=== PATIENT | male | born 1975 | race Caucasian/White ===

== ENCOUNTER 2016-11-25 09:16 | Inpatient (IN) | payer OTHER ==
[~2016-11-25] VITALS: Ht 185.4 cm; Wt 84.3 kg
[2016-11-25] VITALS (9 sets, daily range): BP systolic 96–143; BP diastolic 51–98; PULSE 52–88; RESP 2–24; TEMP 96.6–98; O2SAT 90–99
[~2016-11-25 09:16] MED LIST: FURO1TAB93 PO; LACT20SO4 PO; OXYC5 PO; PALI3 PO; PANT40IN3 PO; PROP1TAB66 PO; RIFA550 PO; SPIR50 PO; THIA100T PO
--- NOTE | 2016-11-25 09:39 | PD ---
HPI Chief Complaint: Respiratory Symptoms Time Seen by Provider: 09:25 Travel History International Travel<30 days: No Contact w/Intl Traveler<30days: No Traveled to known affect area: No History of Present Illness HPI 41yo M with PMH of cirrhosis, chronic alcohol abuse presents to the ED with c/o worsening sob for 2 weeks. Pt also with epigastric abdominal pain that radiates to left chest. Denies any fever, n/v, urinary complaints. Pt was admitted 08/03/16-09/06/16 for septic shock with right pleural effusion/ pneumonia. Pt has hospice follow up at home and was instructed by hospice nurse to come to the ED because of worsening sob. Pt states last alcohol drink was yesterday. PFSH Past Medical History Hx Anticoagulant Therapy: No Anxiety: Yes Cancer: No Cardiovascular Problems: Yes Chemotherapy: No Cirrhosis: Yes Cerebrovascular Accident: No Diabetes: No Diminished Hearing: No Endocrine: No Genitourinary: No Hepatitis: Yes (pt. denies) Hypertension: Yes Implanted Vascular Access Dvce: No Musculoskeletal: Yes (SCOLIOSIS, KNEE & SHOULDER INJURIES) Neurologic: Yes (SEIZURES ("ALL ALCOHOL RELATED" PER PT)) Reproductive: No Respiratory: No Seizures: Yes Menopausal: Yes Past Surgical History Hysterectomy: No Oral Surgery: Yes (jaw) Other Surgery: Yes ( LEFT KNEE & RIGHT SHOULDER) Social History Alcohol Use: Yes ( 6 mixed drinks daily ) Tobacco Use: No Substance Use: Yes (pot) Allergies-Medications (Allergen,Severity, Reaction): Coded Allergies: *MDRO Multi-Drug Resistant Organism (Verified Adverse Reaction, Unknown, ) MRSA PCR Screen (nares) POSITIVE - 08/03/16 Reported Meds & Prescriptions Reported Meds & Active Scripts Active Reported Thiamine (Thiamine HCl) 100 Mg Tab 100 Mg PO DAILY Ativan (Lorazepam) 1 Mg Tab 1 Mg PO BID Lorazepam 1 Mg Tab 1 Mg PO/SL Q3HR PRN Lorazepam 2 Mg Tab 2 Mg PO Q3HR PRN Lactulose Liq (Lactulose) 10 Gm/15 Ml Soln 45 Ml PO TID Ibuprofen 400 Mg Tab 400 Mg PO Q6H PRN Advil (Ibuprofen) 200 Mg Tab 200 Mg PO Q6H PRN Haloperidol 2 Mg Tab 2 Mg PO Q3HR PRN Haloperidol 1 Mg Tab 1 Mg PO/SL Q3HR PRN Lasix (Furosemide) 20 Mg Tab 10 Mg PO DAILY Lasix (Furosemide) 20 Mg Tab 20 Mg PO DAILY PRN Divalproex DR (Divalproex Sodium) 250 Mg Tabdr 250 Mg PO BID Dexamethasone 2 Mg Tab 2 Mg PO DAILY Celexa (Citalopram Hydrobromide) 40 Mg Tab 40 Mg PO DAILY Aldactone (Spironolactone) 25 Mg Tab 10 Mg PO/SL BID Propranolol (Propranolol HCl) 10 Mg Tab 5 Mg PO Q12HR Omeprazole 40 Mg Cap 40 Mg PO DAILY Morphine Liq (Morphine Sulfate) 20 Mg/Ml Liq 10 Mg PO/SL Q4H PRN Morphine Liq (Morphine Sulfate) 20 Mg/Ml Liq 5 Mg PO/SL Q4H PRN Review of Systems Except as stated in HPI: all other systems reviewed are Neg Physical Exam Narrative GENERAL: 41yo M in moderate distress. SKIN: Warm and dry. HEAD: Atraumatic. Normocephalic. EYES: Pupils equal and round. No scleral icterus. No injection or drainage. ENT: No nasal bleeding or discharge. Mucous membranes pink and moist. NECK: Trachea midline. No JVD. CARDIOVASCULAR: Regular rate and rhythm. No murmur appreciated. RESPIRATORY: Positive accessory muscle use. Decreased breath sounds on right. Tachypneic. Saturating at 94% on RA. GASTROINTESTINAL: Abdomen softly distended. +TTP epigastric region. No rebound tenderness or guarding. MUSCULOSKELETAL: No obvious deformities. No clubbing. No cyanosis. NEUROLOGICAL: Awake and alert. No obvious cranial nerve deficits. Motor grossly within normal limits. Normal speech. PSYCHIATRIC: Appropriate mood and affect; insight and judgment normal. Data Data Last Documented VS Vital Signs Date Time Temp Pulse Resp B/P Pulse Ox O2 Delivery O2 Flow Rate FiO2 11/25/16 11:03 92 Nasal Cannula 3.00 11/25/16 09:49 78 24 141/98 11/25/16 09:20 98.0 Orders Complete Blood Count With Diff (11/25/16 09:33) Comprehensive Metabolic Panel (11/25/16 09:33) Act Partial Throm Time (Ptt) (11/25/16 09:33) Prothrombin Time / Inr (Pt) (11/25/16 09:33) Magnesium (Mg) (11/25/16 09:33) Ckmb (Isoenzyme) Profile (11/25/16 09:33) Troponin I (11/25/16 09:33) Iv Access Insert/Monitor (11/25/16 09:33) Ecg Monitoring (11/25/16 09:33) Oximetry (11/25/16 09:33) Oxygen Administration (11/25/16 09:33) Chest, Single Ap (11/25/16 09:33) Sodium Chloride 0.9% Flush (Ns Flush) (11/25/16 09:45) Lactic Acid Sepsis Protocol (11/25/16 09:33) Ammonia (11/25/16 09:33) Lipase (11/25/16 09:33) Blood Culture (11/25/16 09:49) Aztreonam Inj (Azactam Inj) (11/25/16 09:49) Azithromycin Inj (Zithromax Inj) (11/25/16 09:49) Sodium Chlor 0.9% 1000 Ml Inj (Ns 1000 M (11/25/16 10:30) Sodium Chlor 0.9% 1000 Ml Inj (Ns 1000 M (11/25/16 10:30) Sodium Chlor 0.9% 1000 Ml Inj (Ns 1000 M (11/25/16 10:30) Arterial Blood Gas (Abg) (11/25/16 ) CKMB (11/25/16 09:57) CKMB% (11/25/16 09:57) Electrocardiogram (11/25/16 09:38) Admit Order (Ed Use Only) (11/25/16 11:13) Labs Laboratory Tests Test 11/25/16 11/25/16 09:57 10:51 White Blood Count 16.2 TH/MM3 Red Blood Count 5.28 MIL/MM3 Hemoglobin 17.0 GM/DL Hematocrit 49.1 % Mean Corpuscular Volume 93.0 FL Mean Corpuscular Hemoglobin 32.1 PG Mean Corpuscular Hemoglobin 34.6 % Concent Red Cell Distribution Width 15.1 % Platelet Count 124 TH/MM3 Mean Platelet Volume 8.6 FL Neutrophils (%) (Auto) 77.2 % Lymphocytes (%) (Auto) 11.5 % Monocytes (%) (Auto) 11.0 % Eosinophils (%) (Auto) 0.2 % Basophils (%) (Auto) 0.1 % Neutrophils # (Auto) 12.5 TH/MM3 Lymphocytes # (Auto) 1.9 TH/MM3 Monocytes # (Auto) 1.8 TH/MM3 Eosinophils # (Auto) 0.0 TH/MM3 Basophils # (Auto) 0.0 TH/MM3 CBC Comment DIFF FINAL Differential Comment Prothrombin Time 14.3 SEC Prothromb Time International 1.3 RATIO Ratio Activated Partial 27.7 SEC Thromboplast Time Sodium Level 139 MEQ/L Potassium Level 4.1 MEQ/L Chloride Level 102 MEQ/L Carbon Dioxide Level 29.8 MEQ/L Anion Gap 7 MEQ/L Blood Urea Nitrogen 20 MG/DL Creatinine 0.67 MG/DL Estimat Glomerular Filtration 131 ML/MIN Rate Random Glucose 148 MG/DL Lactic Acid Level 1.8 mmol/L Calcium Level 8.6 MG/DL Magnesium Level 2.4 MG/DL Total Bilirubin 1.4 MG/DL Aspartate Amino Transf 34 U/L (AST/SGOT) Alanine Aminotransferase 59 U/L (ALT/SGPT) Alkaline Phosphatase 109 U/L Ammonia 18 MCMOL/L Total Creatine Kinase 137 U/L Creatine Kinase MB 1.8 NG/ML Troponin I LESS THAN 0.02 NG/ML Total Protein 7.4 GM/DL Albumin 3.1 GM/DL Lipase 266 U/L Blood Gas Puncture Site RT RADIAL Blood Gas Patient Temperature 98.6 Blood Gas HCO3 27 mmol/L Blood Gas Base Excess 3.6 mmol/L Blood Gas Oxygen Saturation 90 % Arterial Blood pH 7.47 Arterial Blood Partial 38 mmHg Pressure CO2 Arterial Blood Partial 70 mmHG Pressure O2 Arterial Blood Oxygen Content 20.3 Vol % Arterial Blood 2.1 % Carboxyhemoglobin Arterial Blood Methemoglobin 1.9 % Blood Gas Hemoglobin 16.0 G/DL Oxygen Delivery Device NASAL CANNULA Blood Gas Liter Flow 3 L/M MDM Medical Decision Making Medical Screen Exam Complete: Yes Emergency Medical Condition: Yes Interpretation(s) EKG: NSR 81bpm. Normal axis. TWI III. Differential Diagnosis Pleural effusion vs. pneumonia vs. worsening sob secondary to abdominal distension Narrative Course 41yo M with cirrhosis and recent right pleural effusion here with sob. Labs reviewed, leukocytosis at 16.2. Lactic acid 1.8. BUN elevated at 20. Troponin negative. CXR showed complete consolidation of right hemithorax. CT chest ordered to further evaluate and showed very large right pleural effusion with complete collapse of right lung. Pt given NS IVF and azithromycin, aztreonam. Discussed with Dr. Severino and Dr. Gordon who will be admitting pt. Critical Care Narrative Aggregate critical care time was 45 minutes. Time to perform other separately billable procedures was not included in the critical care time. My time did not include minutes spent treating any other patients simultaneously or on activities that did not directly contribute to the patient's treatment. The services I provided to this patient were to treat and/or prevent clinically significant deterioration that could result in: cardiovascular collapse or . I provided critical care services requiring my management, as noted below: Chart data review, documentation time, medication orders and management, vital sign assessments/reviewing monitor data, ordering and reviewing lab tests, ordering and interpreting/reviewing x-rays and diagnostic studies, care of the patient and discussion of the patient with the admitting physicians. Diagnosis Primary Impression: Pleural effusion, right Admitting Information Admitting Physician Requests: Lala Adorno DO Nov 25, 2016 09:39
[2016-11-25] MEDS ORDERED: SODIUM CHLORIDE 0.9% FLUSH 5 ML FLUSH IVF PRN (09:45)
[2016-11-25] MEDS ORDERED: AZITHROMYCIN INJ 500 MG in SODIUM CHLOR 0.9% 250 ML INJ 250 ML IV STA (09:49)
[2016-11-25] MEDS ORDERED: AZTREONAM INJ 2,000 MG in SODIUM CHLORIDE 0.9% INJ 100 ML IV STA (09:49)
--- NOTE | 2016-11-25 10:03 | RADRPT ---
EXAM DATE/TIME: 11/25/2016 09:31 [facility] COMPARISON: CHEST SINGLE AP, September 01, 2016, 13:42. INDICATIONS : Short of breath. Pt. c/o heart palpitations. MEDICAL HISTORY : H/O Pleural Effusion.Hypertension, Hepatitis C, Cirrhosis, Seizures, Anx iety SURGICAL HISTORY : Total knee replacement, left Rotator cuff, right. Jaw surgery. ENCOUNTER: Initial ACUITY: 2 days PAIN SCORE: 0/10 LOCATION: Bilateral chest FINDINGS: AP upright portable view of the chest demonstrates complete opacification of the right hemithorax. Th e trachea remains midline. The left hemithorax is clear. The pulmonary vasculature appears normal in caliber. Osseous structures are unremarkable. CONCLUSION: Complete consolidation of the right hemithorax without evidence of midline shift. Mary Bradley MD on November 25, 2016 at 10:01 Board Certified Radiologist. This report was verified electronically.
[2016-11-25 10:12] LABS: AUTOMATED NEUTROPHIL # 12.5 TH/MM3 (1.8-7.7); BASOPHIL % 0.1 % (0.0-2.0); EOSINOPHIL % 0.2 % (0.0-4.0); HEMATOCRIT 49.1 % (39.0-51.0); HEMO FLAGS DIFF FINAL; LYMPH % 11.5 % (9.0-44.0); LYMPHOCYTE # 1.9 TH/MM3 (1.0-4.8); MEAN CORPUSCULAR HEMOGLOBIN 32.1 PG (27.0-34.0); MEAN CORPUSCULAR HGB CONC 34.6 % (32.0-36.0); NEUT % 77.2 % (16.0-70.0); PLATELET COUNT 124 TH/MM3 (150-450); RED BLOOD COUNT 5.28 MIL/MM3 (4.50-5.90); RED CELL DISTRIBUTION WIDTH 15.1 % (11.6-17.2); WHITE BLOOD COUNT 16.2 TH/MM3 (4.0-11.0)
[2016-11-25 10:21] LABS: APTT (PATIENT) 27.7 SEC (24.3-30.1); INTERNATIONAL NORMALIZED RATIO 1.3 RATIO; PROTHROMBIN TIME - PATIENT 14.3 SEC (9.8-11.6)
[2016-11-25 10:30] LABS: ALT (GPT) 59 U/L (12-78); ANION GAP 7 MEQ/L (5-15); AST (GOT) 34 U/L (15-37); BICARBONATE 29.8 MEQ/L (21.0-32.0); BLOOD UREA NITROGEN 20 MG/DL (7-18); CHLORIDE 102 MEQ/L (98-107); GLOMERULAR FILTRATION RATE 131 ML/MIN (>89); MAGNESIUM 2.4 MG/DL (1.5-2.5); POTASSIUM 4.1 MEQ/L (3.5-5.1); SODIUM (NA) 139 MEQ/L (136-145)
[2016-11-25] MEDS ORDERED: SODIUM CHLOR 0.9% 1000 ML INJ 1,000 ML IV ONE ×3 (10:30)
[2016-11-25 10:33] LABS: ALKALINE PHOSPHATASE 109 U/L (45-117); CREATINE KINASE 137 U/L (39-308); TOTAL BILIRUBIN ADULT 1.4 MG/DL (0.2-1.0)
[2016-11-25 10:46] LABS: CKMB 1.8 NG/ML (0.5-3.6)
[2016-11-25] MEDS ORDERED: OMEP40CA2 PO (10:55)
[2016-11-25] MEDS ORDERED: MORP20SO2 PO/SL (10:55)
[2016-11-25] MEDS ORDERED: PROP10TA6 PO (10:55)
[2016-11-25] MEDS ORDERED: SPIR25 PO/SL (10:56)
[2016-11-25 11:02] LABS: BLOOD GAS BASE EXCESS 3.6 mmol/L (-2-2); BLOOD GAS CARBOXYHEMOGLOBIN 2.1 % (0-4); BLOOD GAS HCO3 27 mmol/L (22-26); BLOOD GAS METHEMOGLOBIN 1.9 % (0-2); BLOOD GAS O2 HGB SATURATION 90 % (90-100); BLOOD GAS OXYGEN CONTENT 20.3 Vol % (12.0-20.0); BLOOD GAS PCO2 38 mmHg (38-42); BLOOD GAS PO2 70 mmHG (61-120); CRITICAL VALUE NO; OXYGEN DEVICE NASAL CANNULA; TEMP CORR TO 98.6
[2016-11-25 11:03] LABS: DRAW SITE RT RADIAL; LITER FLOW 3 L/M; NUMBER OF ARTERIAL PUNCTURES 1; STAT YES; ULNAR PULSE PRESENT
[2016-11-25] MEDS ORDERED: DEXA2TAB PO (11:03)
[2016-11-25] MEDS ORDERED: FURO1TAB62 PO (11:03)
[2016-11-25] MEDS ORDERED: HALO2TAB PO (11:03)
[2016-11-25] MEDS ORDERED: DIVA250T PO (11:03)
[2016-11-25] MEDS ORDERED: HALO1TAB PO/SL (11:03)
[2016-11-25] MEDS ORDERED: CELE40TA PO (11:03)
[2016-11-25] MEDS ORDERED: LACT10SO PO (11:11)
[2016-11-25] MEDS ORDERED: IBUP-988 PO (11:11)
[2016-11-25] MEDS ORDERED: IBUP400T20 PO (11:11)
[2016-11-25] MEDS ORDERED: LORA1TAB12 PO/SL (11:14)
[2016-11-25] MEDS ORDERED: LORA-474 PO (11:14)
[2016-11-25] MEDS ORDERED: LORA2TAB7 PO (11:14)
[2016-11-25] MEDS ORDERED: THIA100T PO (11:20)
[2016-11-25] MEDS ORDERED: PIPERACIL-TAZO 4.5 GM PREMIX 100 ML IV SCH (11:30)
[2016-11-25] MEDS ORDERED: RESP: ALBUTEROL 2.5 MG/IPRATROPIUM 0.5 MG NEB (PRN) INH (11:45)
[2016-11-25] MEDS ORDERED: MISCELLANEOUS NURSING INFORMATION XX SCH (11:45)
[2016-11-25] MEDS ORDERED: CHLORHEXIDINE GLUCONATE 2 % 1 PACK (2 CLOTHS) TOP PRN (11:45)
[2016-11-25] MEDS ORDERED: SODIUM CHLORIDE 0.9% FLUSH 5 ML FLUSH IV FLUSH PRN (11:45)
--- NOTE | 2016-11-25 12:01 | RADRPT ---
EXAM DATE/TIME: 11/25/2016 11:37 [facility] COMPARISON: CHEST SINGLE AP, November 25, 2016, 9:31. CT THORAX W/O CONTRAST, August 03, 2016, 22:28. INDICATIONS : Shortness of breath and chest pain. RADIATION DOSE: 6.29 CTDIvol (mGy) ; Combined studies - Thorax/Abdomen/Pelvis MEDICAL HISTORY : Hepatitis C. Hypertension. SURGICAL HISTORY : None. ENCOUNTER: Initial ACUITY: 1 day PAIN SCALE: 0/10 LOCATION: chest TECHNIQUE: Volumetric scanning of the chest was performed. Using automated exposure control and adjustment of t he mA and/or kV according to patient size, radiation dose was kept as low as reasonably achievable to obtain optimal diagnostic quality images. FINDINGS: LUNGS: There is a very large right-sided pleural effusion with complete collapse of the right lung. There is some mediastinal shift to the left. The left lung is clear and well aerated. No focal infiltrates ar e seen in the left lung. PLEURAE: Very large right pleural effusion. No left effusion. MEDIASTINUM: The heart and great vessels demonstrate no acute abnormality. There is no mediastinal or hilar lymph adenopathy. Mediastinal shift to the left. AXILLAE: Within normal limits. No lymphadenopathy. MUSCULOSKELETAL: Within normal limits for patient age. MISCELLANEOUS: The visualized upper abdominal organs demonstrate no acute abnormality. CONCLUSION: Very large right pleural effusion with complete collapse of the right lung. Sudhakar Zapata MD on November 25, 2016 at 11:56 Board Certified Radiologist. This report was verified electronically.
--- NOTE | 2016-11-25 12:02 | HHI.HP ---
[facility] Service Critical Care Medicine Primary Care Physician No Primary Care Physician Admission Diagnosis Sepsis Diagnosis: (1) Sepsis Diagnosis: Principal (2) Respiratory insufficiency Diagnosis: Principal (3) Pleural effusion, right Diagnosis: Principal (4) Collapse of right lung Diagnosis: Principal (5) Probable pneumonia Diagnosis: Principal (6) Seizure Diagnosis: Secondary (7) Liver failure Diagnosis: Secondary (8) Alcohol dependence Diagnosis: Secondary (9) Alcohol-induced cirrhosis Chief Complaint: Shortness of breath Sepsis Very large right pleural effusion Travel History International Travel<30 Days: No Contact w/Intl Traveler <30 Da: No Traveled to Known Affected Are: No Sepsis Criteria SIRS Criteria (2 or more): RR > 20 or PaCO2 < 32, WBC > 96603, < 4000 or > 10 % bands Sepsis Criteria (SIRS+source): Infect source susp/known Criteria Outcome: Meets sepsis criteria History of Present Illness Patient is a 41-year-old male with history alcohol-induced cirrhosis, alcohol dependence and continued use, history of alcohol withdrawal seizures who presented to the emergency department with increasing shortness of breath worsening over the last 2 weeks. Also complains of epigastric pain. He was recently admitted to the hospital from 08/03/16 - 09/06/16 for sepsis from pneumonia. Workup showed patient had a white count of 16,000 with 77% neutrophils. A chest x-ray showed large right effusion with complete opacification of right lung field. CT of the chest confirmed very large right effusion with mediastinal shift and complete right lung atelectasis. CT abdomen pelvis shows large amount of ascites and liver cirrhosis. Critical- care medicine was consulted for admission I evaluated the patient in the ED he is in moderate distress due to shortness of breath. He is lying on his right side. I explained him the plan is to place right sided pigtail chest tube as a pleural effusion is very large. He is agreeable to the procedure. I have also placed him on single dose of vancomycin and continuos Zosyn 4.5 g every 6 hours. Lasix will be held at this time, continue Aldactone. IV normal saline and IV albumin added. Was also noted the patient's last alcoholic drink was yesterday evening. Review of Systems ROS Limitations: Other (as per HPI) Eyes: DENIES: Photosensitivity Past Family Social History 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 - 08/03/16 Past Medical History Alcoholic cirrhosis Anxiety Recent admission for sepsis from pneumonia Alcohol dependence Past Surgical History Right shoulder and left knee surgery History of Jaw surgery Reported Medications Haloperidol 2 Mg Tab 2 Mg PO Q3HR PRN Haloperidol 1 Mg Tab 1 Mg PO/SL Q3HR PRN Lasix (Furosemide) 20 Mg Tab 10 Mg PO DAILY Lasix (Furosemide) 20 Mg Tab 20 Mg PO DAILY PRN Divalproex DR (Divalproex Sodium) 250 Mg Tabdr 250 Mg PO BID Dexamethasone 2 Mg Tab 2 Mg PO DAILY Celexa (Citalopram Hydrobromide) 40 Mg Tab 40 Mg PO DAILY Aldactone (Spironolactone) 25 Mg Tab 10 Mg PO/SL BID Propranolol (Propranolol HCl) 10 Mg Tab 5 Mg PO Q12HR Omeprazole 40 Mg Cap 40 Mg PO DAILY Morphine Liq (Morphine Sulfate) 20 Mg/Ml Liq 10 Mg PO/SL Q4H PRN Morphine Liq (Morphine Sulfate) 20 Mg/Ml Liq 5 Mg PO/SL Q4H PRN Active Ordered Medications Reviewed Family History Reviewed Social History Continues to drink alcohol about 6 drinks daily Smokes marijuana Physical Exam Vital Signs Vital Signs Date Time Temp Pulse Resp B/P Pulse Ox O2 Delivery O2 Flow Rate FiO2 11/25/16 11:03 92 Nasal Cannula 3.00 11/25/16 09:49 78 24 141/98 93 Nasal Cannula 2 11/25/16 09:47 95 Nasal Cannula 3 11/25/16 09:20 98.0 88 24 135/85 94 Room Air Physical Exam GENERAL: 41yo M in moderate distress, lying on his right side. Appears critically ill. SKIN: Warm and dry. HEAD: Atraumatic. Normocephalic. EYES: Pupils equal and round. No scleral icterus. ENT: No nasal bleeding or discharge. Mucous membranes pink and moist. NECK: Trachea midline. No JVD. CARDIOVASCULAR: Regular rate and rhythm. No murmur appreciated. RESPIRATORY: Positive accessory muscle use. Diminished to absent breath sounds on right. Tachypneic. GASTROINTESTINAL: Abdomen distended, soft, fluid thrill present. MUSCULOSKELETAL: No obvious deformities. No clubbing. No cyanosis. No edema. NEUROLOGICAL: Awake and alert. No obvious cranial nerve deficits. Motor grossly within normal limits. Normal speech. Slightly tremulous Laboratory Laboratory Tests Test 11/25/16 11/25/16 09:57 10:51 White Blood Count 16.2 Red Blood Count 5.28 Hemoglobin 17.0 Hematocrit 49.1 Mean Corpuscular Volume 93.0 Mean Corpuscular Hemoglobin 32.1 Mean Corpuscular Hemoglobin 34.6 Concent Red Cell Distribution Width 15.1 Platelet Count 124 Mean Platelet Volume 8.6 Neutrophils (%) (Auto) 77.2 Lymphocytes (%) (Auto) 11.5 Monocytes (%) (Auto) 11.0 Eosinophils (%) (Auto) 0.2 Basophils (%) (Auto) 0.1 Neutrophils # (Auto) 12.5 Lymphocytes # (Auto) 1.9 Monocytes # (Auto) 1.8 Eosinophils # (Auto) 0.0 Basophils # (Auto) 0.0 CBC Comment DIFF FINAL Differential Comment Prothrombin Time 14.3 Prothromb Time International 1.3 Ratio Activated Partial 27.7 Thromboplast Time Sodium Level 139 Potassium Level 4.1 Chloride Level 102 Carbon Dioxide Level 29.8 Anion Gap 7 Blood Urea Nitrogen 20 Creatinine 0.67 Estimat Glomerular Filtration 131 Rate Random Glucose 148 Lactic Acid Level 1.8 Calcium Level 8.6 Magnesium Level 2.4 Total Bilirubin 1.4 Aspartate Amino Transf 34 (AST/SGOT) Alanine Aminotransferase 59 (ALT/SGPT) Alkaline Phosphatase 109 Ammonia 18 Total Creatine Kinase 137 Creatine Kinase MB 1.8 Troponin I LESS THAN 0.02 Total Protein 7.4 Albumin 3.1 Lipase 266 Blood Gas Puncture Site RT RADIAL Blood Gas Patient Temperature 98.6 Blood Gas HCO3 27 Blood Gas Base Excess 3.6 Blood Gas Oxygen Saturation 90 Arterial Blood pH 7.47 Arterial Blood Partial 38 Pressure CO2 Arterial Blood Partial 70 Pressure O2 Arterial Blood Oxygen Content 20.3 Arterial Blood 2.1 Carboxyhemoglobin Arterial Blood Methemoglobin 1.9 Blood Gas Hemoglobin 16.0 Oxygen Delivery Device NASAL CANNULA Blood Gas Liter Flow 3 Date/Time Procedure Status Source Growth 11/25/16 09:57 Aerobic Blood Culture Received Blood Peripheral Pending 11/25/16 09:57 Anaerobic Blood Culture Received Blood Peripheral Pending Result Diagram: 11/25/16 0957 11/25/16 0957 Imaging Chest x-ray and CT chest shows very large right pleural effusion with right lung collapse CT abdomen pelvis shows large ascites Septic Shock Reassessment Heart: Regular rate and rhythm Lungs: Course, Diminished Peripheral Pulses: Weak Right Radial Weak Left Radial Assessment and Plan Assessment and Plan Problem list: Sepsis Respiratory insufficiency Large right pleural effusion with complete collapse of right lung, mediastinal shift Suspected pneumonia Ascites Alcohol-induced liver cirrhosis Alcohol dependence Plan by system: Neuro: Alcohol dependence History of seizures from alcohol withdrawal -Monitor neuro status. We will use Ativan when necessary to avoid alcohol withdrawal. Scheduled Librium. Thiamine 100 mg daily. Cardiovascular: -Hemodynamically stable at this time, continue IV maintenance fluid with normal saline -IV albumin 25 g every 8 hours -Hold Lasix, continue Aldactone Pulmonary: Very large right pleural effusion with right lung collapse and mass effect Respiratory insufficiency Possible pneumonia -Supplemental O2 as needed. Bronchodilators when necessary. -Plan for R pigtail chest tube placement. Send for fluid studies -Broad-spectrum antibiotics with Zosyn and single dose of vancomycin GI/liver: Alcoholic liver disease Ascites -CT abdomen and pelvis -large amount of ascites and cirrhotic liver -Continue lactulose -Diagnostic and therapeutic paracentesis in 24 hours -Continue Inderal and Aldactone. Hold Lasix Renal/: -Continue normal saline IV fluid. Monitor renal function closely ID: Sepsis Suspected pneumonia -IV vancomycin single dose and Zosyn 4.5 g every 6 hours -Follow up on blood and sputum culture. Pleural fluid studies and culture -Paracentesis within 24 hours Endocrine: -SSI for glycemic control if needed. -Electrolyte replacement protocol Heme: -Follow CBC -Watchful coagulopathy and thrombocytopenia Prophylaxis: -PPI/SCDs/Lovenox in 24 hours after procedures are completed CCT 45 MIN Code Status Full Discussed Condition With Dr. Holland, Problem Qualifiers (1) Sepsis: Qualified Code: A41.9 - Sepsis, due to unspecified organism (2) Alcohol dependence: Ton Gordon MD Nov 25, 2016 12:02
--- NOTE | 2016-11-25 12:05 | RADRPT ---
EXAM DATE/TIME: 11/25/2016 11:37 [facility] COMPARISON: CT ABDOMEN & PELVIS W/O CONTRAST, August 03, 2016, 22:28. INDICATIONS : Epigastric pain that radiates to the left chest. ORAL CONTRAST: No oral contrast ingested. RADIATION DOSE: 6.29 CTDIvol (mGy) ; Combined studies - Thorax/Abdomen/Pelvis MEDICAL HISTORY : Hypertension. Hepatitis C. SURGICAL HISTORY : None. ENCOUNTER: Initial ACUITY: 1 day PAIN SCALE: 5/10 LOCATION: chest TECHNIQUE: Volumetric scanning of the abdomen and pelvis was performed. Using automated exposure control and adjustment of the mA and/or kV according to patient size, radiation dose was kept as low as reasonably achievable to obtain optimal diagnostic quality images. FINDINGS: LOWER LUNGS: There is a large right-sided pleural effusion with compressive atelectasis of the ri ght lung. This causes mild mass effect upon the heart displacing it are there left within the left he mithorax. Compressive atelectasis is seen within the left lung base. No visible pericardial effusion. LIVER: The liver is decreased in size with heterogeneous attenuation and nodular contour consiste nt with cirrhosis. Stable cholelithiasis. There is adjacent large volume ascites. SPLEEN: The spleen is normal in size. PANCREAS: Within normal limits. KIDNEYS: Normal in size and shape. There is no mass, stone, or hydronephrosis. ADRENAL GLANDS: Within normal limits. VASCULAR: There is no aortic aneurysm. BOWEL/MESENTERY: The stomach, small bowel, and colon demonstrate no acute abnormality. ABDOMINAL WALL: Within normal limits. RETROPERITONEUM: There is no lymphadenopathy. BLADDER: No wall thickening or mass. REPRODUCTIVE: Within normal limits. INGUINAL: There is no lymphadenopathy or hernia. MUSCULOSKELETAL: Within normal limits for patient age. CONCLUSION: Large right-sided pleural effusion with adjacent compressive atelectasis of the right lung. There is mass effect on the heart displacing it leftward within the thoracic cavity. There is a large amount of ascites which is not significantly changed as compared to the prior exam. The liver has a cirrhotic appearance. Mary Bradley MD on November 25, 2016 at 11:59 Board Certified Radiologist. This report was verified electronically.
[2016-11-25] MEDS ORDERED: MORPHINE SULFATE ORAL SOLN 10 MG/0.5 ML SYRINGE PO/SL PRN (12:15)
[2016-11-25] MEDS ORDERED: PILL SPLITTER OTHER PRN (12:30)
[2016-11-25] MEDS: RESP: ALBUTEROL 2.5 MG/IPRATROPIUM 0.5 MG NEB (SCH) INH ×4 (13:21→23:14)
[2016-11-25] MEDS: SODIUM CHLOR 0.9% 1000 ML INJ 1,000 ML IV SCH (14:17)
[2016-11-25] MEDS: PIPERACIL-TAZO 4.5 GM PREMIX 100 ML IV SCH ×2 (14:19→20:06)
[2016-11-25] MEDS: LACTULOSE SYRUP 20 GM/30 ML CUP PO SCH ×2 (15:41→18:00)
--- NOTE | 2016-11-25 17:30 | PD.PROCEDR ---
Procedure Note Procedure R Pig tail chest tube Indication: Large right pleural effusion A time-out was completed verifying correct patient, procedure, site, positioning , and equipment if applicable. The patient's right side was prepped and draped in a sterile manner after the appropriate infiltration level was confirmed by ultrasound. 1% lidocaine was used anesthetize the surrounding skin. A 10-blade scalpel used to make the incision. 18 G Access needle was then introduced without difficulty and guidewire was placed and needle was removed. 7 Tongan dilator was used. Following this the 8 Tongan pigtail Catheter advanced over the guidewire and connected to the Pleur-evac system. Chest tube was draining cloudy yellow (very sligh greenish tinge) pleural fluid. Occlusive dressing placed. A post-procedure chest x-ray was ordered and the fluid will be sent for several studies. Estimated Blood Loss: <1 ml. The patient tolerated the procedure well and there were no immediate complications. Ton Gordon MD Nov 25, 2016 17:30
[2016-11-25] MEDS ORDERED: Vancomycin Consult Pharmacy 1 EA OTHER SCH (17:45)
[2016-11-25] MEDS: SPIRONOLACTONE 25 MG TAB PO SCH (17:51)
[2016-11-25] MEDS: ALBUMIN HUMAN 25% 25 GM/100 ML BAGP IV SCH (17:51)
--- NOTE | 2016-11-25 17:59 | RADRPT ---
EXAM DATE/TIME: 11/25/2016 17:42 [facility] COMPARISON: CT THORAX W/O CONTRAST, November 25, 2016, 11:37. CHEST SINGLE AP, November 25, 2016, 9:31. INDICATIONS : Post right lung chest tube placement. MEDICAL HISTORY : Hypertension. Hepatitis C. SURGICAL HISTORY : None. ENCOUNTER: Subsequent ACUITY: 1 day PAIN SCORE: Non-responsive. LOCATION: Right chest FINDINGS: Small bore chest tube has been placed on the right with moderate fluid remaining on the right. The l eft lung is clear. Heart and pulmonary vascularity are normal. CONCLUSION: Large pleural effusion on the right. There has been no change following placement of small bore chest tube. Irineo Mattson MD FACR on November 25, 2016 at 17:50 Board Certified Radiologist. This report was verified electronically.
[2016-11-25] MEDS ORDERED: VANCOMYCIN INJ 1,250 MG in SODIUM CHLOR 0.9% 250 ML INJ 250 ML IV ONE (19:00)
[2016-11-25 19:29] LABS: CHOLESTEROL, PLEURAL FLUID LESS THAN 50 MG/DL
--- NOTE | 2016-11-25 19:36 | EKG ---
Date Performed: 11/25/2016 Time Performed: 09:38:56 PTAGE: 41 years EKG: Sinus rhythm WITH SHORT PA INTERVAL BORDERLINE ECG PREVIOUS TRACING : 08/03/2016 13.03 Compared to the previous tracing, rate slower DOCTOR: Francheska Armendariz Interpretating Date/Time 11/25/2016 19:35:02
[2016-11-25 19:40] LABS: LIPASE-PLEURAL FLUID 28 U/L
[2016-11-25] MEDS: DEXMEDETOMIDINE INJ 50 ML IV SCH ×2 (20:05→23:11)
[2016-11-25] MEDS: SODIUM CHLORIDE 0.9% FLUSH 5 ML FLUSH IV FLUSH SCH (20:06)
[2016-11-25] MEDS: VANCOMYCIN INJ 1,750 MG in SODIUM CHLORID 0.9% 500 ML INJ 500 ML IV SCH (20:12)
[2016-11-25] MEDS: DIVALPROEX SODIUM DELAYED RELEASE 250 MG TAB PO SCH (20:21)
[2016-11-25 20:52] LABS: PLEURAL FLUID LYMPHS 40 %; PLEURAL FLUID PH 8.5
[2016-11-25] MEDS ORDERED: MIDAZOLAM HCL 5 MG/ML VIAL (1 ML) ONE (21:54)
[2016-11-25] MEDS ORDERED: MIDAZOLAM HCL 2 MG/2 ML VIAL IV SCH (22:00)
[2016-11-25] MEDS ORDERED: LIDOCAINE HCL 1% 50 ML VIAL ONE (22:04)
--- NOTE | 2016-11-25 22:06 | RADRPT ---
EXAM DATE/TIME: 11/25/2016 21:56 [facility] COMPARISON: CHEST SINGLE AP, November 25, 2016, 17:42. INDICATIONS : Short of breath. MEDICAL HISTORY : Hypertension. Hepatitis C. SURGICAL HISTORY : None. ENCOUNTER: Subsequent ACUITY: 1 day PAIN SCORE: Non-responsive. LOCATION: Bilateral chest FINDINGS: A single view of the chest demonstrates complete opacification right hemithorax. Slight tracheal shif t to the left. Left lung clear. The cardiomediastinal contours are unremarkable. Osseous structures are intact. CONCLUSION: 1. Complete opacification right hemithorax. 2. Left lung is clear. Magdiel Lucas MD on November 25, 2016 at 22:03 Board Certified Radiologist. This report was verified electronically.
[2016-11-25] MEDS ORDERED: SODIUM CHLOR 0.9% 1000 ML INJ 1,000 ML IV SCH (22:45)
[2016-11-25] MEDS ORDERED: ALBUMIN HUMAN 25% 25 GM/100 ML BAGP IV SCH (22:45)
--- NOTE | 2016-11-25 23:13 | RADRPT ---
EXAM DATE/TIME: 11/25/2016 22:55 [facility] COMPARISON: CHEST SINGLE AP, November 25, 2016, 21:56. INDICATIONS : Chest tube placement. MEDICAL HISTORY : Hypertension. Hepatitis C. SURGICAL HISTORY : None. ENCOUNTER: Subsequent ACUITY: 1 day PAIN SCORE: Non-responsive. LOCATION: Bilateral chest FINDINGS: There has been interval placement right thoracostomy tube which is present in good position with tip at the lung apex. Evacuation of large effusion is near complete with mild residual alveolar parenchym al opacity present diffusely within the right lung. Left lung remains focally clear. Cardiac contours are grossly satisfactory for technique and projection. CONCLUSION: Minimal thoracostomy tube placement with near complete evacuation of large effusion. Diffuse moderate alveolar disease in the right lung Evan Evangelista MD on November 25, 2016 at 23:10 Board Certified Radiologist. This report was verified electronically.
[2016-11-26] VITALS (17 sets, daily range): BP systolic 80–113; BP diastolic 51–73; PULSE 55–76; RESP 16–42; TEMP 94.8–99.3; O2SAT 87–97
--- NOTE | 2016-11-26 00:55 | PD.PROCEDR ---
Procedure Note Procedure Tube Thoracostomy Procedure Note Right 28 [place] chest tube placement Diagnosis: Recurrent right-sided pleural effusion Indications: Recurrent right-sided pleural effusion and pneumothorax with tension physiology Consent: Consent is deemed emergent or medically necessary Anesthesia: 1% lidocaine locally Description of the Procedure: The patient was placed in the supine position. The arm was abducted above the head and secured. The right lateral chest was prepped and draped sterilely to include the axilla and nipple. 1% Lidcaine was infiltrated subcutaneously and into the tissues down to the periosteum of the rib. The 5th intercostal space was identified. A small incision was made using a #15 blade. At the mid-axillary line, blunt dissection was performed until the rib was palpated. A Alyse clamp was used to bluntly enter the pleura immediately above the adjacent rib. The space was opened bluntly with the Alyse clamp. A finger was inserted and lung and pleura were felt. A 28 Fr chest tube was inserted along the course of the finger and into the pleural cavity easily and without resistance. The chest tube was connected to a Pleur-o -vac and connected to [id number] suction. The catheter was sutured to the skin using a 0 silk sandal suture and an occlusive dressing was applied. There were no immediate complications noted. The patient had immediate resolution of his acute hypoxemia, hypotension. There was minimal EBL. The patient tolerated the procedure well. Chest Tube output: 2500 cc of serous fluid A Chest x-ray has been ordered. I personally performed the procedure. Yifan Perrin MD Nov 26, 2016 00:54
[2016-11-26] MEDS: RESP: ALBUTEROL 2.5 MG/IPRATROPIUM 0.5 MG NEB (SCH) INH ×5 (03:22→23:07)
[2016-11-26] MEDS: PIPERACIL-TAZO 4.5 GM PREMIX 100 ML IV SCH ×3 (03:30→20:01)
[2016-11-26] MEDS: SODIUM CHLOR 0.9% 1000 ML INJ 1,000 ML IV SCH (03:30)
--- NOTE | 2016-11-26 03:41 | RADRPT ---
EXAM DATE/TIME: 11/26/2016 03:05 [facility] COMPARISON: CHEST SINGLE AP, November 25, 2016, 22:55. INDICATIONS : Evaluate for pulmonary disease. MEDICAL HISTORY : Hypertension. Hepatitis C. SURGICAL HISTORY : None. ENCOUNTER: Subsequent ACUITY: 2 days PAIN SCORE: Non-responsive. LOCATION: Bilateral chest FINDINGS: Right thoracostomy tube remains in good position. There is been increase in diffuse parenchymal opaci ty on the right, potentially reexpansion edema. Left lung is stable and grossly clear. CONCLUSION: Increasing diffuse parenchymal opacity on the right. Evan Evangelista MD on November 26, 2016 at 3:39 Board Certified Radiologist. This report was verified electronically.
[2016-11-26] MEDS: DEXMEDETOMIDINE INJ 50 ML IV SCH ×2 (04:00→06:22)
[2016-11-26 04:27] LABS: AUTOMATED NEUTROPHIL # 9.7 TH/MM3 (1.8-7.7); BASOPHIL % 0.1 % (0.0-2.0); EOSINOPHIL % 0.1 % (0.0-4.0); HEMATOCRIT 43.1 % (39.0-51.0); LYMPH % 11.7 % (9.0-44.0); LYMPHOCYTE # 1.4 TH/MM3 (1.0-4.8); MEAN CELL VOLUME 94.5 FL (80.0-100.0); MEAN CORPUSCULAR HEMOGLOBIN 31.2 PG (27.0-34.0); MONO % 7.6 % (0.0-8.0); NEUT % 80.5 % (16.0-70.0); PLATELET COUNT 59 TH/MM3 (150-450); RED BLOOD COUNT 4.55 MIL/MM3 (4.50-5.90); RED CELL DISTRIBUTION WIDTH 14.8 % (11.6-17.2)
[2016-11-26 04:33] LABS: HEMO FLAGS AUTO DIFF; INTERNATIONAL NORMALIZED RATIO 1.5 RATIO; PROTHROMBIN TIME - PATIENT 17.2 SEC (9.8-11.6)
[2016-11-26 05:11] LABS: ALKALINE PHOSPHATASE 61 U/L (45-117); ALT (GPT) 35 U/L (12-78); ANION GAP 9 MEQ/L (5-15); AST (GOT) 24 U/L (15-37); BICARBONATE 24.2 MEQ/L (21.0-32.0); BLOOD UREA NITROGEN 17 MG/DL (7-18); CHLORIDE 106 MEQ/L (98-107); GLOMERULAR FILTRATION RATE 287 ML/MIN (>89); POTASSIUM 4.3 MEQ/L (3.5-5.1); SODIUM (NA) 139 MEQ/L (136-145); TOTAL BILIRUBIN ADULT 2.7 MG/DL (0.2-1.0)
[2016-11-26] MEDS: ALBUMIN HUMAN 25% 25 GM/100 ML BAGP IV SCH ×2 (07:00→18:41)
[2016-11-26] MEDS: VANCOMYCIN INJ 1,750 MG in SODIUM CHLORID 0.9% 500 ML INJ 500 ML IV SCH ×3 (07:00→20:01)
[2016-11-26] MEDS: CHLORHEXIDINE GLUCONATE 2 % 1 PACK (2 CLOTHS) TOP SCH (07:00)
[2016-11-26 07:04] LABS: SCAN/DIFF AUTO DIFF CONFIRMED
[2016-11-26 07:05] LABS: PLATELET ESTIMATE SMEAR LOW (NORMAL); PLATELET MORPHOLOGY NORMAL (NORMAL)
--- NOTE | 2016-11-26 08:55 | HHI.CCPN ---
Subjective Remarks/Hospital Course Patient is a 41-year-old male with history alcohol-induced cirrhosis, alcohol dependence and continued use, history of alcohol withdrawal seizures who presented to the emergency department with increasing shortness of breath worsening over the last 2 weeks. Also complains of epigastric pain. He was recently admitted to the hospital from 08/03/16 - 09/06/16 for sepsis from pneumonia. Workup showed patient had a white count of 16,000 with 77% neutrophils. A chest x-ray showed large right effusion with complete opacification of right lung field. CT of the chest confirmed very large right effusion with mediastinal shift and complete right lung atelectasis. CT abdomen pelvis shows large amount of ascites and liver cirrhosis. Critical- care medicine was consulted for admission I evaluated the patient in the ED he is in moderate distress due to shortness of breath. He is lying on his right side. I explained him the plan is to place right sided pigtail chest tube as a pleural effusion is very large. He is agreeable to the procedure. I have also placed him on single dose of vancomycin and continuos Zosyn 4.5 g every 6 hours. Lasix will be held at this time, continue Aldactone. IV normal saline and IV albumin added. Was also noted the patient's last alcoholic drink was yesterday evening. SUBJ 11/26/16: Patient had right pigtail chest tube placed yesterday for large right sided pleural effusion with distention. 2.8 L of cloudy white pleural fluid evacuated. Unfortunately patient pulled out the chest tube and developed tension physiology again with reaccumulation of fluid. New 28 [place]zeri chest tube was placed emergently by Dr. Perrin, since placement chest tube has drained additional 3.4 L of slightly blood-tinged cloudy fluid. Fluid studies are consistent with transudative effusion most likely secondary to his ascites. Currently patient is sedated with Precedex requiring nonrebreather, oxygen saturation very from 90-94%. ABG ordered patient may need endotracheal intubation Objective Vital Signs Date Time Temp Pulse Resp B/P Pulse Ox O2 Delivery O2 Flow Rate FiO2 11/26/16 06:00 63 11/26/16 04:00 97.8 18 91/63 97 11/25/16 23:13 Partial Rebreather 15.00 Intake and Output 11/25/16 11/25/16 11/26/16 08:00 16:00 00:00 Intake Total 2046 ml Output Total 2300 ml Balance -254 ml Result Diagram: 11/26/16 0405 11/26/16 0405 Other Results Laboratory Tests Test 11/25/16 10:51 Blood Gas Puncture Site RT RADIAL Blood Gas Patient Temperature 98.6 Blood Gas HCO3 27 mmol/L (22-26) Blood Gas Base Excess 3.6 mmol/L (-2-2) Blood Gas Oxygen Saturation 90 % (90-100) Arterial Blood pH 7.47 (7.380-7.420) Arterial Blood Partial 38 mmHg (38-42) Pressure CO2 Arterial Blood Partial 70 mmHG Pressure O2 (61-120) Arterial Blood Oxygen Content 20.3 Vol % (12.0-20.0) Arterial Blood 2.1 % (0-4) Carboxyhemoglobin Arterial Blood Methemoglobin 1.9 % (0-2) Blood Gas Hemoglobin 16.0 G/DL (12.0-16.0) Oxygen Delivery Device NASAL CANNULA Blood Gas Liter Flow 3 L/M Imaging Chest x-ray and CT chest shows very large right pleural effusion with right lung collapse CT abdomen pelvis shows large ascites Objective Remarks GENERAL: 41 yo M in moderate to severe distress, lying on bed, on 100% NRB. Appears critically ill. SKIN: Warm and dry. HEAD: Atraumatic. Normocephalic. EYES: Pupils equal and round. No scleral icterus. ENT: No nasal bleeding or discharge. Mucous membranes pink and moist. On NRB NECK: Trachea midline. No JVD. CARDIOVASCULAR: Regular rate and rhythm. No murmur appreciated. RESPIRATORY: Positive accessory muscle use. Improved air entry R lung cuellar, diminished at the bases. Tachypneic. R 28 F chest tube with 3.4 L output since placement GASTROINTESTINAL: Abdomen distended, soft, no fluid thrill present. No ascites on bedside US MUSCULOSKELETAL: No obvious deformities. No clubbing. No cyanosis. No edema. NEUROLOGICAL: Sedated with Precedex, agitated on stimulation. No obvious cranial nerve deficits. Motor grossly within normal limits. Do not follow commands Urinary Catheter: Yes Assessment to: Continue A/P Assessment and Plan Problem list: Acute hypoxemic respiratory failure Alcohol withdrawal syndrome Acute encephalopathy Large right pleural effusion with complete collapse of right lung, mediastinal shift Sepsis Suspected pneumonia Ascites Alcohol-induced liver cirrhosis Alcohol dependence Plan by system: Neuro: Alcohol withdrawal/DT Alcohol dependence History of seizures from alcohol withdrawal -Precedex for severe agitation and alcohol withdrawal. If intubated start Propofol -Monitor neuro status. Ativan when necessary to avoid alcohol withdrawal. Scheduled Librium. Thiamine 100 mg daily. -Use Haldol also as needed Cardiovascular: -Hemodynamically stable at this time, continue IV maintenance fluid with normal saline -IV albumin 25 g every 8 hours -Continue Aldactone. Placed on Lasix 20 mg BID Pulmonary: Very large right pleural effusion with right lung collapse and mass effect Acute hypoxemic respiratory failure Possible pneumonia -Initial pigtail catheter placed 11/25/16 was pulled out by the patient, after draining 2.8 L, repeat [address] Perrin, with additional 3.4 L out -Chest x-ray today shows reaccumulation of fluid, indicating rapidly accumulating pleural fluid probably tracking up from ascites -Patient is profoundly hypoxemic today-oxygen saturation [place] 90% on 100% nonrebreather, PO2 56-proceeded with endotracheal intubation -Lasix resumed, Aldactone continued -Bronchodilators scheduled and when necessary. -Broad-spectrum antibiotics with Zosyn and vancomycin GI/liver: Alcoholic liver disease Ascites -CT abdomen and pelvis -large amount of ascites and cirrhotic liver-but today no ascites on bedside US -Continue lactulose -GI consulted. Rule out spontaneous bacterial peritonitis, rule out portal vein thrombosis, consider TIPS if refractory ascites -Continue Inderal and Aldactone. Resumed Lasix Renal/: -Continue normal saline IV fluid. Monitor renal function closely ID: Sepsis Suspected pneumonia -IV vancomycin PTD and Zosyn 4.5 g every 6 hours -Follow up on blood and sputum culture. Pleural fluid studies and culture Endocrine: -SSI for glycemic control if needed. -Electrolyte replacement protocol Heme: -Follow CBC -Watchful coagulopathy and thrombocytopenia Prophylaxis: -PPI/SCDs. -Lovenox in 24 hours after procedures are completed CCT 80 MIN excluding procedures Ton Gordon MD Nov 26, 2016 08:55
[2016-11-26] MEDS ORDERED: SUCCINYLCHOLINE CHLORIDE 200 MG/10 ML VIAL IV PUSH ONE (09:00)
[2016-11-26] MEDS ORDERED: fentaNYL CITRATE 250 MCG/5 ML AMP IV PUSH ONE (09:00)
[2016-11-26] MEDS ORDERED: ETOMIDATE 20 MG/10 ML VIAL IV PUSH ONE (09:00)
[2016-11-26] MEDS ORDERED: LACTULOSE SYRUP 20 GM/30 ML CUP PO SCH (09:00)
[2016-11-26] MEDS ORDERED: ETOMIDATE 40 MG/20 ML VIAL ONE (09:03)
[2016-11-26 09:30] LABS: BLOOD GAS BASE EXCESS -0.6 mmol/L (-2-2); BLOOD GAS CARBOXYHEMOGLOBIN 1.1 % (0-4); BLOOD GAS HCO3 23 mmol/L (22-26); BLOOD GAS METHEMOGLOBIN 0.7 % (0-2); BLOOD GAS O2 HGB SATURATION 87 % (90-100); BLOOD GAS OXYGEN CONTENT 16.8 Vol % (12.0-20.0); BLOOD GAS PCO2 34 mmHg (38-42); BLOOD GAS PO2 57 mmHg (61-120); BLOOD GAS TOTAL HGB 13.7 G/DL (12.0-16.0); TEMP CORR TO 98.6
[2016-11-26 09:31] LABS: CRITICAL VALUE YES; DRAW SITE RT RADIAL; FIO2 100 %; LITER FLOW 15 L/M; NUMBER OF ARTERIAL PUNCTURES 1; STAT YES; ULNAR PULSE PRESENT
--- NOTE | 2016-11-26 09:33 | PD.PROCEDR ---
Procedure Note Procedure After the risks and benefits were discussed the following procedure was performed: INTUBATION: The patient was put in optimal position for the procedure. Rapid sequence intubation was initiated by me using 20 milligrams of etomidate IV, and 5 milligrams of Versed IV, neuromuscular paralysis with 100 mg of IV succinylcholine. During laryngoscopy Mac 4 blade Grade 1 view single attempt. ( After confirming the Grade 1 view, I let RT Britt intubate under my direct supervision) The patient was intubated with a 8.0 cuffed endotracheal tube. Tube placement was confirmed by visualization of the tube and balloon passing through the cords, capnometry and subsequent chest x-ray. Breath sounds were equal and well aerated bilaterally postintubation. No breath sounds over stomach. Patient tolerated procedure well. Ton Gordon MD Nov 26, 2016 09:33
--- NOTE | 2016-11-26 09:36 | PD.PROCEDR ---
Central Line Procedure REASON FOR PROCEDURE Central venous access PROCEDURE PERFORMED Central line placement: R Subclavian central line CONSENT Informed consent for procedure was obtained and time out performed. The risks and benefits of the procedure were discussed to include but limited to bleeding , clot formation, infection, and even . ANESTHESIA Local injection of 1% Lidocaine DESCRIPTION OF THE PROCEDURE The patient was placed in supine, mild Trendelenburg position. The area was exposed and cleansed with ChloraPrep, times two. Large sterile drape was used to cover the patient, with the site exposed, under sterile conditions including cap, face mask, sterile gown, and sterile gloves. On single attempt, the introducer needle was inserted with negative pressure in syringe and venous flash was obtained. The guide wire was then advanced without any restriction and the needle was removed. The dilator was used without any complications. Using Seldinger technique the 20 CM 7F triple lumen catheter was advanced over the guide wire to a depth of 18 centimeters. The guide wire was removed. All ports were aspirated with dark venous blood return and flushed easily with sterile saline. All ports were capped. Antibiotic disc was placed around central line at puncture site. The central line was secured to the skin with two interrupted 2.0 silk sutures. The area was bandaged with sterile see- through central line bandage. COMPLICATIONS: No apparent complications ESTIMATED BLOOD LOSS: Less than 1 cc. Ton Gordon MD Nov 26, 2016 09:36
--- NOTE | 2016-11-26 10:12 | RADRPT ---
EXAM DATE/TIME: 11/26/2016 09:51 [facility] COMPARISON: CT THORAX W/O CONTRAST, November 25, 2016, 11:37. CHEST SINGLE AP, November 25, 2016, 9:31. CHEST SIN GLE AP, November 26, 2016, 3:05. INDICATIONS : Intubation, central line placement.. Shortness of breath and chest pain. Right pleural effusion. MEDICAL HISTORY : Sepsis. SURGICAL HISTORY : None. ENCOUNTER: Subsequent ACUITY: 3 days PAIN SCORE: Non-responsive. LOCATION: chest FINDINGS: A single AP erect view of the chest was obtained and demonstrates interval intubation with the endotr acheal tube tip at level of thoracic inlet approximately 5 cm above the fazal. A nasogastric tube colvin s been placed and is seen coursing through the esophagus with the tip in the proximal stomach. There is also been placement of a right subclavian central venous line with the tip projected over the supe rior vena cava. The right-sided chest tube remains in place with no pneumothorax. Consolidative about alveolar opacity remains in the right lung. There is mild discoid atelectasis left lung base. The he art size is at the upper limits of normal. There are multiple overlying electrocardiogram leads. CONCLUSION: 1. Interval intubation and placement of nasogastric tube. 2. Interval placement of right subclavian central venous line with no evidence of pneumothorax. 3. Dense consolidative alveolar opacity remains in the right lung. 4. The right-sided chest tube remains in place. Jerry Arzola MD on November 26, 2016 at 10:08 Board Certified Radiologist. This report was verified electronically.
[2016-11-26] MEDS: PANTOPRAZOLE SODIUM 40 MG VIAL IV SCH (10:58)
[2016-11-26] MEDS: POTASSIUM CL 40 MEQ/30 ML LIQ UDC NG SCH (10:58)
[2016-11-26] MEDS: LACTULOSE SYRUP 20 GM/30 ML CUP PO SCH ×3 (10:58→18:41)
[2016-11-26 10:59] LABS: BLOOD GAS CARBOXYHEMOGLOBIN 1.1 % (0-4); BLOOD GAS HCO3 22 mmol/L (22-26); BLOOD GAS METHEMOGLOBIN 0.8 % (0-2); BLOOD GAS O2 HGB SATURATION 98 % (90-100); BLOOD GAS OXYGEN CONTENT 20.6 Vol % (12.0-20.0); BLOOD GAS PCO2 26 mmHg (38-42); BLOOD GAS PO2 479 mmHg (61-120); BLOOD GAS TOTAL HGB 14.1 G/DL (12.0-16.0); CRITICAL VALUE YES; OXYGEN DEVICE VENTILATOR; TEMP CORR TO 98.6
[2016-11-26] MEDS: CITALOPRAM HYDROBROMIDE 40 MG TAB PO SCH (10:59)
[2016-11-26] MEDS: THIAMINE HCL 100 MG TAB PO SCH (10:59)
[2016-11-26] MEDS: SPIRONOLACTONE 25 MG TAB PO SCH ×2 (10:59→18:40)
[2016-11-26] MEDS: PROPOFOL 1000 MG/100 ML INJ 100 ML IV SCH ×4 (10:59→23:10)
[2016-11-26 11:00] LABS: DRAW SITE RT RADIAL; FIO2 100 %; NUMBER OF ARTERIAL PUNCTURES 1; STAT NO; ULNAR PULSE PRESENT
[2016-11-26] MEDS: DEXAMETHASONE 4 MG TAB PO SCH (11:00)
[2016-11-26] MEDS: FUROSEMIDE 20 MG TAB PO SCH ×2 (11:00→18:41)
--- NOTE | 2016-11-26 11:07 | PD.CONS ---
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 He was found to have leukocytosis, a large right pleural effusion with complete opacification of the right lung field, large amount of ascites. He was admitted for sepsis, respiratory insufficiency, large right pleural effusion with complete collapse of right lung and mediastinal shift, suspected pneumonia, ascites, and liver cirrhosis. He is being followed by [facility] and was started on Vancomycin and Zosyn and his WBC has gone from 16.2 on admission to 12.0. A Chest tube was placed yesterday by [facility] and they immediately got out 2,900cc per nurse. The patient was confused last night and pulled this out and it had to be replaced. The nurse reports that they got out another 3,000 from this chest tube. He also went into respiratory distress and required intubation this am. He was also started on Spironolactone 10mg po BID and Furosemide 20mg po BID, as well as Albumin 25gram q12h. GI was consulted for liver cirrhosis, ascites. He was seen by our service in July of 2016 for elevated LFTs, alcoholic hepatitis , liver cirrhosis, ascites, sepsis, and abnormal imaging of the gallbladder. He was evaluated with liver workup at that time. Hepatitis profile negative, Ferritin 1154, Iron saturation 33%, AFP 2.4, Ceruloplasmin 24, ALpha 1 Antitrypsin 191, MANPREET neg, ASMA negative, AMA neg. He required a paracentesis and was started on lasix and spironolactone. Of note, he also had a pleural effusion at that time which required thoracentesis. He is currently sedated on the ventilator and therefore the history has been obtained from the EMR. LFTs with T. BIli 2.7, AST 24, ALT 35, Alk Phosph 61, Ammonia 58. He was started on Lactulose. His platelets have dropped from 124 to 59 overnight. His PT is 17.2 , INR 1.5. His brother is at the bedside and states that the patient refuses to stop drinking. 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 - 08/03/16 Medications Allergies Coded Allergies Type Severity Reaction Last Updated Verified *MDRO Multi-Drug Resistant Organism Adverse Reaction Unknown 11/25/16 Yes Active Scripts Medications Dose Route/Sig Days Date Category Thiamine (Thiamine HCl) 100 Mg Tab 100 Mg PO DAILY 11/25/16 Reported Ativan (Lorazepam) 1 Mg Tab 1 Mg PO BID 11/25/16 Reported Lorazepam 1 Mg Tab 1 Mg PO/SL Q3HR PRN 11/25/16 Reported Lorazepam 2 Mg Tab 2 Mg PO Q3HR PRN 11/25/16 Reported Lactulose Liq (Lactulose) 10 Gm/15 Ml Soln 45 Ml PO TID 11/25/16 Reported Ibuprofen 400 Mg Tab 400 Mg PO Q6H PRN 11/25/16 Reported Advil (Ibuprofen) 200 Mg Tab 200 Mg PO Q6H PRN 11/25/16 Reported Haloperidol 2 Mg Tab 2 Mg PO Q3HR PRN 11/25/16 Reported Haloperidol 1 Mg Tab 1 Mg PO/SL Q3HR PRN 11/25/16 Reported Lasix (Furosemide) 20 Mg Tab 10 Mg PO DAILY 11/25/16 Reported Lasix (Furosemide) 20 Mg Tab 20 Mg PO DAILY PRN 11/25/[address] (Divalproex Sodium) 250 Mg Tabdr 250 Mg PO BID 11/25/16 Reported Dexamethasone 2 Mg Tab 2 Mg PO DAILY 11/25/16 Reported Celexa (Citalopram Hydrobromide) 40 Mg Tab 40 Mg PO DAILY 11/25/16 Reported Aldactone (Spironolactone) 25 Mg Tab 10 Mg PO/SL BID 11/25/16 Reported Propranolol (Propranolol HCl) 10 Mg Tab 5 Mg PO Q12HR 11/25/16 Reported Omeprazole 40 Mg Cap 40 Mg PO DAILY 11/25/16 Reported Morphine Liq (Morphine Sulfate) 20 Mg/Ml Liq 10 Mg PO/SL Q4H PRN 11/25/16 Reported Morphine Liq (Morphine Sulfate) 20 Mg/Ml Liq 5 Mg PO/SL Q4H PRN 11/25/16 Reported Family History Reports a family history of cirrhosis (alcohol-related) and colitis in both his father and paternal grandfather Social History According to EMR Continues to drink alcohol about 6 drinks daily Smokes marijuana (Sussy Platt) Review of Systems ROS Sedated on ventilator (Sussy Platt) GI Exam Vitals I&O Vital Signs Date Time Temp Pulse Resp B/P Pulse Ox O2 Delivery O2 Flow Rate FiO2 11/26/16 10:00 60 11/26/16 09:10 100 11/26/16 09:10 94 Mechanical Ventilator 100 Non-Rebreather 11/26/16 09:10 91 100 11/26/16 08:30 87 Non-Rebreather 15.00 11/26/16 08:00 69 11/26/16 08:00 94.8 69 42 93/63 87 11/26/16 07:00 91 Partial Non-Rebreather 15.00 Non-Rebreather 11/26/16 06:00 63 11/26/16 04:00 97.8 55 18 91/63 97 11/26/16 04:00 55 11/26/16 02:00 56 11/26/16 00:00 57 11/26/16 00:00 96.7 57 16 109/73 95 11/25/16 23:13 99 Partial Rebreather 15.00 11/25/16 22:00 52 11/25/16 21:40 90 Partial Rebreather 15.00 11/25/16 20:00 62 11/25/16 20:00 96.6 59 2 96/51 92 11/25/16 19:00 91 Nasal Cannula 6.00 11/25/16 16:30 97.9 73 18 133/76 97 11/25/16 14:20 80 20 143/90 92 Room Air 11/25/16 11:03 92 Nasal Cannula 3.00 I/O 11/25/16 11/25/16 11/25/16 11/26/16 11/26/16 11/26/16 07:00 15:00 23:00 07:00 15:00 23:00 Intake Total 2046 ml 850 ml Output Total 2300 ml 1760 ml Balance -254 ml -910 ml Intake IV Total 1046 ml 850 ml Other 1000 ml Output Urine Total 300 ml 360 ml Chest Tube Drainage Total 2000 ml 1400 ml # Voids 1 # Bowel Movements 1 Imaging Last Impressions Chest X-Ray 11/26/16 0000 Signed Impressions: Service Date/Time: November 09:51 - CONCLUSION: 1. Interval intubation and placement of nasogastric tube. 2. Interval placement of right subclavian central venous line with no evidence of pneumothorax. 3. Dense consolidative alveolar opacity remains in the right lung. 4. The right-sided chest tube remains in place. Jerry Arzola MD Chest CT 11/25/16 0000 Signed Impressions: Service Date/Time: Friday, November 25, 2016 11:37 - CONCLUSION: Very large right pleural effusion with complete collapse of the right lung. Sudhakar Zapata MD Abdomen/Pelvis CT 11/25/16 0000 Signed Impressions: Service Date/Time: Friday, November 25, 2016 11:37 - CONCLUSION: Large right-sided pleural effusion with adjacent compressive atelectasis of the right lung. There is mass effect on the heart displacing it leftward within the thoracic cavity. There is a large amount of ascites which is not significantly changed as compared to the prior exam. The liver has a cirrhotic appearance. Mary Bradley MD Laboratory Test 11/25/16 11/26/16 11/26/16 11/26/16 17:40 04:05 08:45 10:00 Pleural Fluid pH 8.5 Pleural Fluid WBC 39 /MM3 Pleural Fluid RBC 10 /MM3 Pleural Fluid Neutrophils 40 % Pleural Fluid Lymphocytes 40 % Pleural Fluid Histiocytes 16 % Pleural Fluid Mesothelial 4 % Cells Pleural Fluid Total Protein 1.0 GM/DL Pleural Fluid LDH 42 U/L Pleural Fluid Glucose 145 MG/DL Pleural Fluid Amylase 15 U/L Pleural Fluid Lipase 28 U/L Pleural Fluid Cholesterol LESS THAN 50 MG/DL White Blood Count 12.0 TH/MM3 Red Blood Count 4.55 MIL/MM3 Hemoglobin 14.2 GM/DL Hematocrit 43.1 % Mean Corpuscular Volume 94.5 FL Mean Corpuscular Hemoglobin 31.2 PG Mean Corpuscular Hemoglobin 33.0 % Concent Red Cell Distribution Width 14.8 % Platelet Count 59 TH/MM3 Mean Platelet Volume 8.3 FL Neutrophils (%) (Auto) 80.5 % Lymphocytes (%) (Auto) 11.7 % Monocytes (%) (Auto) 7.6 % Eosinophils (%) (Auto) 0.1 % Basophils (%) (Auto) 0.1 % Neutrophils # (Auto) 9.7 TH/MM3 Lymphocytes # (Auto) 1.4 TH/MM3 Monocytes # (Auto) 0.9 TH/MM3 Eosinophils # (Auto) 0.0 TH/MM3 Basophils # (Auto) 0.0 TH/MM3 CBC Comment AUTO DIFF Differential Comment AUTO DIFF CONFIRMED Platelet Estimate LOW Platelet Morphology Comment NORMAL Prothrombin Time 17.2 SEC Prothromb Time International 1.5 RATIO Ratio Sodium Level 139 MEQ/L Potassium Level 4.3 MEQ/L Chloride Level 106 MEQ/L Carbon Dioxide Level 24.2 MEQ/L Anion Gap 9 MEQ/L Blood Urea Nitrogen 17 MG/DL Creatinine 0.34 MG/DL Estimat Glomerular Filtration 287 ML/MIN Rate Random Glucose 138 MG/DL Lactic Acid Level 1.5 mmol/L Calcium Level 7.9 MG/DL Magnesium Level 2.0 MG/DL Total Bilirubin 2.7 MG/DL Aspartate Amino Transf 24 U/L (AST/SGOT) Alanine Aminotransferase 35 U/L (ALT/SGPT) Alkaline Phosphatase 61 U/L Total Protein 5.0 GM/DL Albumin 2.4 GM/DL Blood Gas Puncture Site RT RADIAL Blood Gas Patient Temperature 98.6 Blood Gas HCO3 23 mmol/L Blood Gas Base Excess -0.6 mmol/L Blood Gas Oxygen Saturation 87 % Arterial Blood pH 7.44 Arterial Blood Partial 34 mmHg Pressure CO2 Arterial Blood Partial 57 mmHg Pressure O2 Arterial Blood Oxygen Content 16.8 Vol % Arterial Blood 1.1 % Carboxyhemoglobin Arterial Blood Methemoglobin 0.7 % Blood Gas Hemoglobin 13.7 G/DL Oxygen Delivery Device Non-Rebreathing Mask Blood Gas Liter Flow 15 L/M Blood Gas Inspired Oxygen 100 % Ammonia 58 MCMOL/L Date/Time Procedure Status Source Growth 11/25/16 17:40 Gram Stain - Final Resulted Fluid Pleural Fluid 11/25/16 17:40 Body Fluid Culture Resulted Fluid Pleural Fluid Pending 11/25/16 17:40 Gram Stain Ordered Sputum Expectorated Sputum Pending 11/25/16 17:40 Sputum Culture Ordered Sputum Expectorated Sputum Pending 11/25/16 17:40 Fungal Smear Received Fluid Pleural Fluid Pending 11/25/16 17:40 Fungal Culture Received Fluid Pleural Fluid Pending 11/25/16 17:40 Acid Fast Stain Received Fluid Pleural Fluid Pending 11/25/16 17:40 Mycobacterial Culture Received Fluid Pleural Fluid Pending 11/25/16 09:57 Aerobic Blood Culture Received Blood Peripheral Pending 11/25/16 09:57 Anaerobic Blood Culture Received Blood Peripheral Pending Physical Examination HEENT: Normocephalic; atraumatic; no jaundice. CHEST: CTA, diminished right. OETT to vent. CT to right CARDIAC: RRR, Hypotensive ABDOMEN: Soft, distended, hepatosplenomegaly; bowel sounds are present in all four quadrants. EXTREMITIES: Generalized edema. SKIN: Normal; no rash; no jaundice. 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 Pt continues to drink, per family he has no intentions of stopping. MELD 15. Previous workup Hepatitis profile negative, Ferritin 1154, Iron saturation 33 %, AFP 2.4, Ceruloplasmin 24, ALpha 1 Antitrypsin 191, MANPREET neg, ASMA negative, AMA neg. Abdomen/Pelvis CT (11/25/16 )----> Large right-sided pleural effusion with adjacent compressive atelectasis of the right lung. There is mass effect on the heart displacing it leftward within the thoracic cavity. There is a large amount of ascites which is not significantly changed as compared to the prior exam. The liver has a cirrhotic appearance. Pt with worsening coagulopathy/ thrombocytopenia. - Ascites. Large right pleural effusion. S/P pigtail chest tube last night with 2,900cc per nurse. Pt was confused and pulled this out and had another CT placed with another 3,000cc out. Of note, he also had a large pleural effusion on the right back in Sept. requiring thoracentesis at that time. He is on Albumin, Lasix, Spironolactone. CT was without contrast. Will get US with doppler flow to evaluate the portal vein and consult IR for evaluation for possible TIPS. - Hepatic encephalopathy. Lactulose. - DTs, no ETOH x 3 days prior to hospitalization. - Respiratory failure, Suspected PNA, Pleural effusion. Vent. per [facility] - Sepsis. WBC improving. Vanco/Zosyn. - Thrombocytopenia, Coagulopathy. Worsening. Plt went from 124 to 59. Coag's went from 14.3 to 17.2. This could be a combination from Sepsis and liver dz. - Disp. Pt was under hospice care but still a full code. Per brother, he has continued to drink and has no intention of stopping. It is likely that he has decompensation from etoh and abuse and it is possible that he could improve if he stopped drinking. However, if he continues to drink then he has a very poor prognosis. PLAN: - NPO for now. - US with doppler flow to evaluate the portal vein - IR consult for evaluation for TIPS - Cont. Albumin - Diuretics per CCM - Cont. Lactulose - Cont. PPI - Cont. Abx - Fibrinogen - CBC, CMP, PT/INR, Ammonia - Supportive care - Further recommendations to follow based on results of above - Pt seen and examined by Dr. Lizama and myself and this note is written on his behalf (Sussy Platt) Physician Comments Seen and examined with Ms. Giulia CROCKER, IR consulted to evaluate for tips. Not too many options with active ETOH. Diuretics as needed. Discussed with Dr. Gordon. Thank you (Biju Lizama MD) Sussy Platt Nov 26, 2016 11:07 Biju Lizama MD Nov 26, 2016 18:03
--- NOTE | 2016-11-26 11:29 | PD.CONS ---
Consult Service Palliative Care . Consult Requested By Dr. Gordon . Primary Care Physician No Primary Care Physician . Reason for Consultation a. To assist with evaluation and management of symptoms including: dyspnea , encephalopathy b. To assist medical decision maker(s) with: better understanding of current medical conditions; weighing benefits/burdens of medical treatment options; making medical treatment decisions. . HPI History of Present Illness Mr. Arias is a 41 y/o male with advanced EtOH induced liver disease and currently enrolled with [facility] and familiar to our service from his last admission of 08/03/16 - 09/06/16 who presented to the ED on 11/25/16 because of increasing dyspnea and progressive encephalopathy. The dyspnea had been worsening over many days; the mental status had been worsening over the course of the month. ER w/u revealed a "white out" of the right chest due to a large pleural effusion. He has undergone thoracentesis with pig-tail placement. He pulled out the "pig-tail" catheter and had emergent insertion of a chest tube. The patient developed respiratory distress this AM -- he is now intubated/sedated in the SICU. He was on Precedex for agitation but is now on propofol. Norepinephrine is on stand-by for borderline hypotension. Mr. Arias has had a long history of EtOH abuse. He had his first EtOH withdrawal seizures at age 26. His last admission from 08/03 - 09/06 of last year was similar to this one -- complicated by right sided pleural effusion requiring thoracentesis. He also required paracentesis x 2 during that admission. He was felt to have pneumonia/sepsis as well. The hospitalization was also marked by severe agitation. Preceding that admission there were multiple ED visits for EtOH related issues and falls including seizures. The patient was enrolled with hospice at the time of his last hospital discharge on09/06. He was discharged home under hospice care and lived with his brother -- mother lives close by and visits several times a day. Though there was a chance the patient might improve if he abstained from EtOH it was clear that further EtOH consumption would likely result in his . The patient successfully abstained for a while and seemed to be improving. Agitation was controlled and his mother tells me he was even able to drive at times. Unfortunately, he once again began drinking, refused to use his lactulose, and became confused. Brother reports he was mostly just drinking and laying in bed and showing increasing confusion for about a month. The SOB has been present for many days, but became severe during the 24 hours leading up to admission. The patient had consumed EtOH within 24 hours of ER presentation. Patient did not appear jaundiced. There is no knowledge of rectal bleeding or vomiting of blood. There may have been some abdominal distention. Patient had not been complaining of any significant pain. Depression , per mother , is a supervisor intermediates problem for the patient. Diagnostic testing on admission included the following: * CBC showed WBC 16.2; hemoglobin 17.0; platelet count 124 * Chemistry profile showed sodium 139; potassium 4.1; chloride 102; CO2 29.8; anion gap 7; BUN 20; creatinine 0.67; GFR 131; glucose 148; calcium 8.6; magnesium 2.4 * Liver function testing showed total bilirubin 1.4; AST 34; ALT 59; alkaline phosphatase 109; total protein 7.4; albumin 3.1 * Cardiac serology showed total CK 137; CK-MB 1.8; troponin less than 0.02 * Lipase was 266 * Ammonia level was 18 * Coagulation profile showed PT 14.3; INR 1.3; PTT 27.7 . Function/Cognitive Trajectory Mr. Arias's EtOH related problems have rendered him unable to work [id number]. He has been on disability. Though he has had an EtOH problem for most of his adult life, drinking significantly increased in November 2015 after his father . The patient had been the primary caregiver for his father who was an alcoholic and of complications of his cirrhosis. Following his father' s , Chaz was either drinking or in bed up until his July hospitalization. As noted above, while abstaining from EtOH under hospice care , his functional status initially improved. Once drinking again, he has rapidly declined. . Review of Systems ROS Limitations: Clinical Condition (Patient is intubated, sedated, mechanically ventilated and unable to provide his ROS. ROS taken from medical record and from mother.) Constitutional: COMPLAINS OF: Fatigue, Weight gain (Weight varies with ascites. ), Weight loss (Weight varies with ascites. ), Change in appetite, Generalized weakness Eyes: DENIES: Diplopia, Eye pain, Vision loss Ears, nose, mouth, throat: DENIES: Tinnitus, Hearing loss, Throat pain, Ear Pain, Epistaxis Respiratory: COMPLAINS OF: Shortness of breath, DENIES: Apneas, Cough, Snoring , Wheezing, Hemoptysis Cardiovascular: COMPLAINS OF: Dyspnea on Exertion, DENIES: Chest pain, Palpitations, Syncope, Lower Extremity Edema, Claudication Gastrointestinal: COMPLAINS OF: Diarrhea, DENIES: Black stools, Bloody stools , Constipation Genitourinary: DENIES: Hematuria, Nocturia Musculoskeletal: DENIES: Joint pain, Muscle aches, Neck pain Hematologic/Lymphatics: DENIES: Lymphadenopathy Neurologic: COMPLAINS OF: Abnormal gait (Falls), Seizures, DENIES: Headache, Paresthesias, Tremor Psychiatric: COMPLAINS OF: Anxiety, Confusion, Agitation, DENIES: Depression Past Family Social History Coded Allergies: *MDRO Multi-Drug Resistant Organism (Verified Adverse Reaction, Unknown, ) MRSA PCR Screen (nares) POSITIVE - 08/03/16 Past Medical History * Liver cirrhosis * Alcoholic hepatitis * Alcohol-withdrawal related seizures * Prior hx of pleural effusion * Scoliosis * Hypertension . . Past Surgical History * Left knee surgery * Right shoulder surgery * Closed reduction of left, right condylar neck fracture with arch bars . Reported Medications Pre-hospital medications under hospice care included the following: Thiamine (Thiamine HCl) 100 Mg Tab 100 Mg PO DAILY Ativan (Lorazepam) 1 Mg Tab 1 Mg PO BID Lorazepam 1 Mg Tab 1 Mg PO/SL Q3HR PRN Lorazepam 2 Mg Tab 2 Mg PO Q3HR PRN Lactulose Liq (Lactulose) 10 Gm/15 Ml Soln 45 Ml PO TID Ibuprofen 200-400 mg po q 6 hrs prn pain Lasix (Furosemide) 20 Mg Tab 10 Mg PO DAILY Lasix (Furosemide) 20 Mg Tab 20 Mg PO DAILY PRN Divalproex DR (Divalproex Sodium) 250 Mg Tabdr 250 Mg PO BID Dexamethasone 2 Mg Tab 2 Mg PO DAILY Celexa (Citalopram Hydrobromide) 40 Mg Tab 40 Mg PO DAILY Aldactone (Spironolactone) 25 Mg Tab 10 Mg PO/SL BID Propranolol (Propranolol HCl) 10 Mg Tab 5 Mg PO Q12HR Omeprazole 40 Mg Cap 40 Mg PO DAILY Morphine Liq (Morphine Sulfate) 20 Mg/Ml Liq 10 Mg PO/SL Q4H PRN Morphine Liq (Morphine Sulfate) 20 Mg/Ml Liq 5 Mg PO/SL Q4H PRN . Current Medications Medications (Trade) Dose Ordered Sig/Saige Route Start Time Stop Time Status Last Admin Piperacillin Sod/ Tazobactam Sod 100 ml @ 200 mls/hr Q6H IV 11/25/16 14:00 11/26/16 03:30 (NS 1000 ml Inj) 1,000 ml @ 84 mls/hr [id number] IV 11/25/16 12:00 11/26/16 03:30 (NS Flush) 2 ml UNSCH PRN IV FLUSH 11/25/16 11:45 (NS Flush) 2 ml BID IV FLUSH 11/25/16 21:00 11/25/16 20:06 (Protonix Inj) 40 mg DAILY IV 11/26/16 09:00 Miscellaneous Information 1 [id number] XX 11/25/16 11:45 (Chlorhexidine 2% Cloth) 3 pack Taper DAILY@04 TOP 11/26/16 04:00 11/22/17 03:59 11/26/16 07:00 (Chlorhexidine 2% Cloth) 3 pack UNSCH PRN TOP 11/25/16 11:45 (CeleXA) 40 mg DAILY PO 11/26/16 09:00 (Decadron) 2 mg DAILY PO 11/26/16 09:00 (Depakote Dr) 250 mg BID PO 11/25/16 21:00 11/25/16 20:21 (Lactulose Liq) 45 ml TID PO 11/25/16 13:00 11/25/16 15:41 (Roxanol Liq) 5 mg Q4H PRN PO/SL 11/25/16 12:15 (Roxanol Liq) 10 mg Q4H PRN PO/SL 11/25/16 12:15 (Aldactone) 10 mg BID@,18 PO 11/25/16 18:00 11/25/16 17:51 (Vitamin B1) 100 mg DAILY PO 11/26/16 09:00 (Pill Splitter) 1 ea UNSCH PRN OTHER 11/25/16 12:30 (Ativan Inj) 2 mg Q2H PRN IV PUSH 11/25/16 13:00 Morphine Sulfate 2 mg 2 mg Q3H PRN IV PUSH 11/25/16 13:00 (Precedex Inj) 50 ml @ 0 mls/hr TITRATE IV 11/25/16 17:30 11/26/16 06:22 Albumin Human 25 gm 25 gm Q12H IV 11/25/16 17:45 11/26/16 07:00 Pharmacy Profile Note 0 ml @ 0 mls/hr UNSCH OTHER 11/25/16 17:45 (Vancomycin Inj/ NS 500 ml Inj) 517.5 ml @ 250 mls/hr Q8H IV 11/25/16 20:00 11/26/16 07:00 Miscellaneous Information SPECIFIC LAB TO BE DRAWN: DATE TO BE DRAWN (MM/... ONCE ONCE XX 11/26/16 19:45 11/26/16 19:46 (Librium) 25 mg Q8H PO 11/26/16 09:00 (Lasix) 20 mg BID@09,18 PO 11/26/16 09:00 (KCl 40 Meq/30 ml Liq) 40 meq DAILY NG 11/26/16 09:00 Chlorhexidine Gluconate 15 ml 15 ml BID@08,20 MT 11/26/16 20:00 (Diprivan 1000 Mg/100ml Inj) 100 ml @ 0 mls/hr TITRATE IV 11/26/16 09:00 . Family History * Family history is positive for cirrhosis (alcohol-related) and colitis in both his father and paternal grandfather * family history of hypertension . Substance Use Tobacco: None Alcohol: Long history of abuse. Had been sober for many weeks following his last hospital discharge but began drinking again over last weeks. Prescription med abuse: None Illicits:+ Occasional marijuana use . Psychosocial History Born and raised in [place]. Moved to [place], [place] after high school graduation. Patient and his brother, dejuan, moved to [facility] about 3 years ago to be closer to their father. 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 He has not worked since 2013 and has been on disability. Never , no children. Since his last hospital discharge and hospice enrollment, patient has been living with his brother. Mother lives close by and usually visits three times / day to make sure he is taking medications as directed. . Spiritual/Cultural Factors Buddhist. . Living Will: Never completed Health Care Surrogate: Never completed Durable Power of Stitching Machine Setter: Never completed Date completed: Advance directives never completed. . Health Care Surrogate(s): No written designation of health care surrogacy. . Documented care wishes: No written documentation of health care goals/preferences. . Today's verbally stated goals: Patient is unable to verbally state goals / preferences and it remains unclear if he will be able to do so. . Family/friends goals: Patient's mother is confused about his goals. He wants to live, and he has refused DNR, but he has wanted hospice. . Ethical and Legal Issues Patient is currently incapacitated to make his own health care decisions. It is unclear if/when he might regain such capacity. . Physical Exam Vital Signs Date Time Temp Pulse Resp B/P Pulse Ox O2 Delivery O2 Flow Rate FiO2 11/26/16 09:10 91 100 11/26/16 06:00 63 11/26/16 04:00 97.8 55 18 91/63 97 11/26/16 04:00 55 11/26/16 02:00 56 11/26/16 00:00 57 11/26/16 00:00 96.7 57 16 109/73 95 11/25/16 23:13 99 Partial Rebreather 15.00 11/25/16 22:00 52 11/25/16 21:40 90 Partial Rebreather 15.00 11/25/16 20:00 62 11/25/16 20:00 96.6 59 2 96/51 92 11/25/16 19:00 91 Nasal Cannula 6.00 11/25/16 16:30 97.9 73 18 133/76 97 11/25/16 14:20 80 20 143/90 92 Room Air 11/25/16 11:03 92 Nasal Cannula 3.00 . 11/25/16 11/26/16 19:00 07:00 Intake Total 2896 ml Output Total 4060 ml Balance -1164 ml Intake IV Total 1896 ml Other 1000 ml Output Urine Total 660 ml Chest Tube Drainage Total 3400 ml # Voids 1 # Bowel Movements 1 . Exam CONSTITUTIONAL/GENERAL: This is an adequately nourished patient, sedated, minimally responsive, intubated, mechanically ventilated in an SICU bed. TUBES/LINES/DRAINS: Right subclavian central line; peripheral IVs; orotracheal tube; orogastric tube; 4-extremity soft restraints; zayas catheter; right chest tube; SCDs; warming blanket SKIN: No jaundice, rashes, or lesions. No wounds seen anteriorly. Skin temperature appropriate. Not diaphoretic. HEAD: Atraumatic. Normocephalic. EYES: Pupils equal and round and reactive. Unable to evaluate extraocular movements. Sclerae are slightly icteric. No injection or drainage. Fundi not examined. ENT: Unable to evaluate hearing due to clinical status. Nose without bleeding or purulent drainage. Unable to adequately view oropharynx due to intubations. NECK: Trachea midline. Supple. No palpable thyroid enlargement or nodularity. CARDIOVASCULAR: Regular rate and rhythm without murmurs, gallops, or rubs. No JVD. Peripheral pulses symmetric. RESPIRATORY/CHEST: Symmetric, unlabored respirations. Reasonable air movement bilaterally but still more diminished at the right base. Right chest tube in place. No audible wheezing. GASTROINTESTINAL: Abdomen soft, non-tender, mildly distended. No hepato- splenomegaly, or palpable masses. No guarding. Bowel sounds present. GENITOURINARY: Without palpable bladder distension. No penile or scrotal edema. Zayas catheter in place. MUSCULOSKELETAL: Extremities without clubbing, cyanosis, or edema. No joint tenderness or effusion noted. No calf tenderness. No mottling or clubbing. LYMPHATICS: No palpable cervical or supraclavicular adenopathy. NEUROLOGICAL: Sedated. Does not awaken to voice or examination. Unable to follow commands. No spontaneous movements. PSYCHIATRIC: Unable to assess due to level of responsiveness. . Diagnostic Tests Laboratory Laboratory Tests Test 11/25/16 11/25/16 11/25/16 11/26/16 09:57 10:51 17:40 04:05 White Blood Count 16.2 TH/MM3 12.0 TH/MM3 (4.0-11.0) (4.0-11.0) Red Blood Count 5.28 MIL/MM3 4.55 MIL/MM3 (4.50-5.90) (4.50-5.90) Hemoglobin 17.0 GM/DL 14.2 GM/DL (13.0-17.0) (13.0-17.0) Hematocrit 49.1 % 43.1 % (39.0-51.0) (39.0-51.0) Mean Corpuscular Volume 93.0 FL 94.5 FL (80.0-100.0) (80.0-100.0) Mean Corpuscular Hemoglobin 32.1 PG 31.2 PG (27.0-34.0) (27.0-34.0) Mean Corpuscular Hemoglobin 34.6 % 33.0 % Concent (32.0-36.0) (32.0-36.0) Red Cell Distribution Width 15.1 % 14.8 % (11.6-17.2) (11.6-17.2) Platelet Count 124 TH/MM3 59 TH/MM3 (150-450) (150-450) Mean Platelet Volume 8.6 FL 8.3 FL (7.0-11.0) (7.0-11.0) Neutrophils (%) (Auto) 77.2 % 80.5 % (16.0-70.0) (16.0-70.0) Lymphocytes (%) (Auto) 11.5 % 11.7 % (9.0-44.0) (9.0-44.0) Monocytes (%) (Auto) 11.0 % 7.6 % (0.0-8.0) (0.0-8.0) Eosinophils (%) (Auto) 0.2 % (0.0-4.0) 0.1 % (0.0-4.0) Basophils (%) (Auto) 0.1 % (0.0-2.0) 0.1 % (0.0-2.0) Neutrophils # (Auto) 12.5 TH/MM3 9.7 TH/MM3 (1.8-7.7) (1.8-7.7) Lymphocytes # (Auto) 1.9 TH/MM3 1.4 TH/MM3 (1.0-4.8) (1.0-4.8) Monocytes # (Auto) 1.8 TH/MM3 0.9 TH/MM3 (0-0.9) (0-0.9) Eosinophils # (Auto) 0.0 TH/MM3 0.0 TH/MM3 (0-0.4) (0-0.4) Basophils # (Auto) 0.0 TH/MM3 0.0 TH/MM3 (0-0.2) (0-0.2) CBC Comment DIFF FINAL AUTO DIFF Differential Comment AUTO DIFF CONFIRMED Prothrombin Time 14.3 SEC 17.2 SEC (9.8-11.6) (9.8-11.6) Prothromb Time International 1.3 RATIO 1.5 RATIO Ratio Activated Partial 27.7 SEC Thromboplast Time (24.3-30.1) Sodium Level 139 MEQ/L 139 MEQ/L (136-145) (136-145) Potassium Level 4.1 MEQ/L 4.3 MEQ/L (3.5-5.1) (3.5-5.1) Chloride Level 102 MEQ/L 106 MEQ/L (98-107) (98-107) Carbon Dioxide Level 29.8 MEQ/L 24.2 MEQ/L (21.0-32.0) (21.0-32.0) Anion Gap 7 MEQ/L (5-15) 9 MEQ/L (5-15) Blood Urea Nitrogen 20 MG/DL (7-18) 17 MG/DL (7-18) Creatinine 0.67 MG/DL 0.34 MG/DL (0.60-1.30) (0.60-1.30) Estimat Glomerular Filtration 131 ML/MIN 287 ML/MIN Rate (>89) (>89) Random Glucose 148 MG/DL 138 MG/DL (74-106) (74-106) Lactic Acid Level 1.8 mmol/L 1.5 mmol/L (0.4-2.0) (0.4-2.0) Calcium Level 8.6 MG/DL 7.9 MG/DL (8.5-10.1) (8.5-10.1) Magnesium Level 2.4 MG/DL 2.0 MG/DL (1.5-2.5) (1.5-2.5) Total Bilirubin 1.4 MG/DL 2.7 MG/DL (0.2-1.0) (0.2-1.0) Aspartate Amino Transf 34 U/L (15-37) 24 U/L (15-37) (AST/SGOT) Alanine Aminotransferase 59 U/L (12-78) 35 U/L (12-78) (ALT/SGPT) Alkaline Phosphatase 109 U/L 61 U/L (45-117) (45-117) Ammonia 18 MCMOL/L (11-32) Total Creatine Kinase 137 U/L (39-308) Creatine Kinase MB 1.8 NG/ML (0.5-3.6) Troponin I LESS THAN 0.02 NG/ML (0.02-0.05) Total Protein 7.4 GM/DL 5.0 GM/DL (6.4-8.2) (6.4-8.2) Albumin 3.1 GM/DL 2.4 GM/DL (3.4-5.0) (3.4-5.0) Lipase 266 U/L (73-393) Blood Gas Puncture Site RT RADIAL Blood Gas Patient Temperature 98.6 Blood Gas HCO3 27 mmol/L (22-26) Blood Gas Base Excess 3.6 mmol/L (-2-2) Blood Gas Oxygen Saturation 90 % (90-100) Arterial Blood pH 7.47 (7.380-7.420) Arterial Blood Partial 38 mmHg (38-42) Pressure CO2 Arterial Blood Partial 70 mmHG Pressure O2 (61-120) Arterial Blood Oxygen Content 20.3 Vol % (12.0-20.0) Arterial Blood 2.1 % (0-4) Carboxyhemoglobin Arterial Blood Methemoglobin 1.9 % (0-2) Blood Gas Hemoglobin 16.0 G/DL (12.0-16.0) Oxygen Delivery Device NASAL CANNULA Blood Gas Liter Flow 3 L/M Pleural Fluid pH 8.5 Pleural Fluid WBC 39 /MM3 (0-10) Pleural Fluid RBC 10 /MM3 (0-0) Pleural Fluid Neutrophils 40 % Pleural Fluid Lymphocytes 40 % Pleural Fluid Histiocytes 16 % Pleural Fluid Mesothelial 4 % Cells Pleural Fluid Total Protein 1.0 GM/DL Pleural Fluid LDH 42 U/L Pleural Fluid Glucose 145 MG/DL Pleural Fluid Amylase 15 U/L Pleural Fluid Lipase 28 U/L Pleural Fluid Cholesterol LESS THAN 50 MG/DL Platelet Estimate LOW (NORMAL) Platelet Morphology Comment NORMAL (NORMAL) Test 11/26/16 08:45 Blood Gas Puncture Site RT RADIAL Blood Gas Patient Temperature 98.6 Blood Gas HCO3 23 mmol/L (22-26) Blood Gas Base Excess -0.6 mmol/L (-2-2) Blood Gas Oxygen Saturation 87 % (90-100) Arterial Blood pH 7.44 (7.380-7.420) Arterial Blood Partial 34 mmHg (38-42) Pressure CO2 Arterial Blood Partial 57 mmHg Pressure O2 (61-120) Arterial Blood Oxygen Content 16.8 Vol % (12.0-20.0) Arterial Blood 1.1 % (0-4) Carboxyhemoglobin Arterial Blood Methemoglobin 0.7 % (0-2) Blood Gas Hemoglobin 13.7 G/DL (12.0-16.0) Oxygen Delivery Device Non-Rebreathing Mask Blood Gas Liter Flow 15 L/M Blood Gas Inspired Oxygen 100 % . Result Diagram: 11/26/165 11/26/16 0405 Microbiology Microbiology Date/Time Procedure Status Source Growth 11/25/16 09:55 Aerobic Blood Culture Received Blood Peripheral Pending 11/25/16 09:55 Anaerobic Blood Culture Received Blood Peripheral Pending 11/25/16 09:57 Aerobic Blood Culture Received Blood Peripheral Pending 11/25/16 09:57 Anaerobic Blood Culture Received Blood Peripheral Pending 11/25/16 17:40 Gram Stain - Final Resulted Fluid Pleural Fluid 11/25/16 17:40 Body Fluid Culture Resulted Fluid Pleural Fluid Pending 11/25/16 17:40 Acid Fast Stain Received Fluid Pleural Fluid Pending 11/25/16 17:40 Mycobacterial Culture Received Fluid Pleural Fluid Pending 11/25/16 17:40 Fungal Smear Received Fluid Pleural Fluid Pending 11/25/16 17:40 Fungal Culture Received Fluid Pleural Fluid Pending 11/25/16 17:40 Gram Stain Ordered Sputum Expectorated Sputum Pending 11/25/16 17:40 Sputum Culture Ordered Sputum Expectorated Sputum Pending Imaging Last Impressions Chest X-Ray 11/26/16 0000 Signed Impressions: Service Date/Time: November 09:51 - CONCLUSION: 1. Interval intubation and placement of nasogastric tube. 2. Interval placement of right subclavian central venous line with no evidence of pneumothorax. 3. Dense consolidative alveolar opacity remains in the right lung. 4. The right-sided chest tube remains in place. Jerry Arzola MD Chest CT 11/25/16 0000 Signed Impressions: Service Date/Time: Friday, November 25, 2016 11:37 - CONCLUSION: Very large right pleural effusion with complete collapse of the right lung. Sudhakar Zapata MD Abdomen/Pelvis CT 11/25/16 0000 Signed Impressions: Service Date/Time: Friday, November 25, 2016 11:37 - CONCLUSION: Large right-sided pleural effusion with adjacent compressive atelectasis of the right lung. There is mass effect on the heart displacing it leftward within the thoracic cavity. There is a large amount of ascites which is not significantly changed as compared to the prior exam. The liver has a cirrhotic appearance. Mary Bradley MD . Procedures * Right chest pig-tail catheter placement * right chest tube placement * Intubation/mechanical ventilation * Right subclavian central line placement. . Patient/Family Conference Present at Family Conference: I spoke with mother in the ED on 11/25/16 when patient was first being evaluated. We spoke for about 20 minutes regarding differential diagnosis, work -up, and most important -- goals/preferences for medical treatment. Today, I spoke with mother and brother (Dejuan). . Family Conference Time (mins): 50 Family Conference Location: Consult Room Issues Discussed: * Palliative care role, purpose, approach * Additional medical, psychosocial, and spiritual history * Patients general health, functional status, and cognitive changes in the months leading up to the current hospitalization * Family understanding of the current medical problems * Family understanding of prognosis * Patients goals of care as best understood from conversations and/or values * Current medical treatment options and benefits/burdens of those options * Likely scenarios comparing ongoing aggressive care with a transition to comfort measures only * Questions answered to the best of my ability * Palliative care contact information provided . Assessment and Plan Disease Oriented Problem List: (1) Pleural effusion, right (2) Collapse of right lung (3) Probable pneumonia (4) Hepatic encephalopathy (5) Respiratory insufficiency (6) Ascites (7) Alcohol-induced cirrhosis Symptom Scale: (1) Dyspnea 0-10 Scale: Unable to quantify Comment: Patient has significant dyspnea from his pleural effusion. Significant only improved post thoracentesis and chest tube placement. Currently ventilated. Patient has no underlying smoking history. Uncertain if there is a pneumonia as well. . (2) Encephalopathy 0-10 Scale: Unable to quantify Comment: By history, this is probably alcoholic encephalopathy. Mental status began to decline when patient started drinking again approximately one month ago. . Pertinent Non-Medical Issues Psychosocial: Patient psychosocial support comes primarily from his mother and his brother. The patient lives with his brother who is currently unemployed. The patient's mother visits several times a day. Spiritual: Buddhist Legal: No advance directives Ethical issues impacting care: Patient is incapacitated; it is still unclear if he will regain capacity to make his own health care decisions. . Important Contacts * Catherine Arias (mother and proxy decision maker) [phone] . Prognosis The patient is critically ill and currently being mechanically ventilated in an intensive care unit bed. He has a chest tube in place. Though he is relatively young, his resilience is undoubtedly impacted by his history of alcohol abuse. If the patient is able to avoid other significant complications he should be able to survive the hospitalization. He is certainly at risk for infection and possible hepatorenal syndrome. Based on his recent history he may have enough functioning liver to allow survival if he completely abstains from alcohol. It is becoming quite clear that any alcohol use leads to critical illness relatively quickly. Per family, patient has refused any help for his alcoholism or depression and he continues to decline. Patient, however, has refused DNR status and is told his family several times that he wants ongoing aggressive care. . Code Status: Full Code Plan == CODE STATUS: FULL CODE . Patient has told family members that he wants to remain a "full code." == Decision-making: Patient is currently incapacitated to make his own health care decisions. It is not known if he will regain capacity to do so. There is no written designation of health care surrogate. As the patient is not , and has no adult children are surviving father, healthcare decision-making falls to his mother. She is making those decisions with the input of the patient's brother. == Goals of medical treatment: The patient has told both his mother and his brother that he would want ongoing aggressive treatment including resuscitation attempts. His goals of been confusing. He is made it clear he wants to be kept alive. On the other hand, he continues to refuse help with his alcoholism or depression. While he doesn't want to sign a DNR, he has wanted to remain with hospice. == As goals have become fully aggressive, patient will be dis-enrolled from hospice. I have notified the hospice organization and have discussed with family. == Pain: Pain has not been a significant problem for this patient. Possible sources of pain currently include prolonged bedbound status; orotracheal and orogastric intubations; Zayas catheter; restraints; vascular access lines. Morphine orders are in place. No further recommendations at this time. == Dyspnea: Patient came in with a very large right pleural effusion. After initial drainage, the inserted pigtail catheter was unintentionally removed by the patient. There was rapid reaccumulation of fluid. A chest tube is now in place. Patient is receiving mechanical ventilation and dyspnea is controlled. == Encephalopathy; there is certainly underlying hepatic encephalopathy -- the patient has been drinking regularly and has been refusing his lactulose. Interestingly, ammonia level was not significantly high on admission. The patient's overall clinical illness and debilitated state are probably also contributing to his encephalopathy. Aggressive treatment for the underlying illness is probably the best way of managing this. == Risk of alcohol withdrawal including seizures == Agitation: Patient was severely agitated during his last admission. It was agitation that cause the long length of stay. Will need to monitor closely. Agitation occurring in the next few days is probably related to alcohol withdrawal. == Depression: Per patient's mother, patient has had a several year period of significant depression. Currently on citalopram. No further recommendations at this time. == Palliative care we'll continue to follow to assist with symptom management and to further clarify goals of medical treatment as the clinical course evolves. . Time Spent Total Floor Time (mins): 90 (Total floor time includes chart review; patient exam; collaboration with primary nurse; the above-referenced family discussion with mother and brother; telephone conversation with retail operations manager; and discussion with hospice nurse.) Face to Face Time (mins): 10 >50% Counseling/Coord of Care: Yes Thank you for the opportunity to participate in the care of Mr. Arias. . . Attestation To help prompt me to consider important information that might be impacting today's encounter and assessment, information from prior notes written by myself or my colleagues may have been "brought forward" into today's note. My signature on this note, however, is an attestation that I personally performed the exam, history, and/or decision-making noted today, and, unless otherwise indicated, the interactions with patient, family, and staff as well as the review of records all occurred today. I also attest that the listed assessment and stated plan reflect my best clinical judgment today based on the combination of historical information, prior notes, and today's exam/ interactions. When time spent is documented, it refers only to time spent today by the signer, or if indicated, combined time spent today by collaborating physician/nurse practitioner. . Harshal Funk MD Nov 26, 2016 11:22
--- NOTE | 2016-11-26 15:19 | RADRPT ---
EXAM DATE/TIME: 11/26/2016 14:23 [facility] COMPARISON: No previous studies available for comparison. INDICATIONS : Evaluate portal vein flow. MEDICAL HISTORY : Hypertension. Diabetic. ETOH. Cirrhosis. Seizure. Hepatitis. SURGICAL HISTORY : Rotator cuff, left. Left knee surgery. Jaw surgery. Paracentesis. Thoracentesis. ENCOUNTER: Initial ACUITY: 1 day PAIN SCORE: Nonresponsive. LOCATION: Bilateral upper quadrant MEASUREMENTS: LIVER: 16.5 cm length COMMON DUCT: 3 mm RIGHT KIDNEY: 12.5 x 4.8 x 6.5 cm SPLEEN: 11.6 cm length FINDINGS: Limited study due to right chest tube bandages. LIVER: Normal echotexture without focal lesion or ductal dilatation. The portal system is patent with normal flow. COMMON DUCT: No intraluminal mass or stone visualized. GALLBLADDER: Multiple stones in the gallbladder. There is thickening of the gallbladder wall at 4 mm. There is a s mall amount of fluid around the gallbladder. PANCREAS: The visualized portions are within normal limits. RIGHT KIDNEY: No hydronephrosis, stone or mass. SPLEEN: No gross focal lesion. Right pleural effusion. CONCLUSION: 1. The portal vein is patent. 2. Multiple gallstones in the gallbladder. No definite biliary tract obstruction. There is thickenin g of the gallbladder wall with some fluid around the gallbladder. This can be seen with either acute or chronic cholecystitis. This would have to be correlated with patient's physical, clinical exam and lab values. Sudhakar Zapata MD on November 26, 2016 at 15:13 Board Certified Radiologist. This report was verified electronically.
[2016-11-26] MEDS: RIFAXIMIN 550 MG TAB PO SCH ×2 (15:34→21:41)
[2016-11-26] MEDS: chlordiazePOXIDE 25 MG CAP PO SCH (15:34)
[2016-11-26] MEDS ORDERED: PHARMACY ORDERED LAB XX ONE (19:45)
[2016-11-26] MEDS: CHLORHEXIDINE 0.12% (ORAL KIT) 15 ML CUP MT SCH (20:00)
[2016-11-26] MEDS: DIVALPROEX SODIUM DELAYED RELEASE 250 MG TAB PO SCH (21:00)
[2016-11-27] VITALS (19 sets, daily range): BP systolic 96–110; BP diastolic 56–66; PULSE 52–86; RESP 13–20; TEMP 96.4–98.2; O2SAT 95–100
[2016-11-27] MEDS: MORPHINE SULFATE 4 MG/ML INJ IV PUSH PRN (00:04)
[2016-11-27] MEDS: chlordiazePOXIDE 25 MG CAP PO SCH ×3 (00:04→16:30)
[2016-11-27] MEDS: PIPERACIL-TAZO 4.5 GM PREMIX 100 ML IV SCH ×4 (01:34→20:53)
[2016-11-27] MEDS: PROPOFOL 1000 MG/100 ML INJ 100 ML IV SCH ×4 (02:04→12:02)
[2016-11-27] MEDS: RESP: ALBUTEROL 2.5 MG/IPRATROPIUM 0.5 MG NEB (SCH) INH ×6 (03:11→23:45)
[2016-11-27] MEDS ORDERED: PHARMACY ORDERED LAB XX ONE (03:45)
[2016-11-27 04:05] LABS: AUTOMATED NEUTROPHIL # 15.9 TH/MM3 (1.8-7.7); BASOPHIL % 0.1 % (0.0-2.0); HEMATOCRIT 39.3 % (39.0-51.0); LYMPH % 7.8 % (9.0-44.0); LYMPHOCYTE # 1.5 TH/MM3 (1.0-4.8); MEAN CORPUSCULAR HEMOGLOBIN 31.3 PG (27.0-34.0); NEUT % 84.1 % (16.0-70.0); PLATELET COUNT 75 TH/MM3 (150-450); RED BLOOD COUNT 4.27 MIL/MM3 (4.50-5.90); RED CELL DISTRIBUTION WIDTH 14.8 % (11.6-17.2); WHITE BLOOD COUNT 18.9 TH/MM3 (4.0-11.0)
[2016-11-27 04:08] LABS: HEMO FLAGS AUTO DIFF
[2016-11-27 04:14] LABS: INTERNATIONAL NORMALIZED RATIO 1.4 RATIO; PROTHROMBIN TIME - PATIENT 16.1 SEC (9.8-11.6)
[2016-11-27 04:42] LABS: ALKALINE PHOSPHATASE 61 U/L (45-117); ALT (GPT) 34 U/L (12-78); ANION GAP 9 MEQ/L (5-15); AST (GOT) 24 U/L (15-37); BICARBONATE 23.7 MEQ/L (21.0-32.0); BLOOD UREA NITROGEN 13 MG/DL (7-18); CHLORIDE 105 MEQ/L (98-107); GLOMERULAR FILTRATION RATE 155 ML/MIN (>89); MAGNESIUM 1.9 MG/DL (1.5-2.5); POTASSIUM 3.7 MEQ/L (3.5-5.1); SODIUM (NA) 138 MEQ/L (136-145)
[2016-11-27] MEDS: VANCOMYCIN INJ 1,750 MG in SODIUM CHLORID 0.9% 500 ML INJ 500 ML IV SCH ×3 (05:23→20:53)
[2016-11-27] MEDS: ALBUMIN HUMAN 25% 25 GM/100 ML BAGP IV SCH ×2 (05:24→18:19)
[2016-11-27] MEDS: CHLORHEXIDINE GLUCONATE 2 % 1 PACK (2 CLOTHS) TOP SCH (05:24)
--- NOTE | 2016-11-27 05:52 | RADRPT ---
EXAM DATE/TIME: 11/27/2016 04:25 [facility] COMPARISON: CHEST SINGLE AP, November 26, 2016, 9:51. INDICATIONS : Please evaluate after respiratory failure. MEDICAL HISTORY : Hypertension. Diabetes mellitus type II. Hepatitis C. Seizure SURGICAL HISTORY : Left rotator cuff, Paracentesis, Thoracentesis ENCOUNTER: Subsequent ACUITY: 2 days PAIN SCORE: Non-responsive. LOCATION: Bilateral chest FINDINGS: There is improvement in the aeration of the right lung with persistent alveolar process in the right mid and lower lung. Lines and tubes are present not significantly changed. The rest of the examinatio n has not significantly changed. CONCLUSION: Improvement in the aeration of the right lung. Jose Jarvis MD on November 27, 2016 at 5:50 Board Certified Radiologist. This report was verified electronically.
[2016-11-27] MEDS ORDERED: NOREPINEPHRINE 4 MG/D5W 250 ML IV SCH (06:45)
[2016-11-27 07:58] LABS: BANDS 9 % (0-6); NEUTROPHIL # MANUAL DIFF 16.1 TH/MM3 (1.8-7.7); PLATELET ESTIMATE SMEAR LOW (NORMAL); PLATELET MORPHOLOGY NORMAL (NORMAL); POLYS (SEG NEUTROPHILS) 76 % (16-70); SCAN/DIFF FINAL DIFF MANUAL; WBC DIFF SAMPLE 100
[2016-11-27] MEDS: CHLORHEXIDINE 0.12% (ORAL KIT) 15 ML CUP MT SCH ×2 (08:00→20:53)
[2016-11-27] MEDS: CITALOPRAM HYDROBROMIDE 40 MG TAB PO SCH (08:28)
[2016-11-27] MEDS: FUROSEMIDE 20 MG TAB PO SCH ×2 (08:28→18:00)
[2016-11-27] MEDS: RIFAXIMIN 550 MG TAB PO SCH ×2 (08:28→23:03)
[2016-11-27] MEDS: SPIRONOLACTONE 25 MG TAB PO SCH ×2 (08:28→18:00)
[2016-11-27] MEDS: DEXAMETHASONE 4 MG TAB PO SCH (08:28)
[2016-11-27] MEDS: THIAMINE HCL 100 MG TAB PO SCH (08:28)
[2016-11-27] MEDS: LACTULOSE SYRUP 20 GM/30 ML CUP PO SCH ×3 (08:29→18:00)
[2016-11-27] MEDS: PANTOPRAZOLE SODIUM 40 MG VIAL IV SCH (08:29)
[2016-11-27] MEDS: POTASSIUM CL 40 MEQ/30 ML LIQ UDC NG SCH (08:29)
[2016-11-27] MEDS: DIVALPROEX SODIUM DELAYED RELEASE 250 MG TAB PO SCH ×2 (09:00→23:03)
[2016-11-27] MEDS: SODIUM CHLORIDE 0.9% FLUSH 5 ML FLUSH IV FLUSH SCH ×2 (09:00→21:12)
[2016-11-27] MEDS: SODIUM CHLOR 0.9% 1000 ML INJ 1,000 ML IV SCH ×2 (11:40→23:58)
--- NOTE | 2016-11-27 11:43 | HHI.CCPN ---
Subjective Remarks/Hospital Course Patient is a 41-year-old male with history alcohol-induced cirrhosis, alcohol dependence and continued use, history of alcohol withdrawal seizures who presented to the emergency department with increasing shortness of breath worsening over the last 2 weeks. Also complains of epigastric pain. He was recently admitted to the hospital from 08/03/16 - 09/06/16 for sepsis from pneumonia. Workup showed patient had a white count of 16,000 with 77% neutrophils. A chest x-ray showed large right effusion with complete opacification of right lung field. CT of the chest confirmed very large right effusion with mediastinal shift and complete right lung atelectasis. CT abdomen pelvis shows large amount of ascites and liver cirrhosis. Critical- care medicine was consulted for admission I evaluated the patient in the ED he is in moderate distress due to shortness of breath. He is lying on his right side. I explained him the plan is to place right sided pigtail chest tube as a pleural effusion is very large. He is agreeable to the procedure. I have also placed him on single dose of vancomycin and continuos Zosyn 4.5 g every 6 hours. Lasix will be held at this time, continue Aldactone. IV normal saline and IV albumin added. Was also noted the patient's last alcoholic drink was yesterday evening. SUBJ 11/26/16: Patient had right pigtail chest tube placed yesterday for large right sided pleural effusion with distention. 2.8 L of cloudy white pleural fluid evacuated. Unfortunately patient pulled out the chest tube and developed tension physiology again with reaccumulation of fluid. New 28 [place]ic chest tube was placed emergently by Dr. Perrin, since placement chest tube has drained additional 3.4 L of slightly blood-tinged cloudy fluid. Fluid studies are consistent with transudative effusion most likely secondary to his ascites. Currently patient is sedated with Precedex requiring nonrebreather, oxygen saturation very from 90-94%. ABG ordered patient may need endotracheal intubation 11/27: Patient was intubated yesterday 11/26/16 for worsening hypoxemic respiratory failure. Chest x-ray today shows interval improvement on right side. Urine output 2 L and chest tube output 1.4 L in 24 hours. WBC increased to 18.9 today. GI consulted who indeed consulted IR for evaluation for TIPS procedure. Per GI options are limited due to continued alcohol use and refusal to quit Objective Vital Signs Date Time Temp Pulse Resp B/P Pulse Ox O2 Delivery O2 Flow Rate FiO2 11/27/16 10:00 79 11/27/16 08:19 100 40 11/27/16 08:00 97.9 16 110/66 11/27/16 07:00 Mechanical Ventilator Non-Rebreather 11/26/16 08:30 15.00 Intake and Output 11/26/16 11/26/16 11/27/16 08:00 16:00 00:00 Intake Total 850 ml 1346 ml 889 ml Output Total 1760 ml 500 ml 1420 ml Balance -910 ml 846 ml -531 ml Result Diagram: 11/27/16 0340 11/27/16 0340 Imaging Chest x-ray and CT chest shows very large right pleural effusion with right lung collapse CT abdomen pelvis shows large ascites Objective Remarks GENERAL: 41 yo M intubated sedated on mechanical ventilation SKIN: Warm and dry. HEAD: Atraumatic. Normocephalic. EYES: Pupils equal and round. No scleral icterus. ENT: No nasal bleeding or discharge. Mucous membranes pink and moist. Orotracheally intubated NECK: Trachea midline. No JVD. CARDIOVASCULAR: Regular rate and rhythm. No murmur appreciated. RESPIRATORY: Improved air entry R lung cuellar, diminished at the bases, symmetrical chest rise. R 28 F chest tube with 1.4 L output in 24 hours GASTROINTESTINAL: Abdomen distended, soft, no fluid thrill present. No ascites on bedside US MUSCULOSKELETAL: No obvious deformities. No clubbing. No cyanosis. No edema. NEUROLOGICAL: Sedated with Propofol, Motor grossly within normal limits. Do not follow commands A/P Assessment and Plan Problem list: Acute hypoxemic respiratory failure Alcohol withdrawal syndrome Acute encephalopathy Large right pleural effusion with complete collapse of right lung, mediastinal shift Sepsis Suspected pneumonia Ascites Alcohol-induced liver cirrhosis Alcohol dependence Plan by system: Neuro: Alcohol withdrawal/DT Alcohol dependence Hepatic encephalopathy History of seizures from alcohol withdrawal -Hold propofol place on Precedex to facilitate weaning trial. Daily sedation vacation -Monitor neuro status. Ativan when necessary to avoid alcohol withdrawal. Scheduled Librium. Thiamine 100 mg daily. -Use Haldol also as needed Cardiovascular: -Hemodynamically stable at this time, continue IV maintenance fluid with normal saline -IV albumin 25 g every 8 hours -Continue Aldactone. Lasix 20 mg BID Pulmonary: Very large right pleural effusion with right lung collapse and mass effect ( secondary to cirrhosis) Acute hypoxemic respiratory failure Possible pneumonia -Initial pigtail catheter placed 11/25/16 was pulled out by the patient, after draining 2.8 L, repeat [address] by Dr[address] Perrin, with additional 3.4 L out after placement -Chest x-ray 11/26 shows reaccumulation of fluid, indicating rapidly accumulating pleural fluid probably tracking up from ascites. Today CXR shows interval improvement -Intubated 11/26/16 for progressive hypoxemic respiratory failure. Start CPAP trials -Bronchodilators scheduled and when necessary. -Broad-spectrum antibiotics with Zosyn and vancomycin GI/liver: Alcoholic liver disease Ascites -CT abdomen and pelvis -large amount of ascites and cirrhotic liver-but no ascites on bedside US 11/26/16. (probably drained with pl effusion) -Continue lactulose, Xifaxan -GI consulted. US to rule out portal vein thrombosis, IR consulted for TIPS evaluation -Continue Inderal and Aldactone, Lasix Renal/: -Continue normal saline IV fluid. Monitor renal function closely ID: Sepsis Suspected pneumonia -IV vancomycin PTD and Zosyn 4.5 g every 6 hours. DC vanc on 24 hours if cultures remain negative -Follow up on blood and sputum culture. Pleural fluid studies and culture Endocrine: -SSI for glycemic control if needed. -Electrolyte replacement protocol Heme: -Follow CBC -Watchful coagulopathy and thrombocytopenia Prophylaxis: -PPI/SCDs. -Lovenox 40 mg sq once platelet counts are >100 CCT 40 MIN excluding procedures Ton Gordon MD Nov 27, 2016 11:43
[2016-11-27] MEDS: DEXMEDETOMIDINE INJ 50 ML IV SCH ×3 (12:01→23:55)
--- NOTE | 2016-11-27 12:55 | HHI.GIFU ---
Subjective Remarks patient is currently sedated on a vent, has chest tube to the right, IR consulted for possible TIPS, but this was cancelled as patient doesn't meet the criteria per Dr Musa. (Tina Moise) Objective Vitals I&O Vital Signs Date Time Temp Pulse Resp B/P Pulse Ox O2 Delivery O2 Flow Rate FiO2 11/27/16 12:18 100 40 11/27/16 12:00 40 11/27/16 12:00 72 11/27/16 12:00 97.2 72 16 101/56 100 11/27/16 10:00 79 11/27/16 08:19 100 40 11/27/16 08:00 79 11/27/16 08:00 97.9 66 16 110/66 98 11/27/16 08:00 40 11/27/16 07:00 98 Mechanical Ventilator 40 Non-Rebreather 11/27/16 06:00 67 11/27/16 04:18 97 40 11/27/16 04:00 70 11/27/16 04:00 40 11/27/16 04:00 98.2 70 16 106/62 97 11/27/16 02:00 64 11/27/16 01:45 97 40 11/27/16 00:00 56 11/27/16 00:00 97.7 86 20 109/61 98 11/27/16 00:00 40 11/26/16 22:29 97 40 11/26/16 22:00 61 11/26/16 20:00 40 11/26/16 20:00 76 11/26/16 20:00 99.3 72 20 113/65 97 11/26/16 19:40 97 40 11/26/16 19:00 97 Mechanical Ventilator 45 Non-Rebreather 11/26/16 18:00 70 11/26/16 17:01 97 45 11/26/16 16:00 98.6 70 16 99/67 96 11/26/16 16:00 70 11/26/16 16:00 50 11/26/16 14:00 68 11/26/16 12:53 97 45 I/O 11/26/16 11/26/16 11/26/16 11/27/16 11/27/16 11/27/16 07:00 15:00 23:00 07:00 15:00 23:00 Intake Total 850 ml 1346 ml 889 ml 1414 ml Output Total 1760 ml 500 ml 1420 ml 1575 ml Balance -910 ml 846 ml -531 ml -161 ml Intake IV Total 850 ml 1346 ml 889 ml 1414 ml Output Urine Total 360 ml 250 ml 650 ml 1150 ml Chest Tube Drainage Total 1400 ml 250 ml 770 ml 425 ml # Bowel Movements 1 Laboratory Laboratory Tests Test 11/26/16 11/26/16 11/27/16 13:02 20:30 03:40 Fibrinogen 197 Vancomycin Level Trough 13.7 18.3 White Blood Count 18.9 Red Blood Count 4.27 Hemoglobin 13.4 Hematocrit 39.3 Mean Corpuscular Volume 92.0 Mean Corpuscular Hemoglobin 31.3 Mean Corpuscular Hemoglobin 34.0 Concent Red Cell Distribution Width 14.8 Platelet Count 75 Mean Platelet Volume 9.0 Neutrophils (%) (Auto) 84.1 Lymphocytes (%) (Auto) 7.8 Monocytes (%) (Auto) 8.0 Eosinophils (%) (Auto) 0.0 Basophils (%) (Auto) 0.1 Neutrophils # (Auto) 15.9 Lymphocytes # (Auto) 1.5 Monocytes # (Auto) 1.5 Eosinophils # (Auto) 0.0 Basophils # (Auto) 0.0 CBC Comment AUTO DIFF Differential Total Cells 100 Counted Neutrophils % (Manual) 76 Band Neutrophils % 9 Lymphocytes % 8 Monocytes % 7 Neutrophils # (Manual) 16.1 Differential Comment FINAL DIFF MANUAL Platelet Estimate LOW Platelet Morphology Comment NORMAL Red Cell Morphology Comment NORMAL Prothrombin Time 16.1 Prothromb Time International 1.4 Ratio Sodium Level 138 Potassium Level 3.7 Chloride Level 105 Carbon Dioxide Level 23.7 Anion Gap 9 Blood Urea Nitrogen 13 Creatinine 0.58 Estimat Glomerular Filtration 155 Rate Random Glucose 128 Calcium Level 8.0 Magnesium Level 1.9 Total Bilirubin 2.0 Aspartate Amino Transf 24 (AST/SGOT) Alanine Aminotransferase 34 (ALT/SGPT) Alkaline Phosphatase 61 Ammonia 33 Total Protein 5.4 Albumin 3.1 Date/Time Procedure Status Source Growth 11/25/16 17:40 Gram Stain - Final Resulted Fluid Pleural Fluid 11/25/16 17:40 Body Fluid Culture - Preliminary Resulted Fluid Pleural Fluid NO GROWTH IN 48 HOURS. 11/25/16 17:40 Gram Stain Ordered Sputum Expectorated Sputum Pending 11/25/16 17:40 Sputum Culture Ordered Sputum Expectorated Sputum Pending 11/25/16 17:40 Fungal Smear - Final Resulted Fluid Pleural Fluid NO FUNGAL ELEMENTS SEEN. 11/25/16 17:40 Fungal Culture Resulted Fluid Pleural Fluid Pending 11/25/16 17:40 Acid Fast Stain - Final Resulted Fluid Pleural Fluid NO ACID FAST BACILLI SEEN 11/25/16 17:40 Mycobacterial Culture Resulted Fluid Pleural Fluid Pending 11/25/16 09:57 Aerobic Blood Culture - Preliminary Resulted Blood Peripheral NO GROWTH IN 2 DAYS 11/25/16 09:57 Anaerobic Blood Culture - Preliminary Resulted Blood Peripheral NO GROWTH IN 2 DAYS Imaging Last Impressions Chest X-Ray 11/27/16 0600 Signed Impressions: Service Date/Time: Sunday, November 27, 2016 04:25 - CONCLUSION: Improvement in the aeration of the right lung. Jose Jarvis MD Liver Ultrasound 11/26/16 0000 Signed Impressions: Service Date/Time: November 14:23 - CONCLUSION: 1. The portal vein is patent. 2. Multiple gallstones in the gallbladder. No definite biliary tract obstruction. There is thickening of the gallbladder wall with some fluid around the gallbladder. This can be seen with either acute or chronic cholecystitis. This would have to be correlated with patient's physical, clinical exam and lab values. Sudhakar Zapata MD Chest CT 11/25/16 0000 Signed Impressions: Service Date/Time: Friday, November 25, 2016 11:37 - CONCLUSION: Very large right pleural effusion with complete collapse of the right lung. Sudhakar Zapata MD Abdomen/Pelvis CT 11/25/16 0000 Signed Impressions: Service Date/Time: Friday, November 25, 2016 11:37 - CONCLUSION: Large right-sided pleural effusion with adjacent compressive atelectasis of the right lung. There is mass effect on the heart displacing it leftward within the thoracic cavity. There is a large amount of ascites which is not significantly changed as compared to the prior exam. The liver has a cirrhotic appearance. Mary Bradley MD Physical Exam HEENT: normocephalic; atraumatic; no jaundice. NECK: Neck is supple, no JVD, no lymphadenopathy. CHEST: diminished at the basis chest tube CARDIAC: Regular rate and rhythm with no murmur gallop or rubs. ABDOMEN: Soft, distended, nontender; bowel sounds are present in all four quadrants. EXTREMITIES: No clubbing, cyanosis, or edema. SKIN: Normal; no rash; no jaundice. PEST LOCATOR: sedated on a vent . (Tina Moise) Assessment and Plan Plan ASSESSMENT: - Liver cirrhosis secondary to ETOH use. Pt continues to drink, per family he has no intentions of stopping. MELD 15. Previous workup Hepatitis profile negative, Ferritin 1154, Iron saturation 33 %, AFP 2.4, Ceruloplasmin 24, ALpha 1 Antitrypsin 191, MANPREET neg, ASMA negative, AMA neg. Abdomen/Pelvis CT (11/25/16 )----> Large right-sided pleural effusion with adjacent compressive atelectasis of the right lung. There is mass effect on the heart displacing it leftward within the thoracic cavity. There is a large amount of ascites which is not significantly changed as compared to the prior exam. The liver has a cirrhotic appearance. Pt with worsening coagulopathy/ thrombocytopenia. - Ascites. Large right pleural effusion. chest tube. He is on Albumin, Lasix, Spironolactone. CT was without contrast. US/Doppler on 11/26/16 0000 1. The portal vein is patent. 2. Multiple gallstones in the gallbladder. No definite biliary tract obstruction. There is thickening of the gallbladder wall with some fluid around the gallbladder. This can be seen with either acute or chronic cholecystitis. This would have to be correlated with patient's physical , clinical exam and lab values. IR was consulted for possible TIPS but this was cancelled as the as patient doesn't meet the criteria per Dr Musa. - Hepatic encephalopathy. Lactulose. ammonia improving - DTs, no ETOH x 3 days prior to hospitalization. - Respiratory failure, Suspected PNA, Pleural effusion. Vent. per [facility] - Sepsis. WBC worsening today. Vanco/Zosyn. - Thrombocytopenia, Coagulopathy. improving This could be a combination from Sepsis and liver dz. - Disp. Pt was under hospice care but still a full code. Per brother, he has continued to drink and has no intention of stopping. It is likely that he has decompensation from etoh and abuse and it is possible that he could improve if he stopped drinking. However, if he continues to drink then he has a very poor prognosis. PLAN: - NPO for now. - S/P IR consult for evaluation for TIPS, patient not a candidate - Cont. Albumin - Diuretics per CCM - Cont. Lactulose - Cont. PPI - Cont. Abx - Supportive care - Further recommendations to follow based on results of above - Pt seen and examined by Dr. Lizama and myself and this note is written on his behalf (Tina Moise) Physician Comments Seen and examined with [employer]IRSPR[employer] AD[employer]ER, not a candidate for TIPS. active ETOH limits any interventions. Will sign off, reconsult as needed. Thank you (Biju Lizama MD ) Tina Moise Nov 27, 2016 12:55 Biju Lizama MD Nov 27, 2016 17:12
--- NOTE | 2016-11-27 14:31 | HHI.HCPN ---
Reason for visit a. To assist with evaluation and management of symptoms including: dyspnea , encephalopathy; agitation b. To assist medical decision maker(s) with: better understanding of current medical conditions; weighing benefits/burdens of medical treatment options; making medical treatment decisions. . Subjective/Interval History Patient remain sedated, mechanically ventilated in the SICU. He moves spontaneously, grimaces with stimulation, but does not open his eyes and makes no attempt to repsond to questions. Primary nurse reports that when they attempted to wean sedation he became very agitated with thrashing. He is now on precedex and propofol is being weaned. He is also on scheduled chlordiazepoxide and PRN lorazepam for withdrawal symptoms. Chest tube remains in place and CXR is improving. Critical care team is hoping to be able control the agitation a offer a CPAP trial. Off pressors. There have been some blood- tinged secretions from the OG tube. Patient not currently being fed. Difficult to assess cause of agitation / grimacing -- pain vs withdrawal symptoms vs delirium. Receive one 2 mg dose of IV morphine at 00:04 last night. GI has evaluated the patient. Options are limited given patient's unwillingness to discontinue EtOH consumption. They have mentioned the possibility of a TIPS procedure. Critical care and GI believe the pleural effusion is transudative -- essentially ascitic fluid tracking up. Chest tube drainage 1445 . Vital signs have stabilized. Urine output good. Bowels moving with lactulose on board. WBC up to 18.9. Hg 13.4. Platelets had fallen to 59 on 11/26 but are now up to 75. Renal function remains good. INR at 1.4. Cultures remain negative. From Dr. Funk's initial palliative care consultation of 11/26/16.... Mr. Arias is a 41 y/o male with advanced EtOH induced liver disease and currently enrolled with [facility] and familiar to our service from his last admission of 08/03/16 - 09/06/16 who presented to the ED on 11/25/16 because of increasing dyspnea and progressive encephalopathy. The dyspnea had been worsening over many days; the mental status had been worsening over the course of the month. ER w/u revealed a "white out" of the right chest due to a large pleural effusion. He has undergone thoracentesis with pig-tail placement. He pulled out the "pig-tail" catheter and had emergent insertion of a chest tube. The patient developed respiratory distress this AM -- he is now intubated/sedated in the SICU. He was on Precedex for agitation but is now on propofol. Norepinephrine is on stand-by for borderline hypotension. Mr. Arias has had a long history of EtOH abuse. He had his first EtOH withdrawal seizures at age 26. His last admission from 08/03 - 09/06 of last year was similar to this one -- complicated by right sided pleural effusion requiring thoracentesis. He also required paracentesis x 2 during that admission. He was felt to have pneumonia/sepsis as well. The hospitalization was also marked by severe agitation. Preceding that admission there were multiple ED visits for EtOH related issues and falls including seizures. The patient was enrolled with hospice at the time of his last hospital discharge on09/06. He was discharged home under hospice care and lived with his brother -- mother lives close by and visits several times a day. Though there was a chance the patient might improve if he abstained from EtOH it was clear that further EtOH consumption would likely result in his . The patient successfully abstained for a while and seemed to be improving. Agitation was controlled and his mother tells me he was even able to drive at times. Unfortunately, he once again began drinking, refused to use his lactulose, and became confused. Brother reports he was mostly just drinking and laying in bed and showing increasing confusion for about a month. The SOB has been present for many days, but became severe during the 24 hours leading up to admission. The patient had consumed EtOH within 24 hours of ER presentation. Patient did not appear jaundiced. There is no knowledge of rectal bleeding or vomiting of blood. There may have been some abdominal distention. Patient had not been complaining of any significant pain. Depression , per mother , is a fdc problem for the patient. Diagnostic testing on admission included the following: * CBC showed WBC 16.2; hemoglobin 17.0; platelet count 124 * Chemistry profile showed sodium 139; potassium 4.1; chloride 102; CO2 29.8; anion gap 7; BUN 20; creatinine 0.67; GFR 131; glucose 148; calcium 8.6; magnesium 2.4 * Liver function testing showed total bilirubin 1.4; AST 34; ALT 59; alkaline phosphatase 109; total protein 7.4; albumin 3.1 * Cardiac serology showed total CK 137; CK-MB 1.8; troponin less than 0.02 * Lipase was 266 * Ammonia level was 18 * Coagulation profile showed PT 14.3; INR 1.3; PTT 27.7 . Family/friend interactions No family/friends at bedside. . Advance Directives Living Will: Never completed Health Care Surrogate: Never completed Durable Power of Commercial Sales Consultant: Never completed Advance Directive Specifics Date completed: Advance directives never completed. . Health Care Surrogate(s): No written designation of health care surrogacy. . Documented care wishes: No written documentation of health care goals/preferences. . Objective Vital Signs Date Time Temp Pulse Resp B/P Pulse Ox O2 Delivery O2 Flow Rate FiO2 11/27/16 12:18 100 40 11/27/16 12:00 40 11/27/16 12:00 72 11/27/16 12:00 97.2 72 16 101/56 100 11/27/16 10:00 79 11/27/16 08:19 100 40 11/27/16 08:00 79 11/27/16 08:00 97.9 66 16 110/66 98 11/27/16 08:00 40 11/27/16 07:00 98 Mechanical Ventilator 40 Non-Rebreather 11/27/16 06:00 67 11/27/16 04:18 97 40 11/27/16 04:00 70 11/27/16 04:00 40 11/27/16 04:00 98.2 70 16 106/62 97 11/27/16 02:00 64 11/27/16 01:45 97 40 11/27/16 00:00 56 11/27/16 00:00 97.7 86 20 109/61 98 11/27/16 00:00 40 11/26/16 22:29 97 40 11/26/16 22:00 61 11/26/16 20:00 40 11/26/16 20:00 76 11/26/16 20:00 99.3 72 20 113/65 97 11/26/16 19:40 97 40 11/26/16 19:00 97 Mechanical Ventilator 45 Non-Rebreather 11/26/16 18:00 70 11/26/16 17:01 97 45 11/26/16 16:00 98.6 70 16 99/67 96 11/26/16 16:00 70 11/26/16 16:00 50 Intake & Output 11/27/16 11/27/16 07:00 19:00 Intake Total 2303 ml Output Total 2995 ml Balance -692 ml Intake IV Total 2303 ml Output Urine Total 1800 ml Chest Tube Drainage Total 1195 ml # Bowel Movements 1 . Physical Exam CONSTITUTIONAL/GENERAL: This is an adequately nourished patient, sedated, intubated, mechanically ventilated in an SICU bed. He grimaces and thrashes with stimulation. Does not open eyes and makes no attempt to respond to questions or follow commands. TUBES/LINES/DRAINS: Right subclavian central line; peripheral IVs; orotracheal tube; orogastric tube; 4-extremity soft restraints; zayas catheter; right chest tube; SCDs; warming blanket SKIN: No jaundice, rashes, or lesions. No wounds seen anteriorly. Skin temperature appropriate. Not diaphoretic. HEAD: Atraumatic. Normocephalic. EYES: Pupils equal and round. Unable to evaluate extraocular movements. Sclerae are slightly icteric. No injection or drainage. Fundi not examined. ENT: Unable to evaluate hearing due to clinical status. Nose without bleeding or purulent drainage. Unable to adequately view oropharynx due to intubations. NECK: Trachea midline. Supple. CARDIOVASCULAR: Regular rate and rhythm without murmurs, gallops, or rubs. No JVD. RESPIRATORY/CHEST: Symmetric, unlabored respirations. Reasonable air movement bilaterally but still more diminished at the right base. Right chest tube in place. No audible wheezing. GASTROINTESTINAL: Abdomen soft, non-tender, mildly distended. No hepato- splenomegaly, or palpable masses. No guarding. Bowel sounds present. GENITOURINARY: Without palpable bladder distension. Zayas catheter in place. MUSCULOSKELETAL: Extremities without clubbing, cyanosis, or edema. No joint tenderness or effusion noted. No calf tenderness. No mottling or clubbing. LYMPHATICS: Not examined. NEUROLOGICAL: Sedated. Becomes agitated and thrashes with voice and exam, but does not open his eyes, follow commands, or attempt to answer questions. Moves all extremities. PSYCHIATRIC: Unable to assess due to level of responsiveness. . Diagnostic Tests Laboratory Laboratory Tests Test 11/25/16 11/25/16 11/25/16 11/26/16 09:57 10:51 17:40 04:05 White Blood Count 16.2 TH/MM3 12.0 TH/MM3 (4.0-11.0) (4.0-11.0) Red Blood Count 5.28 MIL/MM3 4.55 MIL/MM3 (4.50-5.90) (4.50-5.90) Hemoglobin 17.0 GM/DL 14.2 GM/DL (13.0-17.0) (13.0-17.0) Hematocrit 49.1 % 43.1 % (39.0-51.0) (39.0-51.0) Mean Corpuscular Volume 93.0 FL 94.5 FL (80.0-100.0) (80.0-100.0) Mean Corpuscular Hemoglobin 32.1 PG 31.2 PG (27.0-34.0) (27.0-34.0) Mean Corpuscular Hemoglobin 34.6 % 33.0 % Concent (32.0-36.0) (32.0-36.0) Red Cell Distribution Width 15.1 % 14.8 % (11.6-17.2) (11.6-17.2) Platelet Count 124 TH/MM3 59 TH/MM3 (150-450) (150-450) Mean Platelet Volume 8.6 FL 8.3 FL (7.0-11.0) (7.0-11.0) Neutrophils (%) (Auto) 77.2 % 80.5 % (16.0-70.0) (16.0-70.0) Lymphocytes (%) (Auto) 11.5 % 11.7 % (9.0-44.0) (9.0-44.0) Monocytes (%) (Auto) 11.0 % 7.6 % (0.0-8.0) (0.0-8.0) Eosinophils (%) (Auto) 0.2 % (0.0-4.0) 0.1 % (0.0-4.0) Basophils (%) (Auto) 0.1 % (0.0-2.0) 0.1 % (0.0-2.0) Neutrophils # (Auto) 12.5 TH/MM3 9.7 TH/MM3 (1.8-7.7) (1.8-7.7) Lymphocytes # (Auto) 1.9 TH/MM3 1.4 TH/MM3 (1.0-4.8) (1.0-4.8) Monocytes # (Auto) 1.8 TH/MM3 0.9 TH/MM3 (0-0.9) (0-0.9) Eosinophils # (Auto) 0.0 TH/MM3 0.0 TH/MM3 (0-0.4) (0-0.4) Basophils # (Auto) 0.0 TH/MM3 0.0 TH/MM3 (0-0.2) (0-0.2) CBC Comment DIFF FINAL AUTO DIFF Differential Comment AUTO DIFF CONFIRMED Prothrombin Time 14.3 SEC 17.2 SEC (9.8-11.6) (9.8-11.6) Prothromb Time International 1.3 RATIO 1.5 RATIO Ratio Activated Partial 27.7 SEC Thromboplast Time (24.3-30.1) Sodium Level 139 MEQ/L 139 MEQ/L (136-145) (136-145) Potassium Level 4.1 MEQ/L 4.3 MEQ/L (3.5-5.1) (3.5-5.1) Chloride Level 102 MEQ/L 106 MEQ/L (98-107) (98-107) Carbon Dioxide Level 29.8 MEQ/L 24.2 MEQ/L (21.0-32.0) (21.0-32.0) Anion Gap 7 MEQ/L (5-15) 9 MEQ/L (5-15) Blood Urea Nitrogen 20 MG/DL (7-18) 17 MG/DL (7-18) Creatinine 0.67 MG/DL 0.34 MG/DL (0.60-1.30) (0.60-1.30) Estimat Glomerular Filtration 131 ML/MIN 287 ML/MIN Rate (>89) (>89) Random Glucose 148 MG/DL 138 MG/DL (74-106) (74-106) Lactic Acid Level 1.8 mmol/L 1.5 mmol/L (0.4-2.0) (0.4-2.0) Calcium Level 8.6 MG/DL 7.9 MG/DL (8.5-10.1) (8.5-10.1) Magnesium Level 2.4 MG/DL 2.0 MG/DL (1.5-2.5) (1.5-2.5) Total Bilirubin 1.4 MG/DL 2.7 MG/DL (0.2-1.0) (0.2-1.0) Aspartate Amino Transf 34 U/L (15-37) 24 U/L (15-37) (AST/SGOT) Alanine Aminotransferase 59 U/L (12-78) 35 U/L (12-78) (ALT/SGPT) Alkaline Phosphatase 109 U/L 61 U/L (45-117) (45-117) Ammonia 18 MCMOL/L (11-32) Total Creatine Kinase 137 U/L (39-308) Creatine Kinase MB 1.8 NG/ML (0.5-3.6) Troponin I LESS THAN 0.02 NG/ML (0.02-0.05) Total Protein 7.4 GM/DL 5.0 GM/DL (6.4-8.2) (6.4-8.2) Albumin 3.1 GM/DL 2.4 GM/DL (3.4-5.0) (3.4-5.0) Lipase 266 U/L (73-393) Blood Gas Puncture Site RT RADIAL Blood Gas Patient Temperature 98.6 Blood Gas HCO3 27 mmol/L (22-26) Blood Gas Base Excess 3.6 mmol/L (-2-2) Blood Gas Oxygen Saturation 90 % (90-100) Arterial Blood pH 7.47 (7.380-7.420) Arterial Blood Partial 38 mmHg (38-42) Pressure CO2 Arterial Blood Partial 70 mmHG Pressure O2 (61-120) Arterial Blood Oxygen Content 20.3 Vol % (12.0-20.0) Arterial Blood 2.1 % (0-4) Carboxyhemoglobin Arterial Blood Methemoglobin 1.9 % (0-2) Blood Gas Hemoglobin 16.0 G/DL (12.0-16.0) Oxygen Delivery Device NASAL CANNULA Blood Gas Liter Flow 3 L/M Pleural Fluid pH 8.5 Pleural Fluid WBC 39 /MM3 (0-10) Pleural Fluid RBC 10 /MM3 (0-0) Pleural Fluid Neutrophils 40 % Pleural Fluid Lymphocytes 40 % Pleural Fluid Histiocytes 16 % Pleural Fluid Mesothelial 4 % Cells Pleural Fluid Total Protein 1.0 GM/DL Pleural Fluid LDH 42 U/L Pleural Fluid Glucose 145 MG/DL Pleural Fluid Amylase 15 U/L Pleural Fluid Lipase 28 U/L Pleural Fluid Cholesterol LESS THAN 50 MG/DL Platelet Estimate LOW (NORMAL) Platelet Morphology Comment NORMAL (NORMAL) Test 11/26/16 11/26/16 11/26/16 11/26/16 08:45 10:00 10:48 13:02 Blood Gas Puncture Site RT RADIAL RT RADIAL Blood Gas Patient Temperature 98.6 98.6 Blood Gas HCO3 23 mmol/L 22 mmol/L (22-26) (22-26) Blood Gas Base Excess -0.6 mmol/L -1.0 mmol/L (-2-2) (-2-2) Blood Gas Oxygen Saturation 87 % (90-100) 98 % (90-100) Arterial Blood pH 7.44 7.52 (7.380-7.420) (7.380-7.420) Arterial Blood Partial 34 mmHg (38-42) 26 mmHg (38-42) Pressure CO2 Arterial Blood Partial 57 mmHg 479 mmHg Pressure O2 (61-120) (61-120) Arterial Blood Oxygen Content 16.8 Vol % 20.6 Vol % (12.0-20.0) (12.0-20.0) Arterial Blood 1.1 % (0-4) 1.1 % (0-4) Carboxyhemoglobin Arterial Blood Methemoglobin 0.7 % (0-2) 0.8 % (0-2) Blood Gas Hemoglobin 13.7 G/DL 14.1 G/DL (12.0-16.0) (12.0-16.0) Oxygen Delivery Device Non-Rebreathing VENTILATOR Mask Blood Gas Liter Flow 15 L/M Blood Gas Inspired Oxygen 100 % 100 % Ammonia 58 MCMOL/L (11-32) Blood Gas Ventilator Setting Fibrinogen 197 mg/dL (181-393) Test 11/26/16 11/27/16 20:30 03:40 Vancomycin Level Trough 13.7 MCG/ML 18.3 MCG/ML (5.0-10.0) (5.0-10.0) White Blood Count 18.9 TH/MM3 (4.0-11.0) Red Blood Count 4.27 MIL/MM3 (4.50-5.90) Hemoglobin 13.4 GM/DL (13.0-17.0) Hematocrit 39.3 % (39.0-51.0) Mean Corpuscular Volume 92.0 FL (80.0-100.0) Mean Corpuscular Hemoglobin 31.3 PG (27.0-34.0) Mean Corpuscular Hemoglobin 34.0 % Concent (32.0-36.0) Red Cell Distribution Width 14.8 % (11.6-17.2) Platelet Count 75 TH/MM3 (150-450) Mean Platelet Volume 9.0 FL (7.0-11.0) Neutrophils (%) (Auto) 84.1 % (16.0-70.0) Lymphocytes (%) (Auto) 7.8 % (9.0-44.0) Monocytes (%) (Auto) 8.0 % (0.0-8.0) Eosinophils (%) (Auto) 0.0 % (0.0-4.0) Basophils (%) (Auto) 0.1 % (0.0-2.0) Neutrophils # (Auto) 15.9 TH/MM3 (1.8-7.7) Lymphocytes # (Auto) 1.5 TH/MM3 (1.0-4.8) Monocytes # (Auto) 1.5 TH/MM3 (0-0.9) Eosinophils # (Auto) 0.0 TH/MM3 (0-0.4) Basophils # (Auto) 0.0 TH/MM3 (0-0.2) CBC Comment AUTO DIFF Differential Total Cells 100 Counted Neutrophils % (Manual) 76 % (16-70) Band Neutrophils % 9 % (0-6) Lymphocytes % 8 % (9-44) Monocytes % 7 % (0-8) Neutrophils # (Manual) 16.1 TH/MM3 (1.8-7.7) Differential Comment FINAL DIFF MANUAL Platelet Estimate LOW (NORMAL) Platelet Morphology Comment NORMAL (NORMAL) Red Cell Morphology Comment NORMAL (NORMAL) Prothrombin Time 16.1 SEC (9.8-11.6) Prothromb Time International 1.4 RATIO Ratio Sodium Level 138 MEQ/L (136-145) Potassium Level 3.7 MEQ/L (3.5-5.1) Chloride Level 105 MEQ/L (98-107) Carbon Dioxide Level 23.7 MEQ/L (21.0-32.0) Anion Gap 9 MEQ/L (5-15) Blood Urea Nitrogen 13 MG/DL (7-18) Creatinine 0.58 MG/DL (0.60-1.30) Estimat Glomerular Filtration 155 ML/MIN Rate (>89) Random Glucose 128 MG/DL (74-106) Calcium Level 8.0 MG/DL (8.5-10.1) Magnesium Level 1.9 MG/DL (1.5-2.5) Total Bilirubin 2.0 MG/DL (0.2-1.0) Aspartate Amino Transf 24 U/L (15-37) (AST/SGOT) Alanine Aminotransferase 34 U/L (12-78) (ALT/SGPT) Alkaline Phosphatase 61 U/L (45-117) Ammonia 33 MCMOL/L (11-32) Total Protein 5.4 GM/DL (6.4-8.2) Albumin 3.1 GM/DL (3.4-5.0) . Result Diagram: 11/27/1633911/27/16339 Microbiology Microbiology Date/Time Procedure Status Source Growth 11/25/16 09:55 Aerobic Blood Culture - Preliminary Resulted Blood Peripheral NO GROWTH IN 2 DAYS 11/25/16 09:55 Anaerobic Blood Culture - Preliminary Resulted Blood Peripheral NO GROWTH IN 2 DAYS 11/25/16 09:57 Aerobic Blood Culture - Preliminary Resulted Blood Peripheral NO GROWTH IN 2 DAYS 11/25/16 09:57 Anaerobic Blood Culture - Preliminary Resulted Blood Peripheral NO GROWTH IN 2 DAYS 11/25/16 17:40 Gram Stain - Final Resulted Fluid Pleural Fluid 11/25/16 17:40 Body Fluid Culture - Preliminary Resulted Fluid Pleural Fluid NO GROWTH IN 48 HOURS. 11/25/16 17:40 Acid Fast Stain - Final Resulted Fluid Pleural Fluid NO ACID FAST BACILLI SEEN 11/25/16 17:40 Mycobacterial Culture Resulted Fluid Pleural Fluid Pending 11/25/16 17:40 Fungal Smear - Final Resulted Fluid Pleural Fluid NO FUNGAL ELEMENTS SEEN. 11/25/16 17:40 Fungal Culture Resulted Fluid Pleural Fluid Pending 11/25/16 17:40 Gram Stain Ordered Sputum Expectorated Sputum Pending 11/25/16 17:40 Sputum Culture Ordered Sputum Expectorated Sputum Pending . Imaging Last Impressions Chest X-Ray 11/27/16 0600 Signed Impressions: Service Date/Time: Sunday, November 27, 2016 04:25 - CONCLUSION: Improvement in the aeration of the right lung. Jose Jarvis MD Liver Ultrasound 11/26/16 0000 Signed Impressions: Service Date/Time: November 14:23 - CONCLUSION: 1. The portal vein is patent. 2. Multiple gallstones in the gallbladder. No definite biliary tract obstruction. There is thickening of the gallbladder wall with some fluid around the gallbladder. This can be seen with either acute or chronic cholecystitis. This would have to be correlated with patient's physical, clinical exam and lab values. Sudhakar Zapata MD Chest CT 11/25/16 0000 Signed Impressions: Service Date/Time: Friday, November 25, 2016 11:37 - CONCLUSION: Very large right pleural effusion with complete collapse of the right lung. Sudhakar Zapata MD Abdomen/Pelvis CT 11/25/16 0000 Signed Impressions: Service Date/Time: Friday, November 25, 2016 11:37 - CONCLUSION: Large right-sided pleural effusion with adjacent compressive atelectasis of the right lung. There is mass effect on the heart displacing it leftward within the thoracic cavity. There is a large amount of ascites which is not significantly changed as compared to the prior exam. The liver has a cirrhotic appearance. Mary Bradley MD . Procedures * Right chest pig-tail catheter placement * right chest tube placement * Intubation/mechanical ventilation * Right subclavian central line placement. . Assessment and Plan Disease Oriented Problem List: (1) Pleural effusion, right Comment: Appears to be transudative and possibly tracking up from ascites. No evidence of infection at this time. Patient had similar presentation at time of his last admission at end of Jul 2016. We were able to control ascites and pleural effusion without TIPS at that time. . . (2) Collapse of right lung Comment: Due to pleural effusion. Chest tube in place with re-expansion. . (3) Probable pneumonia (4) Hepatic encephalopathy (5) Respiratory insufficiency Comment: Probably due to the large pleural effusion. . (6) Ascites (7) Alcohol-induced cirrhosis (8) Portal hypertension Symptom Scale: (1) Pain 0-10 Scale: Unable to quantify Comment: Patient had not significant pre-hospital pain syndromes. Now may be uncomfortable from prolonged bedbound status; OT/OG tubes; vascual access lines ; zayas cathter; etc. . (2) Dyspnea 0-10 Scale: Unable to quantify Comment: Patient has significant dyspnea from his pleural effusion. Significant only improved post thoracentesis and chest tube placement. Currently ventilated. Patient has no underlying smoking history. Uncertain if there is a pneumonia as well. . 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 Mental status began to decline when patient started drinking again approximately one month ago. . (4) Agitation 0-10 Scale: Unable to quantify Comment: Probably a combination of EtOH withdrawal and delirium . Pertinent Non-Medical Issues Psychosocial: Patient psychosocial support comes primarily from his mother and his brother. The patient lives with his brother who is currently unemployed. The patient's mother visits several times a day. Spiritual: Jew Legal: No advance directives Ethical issues impacting care: Patient is incapacitated; it is still unclear if he will regain capacity to make his own health care decisions. . Important Contacts * Catherine Arias (mother and proxy decision maker) [phone] . Prognosis The patient is critically ill and currently being mechanically ventilated in an intensive care unit bed. He has a chest tube in place. Though he is relatively young, his resilience is undoubtedly impacted by his history of alcohol abuse. If the patient is able to avoid other significant complications he should be able to survive the hospitalization. He is certainly at risk for infection and possible hepatorenal syndrome. Based on his recent history he may have enough functioning liver to allow survival if he completely abstains from alcohol. It is becoming quite clear that any alcohol use leads to critical illness relatively quickly. Per family, patient has refused any help for his alcoholism or depression and he continues to decline. Patient, however, has refused DNR status and is told his family several times that he wants ongoing aggressive care. . Code Status: Full Code Plan == CODE STATUS: FULL CODE . Patient has told family members that he wants to remain a "full code." == Decision-making: Patient is currently incapacitated to make his own health care decisions. It is not known if he will regain capacity to do so. There is no written designation of health care surrogate. As the patient is not , and has no adult children or surviving father, healthcare decision-making falls to his mother. She is making those decisions with the input of the patient's brother. == Goals of medical treatment: The patient has told both his mother and his brother that he would want ongoing aggressive treatment including resuscitation attempts. His goals of been confusing. He has made it clear he wants to be kept alive. On the other hand, he continues to refuse help with his alcoholism or depression. While he doesn't want to sign a DNR, he has wanted to remain with hospice. == Patient now dis-enrolled from hospice. == Pain: Pain had not been a significant problem for this patient prior to this admission. Possible sources of pain currently include prolonged bedbound status; orotracheal and orogastric intubations; Zayas catheter; restraints; vascular access lines. Morphine orders are in place. No further recommendations at this time. == Dyspnea: Patient came in with a very large right pleural effusion. After initial drainage, the inserted pigtail catheter was unintentionally removed by the patient. There was rapid reaccumulation of fluid. A chest tube is now in place. Patient is receiving mechanical ventilation and dyspnea is controlled. Once agitation is adequately controlled, may try CPAP trial. == Encephalopathy; there is certainly underlying hepatic encephalopathy -- the patient has been drinking regularly and has been refusing his lactulose. Interestingly, ammonia level was not significantly high on admission. The patient's overall clinical illness and debilitated state are probably also contributing to his encephalopathy. Aggressive treatment for the underlying illness is probably the best way of managing this. == Risk of alcohol withdrawal including seizures == Agitation: Patient was severely agitated during his last admission. It was agitation that cause the long length of stay. Will need to monitor closely. Agitation occurring in the next few days is probably related to alcohol withdrawal. Patient on scheduled librium and prn lorazepam. Also on Precedex. No further recommendations at this time. == Depression: Per patient's mother, patient has had a several year period of significant depression. Currently on citalopram. No further recommendations at this time. == Palliative care will continue to follow to assist with symptom management and to further clarify goals of medical treatment as the clinical course evolves. . Attestation To help prompt me to consider important information that might be impacting today's encounter and assessment, information from prior notes written by myself or my colleagues may have been "brought forward" into today's note. My signature on this note, however, is an attestation that I personally performed the exam, history, and/or decision-making noted today, and, unless otherwise indicated, the interactions with patient, family, and staff as well as the review of records all occurred today. I also attest that the listed assessment and stated plan reflect my best clinical judgment today based on the combination of historical information, prior notes, and today's exam/ interactions. When time spent is documented, it refers only to time spent today by the signer, or if indicated, combined time spent today by collaborating physician/nurse practitioner. . Harshal Funk MD Nov 27, 2016 14:31
[2016-11-28] VITALS (14 sets, daily range): BP systolic 84–148; BP diastolic 54–71; PULSE 54–102; RESP 13–21; TEMP 96.2–98.8; O2SAT 96–100
[2016-11-28] MEDS: chlordiazePOXIDE 25 MG CAP PO SCH ×3 (01:00→16:49)
[2016-11-28] MEDS: PIPERACIL-TAZO 4.5 GM PREMIX 100 ML IV SCH ×4 (02:50→20:15)
[2016-11-28] MEDS: RESP: ALBUTEROL 2.5 MG/IPRATROPIUM 0.5 MG NEB (SCH) INH ×6 (03:43→23:56)
[2016-11-28] MEDS ORDERED: PHARMACY ORDERED LAB XX ONE (03:45)
[2016-11-28 04:16] LABS: AUTOMATED NEUTROPHIL # 10.2 TH/MM3 (1.8-7.7); BASOPHIL % 0.1 % (0.0-2.0); HEMATOCRIT 37.5 % (39.0-51.0); LYMPH % 10.3 % (9.0-44.0); LYMPHOCYTE # 1.3 TH/MM3 (1.0-4.8); MEAN CORPUSCULAR HEMOGLOBIN 31.8 PG (27.0-34.0); MEAN CORPUSCULAR HGB CONC 34.5 % (32.0-36.0); MONO % 9.9 % (0.0-8.0); NEUT % 79.7 % (16.0-70.0); PLATELET COUNT 50 TH/MM3 (150-450); RED BLOOD COUNT 4.08 MIL/MM3 (4.50-5.90); RED CELL DISTRIBUTION WIDTH 14.5 % (11.6-17.2); WHITE BLOOD COUNT 12.8 TH/MM3 (4.0-11.0)
[2016-11-28] MEDS: CHLORHEXIDINE GLUCONATE 2 % 1 PACK (2 CLOTHS) TOP SCH (04:22)
[2016-11-28] MEDS: VANCOMYCIN INJ 1,750 MG in SODIUM CHLORID 0.9% 500 ML INJ 500 ML IV SCH (04:22)
[2016-11-28 04:32] LABS: HEMO FLAGS AUTO DIFF
[2016-11-28 04:35] LABS: ALT (GPT) 33 U/L (12-78); ANION GAP 6 MEQ/L (5-15); BICARBONATE 27.2 MEQ/L (21.0-32.0); BLOOD UREA NITROGEN 10 MG/DL (7-18); CHLORIDE 107 MEQ/L (98-107); GLOMERULAR FILTRATION RATE 245 ML/MIN (>89); POTASSIUM 4.1 MEQ/L (3.5-5.1); SODIUM (NA) 140 MEQ/L (136-145)
[2016-11-28 04:40] LABS: ALKALINE PHOSPHATASE 58 U/L (45-117); AST (GOT) 18 U/L (15-37); TOTAL BILIRUBIN ADULT 1.6 MG/DL (0.2-1.0)
[2016-11-28] MEDS: MORPHINE SULFATE 4 MG/ML INJ IV PUSH PRN (04:43)
[2016-11-28] MEDS: ALBUMIN HUMAN 25% 25 GM/100 ML BAGP IV SCH ×2 (05:18→16:49)
[2016-11-28 05:22] LABS: PLATELET ESTIMATE SMEAR NORMAL (NORMAL); SCAN/DIFF AUTO DIFF CONFIRMED
--- NOTE | 2016-11-28 06:16 | RADRPT ---
EXAM DATE/TIME: 11/28/2016 05:20 [place] COMPARISON: CHEST SINGLE AP, November 27, 2016, 4:25. INDICATIONS : Evaluate after respiratory failure. MEDICAL HISTORY : Hypertension. Diabetes mellitus type II. Hepatitis C. Seizures SURGICAL HISTORY : Rotator cuff, Paracentesis, Thoracentesis ENCOUNTER: Subsequent ACUITY: 4 - 6 days PAIN SCORE: Non-responsive. LOCATION: Bilateral chest FINDINGS: Interval extubation and removal of gastric tube. There is some mild patchy infiltrates in the right mid and lower lung, similar in distribution, decreased in density when compared to prior chest x-ray. Right chest drainage tube tip remains projected at the apex. No pneumothorax seen. Right subclavi an catheter tip projects over the proximal superior vena cava. A few linear opacities left base are horizontal in configuration, characteristic of atelectasis.. CONCLUSION: 1. Persistent, but improved, airspace opacities right mid and lower lung. Interval development of linear atelectasis of the left base. Anish Poole MD on November 28, 2016 at 6:13 Board Certified Radiologist. This report was verified electronically.
[2016-11-28] MEDS: DEXMEDETOMIDINE INJ 50 ML IV SCH (06:40)
[2016-11-28] MEDS: CHLORHEXIDINE 0.12% (ORAL KIT) 15 ML CUP MT SCH ×2 (08:00→20:00)
[2016-11-28] MEDS: CITALOPRAM HYDROBROMIDE 40 MG TAB PO SCH (08:36)
[2016-11-28] MEDS: LACTULOSE SYRUP 20 GM/30 ML CUP PO SCH ×3 (08:36→16:58)
[2016-11-28] MEDS: THIAMINE HCL 100 MG TAB PO SCH (08:36)
[2016-11-28] MEDS: RIFAXIMIN 550 MG TAB PO SCH ×2 (08:36→20:15)
[2016-11-28] MEDS: DIVALPROEX SODIUM DELAYED RELEASE 250 MG TAB PO SCH ×2 (08:36→20:15)
[2016-11-28] MEDS: PANTOPRAZOLE SODIUM 40 MG VIAL IV SCH (08:37)
[2016-11-28] MEDS: FUROSEMIDE 20 MG TAB PO SCH ×2 (08:37→16:58)
[2016-11-28] MEDS: POTASSIUM CL 40 MEQ/30 ML LIQ UDC NG SCH (08:37)
[2016-11-28] MEDS: SPIRONOLACTONE 25 MG TAB PO SCH ×2 (08:37→16:57)
[2016-11-28] MEDS: DEXAMETHASONE 4 MG TAB PO SCH (08:37)
[2016-11-28] MEDS: SODIUM CHLORIDE 0.9% FLUSH 5 ML FLUSH IV FLUSH SCH ×2 (08:38→20:15)
[2016-11-28] MEDS: LORazepam 2 MG/ML VIAL IV PUSH PRN ×3 (08:41→20:34)
--- NOTE | 2016-11-28 10:16 | HHI.CCPN ---
Subjective Remarks/Hospital Course Patient is a 41-year-old male with history alcohol-induced cirrhosis, alcohol dependence and continued use, history of alcohol withdrawal seizures who presented to the emergency department with increasing shortness of breath worsening over the last 2 weeks. Also complains of epigastric pain. He was recently admitted to the hospital from 08/03/16 - 09/06/16 for sepsis from pneumonia. Workup showed patient had a white count of 16,000 with 77% neutrophils. A chest x-ray showed large right effusion with complete opacification of right lung field. CT of the chest confirmed very large right effusion with mediastinal shift and complete right lung atelectasis. CT abdomen pelvis shows large amount of ascites and liver cirrhosis. Critical- care medicine was consulted for admission I evaluated the patient in the ED he is in moderate distress due to shortness of breath. He is lying on his right side. I explained him the plan is to place right sided pigtail chest tube as a pleural effusion is very large. He is agreeable to the procedure. I have also placed him on single dose of vancomycin and continuos Zosyn 4.5 g every 6 hours. Lasix will be held at this time, continue Aldactone. IV normal saline and IV albumin added. Was also noted the patient's last alcoholic drink was yesterday evening. SUBJ 11/26/16: Patient had right pigtail chest tube placed yesterday for large right sided pleural effusion with distention. 2.8 L of cloudy white pleural fluid evacuated. Unfortunately patient pulled out the chest tube and developed tension physiology again with reaccumulation of fluid. New 28 [place] chest tube was placed emergently by Dr. Perrin, since placement chest tube has drained additional 3.4 L of slightly blood-tinged cloudy fluid. Fluid studies are consistent with transudative effusion most likely secondary to his ascites. Currently patient is sedated with Precedex requiring nonrebreather, oxygen saturation very from 90-94%. ABG ordered patient may need endotracheal intubation 11/27: Patient was intubated yesterday 11/26/16 for worsening hypoxemic respiratory failure. Chest x-ray today shows interval improvement on right side. Urine output 2 L and chest tube output 1.4 L in 24 hours. WBC increased to 18.9 today. GI consulted who indeed consulted IR for evaluation for TIPS procedure. Per GI options are limited due to continued alcohol use and refusal to quit 11/28 No acute events overnight,on Precedex drip for agitation. Afebrile. WBC trending down. Objective Vital Signs Date Time Temp Pulse Resp B/P Pulse Ox O2 Delivery O2 Flow Rate FiO2 11/28/16 09:04 96 High Flow Nasal Cannula 4.00 11/28/16 08:00 98.8 65 16 111/70 11/27/16 15:45 40 Intake and Output 11/27/16 11/27/16 11/28/16 08:00 16:00 00:00 Intake Total 1414 ml 1671 ml 784 ml Output Total 1575 ml 2050 ml 3350 ml Balance -161 ml -379 ml -2566 ml Result Diagram: 11/28/16 0355 11/28/16 0355 Other Results Last Impressions Chest X-Ray 11/28/16 0600 Signed Impressions: Service Date/Time: Monday, November 28, 2016 05:20 - CONCLUSION: 1. Persistent, but improved, airspace opacities right mid and lower lung. Interval development of linear atelectasis of the left base. Anish Poole MD Liver Ultrasound 11/26/16 0000 Signed Impressions: Service Date/Time: November 14:23 - CONCLUSION: 1. The portal vein is patent. 2. Multiple gallstones in the gallbladder. No definite biliary tract obstruction. There is thickening of the gallbladder wall with some fluid around the gallbladder. This can be seen with either acute or chronic cholecystitis. This would have to be correlated with patient's physical, clinical exam and lab values. Sudhakar Zapata MD Chest CT 11/25/16 0000 Signed Impressions: Service Date/Time: Friday, November 25, 2016 11:37 - CONCLUSION: Very large right pleural effusion with complete collapse of the right lung. Sudhakar Zapata MD Abdomen/Pelvis CT 11/25/16 0000 Signed Impressions: Service Date/Time: Friday, November 25, 2016 11:37 - CONCLUSION: Large right-sided pleural effusion with adjacent compressive atelectasis of the right lung. There is mass effect on the heart displacing it leftward within the thoracic cavity. There is a large amount of ascites which is not significantly changed as compared to the prior exam. The liver has a cirrhotic appearance. Mary Bradley MD Imaging Last Impressions Chest X-Ray 11/28/16 0600 Signed Impressions: Service Date/Time: Monday, November 28, 2016 05:20 - CONCLUSION: 1. Persistent, but improved, airspace opacities right mid and lower lung. Interval development of linear atelectasis of the left base. Anish Poole MD Liver Ultrasound 11/26/16 0000 Signed Impressions: Service Date/Time: November 14:23 - CONCLUSION: 1. The portal vein is patent. 2. Multiple gallstones in the gallbladder. No definite biliary tract obstruction. There is thickening of the gallbladder wall with some fluid around the gallbladder. This can be seen with either acute or chronic cholecystitis. This would have to be correlated with patient's physical, clinical exam and lab values. Sudhakar Zapata MD Chest CT 11/25/16 0000 Signed Impressions: Service Date/Time: Friday, November 25, 2016 11:37 - CONCLUSION: Very large right pleural effusion with complete collapse of the right lung. Sudhakar Zapata MD Abdomen/Pelvis CT 11/25/16 0000 Signed Impressions: Service Date/Time: Friday, November 25, 2016 11:37 - CONCLUSION: Large right-sided pleural effusion with adjacent compressive atelectasis of the right lung. There is mass effect on the heart displacing it leftward within the thoracic cavity. There is a large amount of ascites which is not significantly changed as compared to the prior exam. The liver has a cirrhotic appearance. Mary Bradley MD Objective Remarks GENERAL: Patient is 41yo on Precedex drip for agitation. SKIN: Warm and dry. HEAD: Normocephalic. EYES: No scleral icterus. No injection or drainage. NECK: Supple, trachea midline. No JVD or lymphadenopathy. CARDIOVASCULAR: Regular rate and rhythm without murmurs, gallops, or rubs. RESPIRATORY: Breath sounds equal bilaterally. No accessory muscle use. GASTROINTESTINAL: Abdomen soft, non-tender, nondistended. MUSCULOSKELETAL: No cyanosis, or edema. Neuro: Awake and alert A/P Assessment and Plan Problem list: Acute hypoxemic respiratory failure Alcohol withdrawal syndrome Acute encephalopathy Large right pleural effusion with complete collapse of right lung, mediastinal shift Sepsis Suspected pneumonia Ascites Alcohol-induced liver cirrhosis Alcohol dependence Plan by system: Neuro: Alcohol withdrawal/DT Alcohol dependence Hepatic encephalopathy History of seizures from alcohol withdrawal -Wean off Precedex drip and monitor neuro status. -Monitor neuro status. Ativan when necessary to avoid alcohol withdrawal. Scheduled Librium 25mg Q8. Thiamine 100 mg daily. -Use Haldol also as needed Cardiovascular: -Monitor HR and BP keep MAP>65mmHg -Continue Aldactone. Lasix 20 mg BID Pulmonary: Very large right pleural effusion with right lung collapse and mass effect ( secondary to cirrhosis) Acute hypoxemic respiratory failure Possible pneumonia -Initial pigtail catheter placed 11/25/16 was pulled out by the patient, after draining 2.8 L, repeat [address] by [address] Perrin, with additional 3.4 L out after placement -Chest x-ray 11/26 shows reaccumulation of fluid, indicating rapidly accumulating pleural fluid probably tracking up from ascites. -Intubated 11/26/16 for progressive hypoxemic respiratory failure. extubated 11/27 -Continue with oxygen keep sat >92% -Bronchodilators, monitor CT drainage ( transudative effusion) secondary to cirrhosis of liver. -Broad-spectrum antibiotics with Zosyn and vancomycin GI/liver: Alcoholic liver disease Ascites -CT abdomen and pelvis -large amount of ascites and cirrhotic liver-but no ascites on bedside US 11/26/16. (probably drained with pl effusion) -Continue lactulose, Xifaxan -GI signed off patient is not a candidate for TIPS. -Continue Inderal and Aldactone, Lasix -GI eval, diet per speech. Renal/: -Monitor renal function, I/O's, electrolytes replacement per protocol. -D/C IVF ID: Sepsis Suspected pneumonia -IV vancomycin and Zosyn 4.5 g every 6 hours. -Follow up on blood and sputum culture. Pleural fluid studies and culture Endocrine: -SSI for glycemic control if needed. -Electrolyte replacement protocol Heme: -Follow CBC Prophylaxis: -PPI/SCDs. -Not on chemical AC prophylaxis due to thrombocytopenia. Level 3 Dinora Alcala MD Nov 28, 2016 10:15
[2016-11-28] MEDS: VANCOMYCIN INJ 1,500 MG in SODIUM CHLORID 0.9% 500 ML INJ 500 ML IV SCH (16:48)
[2016-11-29] VITALS (14 sets, daily range): BP systolic 97–113; BP diastolic 42–99; PULSE 81–111; RESP 14–26; TEMP 97.9–100.2; O2SAT 99–100
[2016-11-29] MEDS: chlordiazePOXIDE 25 MG CAP PO SCH ×3 (00:11→16:23)
[2016-11-29] MEDS: PIPERACIL-TAZO 4.5 GM PREMIX 100 ML IV SCH ×4 (00:59→20:11)
[2016-11-29] MEDS: LORazepam 2 MG/ML VIAL IV PUSH PRN ×2 (01:00→23:08)
[2016-11-29] MEDS: MORPHINE SULFATE ORAL SOLN 10 MG/0.5 ML SYRINGE PO/SL PRN (03:09)
[2016-11-29] MEDS: RESP: ALBUTEROL 2.5 MG/IPRATROPIUM 0.5 MG NEB (SCH) INH ×2 (04:00→10:00)
[2016-11-29 04:12] LABS: AUTOMATED NEUTROPHIL # 9.8 TH/MM3 (1.8-7.7); BASOPHIL # 0.1 TH/MM3 (0-0.2); BASOPHIL % 0.6 % (0.0-2.0); EOSINOPHIL # 0.1 TH/MM3 (0-0.4); EOSINOPHIL % 0.8 % (0.0-4.0); HEMATOCRIT 42.4 % (39.0-51.0); LYMPH % 16.4 % (9.0-44.0); LYMPHOCYTE # 2.3 TH/MM3 (1.0-4.8); MEAN CELL VOLUME 93.2 FL (80.0-100.0); MEAN CORPUSCULAR HEMOGLOBIN 30.9 PG (27.0-34.0); MEAN CORPUSCULAR HGB CONC 33.2 % (32.0-36.0); NEUT % 71.2 % (16.0-70.0); PLATELET COUNT 70 TH/MM3 (150-450); RED BLOOD COUNT 4.55 MIL/MM3 (4.50-5.90); RED CELL DISTRIBUTION WIDTH 14.7 % (11.6-17.2); WHITE BLOOD COUNT 13.8 TH/MM3 (4.0-11.0)
[2016-11-29 04:19] LABS: HEMO FLAGS AUTO DIFF
[2016-11-29] MEDS: VANCOMYCIN INJ 1,500 MG in SODIUM CHLORID 0.9% 500 ML INJ 500 ML IV SCH ×2 (04:23→16:23)
[2016-11-29] MEDS: CHLORHEXIDINE GLUCONATE 2 % 1 PACK (2 CLOTHS) TOP SCH (04:24)
[2016-11-29 04:44] LABS: BICARBONATE 30.1 MEQ/L (21.0-32.0); POTASSIUM 3.7 MEQ/L (3.5-5.1)
[2016-11-29 05:09] LABS: PLATELET ESTIMATE SMEAR LOW (NORMAL); PLATELET MORPHOLOGY NORMAL (NORMAL); SCAN/DIFF AUTO DIFF CONFIRMED
[2016-11-29] MEDS: ALBUMIN HUMAN 25% 25 GM/100 ML BAGP IV SCH ×2 (06:46→16:24)
[2016-11-29] MEDS: CHLORHEXIDINE 0.12% (ORAL KIT) 15 ML CUP MT SCH ×2 (07:56→20:00)
[2016-11-29] MEDS: SPIRONOLACTONE 25 MG TAB PO SCH ×2 (08:38→18:27)
[2016-11-29] MEDS: DEXAMETHASONE 4 MG TAB PO SCH (08:47)
[2016-11-29] MEDS: THIAMINE HCL 100 MG TAB PO SCH (08:47)
[2016-11-29] MEDS: RIFAXIMIN 550 MG TAB PO SCH ×2 (08:47→20:11)
[2016-11-29] MEDS: DIVALPROEX SODIUM DELAYED RELEASE 250 MG TAB PO SCH ×2 (08:47→20:11)
[2016-11-29] MEDS: LACTULOSE SYRUP 20 GM/30 ML CUP PO SCH ×3 (08:47→18:27)
[2016-11-29] MEDS: SODIUM CHLORIDE 0.9% FLUSH 5 ML FLUSH IV FLUSH SCH ×2 (08:48→20:11)
[2016-11-29] MEDS: PANTOPRAZOLE SODIUM 40 MG VIAL IV SCH (08:48)
[2016-11-29] MEDS: FUROSEMIDE 20 MG TAB PO SCH ×2 (08:48→18:27)
[2016-11-29] MEDS: CITALOPRAM HYDROBROMIDE 40 MG TAB PO SCH (08:48)
--- NOTE | 2016-11-29 09:34 | HHI.CCPN ---
Subjective Remarks/Hospital Course Patient is a 41-year-old male with history alcohol-induced cirrhosis, alcohol dependence and continued use, history of alcohol withdrawal seizures who presented to the emergency department with increasing shortness of breath worsening over the last 2 weeks. Also complains of epigastric pain. He was recently admitted to the hospital from 08/03/16 - 09/06/16 for sepsis from pneumonia. Workup showed patient had a white count of 16,000 with 77% neutrophils. A chest x-ray showed large right effusion with complete opacification of right lung field. CT of the chest confirmed very large right effusion with mediastinal shift and complete right lung atelectasis. CT abdomen pelvis shows large amount of ascites and liver cirrhosis. Critical- care medicine was consulted for admission I evaluated the patient in the ED he is in moderate distress due to shortness of breath. He is lying on his right side. I explained him the plan is to place right sided pigtail chest tube as a pleural effusion is very large. He is agreeable to the procedure. I have also placed him on single dose of vancomycin and continuos Zosyn 4.5 g every 6 hours. Lasix will be held at this time, continue Aldactone. IV normal saline and IV albumin added. Was also noted the patient's last alcoholic drink was yesterday evening. SUBJ 11/26/16: Patient had right pigtail chest tube placed yesterday for large right sided pleural effusion with distention. 2.8 L of cloudy white pleural fluid evacuated. Unfortunately patient pulled out the chest tube and developed tension physiology again with reaccumulation of fluid. New 28 [place] chest tube was placed emergently by Dr. Perrin, since placement chest tube has drained additional 3.4 L of slightly blood-tinged cloudy fluid. Fluid studies are consistent with transudative effusion most likely secondary to his ascites. Currently patient is sedated with Precedex requiring nonrebreather, oxygen saturation very from 90-94%. ABG ordered patient may need endotracheal intubation 11/27: Patient was intubated yesterday 11/26/16 for worsening hypoxemic respiratory failure. Chest x-ray today shows interval improvement on right side. Urine output 2 L and chest tube output 1.4 L in 24 hours. WBC increased to 18.9 today. GI consulted who indeed consulted IR for evaluation for TIPS procedure. Per GI options are limited due to continued alcohol use and refusal to quit 11/28 No acute events overnight,on Precedex drip for agitation. Afebrile. WBC trending down. 11/29 No events overnight. On 4L oxygen with good sats. Afebrile. Off Precedex drip. Objective Vital Signs Date Time Temp Pulse Resp B/P Pulse Ox O2 Delivery O2 Flow Rate FiO2 11/29/16 07:00 97 Nasal Cannula 4.00 11/29/16 06:00 107 11/29/16 04:00 100.2 26 110/74 11/27/16 15:45 40 Intake and Output 11/28/16 11/28/16 11/29/16 08:00 16:00 00:00 Intake Total 1304 ml 1309 ml 1404 ml Output Total 2150 ml 1800 ml 2920 ml Balance -846 ml -491 ml -1516 ml Result Diagram: 11/29/16 0355 11/29/16 0355 Other Results Laboratory Tests Test 11/29/16 03:55 White Blood Count 13.8 TH/MM3 Red Blood Count 4.55 MIL/MM3 Hemoglobin 14.1 GM/DL Hematocrit 42.4 % Mean Corpuscular Volume 93.2 FL Mean Corpuscular Hemoglobin 30.9 PG Mean Corpuscular Hemoglobin 33.2 % Concent Red Cell Distribution Width 14.7 % Platelet Count 70 TH/MM3 Mean Platelet Volume 9.0 FL Neutrophils (%) (Auto) 71.2 % Lymphocytes (%) (Auto) 16.4 % Monocytes (%) (Auto) 11.0 % Eosinophils (%) (Auto) 0.8 % Basophils (%) (Auto) 0.6 % Neutrophils # (Auto) 9.8 TH/MM3 Lymphocytes # (Auto) 2.3 TH/MM3 Monocytes # (Auto) 1.5 TH/MM3 Eosinophils # (Auto) 0.1 TH/MM3 Basophils # (Auto) 0.1 TH/MM3 CBC Comment AUTO DIFF Differential Comment AUTO DIFF CONFIRMED Platelet Estimate LOW Platelet Morphology Comment NORMAL Sodium Level 141 MEQ/L Potassium Level 3.7 MEQ/L Chloride Level 106 MEQ/L Carbon Dioxide Level 30.1 MEQ/L Anion Gap 5 MEQ/L Blood Urea Nitrogen 11 MG/DL Creatinine 0.51 MG/DL Estimat Glomerular Filtration 180 ML/MIN Rate Random Glucose 79 MG/DL Calcium Level 8.5 MG/DL Phosphorus Level 2.6 MG/DL Magnesium Level 2.0 MG/DL Imaging Last Impressions Chest X-Ray 11/28/16 0600 Signed Impressions: Service Date/Time: Monday, November 28, 2016 05:20 - CONCLUSION: 1. Persistent, but improved, airspace opacities right mid and lower lung. Interval development of linear atelectasis of the left base. Anish Poole MD Liver Ultrasound 11/26/16 0000 Signed Impressions: Service Date/Time: November 14:23 - CONCLUSION: 1. The portal vein is patent. 2. Multiple gallstones in the gallbladder. No definite biliary tract obstruction. There is thickening of the gallbladder wall with some fluid around the gallbladder. This can be seen with either acute or chronic cholecystitis. This would have to be correlated with patient's physical, clinical exam and lab values. Sudhakar Zapata MD Chest CT 11/25/16 0000 Signed Impressions: Service Date/Time: Friday, November 25, 2016 11:37 - CONCLUSION: Very large right pleural effusion with complete collapse of the right lung. Sudhakar Zapata MD Abdomen/Pelvis CT 11/25/16 0000 Signed Impressions: Service Date/Time: Friday, November 25, 2016 11:37 - CONCLUSION: Large right-sided pleural effusion with adjacent compressive atelectasis of the right lung. There is mass effect on the heart displacing it leftward within the thoracic cavity. There is a large amount of ascites which is not significantly changed as compared to the prior exam. The liver has a cirrhotic appearance. Mary Bradley MD Objective Remarks GENERAL: Patient is 41yo lying in bed in NAD SKIN: Warm and dry. HEAD: Normocephalic. EYES: No scleral icterus. No injection or drainage. NECK: Supple, trachea midline. No JVD or lymphadenopathy. CARDIOVASCULAR: Regular rate and rhythm without murmurs, gallops, or rubs. RESPIRATORY: Breath sounds equal bilaterally. No accessory muscle use. GASTROINTESTINAL: Abdomen soft, non-tender, nondistended. MUSCULOSKELETAL: No cyanosis, or edema. Neuro: Awake and alert A/P Assessment and Plan Problem list: Resp Insuff...improving Alcohol withdrawal syndrome Acute encephalopathy Large right pleural effusion with complete collapse of right lung, mediastinal shift Sepsis Suspected pneumonia Ascites Alcohol-induced liver cirrhosis Alcohol dependence Plan by system: Neuro: Alcohol withdrawal/DT Alcohol dependence Hepatic encephalopathy History of seizures from alcohol withdrawal -off Precedex drip, monitor neuro status. - Ativan when necessary to avoid alcohol withdrawal. Scheduled Librium 25mg Q8. Thiamine 100 mg daily. -Use Haldol also as needed Cardiovascular: -Monitor HR and BP keep MAP>65mmHg -Continue Aldactone. Lasix 20 mg BID Pulmonary: Very large right pleural effusion with right lung collapse and mass effect ( secondary to cirrhosis) Acute hypoxemic respiratory failure Possible pneumonia -Initial pigtail catheter placed 11/25/16 was pulled out by the patient, after draining 2.8 L, repeat [address] placed [address] Perrin, with additional 3.4 L out after placement -Chest x-ray 11/26 shows reaccumulation of fluid, indicating rapidly accumulating pleural fluid probably tracking up from ascites. -Intubated 11/26/16 for progressive hypoxemic respiratory failure. extubated 11/27 -Continue with oxygen keep sat >92% -Bronchodilators, monitor CT drainage ( transudative effusion) secondary to cirrhosis of liver. CT drained 690ml in 24 hrs -Broad-spectrum antibiotics with Zosyn and vancomycin GI/liver: Alcoholic liver disease Ascites -CT abdomen and pelvis -large amount of ascites and cirrhotic liver-but no ascites on bedside US 11/26/16. (probably drained with pl effusion) -Continue lactulose, Xifaxan -GI signed off, patient is not a candidate for TIPS per GI -Continue Inderal and Aldactone, Lasix -On heart healthy diet Renal/: -Monitor renal function, I/O's, electrolytes replacement per protocol. ID: Sepsis Suspected pneumonia -IV vancomycin and Zosyn 4.5 g every 6 hours. -Follow up on blood and sputum culture. Pleural fluid studies and culture...> NGTD Endocrine: -SSI for glycemic control if needed. -Electrolyte replacement protocol Heme: -Monitor CBC Prophylaxis: -PPI/SCDs. -Not on chemical AC prophylaxis due to thrombocytopenia. Will sign off and transfer acre to [facility] Level 3 Dinora Alcala MD Nov 29, 2016 09:34
--- NOTE | 2016-11-29 21:12 | MB ---
cc: CAT SHELTON M.D. DATE OF CONSULTATION 11/29/2016 REASON FOR CONSULTATION Pneumonia. HISTORY OF PRESENT ILLNESS Mr. Arias is a 41-year-old male who was admitted with increasing shortness of breath and evidence of pneumonia. The patient has known history of alcohol-related liver disease and liver cirrhosis. He has been followed by hospice since July 2016. The patient is generally weak, however, his shortness of breath has improved. Denies history of fever, chills, hemoptysis at present. PAST MEDICAL HISTORY His past medical history is that of: 1. Liver cirrhosis. 2. Alcoholic hepatitis. 3. History of seizure disorder believed to be related to alcohol withdrawal. 4. History of hypertension. 5. Previous knee and shoulder surgeries. 6. Neck surgery. FAMILY HISTORY Noncontributory. REVIEW OF SYSTEMS 12-point review of systems as per HPI and past history otherwise negative. SOCIAL HISTORY Does not smoke. History of alcohol abuse and marijuana use. PHYSICAL EXAMINATION GENERAL: The patient is alert. VITAL SIGNS: Temperature 98, pulse 100, respirations 20, blood pressure 103/73, oxygen saturation 99% on 4 liters oxygen. HEENT: Exam unremarkable. Eyes without icterus. NECK: Without adenopathy, thyroid enlargement. Central trachea. CHEST: Scattered rhonchi right hemithorax. CARDIOVASCULAR: Cardiac exam PMI distant. S1-S2 audible. No murmur or rub. ABDOMEN: Lax. Bowel sounds audible. EXTREMITIES: 1+ edema. IMAGING Chest x-ray right upper and middle lobe pneumonia. LABORATORY DATA White count 13,000, hemoglobin 14, hematocrit 42, platelets 70,000. ABG on 11/26/2016 100% oxygen pH 7.52, pCO2 26, pO2 479. INR 1.4. IMPRESSION 1. Pneumonia seems improving. 2. Liver cirrhosis. PLAN The patient will be maintained on oxygen therapy as needed. Antibiotic therapy continued. Chest x-ray will be followed. Further evaluation and treatment will be adjusted as needed depending on the patient's progress. I do thank you for asking me to partake in Mr. Arias's care. Cat Shelton MD WWW/FABIO /2:42 PM /9:03 PM
[2016-11-29] MEDS: MORPHINE SULFATE 4 MG/ML INJ IV PUSH PRN (23:23)
[2016-11-30] VITALS (14 sets, daily range): BP systolic 105–114; BP diastolic 72–76; PULSE 71–112; RESP 16–21; TEMP 97.8–99; O2SAT 92–100
[2016-11-30] MEDS: chlordiazePOXIDE 25 MG CAP PO SCH ×2 (01:59→08:18)
[2016-11-30] MEDS: PIPERACIL-TAZO 4.5 GM PREMIX 100 ML IV SCH ×4 (01:59→20:57)
[2016-11-30] MEDS ORDERED: PHARMACY ORDERED LAB XX ONE (03:45)
[2016-11-30] MEDS: CHLORHEXIDINE GLUCONATE 2 % 1 PACK (2 CLOTHS) TOP SCH (04:00)
[2016-11-30] MEDS: VANCOMYCIN INJ 1,500 MG in SODIUM CHLORID 0.9% 500 ML INJ 500 ML IV SCH (04:08)
[2016-11-30 04:11] LABS: AUTOMATED NEUTROPHIL # 9.4 TH/MM3 (1.8-7.7); BASOPHIL % 0.4 % (0.0-2.0); EOSINOPHIL % 0.3 % (0.0-4.0); HEMATOCRIT 41.4 % (39.0-51.0); LYMPH % 9.3 % (9.0-44.0); LYMPHOCYTE # 1.1 TH/MM3 (1.0-4.8); MEAN CELL VOLUME 92.1 FL (80.0-100.0); MEAN CORPUSCULAR HEMOGLOBIN 31.5 PG (27.0-34.0); MEAN CORPUSCULAR HGB CONC 34.2 % (32.0-36.0); PLATELET COUNT 69 TH/MM3 (150-450); RED CELL DISTRIBUTION WIDTH 14.3 % (11.6-17.2); WHITE BLOOD COUNT 11.7 TH/MM3 (4.0-11.0)
[2016-11-30 04:12] LABS: HEMO FLAGS AUTO DIFF
[2016-11-30 04:42] LABS: BICARBONATE 28.3 MEQ/L (21.0-32.0); POTASSIUM 3.7 MEQ/L (3.5-5.1)
[2016-11-30] MEDS: ALBUMIN HUMAN 25% 25 GM/100 ML BAGP IV SCH ×2 (05:58→17:33)
[2016-11-30] MEDS: CHLORHEXIDINE 0.12% (ORAL KIT) 15 ML CUP MT SCH ×2 (08:00→20:00)
[2016-11-30 08:02] LABS: PLATELET ESTIMATE SMEAR LOW (NORMAL); PLATELET MORPHOLOGY NORMAL (NORMAL); SCAN/DIFF AUTO DIFF CONFIRMED
[2016-11-30] MEDS: RIFAXIMIN 550 MG TAB PO SCH ×2 (08:18→20:57)
[2016-11-30] MEDS: THIAMINE HCL 100 MG TAB PO SCH (08:18)
[2016-11-30] MEDS: DEXAMETHASONE 4 MG TAB PO SCH (08:18)
[2016-11-30] MEDS: DIVALPROEX SODIUM DELAYED RELEASE 250 MG TAB PO SCH ×2 (08:18→20:57)
[2016-11-30] MEDS: CITALOPRAM HYDROBROMIDE 40 MG TAB PO SCH (08:18)
[2016-11-30] MEDS: FUROSEMIDE 20 MG TAB PO SCH ×2 (08:18→17:33)
[2016-11-30] MEDS: MORPHINE SULFATE 4 MG/ML INJ IV PUSH PRN (08:19)
[2016-11-30] MEDS: LACTULOSE SYRUP 20 GM/30 ML CUP PO SCH ×3 (08:19→17:32)
[2016-11-30] MEDS: PANTOPRAZOLE SODIUM 40 MG VIAL IV SCH (08:19)
[2016-11-30] MEDS: SODIUM CHLORIDE 0.9% FLUSH 5 ML FLUSH IV FLUSH SCH ×2 (08:20→20:41)
[2016-11-30] MEDS: SPIRONOLACTONE 25 MG TAB PO SCH ×2 (08:23→17:33)
[2016-11-30] MEDS ORDERED: FLUMAZENIL 0.5 MG/5 ML VIAL IV PUSH PRN (10:15)
[2016-11-30] MEDS ORDERED: LORazepam 2 MG TAB PO PRN (10:15)
[2016-11-30] MEDS ORDERED: LORazepam 2 MG/ML VIAL IV PUSH PRN ×4 (10:15)
--- NOTE | 2016-11-30 10:18 | HHI.PR ---
Subjective Remarks Transfer of care from critical care service. Follow up pleural effusion, respiratory failure. Patient states that his breathing is a little better today. Still having abdominal discomfort. Objective Vitals Vital Signs Date Time Temp Pulse Resp B/P Pulse Ox O2 Delivery O2 Flow Rate FiO2 11/30/16 09:05 100 Nasal Cannula 2.00 11/30/16 08:00 97.8 81 19 109/75 100 11/30/16 07:00 99 Nasal Cannula 2.00 11/30/16 06:00 87 11/30/16 04:00 97.9 93 18 105/76 94 11/30/16 04:00 93 11/30/16 02:00 93 11/30/16 00:00 112 11/30/16 00:00 99.0 112 21 114/76 92 11/29/16 22:20 100 Nasal Cannula 2.00 11/29/16 22:00 103 11/29/16 20:00 101 11/29/16 20:00 97.9 101 17 113/80 99 11/29/16 19:00 Nasal Cannula 2.00 11/29/16 18:00 81 11/29/16 16:00 98 11/29/16 16:00 98.0 104 19 103/79 99 11/29/16 14:00 104 11/29/16 12:00 98.6 100 14 103/73 99 11/29/16 12:00 100 I/O 11/29/16 11/29/16 11/29/16 11/30/16 11/30/16 11/30/16 07:00 15:00 23:00 07:00 15:00 23:00 Intake Total 1105 ml 946 ml 1506 ml 752 ml Output Total 2620 ml 1250 ml 2710 ml 735 ml Balance -1515 ml -304 ml -1204 ml 17 ml Intake Oral 946 ml 240 ml IV Total 905 ml 1266 ml 652 ml Albumin 200 ml 100 ml Output Urine Total 2000 ml 1100 ml 2650 ml 625 ml Chest Tube Drainage Total 620 ml 150 ml 60 ml 110 ml # Bowel Movements 0 0 0 Result Diagram: 11/30/16 0400 11/30/16 0400 Imaging Last Impressions Chest X-Ray 11/28/16 0600 Signed Impressions: Service Date/Time: Monday, November 28, 2016 05:20 - CONCLUSION: 1. Persistent, but improved, airspace opacities right mid and lower lung. Interval development of linear atelectasis of the left base. Anish Poole MD Liver Ultrasound 11/26/16 0000 Signed Impressions: Service Date/Time: November 14:23 - CONCLUSION: 1. The portal vein is patent. 2. Multiple gallstones in the gallbladder. No definite biliary tract obstruction. There is thickening of the gallbladder wall with some fluid around the gallbladder. This can be seen with either acute or chronic cholecystitis. This would have to be correlated with patient's physical, clinical exam and lab values. Sudhakar Zapata MD Chest CT 11/25/16 0000 Signed Impressions: Service Date/Time: Friday, November 25, 2016 11:37 - CONCLUSION: Very large right pleural effusion with complete collapse of the right lung. Sudhakar Zapata MD Abdomen/Pelvis CT 11/25/16 0000 Signed Impressions: Service Date/Time: Friday, November 25, 2016 11:37 - CONCLUSION: Large right-sided pleural effusion with adjacent compressive atelectasis of the right lung. There is mass effect on the heart displacing it leftward within the thoracic cavity. There is a large amount of ascites which is not significantly changed as compared to the prior exam. The liver has a cirrhotic appearance. Mary Bradley MD Objective Remarks General: No acute distress. Heart: Regular rate and rhythm. No murmur. Lungs: Clear to auscultation bilaterally. No wheezes, rales, or rhonchi. Breathing is nonlabored. Abdomen: Soft, nontender, nondistended. Extremities: No lower extremity edema. Psych: Alert and oriented. Procedures 11/25/16 right pigtail chest tube placement 11/26/16 right chest tube placement 11/26/16 orotracheal intubation 11/26/16 subclavian central line placement Urinary Catheter: Yes Assessment to: Remove Vascular Central Line Catheter: Yes Assessment to: Remove Line: Central Venous Catheter Side: Right Location: Subclavian A/P Problem List: (1) Sepsis ICD Code: A41.9 Status: Acute (2) Respiratory insufficiency ICD Code: R06.89 Status: Acute (3) Pleural effusion, right ICD Code: J90 Status: Acute (4) Collapse of right lung ICD Code: J98.11 Status: Acute (5) Probable pneumonia Status: Acute (6) Seizure ICD Code: R56.9 Status: Acute (7) Liver failure ICD Code: K72.90 Status: Chronic (8) Alcohol dependence ICD Code: F10.20 Status: Chronic (9) Alcohol-induced cirrhosis Status: Chronic Assessment and Plan 1. Acute respiratory failure: Improved. Patient extubated. Pulmonology consulted. Continue supplemental oxygen. Bronchodilators as needed. 2. Large right pleural effusion with right lung collapse and mass effect: Status post pigtail catheter placement on 11/25/16. The catheter was pulled out by the patient. Chest tube was placed again on 11/26/16. Appreciate pulmonology management of chest tube. 3. Alcoholic liver disease, chronic: Continue lactulose, Xifaxan. Gastroenterology has signed off. Continue Inderal, Aldactone, Lasix. 4. Alcohol withdrawal, dependence: Patient is now off Precedex drip. Ativan as needed for withdrawal symptoms per [facility] protocol. Continue thiamine daily. 5. Sepsis, pneumonia: Continue antibiotics. 6. Thrombocytopenia: Likely secondary to chronic liver disease. Stable. 7. GI prophylaxis: PPI. 8. DVT prophylaxis: SCDs. Avoid chemical prophylaxis secondary to thrombocytopenia. Problem Qualifiers (1) Sepsis: Qualified Code: A41.9 - Sepsis, due to unspecified organism (2) Alcohol dependence: Nirav Jalloh MD Nov 30, 2016 10:18
[2016-11-30] MEDS: FOLIC ACID 1 MG TAB PO SCH (11:02)
[2016-11-30] MEDS: LORazepam 1 MG TAB PO PRN ×2 (11:02→17:33)
[2016-11-30] MEDS: MULTIVITAMIN TAB PO SCH (11:02)
[2016-11-30] MEDS: VANCOMYCIN 1,500 MG/NS 500 ML IV SCH ×4 (14:48→21:40)
[2016-11-30] MEDS ORDERED: chlordiazePOXIDE 25 MG CAP PO SCH (17:00)
--- NOTE | 2016-11-30 17:31 | HHI.HCPN ---
Reason for visit a. To assist with evaluation and management of symptoms including: dyspnea , encephalopathy; agitation b. To assist medical decision maker(s) with: better understanding of current medical conditions; weighing benefits/burdens of medical treatment options; making medical treatment decisions. . Subjective/Interval History Patient seen today to follow-up on comfort, goals with decision-maker. Patient remains in ICU, extubated on 11/27, tolerating nasal cannula. Speech therapy has evaluated no swallowing deficits tolerating oral diet. CXR from with some improvement. LFTs unremarkable, bilirubin 1.6. Mild leukocytosis WBC 11.7 trending down. Platelets have trended down to 50->70-> 69 today. no reported bleeding. Ammonia 11/27=33. Has only required 1 dose prn ativan for agitation earlier today. nursing reports overall cooperative, intermittently confused. Pt seen in room with no visitors present. 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 He is alert, thought I was here to deliver the sandwich he just ordered. He is mostly oriented though extremely poor historian, confabulates/ confuses details. Knows he is in the hospital, year, close to date, but also tells me he just got released from the hospital and has been trying to work, and has just ordered a sandwich. Tells me he has been vomiting all day long ( though nursing reports no emesis) Denies hallucinations, pain, sob (though again , poor historian). Endorses poor appetite which she relates to frequent vomiting. Continues to have right lateral chest tube. Does endorse some discomfort at chest tube site with deep inspiration. Unable to rate pain. Tells me he understands he is still in hospital because he is continued to drink he endorses he drinks 78 drinks a day. Offered to call his mother to provide an update, he is agreeable with this but thinks she may still be at work. Call to mother following exam, voicemail left. Advance Directives Living Will: Never completed Health Care Surrogate: Never completed Durable Power of Mid Wife: Never completed Advance Directive Specifics Date completed: Advance directives never completed. . Health Care Surrogate(s): No written designation of health care surrogacy. . Documented care wishes: No written documentation of health care goals/preferences. . Objective Vital Signs Date Time Temp Pulse Resp B/P Pulse Ox O2 Delivery O2 Flow Rate FiO2 11/30/16 16:00 98.0 71 16 109/73 99 11/30/16 16:00 81 11/30/16 14:00 86 11/30/16 12:00 75 11/30/16 12:00 98.6 87 20 107/72 98 11/30/16 10:00 90 11/30/16 09:05 100 Nasal Cannula 2.00 11/30/16 08:00 85 11/30/16 08:00 97.8 81 19 109/75 100 11/30/16 07:00 99 Nasal Cannula 2.00 11/30/16 06:00 87 11/30/16 04:00 97.9 93 18 105/76 94 11/30/16 04:00 93 11/30/16 02:00 93 11/30/16 00:00 112 11/30/16 00:00 99.0 112 21 114/76 92 11/29/16 22:20 100 Nasal Cannula 2.00 11/29/16 22:00 103 11/29/16 20:00 101 11/29/16 20:00 97.9 101 17 113/80 99 11/29/16 19:00 Nasal Cannula 2.00 11/29/16 18:00 81 Intake & Output 11/30/16 11/30/16 07:00 19:00 Intake Total 2258 ml 1465 ml Output Total 3445 ml 1510 ml Balance -1187 ml -45 ml Intake Oral 240 ml 1000 ml IV Total 1918 ml 365 ml Albumin 100 ml 100 ml Output Urine Total 3275 ml 1200 ml Chest Tube Drainage Total 170 ml 310 ml # Bowel Movements 0 Physical Exam CONSTITUTIONAL/GENERAL: This is an adequately nourished patient,alert, cooperative. TUBES/LINES/DRAINS: Right subclavian central line; peripheral IVs; BUE soft restraints; zayas catheter; right chest tube; SCDs; CARDIOVASCULAR: Regular rate and rhythm w,, no murmur. No peripheral edema. No JVD. RESPIRATORY/CHEST: Symmetric, unlabored respirations on NC. Clear, reasonable air movement bilaterally, decreased right base. Right chest tube in place draining to pleurevac. GASTROINTESTINAL: Abdomen soft, mildly-tender RLQ, mildly distended. No hepato- splenomegaly, or palpable masses. No guarding. Bowel sounds present. GENITOURINARY: Without palpable bladder distension. Zayas catheter in place. NEUROLOGICAL: alert, mostly oriented x2, very limited insight. At times confabulates. cooperative, follows commands. Speech clear. Moves all extremities. PSYCHIATRIC: no apparent anxiety or hallucination . Diagnostic Tests Laboratory Laboratory Tests Test 11/28/16 11/29/16 11/30/16 11/30/16 03:55 03:55 04:00 04:10 White Blood Count 12.8 TH/MM3 13.8 TH/MM3 11.7 TH/MM3 (4.0-11.0) (4.0-11.0) (4.0-11.0) Red Blood Count 4.08 MIL/MM3 4.55 MIL/MM3 4.50 MIL/MM3 (4.50-5.90) (4.50-5.90) (4.50-5.90) Hemoglobin 13.0 GM/DL 14.1 GM/DL 14.2 GM/DL (13.0-17.0) (13.0-17.0) (13.0-17.0) Hematocrit 37.5 % 42.4 % 41.4 % (39.0-51.0) (39.0-51.0) (39.0-51.0) Mean Corpuscular Volume 92.0 FL 93.2 FL 92.1 FL (80.0-100.0) (80.0-100.0) (80.0-100.0) Mean Corpuscular Hemoglobin 31.8 PG 30.9 PG 31.5 PG (27.0-34.0) (27.0-34.0) (27.0-34.0) Mean Corpuscular Hemoglobin 34.5 % 33.2 % 34.2 % Concent (32.0-36.0) (32.0-36.0) (32.0-36.0) Red Cell Distribution Width 14.5 % 14.7 % 14.3 % (11.6-17.2) (11.6-17.2) (11.6-17.2) Platelet Count 50 TH/MM3 70 TH/MM3 69 TH/MM3 (150-450) (150-450) (150-450) Mean Platelet Volume 8.8 FL 9.0 FL 8.8 FL (7.0-11.0) (7.0-11.0) (7.0-11.0) Neutrophils (%) (Auto) 79.7 % 71.2 % 80.0 % (16.0-70.0) (16.0-70.0) (16.0-70.0) Lymphocytes (%) (Auto) 10.3 % 16.4 % 9.3 % (9.0-44.0) (9.0-44.0) (9.0-44.0) Monocytes (%) (Auto) 9.9 % (0.0-8.0) 11.0 % 10.0 % (0.0-8.0) (0.0-8.0) Eosinophils (%) (Auto) 0.0 % (0.0-4.0) 0.8 % (0.0-4.0) 0.3 % (0.0-4.0) Basophils (%) (Auto) 0.1 % (0.0-2.0) 0.6 % (0.0-2.0) 0.4 % (0.0-2.0) Neutrophils # (Auto) 10.2 TH/MM3 9.8 TH/MM3 9.4 TH/MM3 (1.8-7.7) (1.8-7.7) (1.8-7.7) Lymphocytes # (Auto) 1.3 TH/MM3 2.3 TH/MM3 1.1 TH/MM3 (1.0-4.8) (1.0-4.8) (1.0-4.8) Monocytes # (Auto) 1.3 TH/MM3 1.5 TH/MM3 1.2 TH/MM3 (0-0.9) (0-0.9) (0-0.9) Eosinophils # (Auto) 0.0 TH/MM3 0.1 TH/MM3 0.0 TH/MM3 (0-0.4) (0-0.4) (0-0.4) Basophils # (Auto) 0.0 TH/MM3 0.1 TH/MM3 0.0 TH/MM3 (0-0.2) (0-0.2) (0-0.2) CBC Comment AUTO DIFF AUTO DIFF AUTO DIFF Differential Comment AUTO DIFF AUTO DIFF AUTO DIFF CONFIRMED CONFIRMED CONFIRMED Platelet Estimate NORMAL LOW (NORMAL) LOW (NORMAL) (NORMAL) Sodium Level 140 MEQ/L 141 MEQ/L 140 MEQ/L (136-145) (136-145) (136-145) Potassium Level 4.1 MEQ/L 3.7 MEQ/L 3.7 MEQ/L (3.5-5.1) (3.5-5.1) (3.5-5.1) Chloride Level 107 MEQ/L 106 MEQ/L 104 MEQ/L (98-107) (98-107) (98-107) Carbon Dioxide Level 27.2 MEQ/L 30.1 MEQ/L 28.3 MEQ/L (21.0-32.0) (21.0-32.0) (21.0-32.0) Anion Gap 6 MEQ/L (5-15) 5 MEQ/L (5-15) 8 MEQ/L (5-15) Blood Urea Nitrogen 10 MG/DL (7-18) 11 MG/DL (7-18) 13 MG/DL (7-18) Creatinine 0.39 MG/DL 0.51 MG/DL 0.46 MG/DL (0.60-1.30) (0.60-1.30) (0.60-1.30) Estimat Glomerular Filtration 245 ML/MIN 180 ML/MIN 203 ML/MIN Rate (>89) (>89) (>89) Random Glucose 104 MG/DL 79 MG/DL 100 MG/DL (74-106) (74-106) (74-106) Calcium Level 8.7 MG/DL 8.5 MG/DL 9.1 MG/DL (8.5-10.1) (8.5-10.1) (8.5-10.1) Total Bilirubin 1.6 MG/DL (0.2-1.0) Aspartate Amino Transf 18 U/L (15-37) (AST/SGOT) Alanine Aminotransferase 33 U/L (12-78) (ALT/SGPT) Alkaline Phosphatase 58 U/L (45-117) Total Protein 5.7 GM/DL (6.4-8.2) Albumin 3.4 GM/DL (3.4-5.0) Vancomycin Level Trough 19.0 MCG/ML 4.7 MCG/ML (5.0-10.0) (5.0-10.0) Platelet Morphology Comment NORMAL NORMAL (NORMAL) (NORMAL) Phosphorus Level 2.6 MG/DL 2.5 MG/DL (2.5-4.9) (2.5-4.9) Magnesium Level 2.0 MG/DL 2.0 MG/DL (1.5-2.5) (1.5-2.5) Nasal Screen MRSA (PCR) NEGATIVE (NEGATIVE) Result Diagram: 11/30/16 0400 11/30/16 0400 Imaging Last Impressions Chest X-Ray 11/28/16 0600 Signed Impressions: Service Date/Time: Monday, November 28, 2016 05:20 - CONCLUSION: 1. Persistent, but improved, airspace opacities right mid and lower lung. Interval development of linear atelectasis of the left base. Anish Poole MD Liver Ultrasound 11/26/16 0000 Signed Impressions: Service Date/Time: November 14:23 - CONCLUSION: 1. The portal vein is patent. 2. Multiple gallstones in the gallbladder. No definite biliary tract obstruction. There is thickening of the gallbladder wall with some fluid around the gallbladder. This can be seen with either acute or chronic cholecystitis. This would have to be correlated with patient's physical, clinical exam and lab values. Sudhakar Zapata MD Chest CT 11/25/16 0000 Signed Impressions: Service Date/Time: Friday, November 25, 2016 11:37 - CONCLUSION: Very large right pleural effusion with complete collapse of the right lung. Sudhakar Zapata MD Abdomen/Pelvis CT 11/25/16 0000 Signed Impressions: Service Date/Time: Friday, November 25, 2016 11:37 - CONCLUSION: Large right-sided pleural effusion with adjacent compressive atelectasis of the right lung. There is mass effect on the heart displacing it leftward within the thoracic cavity. There is a large amount of ascites which is not significantly changed as compared to the prior exam. The liver has a cirrhotic appearance. Mary Bradley MD Procedures * Right chest pig-tail catheter placement * right chest tube placement * Intubation/mechanical ventilation * Right subclavian central line placement. . Assessment and Plan Disease Oriented Problem List: (1) Pleural effusion, right Comment: Appears to be transudative and possibly tracking up from ascites. No evidence of infection at this time. Patient had similar presentation at time of his last admission at end of Jul 2016. We were able to control ascites and pleural effusion without TIPS at that time. . . (2) Collapse of right lung Comment: Due to pleural effusion. Chest tube in place with re-expansion. . (3) Probable pneumonia (4) Hepatic encephalopathy (5) Respiratory insufficiency Comment: Probably due to the large pleural effusion. . (6) Ascites (7) Alcohol-induced cirrhosis (8) Portal hypertension Symptom Scale: (1) Pain 0-10 Scale: Unable to quantify Comment: Patient had not significant pre-hospital pain syndromes. (2) Dyspnea 0-10 Scale: Unable to quantify Comment: Patient has significant dyspnea from his pleural effusion. Significant only improved post thoracentesis and chest tube placement. 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 Mental status began to decline when patient started drinking again approximately one month ago. . (4) Agitation 0-10 Scale: Unable to quantify Comment: Probably a combination of EtOH withdrawal and delirium . Pertinent Non-Medical Issues Psychosocial: Patient psychosocial support comes primarily from his mother and his brother. The patient lives with his brother who is currently unemployed. The patient's mother visits several times a day. Spiritual: Jainism Legal: No advance directives Ethical issues impacting care: Patient is incapacitated; it is still unclear if he will regain capacity to make his own health care decisions. . Important Contacts * Catherine Arias (mother and proxy decision maker) [phone] . Prognosis The patient is critically ill and currently being mechanically ventilated in an intensive care unit bed. He has a chest tube in place. Though he is relatively young, his resilience is undoubtedly impacted by his history of alcohol abuse. If the patient is able to avoid other significant complications he should be able to survive the hospitalization. He is certainly at risk for infection and possible hepatorenal syndrome. Based on his recent history he may have enough functioning liver to allow survival if he completely abstains from alcohol. It is becoming quite clear that any alcohol use leads to critical illness relatively quickly. Per family, patient has refused any help for his alcoholism or depression and he continues to decline. Patient, however, has refused DNR status and is told his family several times that he wants ongoing aggressive care. . Code Status: Full Code Plan == CODE STATUS: FULL CODE . Patient has told family members that he wants to remain a "full code." == Decision-making: Patient is currently incapacitated to make his own health care decisions. It is not known if he will regain capacity to do so. There is no written designation of health care surrogate. As the patient is not , and has no adult children or surviving father, healthcare decision-making falls to his mother. She is making those decisions with the input of the patient's brother. == Goals of medical treatment: The patient has told both his mother and his brother that he would want ongoing aggressive treatment including resuscitation attempts. His goals of been confusing. He has made it clear he wants to be kept alive. On the other hand, he continues to refuse help with his alcoholism or depression. While he doesn't want to sign a DNR, he has wanted to remain with hospice. 11/30no changes in goals at this point. Patient does not appear capacitated to make his own decisions, voicemail has been left to his mother. == Pain: Pain had not been a significant problem for this patient prior to this admission. Possible sources of pain currently include prolonged bedbound status; recent intubation/extubation, chest tube; Zayas catheter; restraints; vascular access lines. Morphine orders are in place. Has not had frequent prn requirements. No further recommendations at this time. == Dyspnea: Patient came in with a very large right pleural effusion. After initial drainage, the inserted pigtail catheter was unintentionally removed by the patient. There was rapid reaccumulation of fluid. A chest tube is now in place. Patient extubated 11/28, tolerating nasal cannula. Still with chest tube. No respiratory distress. == Encephalopathy; there is certainly underlying hepatic encephalopathy -- the patient has been drinking regularly and has been refusing his lactulose. Interestingly, ammonia level was not significantly high on admission. The patient's overall clinical illness and debilitated state are probably also contributing to his encephalopathy. Aggressive treatment for the underlying illness is probably the best way of managing this. == Risk of alcohol withdrawal including seizures == Agitation: Patient was severely agitated during his last admission. It was agitation that cause the long length of stay. Will need to monitor closely. Agitation occurring in the next few days is probably related to alcohol withdrawal. Patient on scheduled librium and prn lorazepam. sparing prn ativan requirements, req 1 (1)mg dose earlier today. No further recommendations at this time. == Depression: Per patient's mother, patient has had a several year period of significant depression. Currently on citalopram. No further recommendations at this time. == Palliative care will continue to follow to assist with symptom management and to further clarify goals of medical treatment as the clinical course evolves. . Time Spent Total Floor Time (mins): 20 >50% Counseling/Coord of Care: Yes (d/w RN) Attestation To help prompt me to consider important information that might be impacting today's encounter and assessment, information from prior notes written by myself or my colleagues may have been "brought forward" into today's note. My signature on this note, however, is an attestation that I personally performed the exam, history, and/or decision-making noted today, and, unless otherwise indicated, the interactions with patient, family, and staff as well as the review of records all occurred today. I also attest that the listed assessment and stated plan reflect my best clinical judgment today based on the combination of historical information, prior notes, and today's exam/ interactions. When time spent is documented, it refers only to time spent today by the signer, or if indicated, combined time spent today by collaborating physician/nurse practitioner. Alyse Townsend Nov 30, 2016 17:31
[2016-12-01] VITALS (7 sets, daily range): BP systolic 101–121; BP diastolic 65–78; PULSE 79–103; RESP 16–20; TEMP 97.9–98.5; O2SAT 92–98
[2016-12-01] MEDS: MORPHINE SULFATE 4 MG/ML INJ IV PUSH PRN (00:32)
[2016-12-01] MEDS: CHLORHEXIDINE GLUCONATE 2 % 1 PACK (2 CLOTHS) TOP SCH (03:52)
[2016-12-01] MEDS: PIPERACIL-TAZO 4.5 GM PREMIX 100 ML IV SCH ×3 (03:53→13:05)
[2016-12-01] MEDS ORDERED: PHARMACY ORDERED LAB XX ONE (05:45)
[2016-12-01] MEDS: ALBUMIN HUMAN 25% 25 GM/100 ML BAGP IV SCH ×2 (06:52→17:05)
[2016-12-01] MEDS: VANCOMYCIN 1,500 MG/NS 500 ML IV SCH ×4 (06:52→14:44)
[2016-12-01 07:37] LABS: AUTOMATED NEUTROPHIL # 8.9 TH/MM3 (1.8-7.7); BASOPHIL % 0.1 % (0.0-2.0); EOSINOPHIL # 0.1 TH/MM3 (0-0.4); EOSINOPHIL % 0.7 % (0.0-4.0); HEMATOCRIT 39.9 % (39.0-51.0); LYMPH % 12.5 % (9.0-44.0); LYMPHOCYTE # 1.5 TH/MM3 (1.0-4.8); MEAN CORPUSCULAR HEMOGLOBIN 31.4 PG (27.0-34.0); MEAN CORPUSCULAR HGB CONC 34.1 % (32.0-36.0); MONO % 11.6 % (0.0-8.0); NEUT % 75.1 % (16.0-70.0); PLATELET COUNT 68 TH/MM3 (150-450); RED BLOOD COUNT 4.33 MIL/MM3 (4.50-5.90); RED CELL DISTRIBUTION WIDTH 14.4 % (11.6-17.2); WHITE BLOOD COUNT 11.8 TH/MM3 (4.0-11.0)
[2016-12-01 07:40] LABS: HEMO FLAGS AUTO DIFF
[2016-12-01] MEDS: CHLORHEXIDINE 0.12% (ORAL KIT) 15 ML CUP MT SCH ×2 (08:00→20:00)
--- NOTE | 2016-12-01 08:16 | RADRPT ---
EXAM DATE/TIME: 12/01/2016 07:54 [facility] COMPARISON: CHEST SINGLE AP, November 28, 2016, 5:20. CHEST PA & LAT, August 03, 2016, 13:26. INDICATIONS : Pneumonia. MEDICAL HISTORY : Hypertension. Diabetic. ETOH. Cirrhosis. Seizure. Hepatitis. SURGICAL HISTORY : Rotator cuff, left. Left knee surgery. Jaw surgery. Paracentesis. Thoracentesis. ENCOUNTER: Initial ACUITY: 4 - 6 days PAIN SCORE: 6/10 LOCATION: chest FINDINGS: PA and lateral views of the chest demonstrate left basilar subsegmental atelectasis. Right lung now c lear. Right-sided chest tube in good position and unchanged. The cardiomediastinal contours are unre markable. Osseous structures are intact. Right subclavian central line has been removed. CONCLUSION: 1. Right-sided chest tube without pneumothorax. 2. Minimal left basilar subsegmental atelectasis. Magdiel Lucas MD on December 01, 2016 at 8:13 Board Certified Radiologist. This report was verified electronically.
[2016-12-01 08:47] LABS: PLATELET ESTIMATE SMEAR LOW (NORMAL); PLATELET MORPHOLOGY NORMAL (NORMAL); SCAN/DIFF AUTO DIFF CONFIRMED
[2016-12-01] MEDS: LACTULOSE SYRUP 20 GM/30 ML CUP PO SCH ×3 (09:14→17:04)
[2016-12-01] MEDS: PANTOPRAZOLE SODIUM 40 MG VIAL IV SCH (09:14)
[2016-12-01] MEDS: CITALOPRAM HYDROBROMIDE 40 MG TAB PO SCH (09:15)
[2016-12-01] MEDS: RIFAXIMIN 550 MG TAB PO SCH (09:15)
[2016-12-01] MEDS: FOLIC ACID 1 MG TAB PO SCH (09:15)
[2016-12-01] MEDS: FUROSEMIDE 20 MG TAB PO SCH ×2 (09:15→17:05)
[2016-12-01] MEDS: MULTIVITAMIN TAB PO SCH (09:15)
[2016-12-01] MEDS: DEXAMETHASONE 4 MG TAB PO SCH (09:15)
[2016-12-01] MEDS: SPIRONOLACTONE 25 MG TAB PO SCH ×2 (09:15→17:04)
[2016-12-01] MEDS: THIAMINE HCL 100 MG TAB PO SCH (09:15)
[2016-12-01] MEDS: MORPHINE SULFATE ORAL SOLN 10 MG/0.5 ML SYRINGE PO/SL PRN (09:27)
[2016-12-01] MEDS: SODIUM CHLORIDE 0.9% FLUSH 5 ML FLUSH IV FLUSH SCH (09:32)
[2016-12-01] MEDS: DIVALPROEX SODIUM DELAYED RELEASE 250 MG TAB PO SCH (11:19)
--- NOTE | 2016-12-01 13:20 | HHI.PR ---
Subjective Remarks Follow up pleural effusion, respiratory failure. The patient states that he feels a little better today. Still with some shortness of breath and abdominal discomfort. Objective Vitals Vital Signs Date Time Temp Pulse Resp B/P Pulse Ox O2 Delivery O2 Flow Rate FiO2 12/01/16 12:00 98.0 96 20 111/67 95 12/01/16 08:13 Room Air 12/01/16 08:00 97.9 82 20 101/65 96 12/01/16 04:56 87 12/01/16 04:00 98.5 79 16 110/72 97 12/01/16 00:05 Room Air 12/01/16 00:05 97.9 99 18 105/74 98 11/30/16 22:00 92 11/30/16 21:11 99 21 11/30/16 20:00 98.0 92 18 110/72 99 11/30/16 20:00 92 11/30/16 18:00 86 11/30/16 16:00 98.0 71 16 109/73 99 11/30/16 16:00 81 11/30/16 14:00 86 I/O 11/30/16 11/30/16 11/30/16 12/01/16 12/01/16 12/01/16 07:00 15:00 23:00 07:00 15:00 23:00 Intake Total 752 ml 1465 ml 1194 ml 120 ml 100 ml Output Total 735 ml 1510 ml 50 ml Balance 17 ml -45 ml 1144 ml 120 ml 100 ml Intake Oral 1000 ml 120 ml 120 ml IV Total 652 ml 365 ml 1074 ml Albumin 100 ml 100 ml 100 ml Output Urine Total 625 ml 1200 ml Chest Tube Drainage Total 110 ml 310 ml 50 ml # Voids 2 # Bowel Movements 0 2 Result Diagram: 12/01/16 0635 12/01/16 0635 Imaging Last Impressions Chest X-Ray 12/01/16 0000 Signed Impressions: Service Date/Time: Thursday, December 01, 2016 07:54 - CONCLUSION: 1. Right-sided chest tube without pneumothorax. 2. Minimal left basilar subsegmental atelectasis. Magdiel Lucas MD Liver Ultrasound 11/26/16 0000 Signed Impressions: Service Date/Time: November 14:23 - CONCLUSION: 1. The portal vein is patent. 2. Multiple gallstones in the gallbladder. No definite biliary tract obstruction. There is thickening of the gallbladder wall with some fluid around the gallbladder. This can be seen with either acute or chronic cholecystitis. This would have to be correlated with patient's physical, clinical exam and lab values. Sudhakar Zapata MD Chest CT 11/25/16 0000 Signed Impressions: Service Date/Time: Friday, November 25, 2016 11:37 - CONCLUSION: Very large right pleural effusion with complete collapse of the right lung. Sudhakar Zapata MD Abdomen/Pelvis CT 11/25/16 0000 Signed Impressions: Service Date/Time: Friday, November 25, 2016 11:37 - CONCLUSION: Large right-sided pleural effusion with adjacent compressive atelectasis of the right lung. There is mass effect on the heart displacing it leftward within the thoracic cavity. There is a large amount of ascites which is not significantly changed as compared to the prior exam. The liver has a cirrhotic appearance. Mary Bradley MD Objective Remarks General: No acute distress. Heart: Regular rate and rhythm. No murmur. Lungs: Clear to auscultation bilaterally. No wheezes, rales, or rhonchi. Breathing is nonlabored. Chest tube on the right. Abdomen: Soft, nontender, nondistended. Extremities: No lower extremity edema. Psych: Alert and oriented. Procedures 11/25/16 right pigtail chest tube placement 11/26/16 right chest tube placement 11/26/16 orotracheal intubation 11/26/16 subclavian central line placement Urinary Catheter: No Vascular Central Line Catheter: No A/P Problem List: (1) Sepsis ICD Code: A41.9 Status: Acute (2) Respiratory insufficiency ICD Code: R06.89 Status: Acute (3) Pleural effusion, right ICD Code: J90 Status: Acute (4) Collapse of right lung ICD Code: J98.11 Status: Acute (5) Probable pneumonia Status: Acute (6) Seizure ICD Code: R56.9 Status: Acute (7) Liver failure ICD Code: K72.90 Status: Chronic (8) Alcohol dependence ICD Code: F10.20 Status: Chronic (9) Alcohol-induced cirrhosis Status: Chronic Assessment and Plan 1. Acute respiratory failure: Improved. Patient extubated. Pulmonology consulted. Continue supplemental oxygen. Bronchodilators as needed. 2. Large right pleural effusion with right lung collapse and mass effect: Status post pigtail catheter placement on 11/25/16. The catheter was pulled out by the patient. Chest tube was placed again on 11/26/16. Appreciate pulmonology management of chest tube. Chest x-ray reviewed. 3. Alcoholic liver disease, chronic: Continue lactulose, Xifaxan. Gastroenterology has signed off. Continue Inderal, Aldactone, Lasix. 4. Alcohol withdrawal, dependence: Patient is now off Precedex drip. Ativan as needed for withdrawal symptoms per CIWA protocol. Continue thiamine daily. Taper Librium. 5. Sepsis, pneumonia: Continue antibiotics. 6. Thrombocytopenia: Likely secondary to chronic liver disease. Stable. 7. GI prophylaxis: PPI. 8. DVT prophylaxis: SCDs. Avoid chemical prophylaxis secondary to thrombocytopenia. Problem Qualifiers (1) Sepsis: Qualified Code: A41.9 - Sepsis, due to unspecified organism (2) Alcohol dependence: Nirav Jalloh MD Dec 01, 2016 13:19
--- NOTE | 2016-12-01 17:39 | HHI.HCPN ---
Reason for visit a. To assist with evaluation and management of symptoms including: dyspnea , encephalopathy; agitation; urinary retention b. To assist medical decision maker(s) with: better understanding of current medical conditions; weighing benefits/burdens of medical treatment options; making medical treatment decisions. . Subjective/Interval History Mr. Arias is awake and alert at time of my visit. He has been transferred out of SICU and is now on a med-surg floor. Patient reports some low back pain and some pain in the bladder area. He also reports he is having difficulty urinating -- catheter removed earlier today. Denies SOB at this time. Chest tube remains in place on right -- drained 360 cc's. Central line has been discontinued. Patient remains confused -- he is able to answer some questions appropriately , but he thinks he is in [place], thinks its November, and thinks [place] is the President. Pt passed swallowing test today. Speech therapy has signed off. Case discussed with Dr. Jalloh on floor. VSS , afebrile. 02 sats good on room air at time of my visit. though patient is having difficulty voiding at time of my visit, CLAIMS ATTORNEY reports he did void at least once since zayas was removed. Bowels moving. CBC stable. Renal function good. . Family/friend interactions No family at bedside. . Advance Directives Living Will: Never completed Health Care Surrogate: Never completed Durable Power of Steam Pressure Chamber Operator: Never completed Advance Directive Specifics Date completed: Advance directives never completed. . Health Care Surrogate(s): No written designation of health care surrogacy. . Documented care wishes: No written documentation of health care goals/preferences. . Objective Vital Signs Date Time Temp Pulse Resp B/P Pulse Ox O2 Delivery O2 Flow Rate FiO2 12/01/16 12:00 98.0 96 20 111/67 95 12/01/16 08:13 Room Air 12/01/16 08:00 97.9 82 20 101/65 96 12/01/16 04:56 87 12/01/16 04:00 98.5 79 16 110/72 97 12/01/16 00:05 Room Air 12/01/16 00:05 97.9 99 18 105/74 98 11/30/16 22:00 92 11/30/16 21:11 99 21 11/30/16 20:00 98.0 92 18 110/72 99 11/30/16 20:00 92 11/30/16 18:00 86 Intake & Output 12/01/16 12/01/16 07:00 19:00 Intake Total 1314 ml 100 ml Output Total 50 ml 10 ml Balance 1264 ml 90 ml Intake Oral 240 ml IV Total 1074 ml Albumin 100 ml Chest Tube Drainage Total 50 ml 10 ml # Voids 2 # Bowel Movements 2 . Physical Exam CONSTITUTIONAL/GENERAL: This is an adequately nourished patient,alert, cooperative, but confused. TUBES/LINES/DRAINS: Right subclavian central line has been discontinued; peripheral IVs; BUE soft restraints; right chest tube; SCDs; CARDIOVASCULAR: Regular rate and rhythm w,, no murmur. No peripheral edema. No JVD. RESPIRATORY/CHEST: Symmetric, unlabored respirations on room air. Clear, reasonable air movement bilaterally, decreased right base. Right chest tube in place draining to pleurevac. GASTROINTESTINAL: Abdomen soft, mildly distended. Generalized tenderness worse over distended bladder. No hepato-splenomegaly, or palpable masses. No guarding. Bowel sounds present. GENITOURINARY: Palpable bladder distension today -- patient quite uncomfortable with any bladder pressure. NEUROLOGICAL: alert, disoriented to place/date/President. Very limited insight. At times confabulates. cooperative, follows commands. Speech clear. Moves all extremities. PSYCHIATRIC: no apparent anxiety or hallucination . Diagnostic Tests Laboratory Laboratory Tests Test 11/29/16 11/30/16 11/30/16 12/01/16 03:55 04:00 04:10 06:20 White Blood Count 13.8 TH/MM3 11.7 TH/MM3 (4.0-11.0) (4.0-11.0) Red Blood Count 4.55 MIL/MM3 4.50 MIL/MM3 (4.50-5.90) (4.50-5.90) Hemoglobin 14.1 GM/DL 14.2 GM/DL (13.0-17.0) (13.0-17.0) Hematocrit 42.4 % 41.4 % (39.0-51.0) (39.0-51.0) Mean Corpuscular Volume 93.2 FL 92.1 FL (80.0-100.0) (80.0-100.0) Mean Corpuscular Hemoglobin 30.9 PG 31.5 PG (27.0-34.0) (27.0-34.0) Mean Corpuscular Hemoglobin 33.2 % 34.2 % Concent (32.0-36.0) (32.0-36.0) Red Cell Distribution Width 14.7 % 14.3 % (11.6-17.2) (11.6-17.2) Platelet Count 70 TH/MM3 69 TH/MM3 (150-450) (150-450) Mean Platelet Volume 9.0 FL 8.8 FL (7.0-11.0) (7.0-11.0) Neutrophils (%) (Auto) 71.2 % 80.0 % (16.0-70.0) (16.0-70.0) Lymphocytes (%) (Auto) 16.4 % 9.3 % (9.0-44.0) (9.0-44.0) Monocytes (%) (Auto) 11.0 % 10.0 % (0.0-8.0) (0.0-8.0) Eosinophils (%) (Auto) 0.8 % (0.0-4.0) 0.3 % (0.0-4.0) Basophils (%) (Auto) 0.6 % (0.0-2.0) 0.4 % (0.0-2.0) Neutrophils # (Auto) 9.8 TH/MM3 9.4 TH/MM3 (1.8-7.7) (1.8-7.7) Lymphocytes # (Auto) 2.3 TH/MM3 1.1 TH/MM3 (1.0-4.8) (1.0-4.8) Monocytes # (Auto) 1.5 TH/MM3 1.2 TH/MM3 (0-0.9) (0-0.9) Eosinophils # (Auto) 0.1 TH/MM3 0.0 TH/MM3 (0-0.4) (0-0.4) Basophils # (Auto) 0.1 TH/MM3 0.0 TH/MM3 (0-0.2) (0-0.2) CBC Comment AUTO DIFF AUTO DIFF Differential Comment AUTO DIFF AUTO DIFF CONFIRMED CONFIRMED Platelet Estimate LOW (NORMAL) LOW (NORMAL) Platelet Morphology Comment NORMAL NORMAL (NORMAL) (NORMAL) Sodium Level 141 MEQ/L 140 MEQ/L (136-145) (136-145) Potassium Level 3.7 MEQ/L 3.7 MEQ/L (3.5-5.1) (3.5-5.1) Chloride Level 106 MEQ/L 104 MEQ/L (98-107) (98-107) Carbon Dioxide Level 30.1 MEQ/L 28.3 MEQ/L (21.0-32.0) (21.0-32.0) Anion Gap 5 MEQ/L (5-15) 8 MEQ/L (5-15) Blood Urea Nitrogen 11 MG/DL (7-18) 13 MG/DL (7-18) Creatinine 0.51 MG/DL 0.46 MG/DL (0.60-1.30) (0.60-1.30) Estimat Glomerular Filtration 180 ML/MIN 203 ML/MIN Rate (>89) (>89) Random Glucose 79 MG/DL 100 MG/DL (74-106) (74-106) Calcium Level 8.5 MG/DL 9.1 MG/DL (8.5-10.1) (8.5-10.1) Phosphorus Level 2.6 MG/DL 2.5 MG/DL (2.5-4.9) (2.5-4.9) Magnesium Level 2.0 MG/DL 2.0 MG/DL (1.5-2.5) (1.5-2.5) Vancomycin Level Trough 4.7 MCG/ML 11.1 MCG/ML (5.0-10.0) (5.0-10.0) Nasal Screen MRSA (PCR) NEGATIVE (NEGATIVE) Test 12/01/16 06:35 White Blood Count 11.8 TH/MM3 (4.0-11.0) Red Blood Count 4.33 MIL/MM3 (4.50-5.90) Hemoglobin 13.6 GM/DL (13.0-17.0) Hematocrit 39.9 % (39.0-51.0) Mean Corpuscular Volume 92.0 FL (80.0-100.0) Mean Corpuscular Hemoglobin 31.4 PG (27.0-34.0) Mean Corpuscular Hemoglobin 34.1 % Concent (32.0-36.0) Red Cell Distribution Width 14.4 % (11.6-17.2) Platelet Count 68 TH/MM3 (150-450) Mean Platelet Volume 9.4 FL (7.0-11.0) Neutrophils (%) (Auto) 75.1 % (16.0-70.0) Lymphocytes (%) (Auto) 12.5 % (9.0-44.0) Monocytes (%) (Auto) 11.6 % (0.0-8.0) Eosinophils (%) (Auto) 0.7 % (0.0-4.0) Basophils (%) (Auto) 0.1 % (0.0-2.0) Neutrophils # (Auto) 8.9 TH/MM3 (1.8-7.7) Lymphocytes # (Auto) 1.5 TH/MM3 (1.0-4.8) Monocytes # (Auto) 1.4 TH/MM3 (0-0.9) Eosinophils # (Auto) 0.1 TH/MM3 (0-0.4) Basophils # (Auto) 0.0 TH/MM3 (0-0.2) CBC Comment AUTO DIFF Differential Comment AUTO DIFF CONFIRMED Platelet Estimate LOW (NORMAL) Platelet Morphology Comment NORMAL (NORMAL) Creatinine 0.42 MG/DL (0.60-1.30) Estimat Glomerular Filtration 225 ML/MIN Rate (>89) . Result Diagram: 12/01/16 0635 12/01/16 0635 Imaging Last Impressions Chest X-Ray 12/01/16 0000 Signed Impressions: Service Date/Time: Thursday, December 01, 2016 07:54 - CONCLUSION: 1. Right-sided chest tube without pneumothorax. 2. Minimal left basilar subsegmental atelectasis. Magdiel Lucas MD Liver Ultrasound 11/26/16 0000 Signed Impressions: Service Date/Time: November 14:23 - CONCLUSION: 1. The portal vein is patent. 2. Multiple gallstones in the gallbladder. No definite biliary tract obstruction. There is thickening of the gallbladder wall with some fluid around the gallbladder. This can be seen with either acute or chronic cholecystitis. This would have to be correlated with patient's physical, clinical exam and lab values. Sudhakar Zapata MD Chest CT 11/25/16 0000 Signed Impressions: Service Date/Time: Friday, November 25, 2016 11:37 - CONCLUSION: Very large right pleural effusion with complete collapse of the right lung. Sudhakar Zapata MD Abdomen/Pelvis CT 11/25/16 0000 Signed Impressions: Service Date/Time: Friday, November 25, 2016 11:37 - CONCLUSION: Large right-sided pleural effusion with adjacent compressive atelectasis of the right lung. There is mass effect on the heart displacing it leftward within the thoracic cavity. There is a large amount of ascites which is not significantly changed as compared to the prior exam. The liver has a cirrhotic appearance. Mary Bradley MD . Procedures * Right chest pig-tail catheter placement * right chest tube placement * Intubation/mechanical ventilation * Right subclavian central line placement. . Assessment and Plan Disease Oriented Problem List: (1) Pleural effusion, right Comment: Appears to be transudative and possibly tracking up from ascites. No evidence of infection at this time. Patient had similar presentation at time of his last admission at end of Jul 2016. We were able to control ascites and pleural effusion without TIPS at that time. . . (2) Collapse of right lung Comment: Due to pleural effusion. Chest tube in place with re-expansion. . (3) Probable pneumonia (4) Hepatic encephalopathy (5) Respiratory insufficiency Comment: Probably due to the large pleural effusion. . (6) Ascites (7) Alcohol-induced cirrhosis (8) Portal hypertension (9) Urinary retention Comment: Began when zayas was discontinued. Probably just from post-zayas swelling. Possibly exacerbated by morphine. . Symptom Scale: (1) Pain 0-10 Scale: Unable to quantify Comment: Patient had not significant pre-hospital pain syndromes. Reports generalized abdominal pain worse over bladder today. . (2) Dyspnea 0-10 Scale: 0 Comment: Patient had significant dyspnea from his pleural effusion. Significantimprovement post thoracentesis and chest tube placement. Now tolerating room air. . 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 Mental status began to decline when patient started drinking again approximately one month ago. Also declined to take lactulose at home as directed. . (4) Agitation 0-10 Scale: Unable to quantify Comment: Probably a combination of EtOH withdrawal and delirium. Improved. Agitation level certainly much better to date than during hospitalization of Jul-Aug 2016. . . Pertinent Non-Medical Issues Psychosocial: Patient psychosocial support comes primarily from his mother and his brother. The patient lives with his brother who is currently unemployed. The patient's mother visits several times a day. Spiritual: Sikhism Legal: No advance directives Ethical issues impacting care: Patient is incapacitated; it is still unclear if he will regain capacity to make his own health care decisions. . Important Contacts * Catherine Arias (mother and proxy decision maker) [phone] . Prognosis The patient was critically ill and initially required mechanical ventilation in an intensive care unit bed. He required chest tube placement. Though he is relatively young, his resilience is undoubtedly impacted by his history of alcohol abuse. If the patient is able to avoid other significant complications he should be able to survive the hospitalization. He is certainly at risk for infection and possible hepatorenal syndrome. Based on his recent history he may have enough functioning liver to allow survival if he completely abstains from alcohol. It is becoming quite clear that any alcohol use leads to critical illness relatively quickly. Per family, patient has refused any help for his alcoholism or depression and he continues to decline. Patient, however, has refused DNR status and has told his family several times that he wants ongoing aggressive care. . Code Status: Full Code Plan == CODE STATUS: FULL CODE . Patient has told family members that he wants to remain a "full code." == Decision-making: Patient is currently incapacitated to make his own health care decisions. It is not known if he will regain capacity to do so. There is no written designation of health care surrogate. As the patient is not , and has no adult children or surviving father, healthcare decision-making falls to his mother. She is making those decisions with the input of the patient's brother. == Goals of medical treatment: The patient has told both his mother and his brother that he would want ongoing aggressive treatment including resuscitation attempts. His goals have been confusing, however.. He has made it clear he wants to be kept alive. On the other hand, he continues to refuse help with his alcoholism or depression. While he doesn't want to sign a DNR, he has wanted to remain with hospice. == Pain: Pain had not been a significant problem for this patient prior to this admission. Patient complained of low back pain (could not quantify or qualify) and pain overlying bladder today. Other possible sources of pain currently include prolonged bedbound status; recent intubation/extubation, chest tube; Zayas catheter; restraints; vascular access lines. Morphine orders are in place. Has not had frequent prn requirements. No further recommendations at this time. == Dyspnea: Patient came in with a very large right pleural effusion. After initial drainage, the inserted pigtail catheter was unintentionally removed by the patient. There was rapid reaccumulation of fluid. A chest tube is now in place. Patient extubated 11/28, and now tolerating room air. Still with chest tube. No respiratory distress. == Encephalopathy; there is certainly underlying hepatic encephalopathy -- the patient has been drinking regularly and has been refusing his lactulose. Interestingly, ammonia level was not significantly high on admission. The patient's overall clinical illness and debilitated state are probably also contributing to his encephalopathy. Aggressive treatment for the underlying illness is probably the best way of managing this. Recommend titrating lactulose up to 4 times a say as needed to achieve at least 3 semi-formed bowel movements per day. == Urinary retention: have spoken with nursing staff. Will try and stand patient up to see if that will help him void. Want to avoid urinary catheter , but will place again if needed. == Risk of alcohol withdrawal including seizures now minimal. == Agitation: Patient was severely agitated during his last admission. It was agitation that cause the long length of stay. Will need to monitor closely. He is now over period where acute EtOH withdrawal would be expected. Current med regimen appears effective. No further recommendations at this time. == Depression: Per patient's mother, patient has had a several year period of significant depression. Currently on citalopram. No further recommendations at this time. == Given previously stated goals of patient (wanted aggressive care) and mother 's inclination to honor those goals,it is unlikely he will be a hospice candidate at time of discharge. He is certainly medically eligible if he starts drinking again, but patient/mother will desire aggressive care yet again once he starts declining. == Palliative care will continue to follow to assist with symptom management and to further clarify goals of medical treatment as the clinical course evolves. . Attestation To help prompt me to consider important information that might be impacting today's encounter and assessment, information from prior notes written by myself or my colleagues may have been "brought forward" into today's note. My signature on this note, however, is an attestation that I personally performed the exam, history, and/or decision-making noted today, and, unless otherwise indicated, the interactions with patient, family, and staff as well as the review of records all occurred today. I also attest that the listed assessment and stated plan reflect my best clinical judgment today based on the combination of historical information, prior notes, and today's exam/ interactions. When time spent is documented, it refers only to time spent today by the signer, or if indicated, combined time spent today by collaborating physician/nurse practitioner. . Harshal Funk MD Dec 01, 2016 17:39
[2016-12-02] VITALS: BP 115/58; PULSE 95; RESP 18; TEMP 97.7; O2SAT 99
[2016-12-02] MEDS: PIPERACIL-TAZO 4.5 GM PREMIX 100 ML IV SCH ×5 (00:30→22:03)
[2016-12-02] MEDS: DIVALPROEX SODIUM DELAYED RELEASE 250 MG TAB PO SCH ×3 (00:33→22:02)
[2016-12-02] MEDS: SODIUM CHLORIDE 0.9% FLUSH 5 ML FLUSH IV FLUSH SCH ×3 (00:33→21:00)
[2016-12-02] MEDS: RIFAXIMIN 550 MG TAB PO SCH ×3 (00:33→22:02)
[2016-12-02] MEDS: VANCOMYCIN 1,500 MG/NS 500 ML IV SCH ×8 (01:15→22:50)
[2016-12-02] MEDS: CHLORHEXIDINE GLUCONATE 2 % 1 PACK (2 CLOTHS) TOP SCH (03:44)
[2016-12-02 04:53] VITALS: BP 104/56; PULSE 80; RESP 18; TEMP 97.8; O2SAT 94
[2016-12-02] MEDS: ALBUMIN HUMAN 25% 25 GM/100 ML BAGP IV SCH ×2 (06:02→17:12)
[2016-12-02 08:00] VITALS: BP 107/74; PULSE 83; PULSE 93; RESP 18; TEMP 98.3; O2SAT 97
[2016-12-02] MEDS: FOLIC ACID 1 MG TAB PO SCH (08:32)
[2016-12-02] MEDS: FUROSEMIDE 20 MG TAB PO SCH ×2 (08:32→17:41)
[2016-12-02] MEDS: CITALOPRAM HYDROBROMIDE 40 MG TAB PO SCH (08:32)
[2016-12-02] MEDS: SPIRONOLACTONE 25 MG TAB PO SCH ×2 (08:32→17:41)
[2016-12-02] MEDS: MULTIVITAMIN TAB PO SCH (08:32)
[2016-12-02] MEDS: DEXAMETHASONE 4 MG TAB PO SCH (08:33)
[2016-12-02] MEDS: PANTOPRAZOLE SODIUM 40 MG VIAL IV SCH (08:33)
[2016-12-02] MEDS: LACTULOSE SYRUP 20 GM/30 ML CUP PO SCH ×3 (08:33→17:07)
[2016-12-02] MEDS: THIAMINE HCL 100 MG TAB PO SCH (08:33)
[2016-12-02 12:00] VITALS: BP 110/71; PULSE 100; RESP 18; TEMP 98.1; O2SAT 96
[2016-12-02] MEDS: MORPHINE SULFATE ORAL SOLN 10 MG/0.5 ML SYRINGE PO/SL PRN (14:20)
--- NOTE | 2016-12-02 14:43 | HHI.PR ---
Subjective Remarks Follow up pleural effusion, respiratory failure. Patient reports nausea today. States that he is having chest pain with deep breaths. Denies dyspnea. Objective Vitals Vital Signs Date Time Temp Pulse Resp B/P Pulse Ox O2 Delivery O2 Flow Rate FiO2 12/02/16 12:00 98.1 100 18 110/71 96 12/02/16 08:00 98.3 93 18 107/74 97 12/02/16 04:53 97.8 80 18 104/56 94 12/02/16 00:00 97.7 95 18 115/58 99 12/01/16 20:00 Room Air 12/01/16 20:00 97.9 103 18 114/68 95 12/01/16 16:00 98.3 96 20 111/70 96 I/O 12/01/16 12/01/16 12/01/16 12/02/16 12/02/16 12/02/16 07:00 15:00 23:00 07:00 15:00 23:00 Intake Total 120 ml 100 ml 240 ml 1580 ml Output Total 10 ml 40 ml Balance 120 ml 90 ml 240 ml 1540 ml Intake Oral 120 ml 0 ml 240 ml 480 ml IV Total 1000 ml Albumin 100 ml 100 ml Chest Tube Drainage Total 10 ml 40 ml # Voids 3 2 # Bowel Movements 1 2 Result Diagram: 12/01/16 0635 12/01/16 0635 Imaging Last Impressions Chest X-Ray 12/01/16 0000 Signed Impressions: Service Date/Time: Thursday, December 01, 2016 07:54 - CONCLUSION: 1. Right-sided chest tube without pneumothorax. 2. Minimal left basilar subsegmental atelectasis. Magdiel Lucas MD Liver Ultrasound 11/26/16 0000 Signed Impressions: Service Date/Time: November 14:23 - CONCLUSION: 1. The portal vein is patent. 2. Multiple gallstones in the gallbladder. No definite biliary tract obstruction. There is thickening of the gallbladder wall with some fluid around the gallbladder. This can be seen with either acute or chronic cholecystitis. This would have to be correlated with patient's physical, clinical exam and lab values. Sudhakar Zapata MD Chest CT 11/25/16 0000 Signed Impressions: Service Date/Time: Friday, November 25, 2016 11:37 - CONCLUSION: Very large right pleural effusion with complete collapse of the right lung. Sudhakar Zapata MD Abdomen/Pelvis CT 11/25/16 0000 Signed Impressions: Service Date/Time: Friday, November 25, 2016 11:37 - CONCLUSION: Large right-sided pleural effusion with adjacent compressive atelectasis of the right lung. There is mass effect on the heart displacing it leftward within the thoracic cavity. There is a large amount of ascites which is not significantly changed as compared to the prior exam. The liver has a cirrhotic appearance. Mary Bradley MD Objective Remarks General: No acute distress. Heart: Regular rate and rhythm. No murmur. Lungs: Clear to auscultation bilaterally. No wheezes, rales, or rhonchi. Breathing is nonlabored. Chest tube on the right. Abdomen: Soft, nontender, nondistended. Extremities: No lower extremity edema. Psych: Alert and oriented. Procedures 11/25/16 right pigtail chest tube placement 11/26/16 right chest tube placement 11/26/16 orotracheal intubation 11/26/16 subclavian central line placement Urinary Catheter: No Vascular Central Line Catheter: No A/P Problem List: (1) Sepsis ICD Code: A41.9 Status: Acute (2) Respiratory insufficiency ICD Code: R06.89 Status: Acute (3) Pleural effusion, right ICD Code: J90 Status: Acute (4) Collapse of right lung ICD Code: J98.11 Status: Acute (5) Probable pneumonia Status: Acute (6) Seizure ICD Code: R56.9 Status: Acute (7) Liver failure ICD Code: K72.90 Status: Chronic (8) Alcohol dependence ICD Code: F10.20 Status: Chronic (9) Alcohol-induced cirrhosis Status: Chronic Assessment and Plan 1. Acute respiratory failure: Improved. Patient extubated. Pulmonology consulted. Continue supplemental oxygen. Bronchodilators as needed. 2. Large right pleural effusion with right lung collapse and mass effect: Status post pigtail catheter placement on 11/25/16. The catheter was pulled out by the patient. Chest tube was placed again on 11/26/16. Appreciate pulmonology management of chest tube. 3. Alcoholic liver disease, chronic: Continue lactulose, Xifaxan. Gastroenterology has signed off. Continue Inderal, Aldactone, Lasix. 4. Alcohol withdrawal, dependence: Patient is now off Precedex drip. Ativan as needed for withdrawal symptoms per CIWA protocol. Continue thiamine daily. Taper Librium. 5. Sepsis, pneumonia: Continue antibiotics. 6. Thrombocytopenia: Likely secondary to chronic liver disease. Stable. 7. GI prophylaxis: PPI. 8. DVT prophylaxis: SCDs. Avoid chemical prophylaxis secondary to thrombocytopenia. 9. Nausea/vomiting: Antiemetics as needed. Problem Qualifiers (1) Sepsis: Qualified Code: A41.9 - Sepsis, due to unspecified organism (2) Alcohol dependence: Nirav Jalloh MD Dec 02, 2016 14:43
[2016-12-02] MEDS ORDERED: ONDANSETRON HCL 4 MG/2 ML VIAL IV PUSH PRN (14:45)
[2016-12-02 16:00] VITALS: BP 110/67; PULSE 81; RESP 18; TEMP 98.4; O2SAT 96
[2016-12-02 20:00] VITALS: BP 109/58; PULSE 95; PULSE 96; RESP 18; TEMP 97.8; O2SAT 94
[2016-12-02] MEDS: CHLORHEXIDINE 0.12% (ORAL KIT) 15 ML CUP MT SCH (20:00)
[2016-12-03] VITALS (7 sets, daily range): BP systolic 96–110; BP diastolic 54–63; PULSE 74–89; RESP 16–18; TEMP 97.7–98.3; O2SAT 94–96
[2016-12-03] MEDS: PIPERACIL-TAZO 4.5 GM PREMIX 100 ML IV SCH ×4 (02:29→20:53)
[2016-12-03] MEDS: CHLORHEXIDINE GLUCONATE 2 % 1 PACK (2 CLOTHS) TOP SCH (04:00)
[2016-12-03] MEDS ORDERED: PHARMACY ORDERED LAB XX ONE (05:45)
[2016-12-03] MEDS: VANCOMYCIN 1,500 MG/NS 500 ML IV SCH ×6 (06:41→22:15)
[2016-12-03] MEDS: ALBUMIN HUMAN 25% 25 GM/100 ML BAGP IV SCH ×2 (06:41→17:16)
[2016-12-03 06:48] LABS: INTERNATIONAL NORMALIZED RATIO 1.4 RATIO; PROTHROMBIN TIME - PATIENT 15.6 SEC (9.8-11.6)
[2016-12-03 07:00] LABS: BASOPHIL % 0.2 % (0.0-2.0); EOSINOPHIL % 0.4 % (0.0-4.0); HEMATOCRIT 38.9 % (39.0-51.0); LYMPH % 11.9 % (9.0-44.0); LYMPHOCYTE # 1.2 TH/MM3 (1.0-4.8); MEAN CELL VOLUME 92.3 FL (80.0-100.0); MEAN CORPUSCULAR HEMOGLOBIN 31.4 PG (27.0-34.0); MONO % 10.7 % (0.0-8.0); NEUT % 76.8 % (16.0-70.0); PLATELET COUNT 68 TH/MM3 (150-450); RED BLOOD COUNT 4.21 MIL/MM3 (4.50-5.90); RED CELL DISTRIBUTION WIDTH 14.4 % (11.6-17.2); WHITE BLOOD COUNT 10.3 TH/MM3 (4.0-11.0)
[2016-12-03 07:06] LABS: BICARBONATE 27.6 MEQ/L (21.0-32.0); HEMO FLAGS AUTO DIFF; POTASSIUM 3.8 MEQ/L (3.5-5.1)
[2016-12-03 08:24] LABS: SCAN/DIFF AUTO DIFF CONFIRMED
[2016-12-03] MEDS: LACTULOSE SYRUP 20 GM/30 ML CUP PO SCH ×3 (08:47→17:15)
[2016-12-03] MEDS: FUROSEMIDE 20 MG TAB PO SCH ×2 (08:48→18:43)
[2016-12-03] MEDS: DEXAMETHASONE 4 MG TAB PO SCH (08:48)
[2016-12-03] MEDS: FOLIC ACID 1 MG TAB PO SCH (08:48)
[2016-12-03] MEDS: PANTOPRAZOLE SODIUM 40 MG VIAL IV SCH (08:48)
[2016-12-03] MEDS: MULTIVITAMIN TAB PO SCH (08:48)
[2016-12-03] MEDS: DIVALPROEX SODIUM DELAYED RELEASE 250 MG TAB PO SCH ×2 (08:48→20:53)
[2016-12-03] MEDS: RIFAXIMIN 550 MG TAB PO SCH ×2 (08:48→20:53)
[2016-12-03] MEDS: SPIRONOLACTONE 25 MG TAB PO SCH ×2 (08:49→17:15)
[2016-12-03] MEDS: THIAMINE HCL 100 MG TAB PO SCH (08:49)
[2016-12-03] MEDS: SODIUM CHLORIDE 0.9% FLUSH 5 ML FLUSH IV FLUSH SCH ×2 (08:49→20:54)
[2016-12-03] MEDS: CHLORHEXIDINE 0.12% (ORAL KIT) 15 ML CUP MT SCH ×2 (08:49→20:00)
[2016-12-03] MEDS: CITALOPRAM HYDROBROMIDE 40 MG TAB PO SCH (08:49)
--- NOTE | 2016-12-03 14:00 | HHI.PR ---
Subjective Remarks Follow up pleural effusion, respiratory failure, encephalopathy. The patient is more alert today. He does still have intermittent confusion. States that he feels a little better overall. Less pain. Objective Vitals Vital Signs Date Time Temp Pulse Resp B/P Pulse Ox O2 Delivery O2 Flow Rate FiO2 12/03/16 09:02 79 12/03/16 09:02 Room Air 12/03/16 04:00 98.3 75 18 106/62 96 12/03/16 00:00 98.2 88 18 110/57 95 12/02/16 20:30 Room Air 12/02/16 20:00 96 12/02/16 20:00 95 12/02/16 20:00 97.8 96 18 109/58 94 12/02/16 16:00 98.4 81 18 110/67 96 I/O 12/02/16 12/02/16 12/02/16 12/03/16 12/03/16 12/03/16 07:00 15:00 23:00 07:00 15:00 23:00 Intake Total 1580 ml 720 ml 240 ml 240 ml Output Total 40 ml Balance 1540 ml 720 ml 240 ml 240 ml Intake Oral 480 ml 720 ml 240 ml 240 ml IV Total 1000 ml Albumin 100 ml Chest Tube Drainage Total 40 ml # Voids 2 2 2 1 # Bowel Movements 2 0 0 1 Result Diagram: 12/03/16 0546 12/03/16 0546 Imaging Last Impressions Chest X-Ray 12/01/16 0000 Signed Impressions: Service Date/Time: Thursday, December 01, 2016 07:54 - CONCLUSION: 1. Right-sided chest tube without pneumothorax. 2. Minimal left basilar subsegmental atelectasis. Magdiel Lucas MD Liver Ultrasound 11/26/16 0000 Signed Impressions: Service Date/Time: November 14:23 - CONCLUSION: 1. The portal vein is patent. 2. Multiple gallstones in the gallbladder. No definite biliary tract obstruction. There is thickening of the gallbladder wall with some fluid around the gallbladder. This can be seen with either acute or chronic cholecystitis. This would have to be correlated with patient's physical, clinical exam and lab values. Sudhakar Zapata MD Chest CT 11/25/16 0000 Signed Impressions: Service Date/Time: Friday, November 25, 2016 11:37 - CONCLUSION: Very large right pleural effusion with complete collapse of the right lung. Sudhakar Zapata MD Abdomen/Pelvis CT 11/25/16 0000 Signed Impressions: Service Date/Time: Friday, November 25, 2016 11:37 - CONCLUSION: Large right-sided pleural effusion with adjacent compressive atelectasis of the right lung. There is mass effect on the heart displacing it leftward within the thoracic cavity. There is a large amount of ascites which is not significantly changed as compared to the prior exam. The liver has a cirrhotic appearance. Mary Bradley MD Objective Remarks General: No acute distress. Heart: Regular rate and rhythm. No murmur. Lungs: Clear to auscultation bilaterally. No wheezes, rales, or rhonchi. Breathing is nonlabored. Chest tube on the right. Abdomen: Soft, nontender, nondistended. Extremities: No lower extremity edema. Psych: Alert and oriented. Procedures 11/25/16 right pigtail chest tube placement 11/26/16 right chest tube placement 11/26/16 orotracheal intubation 11/26/16 subclavian central line placement Urinary Catheter: No Vascular Central Line Catheter: No A/P Problem List: (1) Sepsis ICD Code: A41.9 Status: Acute (2) Respiratory insufficiency ICD Code: R06.89 Status: Acute (3) Pleural effusion, right ICD Code: J90 Status: Acute (4) Collapse of right lung ICD Code: J98.11 Status: Acute (5) Probable pneumonia Status: Acute (6) Seizure ICD Code: R56.9 Status: Acute (7) Liver failure ICD Code: K72.90 Status: Chronic (8) Alcohol dependence ICD Code: F10.20 Status: Chronic (9) Alcohol-induced cirrhosis Status: Chronic Assessment and Plan 1. Acute respiratory failure: Improved. Patient extubated. Pulmonology consulted. Continue supplemental oxygen. Bronchodilators as needed. 2. Large right pleural effusion with right lung collapse and mass effect: Status post pigtail catheter placement on 11/25/16. The catheter was pulled out by the patient. Chest tube was placed again on 11/26/16. Pulmonology managing chest tube. 3. Alcoholic liver disease, chronic: Continue lactulose, Xifaxan. Gastroenterology has signed off. Continue Inderal, Aldactone, Lasix. 4. Alcohol withdrawal, dependence: Patient is now off Precedex drip. Ativan as needed for withdrawal symptoms per CIWA protocol. No Ativan required in last 24 hours. Continue thiamine daily. Taper Librium. 5. Sepsis, pneumonia: Continue antibiotics. 6. Thrombocytopenia: Likely secondary to chronic liver disease. Stable. 7. GI prophylaxis: PPI. 8. DVT prophylaxis: SCDs. Avoid chemical prophylaxis secondary to thrombocytopenia. 9. Nausea/vomiting: Antiemetics as needed. Problem Qualifiers (1) Sepsis: Qualified Code: A41.9 - Sepsis, due to unspecified organism (2) Alcohol dependence: Nirav Jalloh MD Dec 03, 2016 14:00
[2016-12-03] MEDS: MORPHINE SULFATE ORAL SOLN 10 MG/0.5 ML SYRINGE PO/SL PRN (14:02)
[2016-12-04] VITALS (9 sets, daily range): BP systolic 92–108; BP diastolic 53–66; PULSE 67–84; RESP 18–20; TEMP 97.7–98.2; O2SAT 92–95
[2016-12-04] MEDS: PIPERACIL-TAZO 4.5 GM PREMIX 100 ML IV SCH ×4 (01:38→21:46)
[2016-12-04] MEDS: CHLORHEXIDINE GLUCONATE 2 % 1 PACK (2 CLOTHS) TOP SCH (04:00)
[2016-12-04] MEDS: ALBUMIN HUMAN 25% 25 GM/100 ML BAGP IV SCH ×2 (05:09→18:27)
[2016-12-04] MEDS: VANCOMYCIN 1,500 MG/NS 500 ML IV SCH ×6 (05:09→21:49)
[2016-12-04] MEDS: CHLORHEXIDINE 0.12% (ORAL KIT) 15 ML CUP MT SCH ×2 (08:00→20:00)
[2016-12-04] MEDS: DIVALPROEX SODIUM DELAYED RELEASE 250 MG TAB PO SCH ×2 (08:15→21:48)
[2016-12-04] MEDS: LACTULOSE SYRUP 20 GM/30 ML CUP PO SCH ×3 (08:15→18:27)
[2016-12-04] MEDS: RIFAXIMIN 550 MG TAB PO SCH ×2 (08:15→21:47)
[2016-12-04] MEDS: PANTOPRAZOLE SODIUM 40 MG VIAL IV SCH (08:15)
[2016-12-04] MEDS: SODIUM CHLORIDE 0.9% FLUSH 5 ML FLUSH IV FLUSH SCH ×2 (08:15→21:47)
[2016-12-04] MEDS: CITALOPRAM HYDROBROMIDE 40 MG TAB PO SCH (08:16)
[2016-12-04] MEDS: DEXAMETHASONE 4 MG TAB PO SCH (08:16)
[2016-12-04] MEDS: FOLIC ACID 1 MG TAB PO SCH (08:16)
[2016-12-04] MEDS: SPIRONOLACTONE 25 MG TAB PO SCH ×2 (08:16→18:28)
[2016-12-04] MEDS: MULTIVITAMIN TAB PO SCH (08:16)
[2016-12-04] MEDS: THIAMINE HCL 100 MG TAB PO SCH (08:16)
[2016-12-04] MEDS: FUROSEMIDE 20 MG TAB PO SCH ×2 (08:16→18:27)
--- NOTE | 2016-12-04 12:11 | HHI.PR ---
Subjective Remarks Follow up encephalopathy, chest tube. Still with significant output through the chest tube. He states that his pain is better today. Objective Vitals Vital Signs Date Time Temp Pulse Resp B/P Pulse Ox O2 Delivery O2 Flow Rate FiO2 12/04/16 08:49 95 12/04/16 08:07 97.9 68 18 92/53 95 12/04/16 08:00 67 12/04/16 08:00 Room Air 12/04/16 04:00 97.8 76 18 92/54 95 12/04/16 00:00 97.8 84 18 107/56 94 12/03/16 20:00 88 12/03/16 20:00 Room Air 12/03/16 20:00 97.8 89 18 107/63 94 12/03/16 16:00 97.7 74 16 96/56 96 I/O 12/03/16 12/03/16 12/03/16 12/04/16 12/04/16 12/04/16 07:00 15:00 23:00 07:00 15:00 23:00 Intake Total 240 ml 2306 ml 240 ml Output Total 350 ml Balance 240 ml 1956 ml 240 ml Intake Oral 240 ml 360 ml 240 ml IV Total 1946 ml Chest Tube Drainage Total 350 ml # Voids 1 1 # Bowel Movements 1 1 Result Diagram: 12/03/16 0546 12/03/16 0546 Imaging Last Impressions Chest X-Ray 12/01/16 0000 Signed Impressions: Service Date/Time: Thursday, December 01, 2016 07:54 - CONCLUSION: 1. Right-sided chest tube without pneumothorax. 2. Minimal left basilar subsegmental atelectasis. Magdiel Lucas MD Liver Ultrasound 11/26/16 0000 Signed Impressions: Service Date/Time: November 14:23 - CONCLUSION: 1. The portal vein is patent. 2. Multiple gallstones in the gallbladder. No definite biliary tract obstruction. There is thickening of the gallbladder wall with some fluid around the gallbladder. This can be seen with either acute or chronic cholecystitis. This would have to be correlated with patient's physical, clinical exam and lab values. Sudhakar Zapata MD Chest CT 11/25/16 0000 Signed Impressions: Service Date/Time: Friday, November 25, 2016 11:37 - CONCLUSION: Very large right pleural effusion with complete collapse of the right lung. Sudhakar Zapata MD Abdomen/Pelvis CT 11/25/16 0000 Signed Impressions: Service Date/Time: Friday, November 25, 2016 11:37 - CONCLUSION: Large right-sided pleural effusion with adjacent compressive atelectasis of the right lung. There is mass effect on the heart displacing it leftward within the thoracic cavity. There is a large amount of ascites which is not significantly changed as compared to the prior exam. The liver has a cirrhotic appearance. Mary Bradley MD Objective Remarks General: No acute distress. Heart: Regular rate and rhythm. No murmur. Lungs: Clear to auscultation bilaterally. No wheezes, rales, or rhonchi. Breathing is nonlabored. Chest tube on the right. Abdomen: Soft, nontender, nondistended. Extremities: No lower extremity edema. Psych: Alert and oriented. Procedures 11/25/16 right pigtail chest tube placement 11/26/16 right chest tube placement 11/26/16 orotracheal intubation 11/26/16 subclavian central line placement Urinary Catheter: No Vascular Central Line Catheter: No A/P Problem List: (1) Sepsis ICD Code: A41.9 Status: Acute (2) Respiratory insufficiency ICD Code: R06.89 Status: Acute (3) Pleural effusion, right ICD Code: J90 Status: Acute (4) Collapse of right lung ICD Code: J98.11 Status: Acute (5) Probable pneumonia Status: Acute (6) Seizure ICD Code: R56.9 Status: Acute (7) Liver failure ICD Code: K72.90 Status: Chronic (8) Alcohol dependence ICD Code: F10.20 Status: Chronic (9) Alcohol-induced cirrhosis Status: Chronic Assessment and Plan Reviewed/updated 12/04/16. No change. Continue chest tube. 1. Acute respiratory failure: Improved. Patient extubated. Pulmonology consulted. Continue supplemental oxygen. Bronchodilators as needed. 2. Large right pleural effusion with right lung collapse and mass effect: Status post pigtail catheter placement on 11/25/16. The catheter was pulled out by the patient. Chest tube was placed again on 11/26/16. Pulmonology managing chest tube. 3. Alcoholic liver disease, chronic: Continue lactulose, Xifaxan. Gastroenterology has signed off. Continue Inderal, Aldactone, Lasix. 4. Alcohol withdrawal, dependence: Patient is now off Precedex drip. Ativan as needed for withdrawal symptoms per CIWA protocol. No Ativan required in last 24 hours. Continue thiamine daily. Taper Librium. 5. Sepsis, pneumonia: Continue antibiotics. 6. Thrombocytopenia: Likely secondary to chronic liver disease. Stable. 7. GI prophylaxis: PPI. 8. DVT prophylaxis: SCDs. Avoid chemical prophylaxis secondary to thrombocytopenia. 9. Nausea/vomiting: Antiemetics as needed. Problem Qualifiers (1) Sepsis: Qualified Code: A41.9 - Sepsis, due to unspecified organism (2) Alcohol dependence: Nirav Jalloh MD Dec 04, 2016 12:11
[2016-12-04] MEDS: LORazepam 1 MG TAB PO PRN (12:32)
[2016-12-04] MEDS: MORPHINE SULFATE ORAL SOLN 10 MG/0.5 ML SYRINGE PO/SL PRN (21:55)
[2016-12-05] VITALS (9 sets, daily range): BP systolic 93–105; BP diastolic 51–63; PULSE 59–74; RESP 18–20; TEMP 97.3–98.2; O2SAT 93–96
[2016-12-05] MEDS: PIPERACIL-TAZO 4.5 GM PREMIX 100 ML IV SCH ×4 (02:44→20:42)
[2016-12-05] MEDS: CHLORHEXIDINE GLUCONATE 2 % 1 PACK (2 CLOTHS) TOP SCH (04:00)
[2016-12-05] MEDS: MORPHINE SULFATE ORAL SOLN 10 MG/0.5 ML SYRINGE PO/SL PRN ×4 (04:20→21:36)
[2016-12-05] MEDS: ALBUMIN HUMAN 25% 25 GM/100 ML BAGP IV SCH ×2 (04:21→16:19)
[2016-12-05] MEDS ORDERED: PHARMACY ORDERED LAB XX ONE (05:45)
[2016-12-05] MEDS: VANCOMYCIN 1,500 MG/NS 500 ML IV SCH ×6 (06:38→21:37)
[2016-12-05] MEDS: LACTULOSE SYRUP 20 GM/30 ML CUP PO SCH ×3 (07:57→17:13)
[2016-12-05] MEDS: FOLIC ACID 1 MG TAB PO SCH (07:58)
[2016-12-05] MEDS: RIFAXIMIN 550 MG TAB PO SCH ×2 (07:58→20:42)
[2016-12-05] MEDS: DEXAMETHASONE 4 MG TAB PO SCH (07:58)
[2016-12-05] MEDS: SPIRONOLACTONE 25 MG TAB PO SCH ×2 (07:58→17:13)
[2016-12-05] MEDS: MULTIVITAMIN TAB PO SCH (07:58)
[2016-12-05] MEDS: CITALOPRAM HYDROBROMIDE 40 MG TAB PO SCH (07:58)
[2016-12-05] MEDS: FUROSEMIDE 20 MG TAB PO SCH ×2 (07:58→17:13)
[2016-12-05] MEDS: DIVALPROEX SODIUM DELAYED RELEASE 250 MG TAB PO SCH ×2 (07:58→20:42)
[2016-12-05] MEDS: SODIUM CHLORIDE 0.9% FLUSH 5 ML FLUSH IV FLUSH SCH ×2 (07:59→20:41)
[2016-12-05] MEDS: CHLORHEXIDINE 0.12% (ORAL KIT) 15 ML CUP MT SCH ×2 (07:59→20:00)
[2016-12-05] MEDS: PANTOPRAZOLE SODIUM 40 MG VIAL IV SCH (07:59)
[2016-12-05] MEDS: THIAMINE HCL 100 MG TAB PO SCH (07:59)
--- NOTE | 2016-12-05 12:58 | HHI.PR ---
Subjective Remarks Follow up pleural effusion, encephalopathy. Patient reports only mild pain from the chest tube. No other complaints at this time. Denies dyspnea, chest pain, nausea, vomiting. Objective Vitals Vital Signs Date Time Temp Pulse Resp B/P Pulse Ox O2 Delivery O2 Flow Rate FiO2 12/05/16 12:09 97.6 67 20 93/61 93 12/05/16 08:53 Room Air 21 12/05/16 08:08 97.3 63 18 100/58 95 12/05/16 04:00 97.8 67 18 99/63 95 12/05/16 04:00 Room Air 12/05/16 00:00 98.2 74 18 101/59 95 12/05/16 00:00 Room Air 12/04/16 20:01 76 12/04/16 20:00 Room Air 12/04/16 20:00 97.7 77 20 108/66 93 12/04/16 16:07 98.2 76 18 106/58 95 I/O 12/04/16 12/04/16 12/04/16 12/05/16 12/05/16 12/05/16 07:00 15:00 23:00 07:00 15:00 23:00 Intake Total 240 ml 720 ml 1020 ml 960 ml Output Total 350 ml 200 ml Balance 240 ml 720 ml 670 ml 760 ml Intake Oral 240 ml 720 ml 420 ml 360 ml IV Total 600 ml 600 ml Chest Tube Drainage Total 350 ml 200 ml # Voids 1 3 0 1 # Bowel Movements 1 0 0 1 Result Diagram: 12/03/16 0546 12/05/16 0640 Imaging Last Impressions Chest X-Ray 12/01/16 0000 Signed Impressions: Service Date/Time: Thursday, December 01, 2016 07:54 - CONCLUSION: 1. Right-sided chest tube without pneumothorax. 2. Minimal left basilar subsegmental atelectasis. Magdiel Lucas MD Liver Ultrasound 11/26/16 0000 Signed Impressions: Service Date/Time: November 14:23 - CONCLUSION: 1. The portal vein is patent. 2. Multiple gallstones in the gallbladder. No definite biliary tract obstruction. There is thickening of the gallbladder wall with some fluid around the gallbladder. This can be seen with either acute or chronic cholecystitis. This would have to be correlated with patient's physical, clinical exam and lab values. Sudhakar Zapata MD Chest CT 11/25/16 0000 Signed Impressions: Service Date/Time: Friday, November 25, 2016 11:37 - CONCLUSION: Very large right pleural effusion with complete collapse of the right lung. Sudhakar Zapata MD Abdomen/Pelvis CT 11/25/16 0000 Signed Impressions: Service Date/Time: Friday, November 25, 2016 11:37 - CONCLUSION: Large right-sided pleural effusion with adjacent compressive atelectasis of the right lung. There is mass effect on the heart displacing it leftward within the thoracic cavity. There is a large amount of ascites which is not significantly changed as compared to the prior exam. The liver has a cirrhotic appearance. Mary Bradley MD Objective Remarks General: No acute distress. Heart: Regular rate and rhythm. No murmur. Lungs: Clear to auscultation bilaterally. No wheezes, rales, or rhonchi. Breathing is nonlabored. Chest tube on the right. Abdomen: Soft, nontender, nondistended. Extremities: No lower extremity edema. Psych: Alert and oriented. Procedures 11/25/16 right pigtail chest tube placement 11/26/16 right chest tube placement 11/26/16 orotracheal intubation 11/26/16 subclavian central line placement Urinary Catheter: No Vascular Central Line Catheter: No A/P Problem List: (1) Sepsis ICD Code: A41.9 Status: Resolved (2) Respiratory insufficiency ICD Code: R06.89 Status: Acute (3) Pleural effusion, right ICD Code: J90 Status: Acute (4) Collapse of right lung ICD Code: J98.11 Status: Acute (5) Probable pneumonia Status: Acute (6) Seizure ICD Code: R56.9 Status: Acute (7) Liver failure ICD Code: K72.90 Status: Chronic (8) Alcohol dependence ICD Code: F10.20 Status: Chronic (9) Alcohol-induced cirrhosis Status: Chronic Assessment and Plan Reviewed/updated 12/05/16. No change. Continue chest tube. 1. Acute respiratory failure: Improved. Patient extubated. Pulmonology consulted. Continue supplemental oxygen. Bronchodilators as needed. 2. Large right pleural effusion with right lung collapse and mass effect: Status post pigtail catheter placement on 11/25/16. The catheter was pulled out by the patient. Chest tube was placed again on 11/26/16. Pulmonology managing chest tube. 3. Alcoholic liver disease, chronic: Continue lactulose, Xifaxan. Gastroenterology has signed off. Continue Inderal, Aldactone, Lasix. 4. Alcohol withdrawal, dependence: Patient is now off Precedex drip. Ativan as needed for withdrawal symptoms per [facility] protocol. No Ativan required in last 24 hours. Continue thiamine daily. Taper Librium. 5. Sepsis, pneumonia: Continue antibiotics. 6. Thrombocytopenia: Likely secondary to chronic liver disease. Stable. 7. GI prophylaxis: PPI. 8. DVT prophylaxis: SCDs. Avoid chemical prophylaxis secondary to thrombocytopenia. 9. Nausea/vomiting: Antiemetics as needed. Problem Qualifiers (1) Sepsis: Qualified Code: A41.9 - Sepsis, due to unspecified organism (2) Alcohol dependence: Nirav Jalloh MD Dec 05, 2016 12:58
[2016-12-06] MEDS: PIPERACIL-TAZO 4.5 GM PREMIX 100 ML IV SCH ×4 (00:49→20:11)
[2016-12-06 04:00] VITALS: BP 94/55; PULSE 58; RESP 18; TEMP 97.7; O2SAT 97
[2016-12-06] MEDS: MORPHINE SULFATE ORAL SOLN 10 MG/0.5 ML SYRINGE PO/SL PRN ×3 (05:28→20:11)
[2016-12-06] MEDS: ALBUMIN HUMAN 25% 25 GM/100 ML BAGP IV SCH ×2 (05:29→17:59)
[2016-12-06] MEDS: VANCOMYCIN 1,500 MG/NS 500 ML IV SCH ×6 (05:48→22:13)
[2016-12-06] MEDS: CHLORHEXIDINE 0.12% (ORAL KIT) 15 ML CUP MT SCH ×2 (08:00→20:00)
[2016-12-06] MEDS: DEXAMETHASONE 4 MG TAB PO SCH (08:15)
[2016-12-06] MEDS: RIFAXIMIN 550 MG TAB PO SCH ×2 (08:15→20:12)
[2016-12-06] MEDS: FOLIC ACID 1 MG TAB PO SCH (08:15)
[2016-12-06] MEDS: FUROSEMIDE 20 MG TAB PO SCH ×2 (08:16→17:58)
[2016-12-06] MEDS: MULTIVITAMIN TAB PO SCH (08:16)
[2016-12-06] MEDS: LACTULOSE SYRUP 20 GM/30 ML CUP PO SCH ×3 (08:16→18:02)
[2016-12-06] MEDS: CITALOPRAM HYDROBROMIDE 40 MG TAB PO SCH (08:16)
[2016-12-06] MEDS: DIVALPROEX SODIUM DELAYED RELEASE 250 MG TAB PO SCH ×2 (08:16→20:12)
[2016-12-06] MEDS: THIAMINE HCL 100 MG TAB PO SCH (08:17)
[2016-12-06] MEDS: PANTOPRAZOLE SODIUM 40 MG VIAL IV SCH (08:20)
[2016-12-06] MEDS: SODIUM CHLORIDE 0.9% FLUSH 5 ML FLUSH IV FLUSH SCH ×2 (08:27→20:18)
[2016-12-06 08:39] VITALS: BP 97/52; PULSE 66; RESP 19; TEMP 97.9; O2SAT 94
[2016-12-06] MEDS: SPIRONOLACTONE 25 MG TAB PO SCH ×2 (09:00→18:01)
[2016-12-06 12:12] VITALS: PULSE 64
[2016-12-06 12:18] VITALS: BP 98/61; PULSE 61; RESP 19; TEMP 98.2; O2SAT 94
[2016-12-06] MEDS ORDERED: PHARMACY ORDERED LAB XX ONE (13:45)
--- NOTE | 2016-12-06 13:50 | HHI.PR ---
Subjective Remarks Follow up encephalopathy, pleural effusion. Patient remains somewhat confused. Reporting pain around the chest tube site. No other complaints at this time. Objective Vitals Vital Signs Date Time Temp Pulse Resp B/P Pulse Ox O2 Delivery O2 Flow Rate FiO2 12/06/16 12:18 98.2 61 19 98/61 94 12/06/16 12:12 64 12/06/16 08:39 97.9 66 19 97/52 94 12/06/16 08:15 94 Room Air 2.00 21 12/06/16 04:00 Room Air 12/06/16 04:00 97.7 58 18 94/55 97 12/05/16 23:49 Room Air 12/05/16 23:49 97.3 66 18 99/58 96 12/05/16 20:02 61 12/05/16 20:00 97.3 65 18 95/51 96 12/05/16 20:00 Room Air 12/05/16 16:20 97.6 61 18 105/59 95 I/O 12/05/16 12/05/16 12/05/16 12/06/16 12/06/16 12/06/16 07:00 15:00 23:00 07:00 15:00 23:00 Intake Total 1060 ml 480 ml 840 ml 1180 ml Output Total 200 ml 950 ml 350 ml Balance 860 ml 480 ml -110 ml 830 ml Intake Oral 360 ml 480 ml 240 ml 480 ml IV Total 600 ml 600 ml 600 ml Albumin 100 ml 100 ml Output Urine Total 500 ml Chest Tube Drainage Total 200 ml 450 ml 350 ml # Voids 1 2 1 # Bowel Movements 1 0 1 Result Diagram: 12/03/16 0546 12/05/16 0640 Imaging Last Impressions Chest X-Ray 12/01/16 0000 Signed Impressions: Service Date/Time: Thursday, December 01, 2016 07:54 - CONCLUSION: 1. Right-sided chest tube without pneumothorax. 2. Minimal left basilar subsegmental atelectasis. Magdiel Lucas MD Liver Ultrasound 11/26/16 0000 Signed Impressions: Service Date/Time: November 14:23 - CONCLUSION: 1. The portal vein is patent. 2. Multiple gallstones in the gallbladder. No definite biliary tract obstruction. There is thickening of the gallbladder wall with some fluid around the gallbladder. This can be seen with either acute or chronic cholecystitis. This would have to be correlated with patient's physical, clinical exam and lab values. Sudhakar Zapata MD Chest CT 11/25/16 0000 Signed Impressions: Service Date/Time: Friday, November 25, 2016 11:37 - CONCLUSION: Very large right pleural effusion with complete collapse of the right lung. Sudhakar Zapata MD Abdomen/Pelvis CT 11/25/16 0000 Signed Impressions: Service Date/Time: Friday, November 25, 2016 11:37 - CONCLUSION: Large right-sided pleural effusion with adjacent compressive atelectasis of the right lung. There is mass effect on the heart displacing it leftward within the thoracic cavity. There is a large amount of ascites which is not significantly changed as compared to the prior exam. The liver has a cirrhotic appearance. Mary Bradley MD Objective Remarks General: No acute distress. Heart: Regular rate and rhythm. No murmur. Lungs: Clear to auscultation bilaterally. No wheezes, rales, or rhonchi. Breathing is nonlabored. Chest tube on the right. Abdomen: Soft, nontender, nondistended. Extremities: No lower extremity edema. Psych: Alert and oriented. Procedures 11/25/16 right pigtail chest tube placement 11/26/16 right chest tube placement 11/26/16 orotracheal intubation 11/26/16 subclavian central line placement Urinary Catheter: No Vascular Central Line Catheter: No A/P Problem List: (1) Sepsis ICD Code: A41.9 Status: Resolved (2) Respiratory insufficiency ICD Code: R06.89 Status: Acute (3) Pleural effusion, right ICD Code: J90 Status: Acute (4) Collapse of right lung ICD Code: J98.11 Status: Acute (5) Probable pneumonia Status: Acute (6) Seizure ICD Code: R56.9 Status: Acute (7) Liver failure ICD Code: K72.90 Status: Chronic (8) Alcohol dependence ICD Code: F10.20 Status: Chronic (9) Alcohol-induced cirrhosis Status: Chronic Assessment and Plan Reviewed/updated 12/06/16. No change. Continue chest tube. 1. Acute respiratory failure: Improved. Patient extubated. Pulmonology consulted. Continue supplemental oxygen. Bronchodilators as needed. 2. Large right pleural effusion with right lung collapse and mass effect: Status post pigtail catheter placement on 11/25/16. The catheter was pulled out by the patient. Chest tube was placed again on 11/26/16. Pulmonology managing chest tube. 3. Alcoholic liver disease, chronic: Continue lactulose, Xifaxan. Gastroenterology has signed off. Continue Inderal, Aldactone, Lasix. 4. Alcohol withdrawal, dependence: Patient is now off Precedex drip. Ativan as needed for withdrawal symptoms per CIWA protocol. No Ativan required in last 24 hours. Continue thiamine daily. Taper Librium. 5. Sepsis, pneumonia: Continue antibiotics. 6. Thrombocytopenia: Likely secondary to chronic liver disease. Stable. 7. GI prophylaxis: PPI. 8. DVT prophylaxis: SCDs. Avoid chemical prophylaxis secondary to thrombocytopenia. 9. Nausea/vomiting: Antiemetics as needed. Problem Qualifiers (1) Sepsis: Qualified Code: A41.9 - Sepsis, due to unspecified organism (2) Alcohol dependence: Nirav Jalloh MD Dec 06, 2016 13:50
[2016-12-06 16:22] VITALS: BP 105/59; PULSE 76; RESP 19; TEMP 98; O2SAT 94
[2016-12-06 20:00] VITALS: BP 102/59; PULSE 74; RESP 18; TEMP 97.2; O2SAT 93
[2016-12-07] VITALS (8 sets, daily range): BP systolic 98–112; BP diastolic 56–74; PULSE 67–84; RESP 16–20; TEMP 97.8–98.5; O2SAT 93–95
[2016-12-07] MEDS: MORPHINE SULFATE ORAL SOLN 10 MG/0.5 ML SYRINGE PO/SL PRN ×3 (01:25→21:03)
[2016-12-07] MEDS: PIPERACIL-TAZO 4.5 GM PREMIX 100 ML IV SCH ×4 (01:26→21:03)
[2016-12-07] MEDS: ALBUMIN HUMAN 25% 25 GM/100 ML BAGP IV SCH ×2 (06:17→17:20)
[2016-12-07] MEDS: VANCOMYCIN 1,500 MG/NS 500 ML IV SCH ×6 (06:19→22:11)
[2016-12-07] MEDS: CHLORHEXIDINE 0.12% (ORAL KIT) 15 ML CUP MT SCH ×2 (08:00→20:00)
[2016-12-07] MEDS: DIVALPROEX SODIUM DELAYED RELEASE 250 MG TAB PO SCH ×2 (08:35→21:02)
[2016-12-07] MEDS: DEXAMETHASONE 4 MG TAB PO SCH (08:35)
[2016-12-07] MEDS: RIFAXIMIN 550 MG TAB PO SCH ×2 (08:35→21:02)
[2016-12-07] MEDS: THIAMINE HCL 100 MG TAB PO SCH (08:36)
[2016-12-07] MEDS: MULTIVITAMIN TAB PO SCH (08:36)
[2016-12-07] MEDS: FUROSEMIDE 20 MG TAB PO SCH ×2 (08:36→17:21)
[2016-12-07] MEDS: CITALOPRAM HYDROBROMIDE 40 MG TAB PO SCH (08:36)
[2016-12-07] MEDS: FOLIC ACID 1 MG TAB PO SCH (08:36)
[2016-12-07] MEDS: SPIRONOLACTONE 25 MG TAB PO SCH ×2 (08:36→17:20)
[2016-12-07] MEDS: LACTULOSE SYRUP 20 GM/30 ML CUP PO SCH ×3 (08:37→17:21)
[2016-12-07] MEDS: PANTOPRAZOLE SODIUM 40 MG VIAL IV SCH (08:38)
[2016-12-07] MEDS: SODIUM CHLORIDE 0.9% FLUSH 5 ML FLUSH IV FLUSH SCH ×2 (08:38→21:02)
--- NOTE | 2016-12-07 11:27 | HHI.PR ---
Subjective Remarks Follow up confusion, pleural effusion. The patient is still reporting pain at the site of the chest tube. His nurse states that he has been picking and pulling at the chest tube site multiple times today. Objective Vitals Vital Signs Date Time Temp Pulse Resp B/P Pulse Ox O2 Delivery O2 Flow Rate FiO2 12/07/16 08:08 98.3 84 18 112/74 95 12/07/16 04:00 Room Air 12/07/16 04:00 98.1 77 17 101/58 94 12/07/16 00:00 97.8 72 17 103/58 94 12/07/16 00:00 Room Air 12/06/16 20:00 Room Air 12/06/16 20:00 97.2 74 18 102/59 93 12/06/16 16:22 98.0 76 19 105/59 94 12/06/16 12:18 98.2 61 19 98/61 94 12/06/16 12:12 64 I/O 12/06/16 12/06/16 12/06/16 12/07/16 12/07/16 12/07/16 07:00 15:00 23:00 07:00 15:00 23:00 Intake Total 1180 ml 1335 ml 920 ml 940 ml Output Total 350 ml 700 ml 1070 ml Balance 830 ml 635 ml -150 ml 940 ml Intake Oral 480 ml 600 ml 320 ml 240 ml IV Total 600 ml 735 ml 600 ml 600 ml Albumin 100 ml 100 ml Output Urine Total 700 ml 600 ml Chest Tube Drainage Total 350 ml 470 ml # Voids 1 2 # Bowel Movements 1 0 2 Result Diagram: 12/03/16 0546 12/05/16 0640 Imaging Last Impressions Chest X-Ray 12/01/16 0000 Signed Impressions: Service Date/Time: Thursday, December 01, 2016 07:54 - CONCLUSION: 1. Right-sided chest tube without pneumothorax. 2. Minimal left basilar subsegmental atelectasis. Magdiel Lucas MD Liver Ultrasound 11/26/16 0000 Signed Impressions: Service Date/Time: November 14:23 - CONCLUSION: 1. The portal vein is patent. 2. Multiple gallstones in the gallbladder. No definite biliary tract obstruction. There is thickening of the gallbladder wall with some fluid around the gallbladder. This can be seen with either acute or chronic cholecystitis. This would have to be correlated with patient's physical, clinical exam and lab values. Sudhakar Zapata MD Chest CT 11/25/16 0000 Signed Impressions: Service Date/Time: Friday, November 25, 2016 11:37 - CONCLUSION: Very large right pleural effusion with complete collapse of the right lung. Sudhakar Zapata MD Abdomen/Pelvis CT 11/25/16 0000 Signed Impressions: Service Date/Time: Friday, November 25, 2016 11:37 - CONCLUSION: Large right-sided pleural effusion with adjacent compressive atelectasis of the right lung. There is mass effect on the heart displacing it leftward within the thoracic cavity. There is a large amount of ascites which is not significantly changed as compared to the prior exam. The liver has a cirrhotic appearance. Mary Bradley MD Objective Remarks General: No acute distress. Heart: Regular rate and rhythm. No murmur. Lungs: Clear to auscultation bilaterally. No wheezes, rales, or rhonchi. Breathing is nonlabored. Chest tube on the right. Abdomen: Soft, nontender, nondistended. Extremities: No lower extremity edema. Psych: Alert, somewhat confused. Procedures 11/25/16 right pigtail chest tube placement 11/26/16 right chest tube placement 11/26/16 orotracheal intubation 11/26/16 subclavian central line placement Urinary Catheter: No Vascular Central Line Catheter: No A/P Problem List: (1) Sepsis ICD Code: A41.9 Status: Resolved (2) Respiratory insufficiency ICD Code: R06.89 Status: Acute (3) Pleural effusion, right ICD Code: J90 Status: Acute (4) Collapse of right lung ICD Code: J98.11 Status: Acute (5) Probable pneumonia Status: Acute (6) Seizure ICD Code: R56.9 Status: Acute (7) Liver failure ICD Code: K72.90 Status: Chronic (8) Alcohol dependence ICD Code: F10.20 Status: Chronic (9) Alcohol-induced cirrhosis Status: Chronic Assessment and Plan Reviewed/updated 12/07/16. No change. Continue chest tube. Pulmonology has suggested considering discharge home with chest tube in place. At this time I do not believe that the patient is safe for discharge home as he has been noncompliant with the chest tube while in the hospital. He has been pulling at it and picking at the chest tube site. This could be a consideration, however, if the patient's mental status improves. 1. Acute respiratory failure: Improved. Patient extubated. Pulmonology consulted. Continue supplemental oxygen. Bronchodilators as needed. 2. Large right pleural effusion with right lung collapse and mass effect: Status post pigtail catheter placement on 11/25/16. The catheter was pulled out by the patient. Chest tube was placed again on 11/26/16. Pulmonology managing chest tube. 3. Alcoholic liver disease, chronic: Continue lactulose, Xifaxan. Gastroenterology has signed off. Continue Inderal, Aldactone, Lasix. 4. Alcohol withdrawal, dependence: Patient is now off Precedex drip. Ativan as needed for withdrawal symptoms per [facility] protocol. No Ativan required in last 24 hours. Continue thiamine daily. Taper Librium. 5. Sepsis, pneumonia: Continue antibiotics. 6. Thrombocytopenia: Likely secondary to chronic liver disease. Stable. 7. GI prophylaxis: PPI. 8. DVT prophylaxis: SCDs. Avoid chemical prophylaxis secondary to thrombocytopenia. 9. Nausea/vomiting: Antiemetics as needed. Problem Qualifiers (1) Sepsis: Qualified Code: A41.9 - Sepsis, due to unspecified organism (2) Alcohol dependence: Nirav Jalloh MD Dec 07, 2016 11:27
[2016-12-08] VITALS (7 sets, daily range): BP systolic 92–102; BP diastolic 50–82; PULSE 54–72; RESP 16–20; TEMP 97.7–98.7; O2SAT 93–96
[2016-12-08] MEDS: PIPERACIL-TAZO 4.5 GM PREMIX 100 ML IV SCH ×4 (01:17→21:07)
[2016-12-08] MEDS: ALBUMIN HUMAN 25% 25 GM/100 ML BAGP IV SCH ×2 (05:22→17:13)
[2016-12-08] MEDS: VANCOMYCIN 1,500 MG/NS 500 ML IV SCH ×2 (05:22)
[2016-12-08 06:58] LABS: AUTOMATED NEUTROPHIL # 9.1 TH/MM3 (1.8-7.7); BASOPHIL % 0.1 % (0.0-2.0); EOSINOPHIL % 0.2 % (0.0-4.0); HEMATOCRIT 34.9 % (39.0-51.0); LYMPH % 10.8 % (9.0-44.0); LYMPHOCYTE # 1.2 TH/MM3 (1.0-4.8); MEAN CELL VOLUME 93.5 FL (80.0-100.0); MEAN CORPUSCULAR HEMOGLOBIN 31.5 PG (27.0-34.0); MEAN CORPUSCULAR HGB CONC 33.6 % (32.0-36.0); MONO % 7.2 % (0.0-8.0); NEUT % 81.7 % (16.0-70.0); PLATELET COUNT 70 TH/MM3 (150-450); RED BLOOD COUNT 3.73 MIL/MM3 (4.50-5.90); RED CELL DISTRIBUTION WIDTH 14.5 % (11.6-17.2); WHITE BLOOD COUNT 11.2 TH/MM3 (4.0-11.0)
[2016-12-08 07:04] LABS: HEMO FLAGS AUTO DIFF
[2016-12-08 07:30] LABS: BICARBONATE 30.1 MEQ/L (21.0-32.0)
[2016-12-08] MEDS: CHLORHEXIDINE 0.12% (ORAL KIT) 15 ML CUP MT SCH ×2 (08:00→20:00)
[2016-12-08 08:27] LABS: MYELOCYTES 1 % (0-0); NEUTROPHIL # MANUAL DIFF 9.5 TH/MM3 (1.8-7.7); PLATELET ESTIMATE SMEAR LOW (NORMAL); POLYS (SEG NEUTROPHILS) 84 % (16-70); WBC DIFF SAMPLE 100
[2016-12-08 08:28] LABS: PLATELET MORPHOLOGY ENLARGED (NORMAL); SCAN/DIFF FINAL DIFF MANUAL
[2016-12-08] MEDS: FOLIC ACID 1 MG TAB PO SCH (09:00)
[2016-12-08] MEDS: CITALOPRAM HYDROBROMIDE 40 MG TAB PO SCH (09:00)
[2016-12-08] MEDS: RIFAXIMIN 550 MG TAB PO SCH ×2 (09:00→21:07)
[2016-12-08] MEDS: MULTIVITAMIN TAB PO SCH (09:00)
[2016-12-08] MEDS: LACTULOSE SYRUP 20 GM/30 ML CUP PO SCH ×3 (09:00→17:14)
[2016-12-08] MEDS: THIAMINE HCL 100 MG TAB PO SCH (09:00)
[2016-12-08] MEDS: DIVALPROEX SODIUM DELAYED RELEASE 250 MG TAB PO SCH ×2 (09:00→21:07)
[2016-12-08] MEDS: SODIUM CHLORIDE 0.9% FLUSH 5 ML FLUSH IV FLUSH SCH ×2 (09:00→21:08)
[2016-12-08] MEDS: FUROSEMIDE 20 MG TAB PO SCH ×2 (09:00→17:14)
--- NOTE | 2016-12-08 11:09 | HHI.PR ---
Subjective Remarks Follow for encephalopathy Still with episodes of confusion, not short of breath, denies any abdominal pain , no chest pain or palpitations. However has some anxiety. Still confused. Poor historian Objective Vitals Vital Signs Date Time Temp Pulse Resp B/P Pulse Ox O2 Delivery O2 Flow Rate FiO2 12/08/16 08:00 97.9 55 18 96/52 93 12/08/16 08:00 96 Room Air 12/08/16 04:00 98.1 54 16 92/58 93 12/08/16 00:08 98.2 60 16 99/58 94 12/07/16 21:08 Room Air 12/07/16 20:58 98.2 67 16 98/57 94 12/07/16 20:10 74 12/07/16 16:05 98.1 72 20 104/56 93 12/07/16 12:05 98.5 77 20 100/57 93 I/O 12/07/16 12/07/16 12/07/16 12/08/16 12/08/16 12/08/16 07:00 15:00 23:00 07:00 15:00 23:00 Intake Total 940 ml 360 ml 1185 ml 1303 ml Output Total 750 ml 250 ml 450 ml Balance 940 ml -390 ml 935 ml 853 ml Intake Oral 240 ml 360 ml 480 ml 0 ml IV Total 600 ml 705 ml 1203 ml Albumin 100 ml 100 ml Output Urine Total 375 ml 250 ml Chest Tube Drainage Total 375 ml 450 ml # Voids 2 3 # Bowel Movements 2 2 2 3 Result Diagram: 12/08/1660512/08/16 0606 Objective Remarks General: No acute distress. Heart: Regular rate and rhythm. No murmur. Lungs: Clear to auscultation bilaterally. No wheezes, rales, or rhonchi. Breathing is nonlabored. Chest tube on the right. Output about 350-375 cc per day Abdomen: Soft, nontender, nondistended. Extremities: No lower extremity edema. Psych: Alert, somewhat confused, not oriented to time, oriented to place. Procedures 11/25/16 right pigtail chest tube placement 11/26/16 right chest tube placement 11/26/16 orotracheal intubation 11/26/16 subclavian central line placement A/P Problem List: (1) Sepsis ICD Code: A41.9 Status: Resolved (2) Respiratory insufficiency ICD Code: R06.89 Status: Acute (3) Pleural effusion, right ICD Code: J90 Status: Acute (4) Collapse of right lung ICD Code: J98.11 Status: Acute (5) Probable pneumonia Status: Acute (6) Seizure ICD Code: R56.9 Status: Acute (7) Liver failure ICD Code: K72.90 Status: Chronic (8) Alcohol dependence ICD Code: F10.20 Status: Chronic (9) Alcohol-induced cirrhosis Status: Chronic Assessment and Plan 1. Acute respiratory failure: Improved. Patient extubated. Pulmonology following. Continue supplemental oxygen. Bronchodilators as needed. 2. 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 The catheter was pulled out by the patient. Chest tube was placed again on 11/26/16. Pulmonology managing chest tube. Pulmonology has suggested considering discharge home with chest tube in place. At this time I do not believe that the patient is safe for discharge home as he has been noncompliant with the chest tube while in the hospital. Also still with intermittent episodes of confusion. We'll be more aggressive with diuresis. Continue Zosyn for now, de- escalate tomorrow. Check CMP and CBC tomorrow. Stop vancomycin. Continue albumin, recheck LFTs tomorrow. 3. Alcoholic liver disease, chronic: Continue lactulose, Xifaxan. Gastroenterology has signed off. Continue Inderal, increase Lasix and Aldactone. Recheck ammonia levels tomorrow. 4. Alcohol withdrawal, dependence: Off CIWA protocol, Taper Librium hydroxyzine for anxiety. 5. Sepsis, pneumonia: Continue Zosyn de-escalate tomorrow 6. Thrombocytopenia: Likely secondary to chronic liver disease. Stable. 7. GI prophylaxis: PPI. 8. DVT prophylaxis: SCDs. Avoid chemical prophylaxis secondary to thrombocytopenia. Problem Qualifiers (1) Sepsis: Qualified Code: A41.9 - Sepsis, due to unspecified organism (2) Alcohol dependence: Kirsten Foster MD Dec 08, 2016 11:09
[2016-12-08] MEDS: MORPHINE SULFATE ORAL SOLN 10 MG/0.5 ML SYRINGE PO/SL PRN ×2 (13:00→21:13)
--- NOTE | 2016-12-08 15:58 | HHI.HCPN ---
Reason for visit a. To assist with evaluation and management of symptoms including: dyspnea , encephalopathy; agitation; urinary retention b. To assist medical decision maker(s) with: better understanding of current medical conditions; weighing benefits/burdens of medical treatment options; making medical treatment decisions. . Subjective/Interval History Patient seen today to follow-up on comfort, agitation. He has remained stable on medical floor. CBC unremarkable. Still with thrombocytopenia platelets 70, stable. No recent LFTs, pneumonia. Repeat LFTs , ammonia level ordered for tomorrow. Continues to have right chest tube with moderate amount of output; putting out between 203334 mL a day. Last imaging . Having several loose bowel movements a day. Eating 100% of most meals. prn benzodiazepines have been discontinued. Still has available prn oral oral morphine for pain, last dose, 10 mg, required 12/07 Mr. Arias is awake and alert at time of my visit, up in a recliner chair at bedside. (Seen with Soila Valeriano medical student) he is mostly oriented, knows he is in the hospital though not oriented to reason for hospitalization thinks he is hospitalized due to sepsis. Review with him briefly clinical course, acute hepatic failure secondary to alcohol as well as pneumothorax, right chest tube. He seems to have poor/limited insight. He is very pleasant and cooperative. He asks if he's going to be allowed to go home today or tomorrow. Tells me the plan is possibly home with his brother but he also has multiple other family members in town who will help him. ROS essentially negative. He endorses he previously had some pain around the right chest tube however that has resolved "mostly ". Denies nausea or vomiting. Still endorses some loose stools. No difficulty urinating. No shortness of breath. Reports he just ambulated around the halls with a walker without any dyspnea. He tells me his mother has not been in yet today he expects her later this evening after work. Advance Directives Living Will: Never completed Health Care Surrogate: Never completed Durable Power of Estate Tax Examiner: Never completed Advance Directive Specifics Date completed: Advance directives never completed. . Health Care Surrogate(s): No written designation of health care surrogacy. . Documented care wishes: No written documentation of health care goals/preferences. . Objective Vital Signs Date Time Temp Pulse Resp B/P Pulse Ox O2 Delivery O2 Flow Rate FiO2 12/08/16 12:00 97.7 69 20 102/82 95 12/08/16 08:00 97.9 55 18 96/52 93 12/08/16 08:00 96 Room Air 12/08/16 08:00 54 12/08/16 04:00 98.1 54 16 92/58 93 12/08/16 00:08 98.2 60 16 99/58 94 12/07/16 21:08 Room Air 12/07/16 20:58 98.2 67 16 98/57 94 12/07/16 20:10 74 12/07/16 16:05 98.1 72 20 104/56 93 Intake & Output 12/08/16 12/08/16 07:00 19:00 Intake Total 2488 ml Output Total 700 ml Balance 1788 ml Intake Oral 480 ml IV Total 1908 ml Albumin 100 ml Output Urine Total 250 ml Chest Tube Drainage Total 450 ml # Voids 3 # Bowel Movements 5 Physical Exam CONSTITUTIONAL/GENERAL: This is an adequately nourished patient,alert, cooperative, pleasant TUBES/LINES/DRAINS: peripheral IV UE, right chest tube; SCDs; CARDIOVASCULAR: Regular rate and rhythm , no murmur. No peripheral edema. No JVD. RESPIRATORY/CHEST: Symmetric, unlabored respirations on room air. Clear, reasonable air movement bilaterally, decreased right base. Right chest tube in place draining to pleurevac-moderate amount serous fluid GASTROINTESTINAL: Abdomen soft, nondistended, nontender. No hepato-splenomegaly , or palpable masses. No guarding. Bowel sounds present. NEUROLOGICAL: alert, oriented to person , hospital , city. Very limited insight. At times confabulates, thinks he may go home today or tomorrow. cooperative, follows commands. Speech clear. Moves all extremities. PSYCHIATRIC: no apparent anxiety or hallucination . Diagnostic Tests Laboratory Laboratory Tests Test 12/06/16 12/08/16 13:45 06:06 Vancomycin Level Trough 15.5 MCG/ML (5.0-10.0) White Blood Count 11.2 TH/MM3 (4.0-11.0) Red Blood Count 3.73 MIL/MM3 (4.50-5.90) Hemoglobin 11.7 GM/DL (13.0-17.0) Hematocrit 34.9 % (39.0-51.0) Mean Corpuscular Volume 93.5 FL (80.0-100.0) Mean Corpuscular Hemoglobin 31.5 PG (27.0-34.0) Mean Corpuscular Hemoglobin 33.6 % Concent (32.0-36.0) Red Cell Distribution Width 14.5 % (11.6-17.2) Platelet Count 70 TH/MM3 (150-450) Mean Platelet Volume 11.1 FL (7.0-11.0) Neutrophils (%) (Auto) 81.7 % (16.0-70.0) Lymphocytes (%) (Auto) 10.8 % (9.0-44.0) Monocytes (%) (Auto) 7.2 % (0.0-8.0) Eosinophils (%) (Auto) 0.2 % (0.0-4.0) Basophils (%) (Auto) 0.1 % (0.0-2.0) Neutrophils # (Auto) 9.1 TH/MM3 (1.8-7.7) Lymphocytes # (Auto) 1.2 TH/MM3 (1.0-4.8) Monocytes # (Auto) 0.8 TH/MM3 (0-0.9) Eosinophils # (Auto) 0.0 TH/MM3 (0-0.4) Basophils # (Auto) 0.0 TH/MM3 (0-0.2) CBC Comment AUTO DIFF Differential Total Cells 100 Counted Neutrophils % (Manual) 84 % (16-70) Lymphocytes % 10 % (9-44) Monocytes % 5 % (0-8) Neutrophils # (Manual) 9.5 TH/MM3 (1.8-7.7) Myelocytes 1 % (0-0) Differential Comment FINAL DIFF MANUAL Platelet Estimate LOW (NORMAL) Platelet Morphology Comment ENLARGED (NORMAL) Red Cell Morphology Comment NORMAL (NORMAL) Sodium Level 140 MEQ/L (136-145) Potassium Level 4.0 MEQ/L (3.5-5.1) Chloride Level 106 MEQ/L (98-107) Carbon Dioxide Level 30.1 MEQ/L (21.0-32.0) Anion Gap 4 MEQ/L (5-15) Blood Urea Nitrogen 14 MG/DL (7-18) Creatinine 0.44 MG/DL (0.60-1.30) Estimat Glomerular Filtration 213 ML/MIN Rate (>89) Random Glucose 118 MG/DL (74-106) Calcium Level 9.1 MG/DL (8.5-10.1) Result Diagram: 12/08/16 0606 12/08/16 0606 Imaging Last Impressions Chest X-Ray 12/01/16 0000 Signed Impressions: Service Date/Time: Thursday, December 01, 2016 07:54 - CONCLUSION: 1. Right-sided chest tube without pneumothorax. 2. Minimal left basilar subsegmental atelectasis. Magdiel Lucas MD Liver Ultrasound 11/26/16 0000 Signed Impressions: Service Date/Time: November 14:23 - CONCLUSION: 1. The portal vein is patent. 2. Multiple gallstones in the gallbladder. No definite biliary tract obstruction. There is thickening of the gallbladder wall with some fluid around the gallbladder. This can be seen with either acute or chronic cholecystitis. This would have to be correlated with patient's physical, clinical exam and lab values. Sudhakar Zapata MD Chest CT 11/25/16 0000 Signed Impressions: Service Date/Time: Friday, November 25, 2016 11:37 - CONCLUSION: Very large right pleural effusion with complete collapse of the right lung. Sudhakar Zapata MD Abdomen/Pelvis CT 11/25/16 0000 Signed Impressions: Service Date/Time: Friday, November 25, 2016 11:37 - CONCLUSION: Large right-sided pleural effusion with adjacent compressive atelectasis of the right lung. There is mass effect on the heart displacing it leftward within the thoracic cavity. There is a large amount of ascites which is not significantly changed as compared to the prior exam. The liver has a cirrhotic appearance. Mary Bradley MD Procedures * Right chest pig-tail catheter placement * right chest tube placement * Intubation/mechanical ventilation * Right subclavian central line placement. . Assessment and Plan Disease Oriented Problem List: (1) Pleural effusion, right Comment: Appears to be transudative and possibly tracking up from ascites. No evidence of infection at this time. Patient had similar presentation at time of his last admission at end of Jul 2016. We were able to control ascites and pleural effusion without TIPS at that time. . . (2) Collapse of right lung Comment: Due to pleural effusion. Chest tube in place with re-expansion. . (3) Probable pneumonia (4) Hepatic encephalopathy (5) Respiratory insufficiency Comment: Probably due to the large pleural effusion. . (6) Ascites (7) Alcohol-induced cirrhosis (8) Portal hypertension (9) Urinary retention Comment: Began when zayas was discontinued. Probably just from post-zayas swelling. Possibly exacerbated by morphine. . Symptom Scale: (1) Pain 0-10 Scale: Unable to quantify Comment: Patient had not significant pre-hospital pain syndromes. Reports generalized abdominal pain worse over bladder today. . (2) Dyspnea 0-10 Scale: 0 Comment: Patient had significant dyspnea from his pleural effusion. Significantimprovement post thoracentesis and chest tube placement. Now tolerating room air. . 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 Mental status began to decline when patient started drinking again approximately one month ago. Also declined to take lactulose at home as directed. . (4) Agitation 0-10 Scale: Unable to quantify Comment: Probably a combination of EtOH withdrawal and delirium. Improved. Agitation level certainly much better to date than during hospitalization of Jul-Aug 2016. . . Pertinent Non-Medical Issues Psychosocial: Patient psychosocial support comes primarily from his mother and his brother. The patient lives with his brother who is currently unemployed. The patient's mother visits several times a day. Spiritual: Catholic Legal: No advance directives Ethical issues impacting care: Patient is incapacitated; it is still unclear if he will regain capacity to make his own health care decisions. . Important Contacts * Catherine Arias (mother and proxy decision maker) [phone] . Prognosis The patient was critically ill and initially required mechanical ventilation in an intensive care unit bed. He required chest tube placement. Though he is relatively young, his resilience is undoubtedly impacted by his history of alcohol abuse. If the patient is able to avoid other significant complications he should be able to survive the hospitalization. He is certainly at risk for infection and possible hepatorenal syndrome. Based on his recent history he may have enough functioning liver to allow survival if he completely abstains from alcohol. It is becoming quite clear that any alcohol use leads to critical illness relatively quickly. Per family, patient has refused any help for his alcoholism or depression and he continues to decline. Patient, however, has refused DNR status and has told his family several times that he wants ongoing aggressive care. . Code Status: Full Code Plan == CODE STATUS: FULL CODE . Patient has told family members that he wants to remain a "full code." == Decision-making: Patient is currently incapacitated to make his own health care decisions. It is not known if he will regain capacity to do so. There is no written designation of health care surrogate. As the patient is not , and has no adult children or surviving father, healthcare decision-making falls to his mother. She is making those decisions with the input of the patient's brother. == Goals of medical treatment: The patient has told both his mother and his brother that he would want ongoing aggressive treatment including resuscitation attempts. His goals have been confusing, however.. He has made it clear he wants to be kept alive. On the other hand, he continues to refuse help with his alcoholism or depression. While he doesn't want to sign a DNR, he has wanted to remain with hospice. == Pain: Pain had not been a significant problem for this patient prior to this admission. Patient recently c/o complained of low back pain during [facility], today endorses had rt chest pain which has resolved. Other possible sources of pain currently include prolonged bedbound status; recent intubation/extubation, chest tube; Morphine orders are in place. Has not had frequent prn requirements. No further recommendations at this time. == Dyspnea: Patient came in with a very large right pleural effusion. After initial drainage, the inserted pigtail catheter was unintentionally removed by the patient. There was rapid reaccumulation of fluid. A chest tube is now in place. Patient extubated 11/28, and now tolerating room air. Still with chest tube-- still w moderate output daily. No respiratory distress. == Encephalopathy; there is certainly underlying hepatic encephalopathy -- the patient has been drinking regularly and has been refusing his lactulose. Interestingly, ammonia level was not significantly high on admission. The patient's overall clinical illness and debilitated state are probably also contributing to his encephalopathy. Aggressive treatment for the underlying illness is probably the best way of managing this. Recommend titrating lactulose up to 4 times a say as needed to achieve at least 3 semi-formed bowel movements per day. cont to have loose BMs == prev. w urinary retention, now voiding adequately. == Risk of alcohol withdrawal including seizures now minimal. == Agitation: Patient was severely agitated during his last admission. It was agitation that cause the long length of stay. Will need to monitor closely. He is now over period where acute EtOH withdrawal would be expected. Current med regimen appears effective. No further recommendations at this time. == Depression: Per patient's mother, patient has had a several year period of significant depression. Currently on citalopram. No further recommendations at this time. == Given previously stated goals of patient (wanted aggressive care) and mother 's inclination to honor those goals,it is unlikely he will be a hospice candidate at time of discharge. He is certainly medically eligible if he starts drinking again, but patient/mother will desire aggressive care yet again once he starts declining. == Palliative care will continue to follow to assist with symptom management and to further clarify goals of medical treatment as the clinical course evolves. . Time Spent Total Floor Time (mins): 20 Attestation To help prompt me to consider important information that might be impacting today's encounter and assessment, information from prior notes written by myself or my colleagues may have been "brought forward" into today's note. My signature on this note, however, is an attestation that I personally performed the exam, history, and/or decision-making noted today, and, unless otherwise indicated, the interactions with patient, family, and staff as well as the review of records all occurred today. I also attest that the listed assessment and stated plan reflect my best clinical judgment today based on the combination of historical information, prior notes, and today's exam/ interactions. When time spent is documented, it refers only to time spent today by the signer, or if indicated, combined time spent today by collaborating physician/nurse practitioner. Alyse Townsend Dec 08, 2016 15:57
[2016-12-08] MEDS: SPIRONOLACTONE 50 MG TAB PO SCH (17:13)
[2016-12-09] VITALS (7 sets, daily range): BP systolic 89–103; BP diastolic 51–67; PULSE 52–66; RESP 8–20; TEMP 96.4–98.1; O2SAT 93–97
[2016-12-09] MEDS: PIPERACIL-TAZO 4.5 GM PREMIX 100 ML IV SCH ×2 (00:58→09:53)
[2016-12-09] MEDS: MORPHINE SULFATE ORAL SOLN 10 MG/0.5 ML SYRINGE PO/SL PRN ×4 (01:16→21:48)
[2016-12-09] MEDS: ALBUMIN HUMAN 25% 25 GM/100 ML BAGP IV SCH ×2 (05:47→17:41)
[2016-12-09 08:11] LABS: AUTOMATED NEUTROPHIL # 7.1 TH/MM3 (1.8-7.7); BASOPHIL % 0.3 % (0.0-2.0); EOSINOPHIL % 0.5 % (0.0-4.0); LYMPH % 15.3 % (9.0-44.0); LYMPHOCYTE # 1.4 TH/MM3 (1.0-4.8); MEAN CELL VOLUME 93.9 FL (80.0-100.0); MEAN CORPUSCULAR HEMOGLOBIN 31.4 PG (27.0-34.0); MEAN CORPUSCULAR HGB CONC 33.5 % (32.0-36.0); MONO % 8.1 % (0.0-8.0); NEUT % 75.8 % (16.0-70.0); PLATELET COUNT 69 TH/MM3 (150-450); RED BLOOD COUNT 4.05 MIL/MM3 (4.50-5.90); RED CELL DISTRIBUTION WIDTH 15.3 % (11.6-17.2); WHITE BLOOD COUNT 9.4 TH/MM3 (4.0-11.0)
[2016-12-09 08:20] LABS: HEMO FLAGS AUTO DIFF
[2016-12-09 08:47] LABS: ALKALINE PHOSPHATASE 70 U/L (45-117); ALT (GPT) 106 U/L (12-78); ANION GAP 8 MEQ/L (5-15); AST (GOT) 32 U/L (15-37); BICARBONATE 31.9 MEQ/L (21.0-32.0); BLOOD UREA NITROGEN 12 MG/DL (7-18); CHLORIDE 102 MEQ/L (98-107); GLOMERULAR FILTRATION RATE 198 ML/MIN (>89); SODIUM (NA) 142 MEQ/L (136-145); TOTAL BILIRUBIN ADULT 0.7 MG/DL (0.2-1.0)
[2016-12-09 09:29] LABS: PLATELET ESTIMATE SMEAR LOW (NORMAL); PLATELET MORPHOLOGY NORMAL (NORMAL); SCAN/DIFF AUTO DIFF CONFIRMED
[2016-12-09] MEDS: RIFAXIMIN 550 MG TAB PO SCH ×2 (09:52→21:49)
[2016-12-09] MEDS: CITALOPRAM HYDROBROMIDE 40 MG TAB PO SCH (09:52)
[2016-12-09] MEDS: LACTULOSE SYRUP 20 GM/30 ML CUP PO SCH ×3 (09:52→21:50)
[2016-12-09] MEDS: FOLIC ACID 1 MG TAB PO SCH (09:52)
[2016-12-09] MEDS: DIVALPROEX SODIUM DELAYED RELEASE 250 MG TAB PO SCH ×2 (09:52→21:49)
[2016-12-09] MEDS: PANTOPRAZOLE SOD 40 MG DELAYED RELEASE TAB PO SCH (09:53)
[2016-12-09] MEDS: FUROSEMIDE 20 MG TAB PO SCH ×2 (09:53→19:37)
[2016-12-09] MEDS: SPIRONOLACTONE 50 MG TAB PO SCH ×2 (09:53→17:48)
[2016-12-09] MEDS: MULTIVITAMIN TAB PO SCH (09:53)
[2016-12-09] MEDS: SODIUM CHLORIDE 0.9% FLUSH 5 ML FLUSH IV FLUSH SCH ×2 (09:53→21:09)
[2016-12-09] MEDS: CHLORHEXIDINE 0.12% (ORAL KIT) 15 ML CUP MT SCH ×2 (09:53→20:00)
[2016-12-09] MEDS: THIAMINE HCL 100 MG TAB PO SCH (09:53)
[2016-12-09] MEDS: DEXAMETHASONE 0.5 MG TAB PO SCH (11:08)
--- NOTE | 2016-12-09 14:06 | HHI.PR ---
Subjective Remarks Follow-up for encephalopathy and effusion Still confused, good bowel movements, +1260 fluid balance. Soft blood pressure in the 90s. Objective Vitals Vital Signs Date Time Temp Pulse Resp B/P Pulse Ox O2 Delivery O2 Flow Rate FiO2 12/09/16 10:14 Room Air 12/09/16 10:00 98.1 62 12 99/62 96 12/09/16 07:58 97.7 52 20 91/60 96 12/09/16 04:42 97.7 53 16 90/55 97 12/08/16 23:25 98.7 65 16 95/50 96 12/08/16 20:40 98.2 67 16 92/51 95 12/08/16 20:15 Room Air 12/08/16 16:00 98.6 72 20 101/60 94 I/O 12/08/16 12/08/16 12/08/16 12/09/16 12/09/16 12/09/16 07:00 15:00 23:00 07:00 15:00 23:00 Intake Total 1303 ml 600 ml 720 ml 240 ml Output Total 450 ml 300 ml Balance 853 ml 300 ml 720 ml 240 ml Intake Oral 0 ml 600 ml 720 ml 240 ml IV Total 1203 ml Albumin 100 ml Output Urine Total 300 ml Chest Tube Drainage Total 450 ml # Voids 3 3 3 # Bowel Movements 3 1 3 3 Result Diagram: 12/09/16 0745 12/09/16 0745 Objective Remarks General: No acute distress. Heart: Regular rate and rhythm. No murmur. Lungs: Clear to auscultation bilaterally. No wheezes, rales, or rhonchi. Breathing is nonlabored. Chest tube on the right. Output about 350-375 cc per day Abdomen: Soft, nontender, nondistended. Extremities: No lower extremity edema. Psych: Alert, somewhat confused, not oriented to time, oriented to place. Procedures 11/25/16 right pigtail chest tube placement 11/26/16 right chest tube placement 11/26/16 orotracheal intubation 11/26/16 subclavian central line placement A/P Problem List: (1) Sepsis ICD Code: A41.9 Status: Resolved (2) Respiratory insufficiency ICD Code: R06.89 Status: Acute (3) Pleural effusion, right ICD Code: J90 Status: Acute (4) Collapse of right lung ICD Code: J98.11 Status: Acute (5) Probable pneumonia Status: Acute (6) Seizure ICD Code: R56.9 Status: Acute (7) Liver failure ICD Code: K72.90 Status: Chronic (8) Alcohol dependence ICD Code: F10.20 Status: Chronic (9) Alcohol-induced cirrhosis Status: Chronic Assessment and Plan 1. Acute respiratory failure: Improved. Patient extubated. Pulmonology following. Continue supplemental oxygen. Bronchodilators as needed. 2. 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 The catheter was pulled out by the patient. Chest tube was placed again on 11/26/16. Pulmonology managing chest tube. Pulmonology has suggested considering discharge home with chest tube in place. At this time I do not believe that the patient is safe for discharge home as he has been noncompliant with the chest tube while in the hospital. Also still with intermittent episodes of confusion. We'll be more aggressive with diuresis. Continue antibiotics, switch to Augmentin. LFTs stable. 3. Alcoholic liver disease, chronic: Continue lactulose, Xifaxan. Gastroenterology has signed off. Continue Inderal, continue Lasix and Aldactone. Ammonia is still elevated, increase lactulose. Recheck BMP tomorrow.No documentation why patient is on decadron, will taper. 4. Alcohol withdrawal, dependence: Off CIWA protocol, Taper Librium hydroxyzine for anxiety. 5. Sepsis, pneumonia: Start Augmentin 6. Thrombocytopenia: Likely secondary to chronic liver disease. Stable. 7. GI prophylaxis: PPI. 8. DVT prophylaxis: SCDs. Avoid chemical prophylaxis secondary to thrombocytopenia. Problem Qualifiers (1) Sepsis: Qualified Code: A41.9 - Sepsis, due to unspecified organism (2) Alcohol dependence: Kirsten Foster MD Dec 09, 2016 14:06
[2016-12-10] MEDS: AMOXICILLIN/CLAVULANATE K 875 MG TAB PO SCH ×3 (00:55→21:45)
[2016-12-10 04:55] VITALS: BP 104/55; PULSE 74; RESP 16; TEMP 98.1; O2SAT 97
[2016-12-10] MEDS: MORPHINE SULFATE ORAL SOLN 10 MG/0.5 ML SYRINGE PO/SL PRN ×2 (05:48→21:45)
[2016-12-10] MEDS: ALBUMIN HUMAN 25% 25 GM/100 ML BAGP IV SCH ×2 (05:48→17:09)
[2016-12-10 07:28] LABS: BICARBONATE 34.5 MEQ/L (21.0-32.0); POTASSIUM 3.9 MEQ/L (3.5-5.1)
[2016-12-10 08:00] VITALS: BP 94/60; PULSE 70; RESP 20; TEMP 98.3; O2SAT 96
[2016-12-10] MEDS: CHLORHEXIDINE 0.12% (ORAL KIT) 15 ML CUP MT SCH ×2 (08:00→20:00)
[2016-12-10] MEDS: PANTOPRAZOLE SOD 40 MG DELAYED RELEASE TAB PO SCH (08:09)
[2016-12-10] MEDS: THIAMINE HCL 100 MG TAB PO SCH (08:09)
[2016-12-10] MEDS: CITALOPRAM HYDROBROMIDE 40 MG TAB PO SCH (08:09)
[2016-12-10] MEDS: FOLIC ACID 1 MG TAB PO SCH (08:09)
[2016-12-10] MEDS: MULTIVITAMIN TAB PO SCH (08:09)
[2016-12-10] MEDS: SPIRONOLACTONE 50 MG TAB PO SCH ×2 (08:09→17:09)
[2016-12-10] MEDS: FUROSEMIDE 20 MG TAB PO SCH ×2 (08:09→17:09)
[2016-12-10] MEDS: RIFAXIMIN 550 MG TAB PO SCH ×2 (08:09→21:45)
[2016-12-10] MEDS: DIVALPROEX SODIUM DELAYED RELEASE 250 MG TAB PO SCH ×2 (08:09→21:45)
[2016-12-10] MEDS: LACTULOSE SYRUP 20 GM/30 ML CUP PO SCH ×4 (08:09→21:45)
[2016-12-10] MEDS: SODIUM CHLORIDE 0.9% FLUSH 5 ML FLUSH IV FLUSH SCH ×2 (08:10→21:45)
[2016-12-10] MEDS: DEXAMETHASONE 0.5 MG TAB PO SCH (08:10)
[2016-12-10 12:00] VITALS: BP 93/54; PULSE 62; RESP 18; TEMP 98.1; O2SAT 95
[2016-12-10 16:00] VITALS: BP 114/73; PULSE 79; RESP 18; TEMP 98.3; O2SAT 96
--- NOTE | 2016-12-10 17:10 | HHI.PR ---
Subjective Remarks Follow-up for shortness of breath and encephalopathy Patient still confused, sometimes short of breath. No nausea or vomiting. Still a lot of output from [place], but -320 overnight Objective Vitals Vital Signs Date Time Temp Pulse Resp B/P Pulse Ox O2 Delivery O2 Flow Rate FiO2 12/10/16 12:00 98.1 62 18 93/54 95 12/10/16 08:00 98.3 70 20 94/60 96 12/10/16 04:55 98.1 74 16 104/55 97 12/09/16 23:57 97.8 62 16 101/55 95 12/09/16 21:30 98.1 66 16 96/51 95 12/09/16 20:00 96.5 65 16 103/67 95 12/09/16 20:00 Room Air 21 I/O 12/09/16 12/09/16 12/09/16 12/10/16 12/10/16 12/10/16 07:00 15:00 23:00 07:00 15:00 23:00 Intake Total 240 ml 360 ml 820 ml 240 ml 89 ml Output Total 750 ml 440 ml Balance 240 ml 360 ml 70 ml 240 ml -351 ml Intake Oral 240 ml 360 ml 720 ml 240 ml IV Total 100 ml 89 ml Output Urine Total 500 ml Chest Tube Drainage Total 250 ml 440 ml # Voids 3 1 1 2 # Bowel Movements 3 1 1 2 Result Diagram: 12/09/16 0745 12/10/16 0604 Objective Remarks General: No acute distress. Heart: Regular rate and rhythm. No murmur. Lungs: Clear to auscultation bilaterally. No wheezes, rales, or rhonchi. Breathing is nonlabored. Chest tube on the right. Output about 350-375 cc per day Abdomen: Soft, nontender, nondistended. Extremities: No lower extremity edema. Psych: Alert, somewhat confused, not oriented to time, oriented to place. Procedures 11/25/16 right pigtail chest tube placement 11/26/16 right chest tube placement 11/26/16 orotracheal intubation 11/26/16 subclavian central line placement A/P Problem List: (1) Sepsis ICD Code: A41.9 Status: Resolved (2) Respiratory insufficiency ICD Code: R06.89 Status: Acute (3) Pleural effusion, right ICD Code: J90 Status: Acute (4) Collapse of right lung ICD Code: J98.11 Status: Acute (5) Probable pneumonia Status: Acute (6) Seizure ICD Code: R56.9 Status: Acute (7) Liver failure ICD Code: K72.90 Status: Chronic (8) Alcohol dependence ICD Code: F10.20 Status: Chronic (9) Alcohol-induced cirrhosis Status: Chronic Assessment and Plan 1. Acute respiratory failure: Improved. Patient extubated. Pulmonology following. Continue supplemental oxygen. Bronchodilators as needed. 2. 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 The catheter was pulled out by the patient. Chest tube was placed again on 11/26/16. Pulmonology managing chest tube. Pulmonology has suggested considering discharge home with chest tube in place. At this time I do not believe that the patient is safe for discharge home as he has been noncompliant with the chest tube while in the hospital. Also still with intermittent episodes of confusion. We'll be more aggressive with diuresis. Increased diuretic doses. Continue antibiotics, switch to Augmentin. LFTs stable. 3. Alcoholic liver disease, chronic: Continue lactulose, Xifaxan. Gastroenterology has signed off. Continue Inderal, continue Lasix and Aldactone. Ammonia is still elevated, increase lactulose. Creatinine stable, increase Lasix and Aldactone further. 4. Alcohol withdrawal, dependence: Off CIWA protocol, Taper Librium hydroxyzine for anxiety. 5. Sepsis, pneumonia: Continue Augmentin. 6. Thrombocytopenia: Likely secondary to chronic liver disease. Stable. 7. GI prophylaxis: PPI. 8. DVT prophylaxis: SCDs. Avoid chemical prophylaxis secondary to thrombocytopenia. Problem Qualifiers (1) Sepsis: Qualified Code: A41.9 - Sepsis, due to unspecified organism (2) Alcohol dependence: Kirsten Foster MD Dec 10, 2016 17:10
[2016-12-10] MEDS: FUROSEMIDE 40 MG TAB PO SCH (17:21)
[2016-12-10 21:30] VITALS: BP 109/60; PULSE 82; RESP 18; TEMP 98.5; O2SAT 96
[2016-12-11 00:18] VITALS: BP 107/55; PULSE 76; RESP 16; TEMP 98.1; O2SAT 95
[2016-12-11] MEDS: MORPHINE SULFATE ORAL SOLN 10 MG/0.5 ML SYRINGE PO/SL PRN ×3 (03:13→21:08)
[2016-12-11 05:02] VITALS: BP 100/69; PULSE 60; RESP 18; TEMP 97.7; O2SAT 96
[2016-12-11] MEDS: ALBUMIN HUMAN 25% 25 GM/100 ML BAGP IV SCH (06:27)
[2016-12-11 07:12] LABS: BICARBONATE 30.6 MEQ/L (21.0-32.0); POTASSIUM 4.1 MEQ/L (3.5-5.1)
[2016-12-11] MEDS: CHLORHEXIDINE 0.12% (ORAL KIT) 15 ML CUP MT SCH ×2 (08:00→20:00)
[2016-12-11 08:23] VITALS: BP 104/55; PULSE 70; RESP 18; TEMP 97.6; O2SAT 98
[2016-12-11] MEDS: THIAMINE HCL 100 MG TAB PO SCH (09:04)
[2016-12-11] MEDS: DEXAMETHASONE 0.5 MG TAB PO SCH (09:04)
[2016-12-11] MEDS: PANTOPRAZOLE SOD 40 MG DELAYED RELEASE TAB PO SCH (09:05)
[2016-12-11] MEDS: RIFAXIMIN 550 MG TAB PO SCH ×2 (09:05→21:07)
[2016-12-11] MEDS: AMOXICILLIN/CLAVULANATE K 875 MG TAB PO SCH ×2 (09:06→21:07)
[2016-12-11] MEDS: CITALOPRAM HYDROBROMIDE 40 MG TAB PO SCH (09:06)
[2016-12-11] MEDS: MULTIVITAMIN TAB PO SCH (09:06)
[2016-12-11] MEDS: FOLIC ACID 1 MG TAB PO SCH (09:06)
[2016-12-11] MEDS: DIVALPROEX SODIUM DELAYED RELEASE 250 MG TAB PO SCH ×2 (09:06→21:07)
[2016-12-11] MEDS: FUROSEMIDE 40 MG TAB PO SCH ×2 (09:06→17:17)
[2016-12-11] MEDS: LACTULOSE SYRUP 20 GM/30 ML CUP PO SCH ×4 (09:07→21:07)
[2016-12-11] MEDS: SODIUM CHLORIDE 0.9% FLUSH 5 ML FLUSH IV FLUSH SCH ×2 (09:07→21:08)
[2016-12-11] MEDS: SPIRONOLACTONE 50 MG TAB PO SCH ×2 (09:13→17:17)
[2016-12-11 12:06] VITALS: BP 100/56; PULSE 68; RESP 18; TEMP 97.9; O2SAT 95
--- NOTE | 2016-12-11 15:26 | HHI.PR ---
Subjective Remarks Follow-up for encephalopathy and hepato-hydrothorax Patient still with a lot of output, still very confused very forgetful. Discussed with mom Objective Vitals Vital Signs Date Time Temp Pulse Resp B/P Pulse Ox O2 Delivery O2 Flow Rate FiO2 12/11/16 12:06 97.9 68 18 100/56 95 12/11/16 09:47 Room Air 12/11/16 08:23 97.6 70 18 104/55 98 12/11/16 05:02 97.7 60 18 100/69 96 12/11/16 00:18 98.1 76 16 107/55 95 12/10/16 21:40 Room Air 12/10/16 21:30 98.5 82 18 109/60 96 12/10/16 16:00 98.3 79 18 114/73 96 I/O 12/10/16 12/10/16 12/10/16 12/11/16 12/11/16 12/11/16 07:00 15:00 23:00 07:00 15:00 23:00 Intake Total 240 ml 809 ml 360 ml 20 ml Output Total 440 ml 290 ml Balance 240 ml 369 ml 360 ml -270 ml Intake Oral 240 ml 720 ml 360 ml 20 ml IV Total 89 ml Chest Tube Drainage Total 440 ml 290 ml # Voids 2 1 2 1 # Bowel Movements 2 0 2 1 Result Diagram: 12/09/16 0745 12/11/16 0545 Objective Remarks General: No acute distress. Heart: Regular rate and rhythm. No murmur. Lungs: Clear to auscultation bilaterally. No wheezes, rales, or rhonchi. Breathing is nonlabored. Chest tube on the right. Output about 350-375 cc per day Abdomen: Soft, nontender, nondistended. Extremities: No lower extremity edema. Psych: Alert, still confused, not oriented to time. Procedures 11/25/16 right pigtail chest tube placement 11/26/16 right chest tube placement 11/26/16 orotracheal intubation 11/26/16 subclavian central line placement A/P Problem List: (1) Sepsis ICD Code: A41.9 Status: Resolved (2) Respiratory insufficiency ICD Code: R06.89 Status: Acute (3) Pleural effusion, right ICD Code: J90 Status: Acute (4) Collapse of right lung ICD Code: J98.11 Status: Acute (5) Probable pneumonia Status: Acute (6) Seizure ICD Code: R56.9 Status: Acute (7) Liver failure ICD Code: K72.90 Status: Chronic (8) Alcohol dependence ICD Code: F10.20 Status: Chronic (9) Alcohol-induced cirrhosis Status: Chronic Assessment and Plan 1. Acute respiratory failure: Improved. Patient extubated. Pulmonology following. Continue supplemental oxygen. Bronchodilators as needed. 2. 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 The catheter was pulled out by the patient. Chest tube was placed again on 11/26/16. Pulmonology managing chest tube. Pulmonology has suggested considering discharge home with chest tube in place. At this time I do not believe that the patient is safe for discharge home as he has been noncompliant with the chest tube while in the hospital. Also still with intermittent episodes of confusion. We'll be more aggressive with diuresis, crease Lasix to 40 mg every 8 hours, ultrasound abdomen to check for ascites, continue Augmentin. LFTs stable. 3. Alcoholic liver disease, chronic: Continue lactulose, Xifaxan. Gastroenterology has signed off. Continue Inderal, continue Lasix and Aldactone. Ammonia is still elevated, continue lactulose. Creatinine stable. Recheck ammonia. Check BMP tomorrow. Stop Decadron. 4. Alcohol withdrawal, dependence: Off CIWA protocol, stop Librium, hydroxyzine for anxiety. 5. Sepsis, pneumonia: Continue Augmentin. 6. Thrombocytopenia: Likely secondary to chronic liver disease. Stable. 7. Hepatic encephalopathy-lactulose and xifaxan as above. Recheck ammonia tomorrow. Speech therapy for cognitive training GI prophylaxis: PPI. DVT prophylaxis: SCDs. Avoid chemical prophylaxis secondary to thrombocytopenia. Problem Qualifiers (1) Sepsis: Qualified Code: A41.9 - Sepsis, due to unspecified organism (2) Alcohol dependence: Kirsten Foster MD Dec 11, 2016 15:26
[2016-12-11 16:07] VITALS: BP 106/60; PULSE 74; RESP 18; TEMP 98.6; O2SAT 96
--- NOTE | 2016-12-11 18:59 | RADRPT ---
EXAM DATE/TIME: 12/11/2016 18:42 [facility] COMPARISON: CHEST PA & LAT, December 01, 2016, 7:54. INDICATIONS : Evaluate effusion. MEDICAL HISTORY : None. Hypertension. Diabetic. ETOH. Cirrhosis. Seizure. Hepatitis. SURGICAL HISTORY : ENCOUNTER: Subsequent ACUITY: 3 days PAIN SCORE: 0/10 LOCATION: chest FINDINGS: There is a small left pleural effusion. Slight bibasilar atelectasis and/or infiltrate is seen. Chest tube is present on the right side. No definite pneumothorax is seen for technique. CONCLUSION: Small left pleural effusion and slight bibasilar atelectasis and/or infiltrate. Jose Jarvis MD on December 11, 2016 at 18:57 Board Certified Radiologist. This report was verified electronically.
--- NOTE | 2016-12-11 19:21 | RADRPT ---
EXAM DATE/TIME: 12/11/2016 18:05 [facility] COMPARISON: No previous studies available for comparison. INDICATIONS : Ascites. MEDICAL HISTORY : Hypertension. Pleural effusion. Alcohol related seizures. MRSA. Marijuana use. SURGICAL HISTORY : Jaw surgery. ENCOUNTER: Initial ACUITY: 1 day PAIN SCORE: 0/10 LOCATION: Abdomen. AREA EVALUATED: Quadrants FINDINGS: There is no evidence for ascites. CONCLUSION: No ascites. Jose Jarvis MD on December 11, 2016 at 19:19 Board Certified Radiologist. This report was verified electronically.
[2016-12-11 20:00] VITALS: BP 104/51; PULSE 69; RESP 15; TEMP 98.2; O2SAT 93
[2016-12-12] VITALS: BP 101/58; PULSE 58; RESP 16; TEMP 97.6; O2SAT 94
[2016-12-12] MEDS: FUROSEMIDE 40 MG TAB PO SCH ×3 (02:56→16:51)
[2016-12-12] MEDS: MORPHINE SULFATE ORAL SOLN 10 MG/0.5 ML SYRINGE PO/SL PRN (02:56)
[2016-12-12 04:00] VITALS: BP 109/55; PULSE 55; RESP 16; TEMP 97.7; O2SAT 94
[2016-12-12 07:25] LABS: BICARBONATE 29.2 MEQ/L (21.0-32.0); POTASSIUM 4.2 MEQ/L (3.5-5.1)
[2016-12-12] MEDS: CHLORHEXIDINE 0.12% (ORAL KIT) 15 ML CUP MT SCH ×2 (08:00→20:00)
[2016-12-12] MEDS: PANTOPRAZOLE SOD 40 MG DELAYED RELEASE TAB PO SCH (08:19)
[2016-12-12] MEDS: LACTULOSE SYRUP 20 GM/30 ML CUP PO SCH ×4 (08:19→21:03)
[2016-12-12] MEDS: FOLIC ACID 1 MG TAB PO SCH (08:20)
[2016-12-12] MEDS: MULTIVITAMIN TAB PO SCH (08:20)
[2016-12-12] MEDS: SODIUM CHLORIDE 0.9% FLUSH 5 ML FLUSH IV FLUSH SCH ×2 (08:20→21:00)
[2016-12-12] MEDS: THIAMINE HCL 100 MG TAB PO SCH (08:20)
[2016-12-12] MEDS: CITALOPRAM HYDROBROMIDE 40 MG TAB PO SCH (08:20)
[2016-12-12] MEDS: DIVALPROEX SODIUM DELAYED RELEASE 250 MG TAB PO SCH ×2 (08:20→21:03)
[2016-12-12] MEDS: SPIRONOLACTONE 50 MG TAB PO SCH ×2 (08:20→16:51)
[2016-12-12] MEDS: AMOXICILLIN/CLAVULANATE K 875 MG TAB PO SCH ×2 (08:20→21:03)
[2016-12-12] MEDS: RIFAXIMIN 550 MG TAB PO SCH ×2 (08:20→21:03)
[2016-12-12 08:29] VITALS: BP 105/65; PULSE 55; RESP 18; TEMP 98; O2SAT 99
--- NOTE | 2016-12-12 11:24 | HHI.PR ---
Subjective Remarks Follow-up for left pleural effusion f/u sob and effusion, patient's sob is stable, still very confused and forgetful , afebrile, poor historian Objective Vitals Vital Signs Date Time Temp Pulse Resp B/P Pulse Ox O2 Delivery O2 Flow Rate FiO2 12/12/16 09:11 Room Air 21 12/12/16 08:29 98.0 55 18 105/65 99 12/12/16 04:00 97.7 55 16 109/55 94 12/12/16 00:00 97.6 58 16 101/58 94 12/11/16 21:23 Room Air 12/11/16 20:00 98.2 69 15 104/51 93 12/11/16 16:07 98.6 74 18 106/60 96 12/11/16 12:06 97.9 68 18 100/56 95 I/O 12/11/16 12/11/16 12/11/16 12/12/16 12/12/16 12/12/16 07:00 15:00 23:00 07:00 15:00 23:00 Intake Total 20 ml 840 ml 720 ml 360 ml Output Total 290 ml 550 ml 190 ml Balance -270 ml 840 ml 170 ml 170 ml Intake Oral 20 ml 840 ml 720 ml 360 ml Chest Tube Drainage Total 290 ml 550 ml 190 ml # Voids 1 2 3 2 # Bowel Movements 1 2 2 2 Result Diagram: 12/09/16 0745 12/12/16 0653 Objective Remarks General: No acute distress. Heart: Regular rate and rhythm. No murmur. Lungs: Clear to auscultation bilaterally. No wheezes, rales, or rhonchi. Breathing is nonlabored. Chest tube on the right. Output about 350-700 cc per day Abdomen: Soft, nontender, nondistended. Extremities: No lower extremity edema. Psych: Alert, still confused, not oriented to time. Procedures 11/25/16 right pigtail chest tube placement 11/26/16 right chest tube placement 11/26/16 orotracheal intubation 11/26/16 subclavian central line placement A/P Problem List: (1) Sepsis ICD Code: A41.9 Status: Resolved (2) Respiratory insufficiency ICD Code: R06.89 Status: Acute (3) Pleural effusion, right ICD Code: J90 Status: Acute (4) Collapse of right lung ICD Code: J98.11 Status: Acute (5) Probable pneumonia Status: Acute (6) Seizure ICD Code: R56.9 Status: Acute (7) Liver failure ICD Code: K72.90 Status: Chronic (8) Alcohol dependence ICD Code: F10.20 Status: Chronic (9) Alcohol-induced cirrhosis Status: Chronic Assessment and Plan 1. Acute respiratory failure: Improved. Patient extubated. Pulmonology following. Continue supplemental oxygen. Bronchodilators as needed. 2. 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 The catheter was pulled out by the patient. Chest tube was placed again on 11/26/16. Pulmonology managing chest tube. Pulmonology has suggested considering discharge home with chest tube in place. At this time I do not believe that the patient is safe for discharge home as he has been noncompliant with the chest tube while in the hospital. Also still with intermittent episodes of confusion. Continue Lasix to 40 mg every 8 hours, ultrasound abdomen reviewed, negative for ascites, continue Augmentin. LFTs stable. - Discussed with Dr. Shelton, hepatic hydrothorax probably would not stop, still with a lot of output, the only way to discharge was to put the Pleurx catheter, discussed with yuri Alexander 12/11/2016, mother who is the next of kin agrees with Pleurx catheter placement and one stable discharge to home with hospice. She or patient's brother can take care of the catheter/back. Recheck BMP tomorrow, consult interventional radiology for Pleurx catheter placement. Discussed with patient's mother to about need for liver transplant which can only be done as outpatient. 3. Alcoholic liver disease, chronic: Continue lactulose, Xifaxan. Gastroenterology has signed off. Continue Inderal, continue Lasix and Aldactone. Ammonia is still elevated, continue lactulose. Creatinine stable. Ammonia is still elevated, Decadron stopped, recheck in a few days. 4. Alcohol withdrawal, dependence: Off CIWA protocol, stop Librium, hydroxyzine for anxiety. 5. Sepsis, pneumonia: Continue Augmentin. 6. Thrombocytopenia: Likely secondary to chronic liver disease. Stable. 7. Hepatic encephalopathy-lactulose and xifaxan as above. Still elevated, continue lactulose at a higher dose GI prophylaxis: PPI. DVT prophylaxis: SCDs. Avoid chemical prophylaxis secondary to thrombocytopenia. Problem Qualifiers (1) Sepsis: Qualified Code: A41.9 - Sepsis, due to unspecified organism (2) Alcohol dependence: Kirsten Foster MD Dec 12, 2016 11:24
[2016-12-12 12:08] VITALS: BP 101/71; PULSE 68; RESP 18; TEMP 98.3; O2SAT 97
[2016-12-12 16:09] VITALS: BP 101/65; PULSE 73; RESP 19; TEMP 98; O2SAT 94
--- NOTE | 2016-12-12 18:12 | HHI.PR ---
Subjective Remarks 41 YOWM with Cirrohosis, pl effusion Right chest tube draining Mild chest wall discomfort No SOB Objective Vital Signs Vital Signs Date Time Temp Pulse Resp B/P Pulse Ox O2 Delivery O2 Flow Rate FiO2 12/12/16 16:09 98.0 73 19 101/65 94 12/12/16 12:08 98.3 68 18 101/71 97 12/12/16 09:11 Room Air 21 12/12/16 08:29 98.0 55 18 105/65 99 12/12/16 04:00 97.7 55 16 109/55 94 12/12/16 00:00 97.6 58 16 101/58 94 12/11/16 21:23 Room Air 12/11/16 20:00 98.2 69 15 104/51 93 I/O 12/11/16 12/11/16 12/11/16 12/12/16 12/12/16 12/12/16 07:00 15:00 23:00 07:00 15:00 23:00 Intake Total 20 ml 840 ml 720 ml 360 ml 840 ml Output Total 290 ml 550 ml 190 ml Balance -270 ml 840 ml 170 ml 170 ml 840 ml Intake Oral 20 ml 840 ml 720 ml 360 ml 840 ml Chest Tube Drainage Total 290 ml 550 ml 190 ml # Voids 1 2 3 2 1 # Bowel Movements 1 2 2 2 0 Result Diagram: 12/09/16 0745 12/12/16 0653 Objective Remarks GENERAL: WBWN Wm, NAD SKIN: Warm and dry. HEAD: Normocephalic. EYES: No scleral icterus. No injection or drainage. NECK: Supple, trachea midline. No JVD or lymphadenopathy. CARDIOVASCULAR: Regular rate and rhythm without murmurs, gallops, or rubs. RESPIRATORY: Breath sounds equal bilaterally. No accessory muscle use. Right chest tube draining GASTROINTESTINAL: Abdomen soft, non-tender, nondistended. MUSCULOSKELETAL: No cyanosis, or edema. BACK: Nontender without obvious deformity. No CVA tenderness. A/P Assessment and Plan Pleural effusion, s/p right chest tube Cirrhosis of live Atelactesis SZ disorder PLAN Chest tube to suction Plans for Pleurex cathetor Cont abx Cont Aldactone DW Pt and his mother at bs Leonides Walker MD Dec 12, 2016 18:12
[2016-12-12 20:00] VITALS: BP 114/66; PULSE 87; RESP 17; TEMP 98.7; O2SAT 95
[2016-12-13] VITALS: BP 109/64; PULSE 83; RESP 16; TEMP 98.3; O2SAT 94
[2016-12-13] MEDS: FUROSEMIDE 40 MG TAB PO SCH ×3 (01:27→20:57)
[2016-12-13 04:00] VITALS: BP 103/70; PULSE 79; RESP 16; TEMP 98.1; O2SAT 96
[2016-12-13] MEDS: LACTULOSE SYRUP 20 GM/30 ML CUP PO SCH ×4 (07:56→20:57)
[2016-12-13] MEDS: MORPHINE SULFATE ORAL SOLN 10 MG/0.5 ML SYRINGE PO/SL PRN ×3 (07:56→21:00)
[2016-12-13] MEDS: AMOXICILLIN/CLAVULANATE K 875 MG TAB PO SCH (07:57)
[2016-12-13] MEDS: FOLIC ACID 1 MG TAB PO SCH (07:57)
[2016-12-13] MEDS: PANTOPRAZOLE SOD 40 MG DELAYED RELEASE TAB PO SCH (07:57)
[2016-12-13] MEDS: DIVALPROEX SODIUM DELAYED RELEASE 250 MG TAB PO SCH ×2 (07:57→20:57)
[2016-12-13] MEDS: RIFAXIMIN 550 MG TAB PO SCH ×2 (07:57→20:57)
[2016-12-13] MEDS: MULTIVITAMIN TAB PO SCH (07:57)
[2016-12-13] MEDS: THIAMINE HCL 100 MG TAB PO SCH (07:57)
[2016-12-13] MEDS: CITALOPRAM HYDROBROMIDE 40 MG TAB PO SCH (07:57)
[2016-12-13] MEDS: SODIUM CHLORIDE 0.9% FLUSH 5 ML FLUSH IV FLUSH SCH ×2 (07:58→20:56)
[2016-12-13] MEDS: CHLORHEXIDINE 0.12% (ORAL KIT) 15 ML CUP MT SCH ×2 (07:58→20:00)
[2016-12-13] MEDS: SPIRONOLACTONE 50 MG TAB PO SCH ×2 (08:02→17:11)
[2016-12-13 08:24] VITALS: BP 106/65; PULSE 71; RESP 18; TEMP 98.2; O2SAT 94
[2016-12-13 09:34] LABS: AUTOMATED NEUTROPHIL # 6.5 TH/MM3 (1.8-7.7); BASOPHIL # 0.1 TH/MM3 (0-0.2); BASOPHIL % 1.1 % (0.0-2.0); EOSINOPHIL # 0.2 TH/MM3 (0-0.4); EOSINOPHIL % 2.4 % (0.0-4.0); HEMATOCRIT 42.5 % (39.0-51.0); LYMPHOCYTE # 1.9 TH/MM3 (1.0-4.8); MEAN CELL VOLUME 94.4 FL (80.0-100.0); MEAN CORPUSCULAR HEMOGLOBIN 31.4 PG (27.0-34.0); MEAN CORPUSCULAR HGB CONC 33.3 % (32.0-36.0); MONO % 13.8 % (0.0-8.0); NEUT % 63.7 % (16.0-70.0); PLATELET COUNT 58 TH/MM3 (150-450); RED CELL DISTRIBUTION WIDTH 16.1 % (11.6-17.2); WHITE BLOOD COUNT 10.2 TH/MM3 (4.0-11.0)
[2016-12-13 09:39] LABS: HEMO FLAGS AUTO DIFF
[2016-12-13 09:48] LABS: INTERNATIONAL NORMALIZED RATIO 1.2 RATIO; PROTHROMBIN TIME - PATIENT 13.9 SEC (9.8-11.6)
[2016-12-13] MEDS ORDERED: XIFA550T4 PO (09:54)
[2016-12-13] MEDS ORDERED: FURO1TAB60 PO (09:54)
[2016-12-13] MEDS ORDERED: ALDA50TA2 PO (09:54)
[2016-12-13] MEDS ORDERED: LACT10SO PO (09:54)
[2016-12-13] MEDS ORDERED: FOLI1TAB4 PO (09:54)
[2016-12-13 10:02] LABS: BICARBONATE 33.3 MEQ/L (21.0-32.0); POTASSIUM 3.8 MEQ/L (3.5-5.1)
[2016-12-13 12:20] VITALS: BP 108/70; PULSE 79; RESP 18; TEMP 98.6; O2SAT 97
[2016-12-13 12:34] LABS: PLATELET ESTIMATE SMEAR LOW (NORMAL); PLATELET MORPHOLOGY NORMAL (NORMAL); SCAN/DIFF AUTO DIFF CONFIRMED
--- NOTE | 2016-12-13 13:28 | HHI.PR ---
Subjective Remarks f/u Pleural effusion CTT output 740 cc, still too much , diuretics seems to be not helping Objective Vitals Vital Signs Date Time Temp Pulse Resp B/P Pulse Ox O2 Delivery O2 Flow Rate FiO2 12/13/16 12:20 98.6 79 18 108/70 97 12/13/16 08:54 Room Air 21 12/13/16 08:24 98.2 71 18 106/65 94 12/13/16 04:00 98.1 79 16 103/70 96 12/13/16 00:00 98.3 83 16 109/64 94 12/12/16 21:00 Room Air 12/12/16 20:00 98.7 87 17 114/66 95 12/12/16 16:09 98.0 73 19 101/65 94 I/O 12/12/16 12/12/16 12/12/16 12/13/16 12/13/16 12/13/16 07:00 15:00 23:00 07:00 15:00 23:00 Intake Total 360 ml 840 ml 600 ml 360 ml Output Total 190 ml Balance 170 ml 840 ml 600 ml 360 ml Intake Oral 360 ml 840 ml 600 ml 360 ml Chest Tube Drainage Total 190 ml # Voids 2 1 1 1 # Bowel Movements 2 0 1 1 Result Diagram: 12/13/16 0852 12/13/16 0852 Objective Remarks General: No acute distress. Heart: Regular rate and rhythm. No murmur. Lungs: Decreased BS R base, otherwise clear Abdomen: Soft, nontender, nondistended. Extremities: No lower extremity edema. Psych: Alert, still confused, not oriented to time. Procedures 11/25/16 right pigtail chest tube placement 11/26/16 right chest tube placement 11/26/16 orotracheal intubation 11/26/16 subclavian central line placement A/P Problem List: (1) Sepsis ICD Code: A41.9 Status: Resolved (2) Respiratory insufficiency ICD Code: R06.89 Status: Acute (3) Pleural effusion, right ICD Code: J90 Status: Acute (4) Collapse of right lung ICD Code: J98.11 Status: Acute (5) Probable pneumonia Status: Acute (6) Seizure ICD Code: R56.9 Status: Acute (7) Liver failure ICD Code: K72.90 Status: Chronic (8) Alcohol dependence ICD Code: F10.20 Status: Chronic (9) Alcohol-induced cirrhosis Status: Chronic Assessment and Plan Acute respiratory failure: Improved. Patient extubated. Pulmonology following. Continue supplemental oxygen. Bronchodilators as needed. 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 The catheter was pulled out by the patient. Chest tube was placed again on 11/26/16. Pulmonology managing chest tube. Pulmonology has suggested considering discharge home with chest tube in place. - Discussed with Dr. Shelton, hepatic hydrothorax probably would not stop, still with a lot of output, the only way to discharge this patient is to put the Pleurx catheter, discussed with mom Catherine 12/11/2016, mother who is the next of kin agrees with Pleurx catheter placement and once stable discharge to home with hospice. He was on hospice. She or patient's brother can take care of the catheter/back. Consult interventional radiology for Pleurx catheter placement, this lesa happen Wednesday.. Discussed with patient's mother to about need for liver transplant which can only be done as outpatient. 3. Alcoholic liver disease, chronic: Continue lactulose, Xifaxan. Gastroenterology has signed off. Continue Inderal, LFTs stable, on Lasix and Aldactone. Ammonia is still elevated, continue lactulose. Creatinine stable but with metabolic alkalosis likely from overdiuresis. Decrease lasix. 4. Alcohol withdrawal, dependence: Off CIWA protocol, stop Librium, hydroxyzine for anxiety. 5. Sepsis, pneumonia: finish Augmentin today 6. Thrombocytopenia: Likely secondary to chronic liver disease. Stable. 7. Hepatic encephalopathy-lactulose and xifaxan as above. Still elevated, continue lactulose at a higher dose GI prophylaxis: PPI. DVT prophylaxis: SCDs. Avoid chemical prophylaxis secondary to thrombocytopenia. Discharge Planning d/c after Pleurx placement Problem Qualifiers (1) Sepsis: Qualified Code: A41.9 - Sepsis, due to unspecified organism (2) Alcohol dependence: Kirsten Foster MD Dec 13, 2016 13:28
[2016-12-13 16:06] VITALS: BP 109/66; PULSE 109; RESP 18; TEMP 98.8; O2SAT 97
--- NOTE | 2016-12-13 16:33 | HHI.PR ---
Subjective Remarks 41 YOWM with Cirrohosis, pl effusion Right chest tube draining Mild chest wall discomfort No SOB Up in chair Denies sob Objective Vital Signs Vital Signs Date Time Temp Pulse Resp B/P Pulse Ox O2 Delivery O2 Flow Rate FiO2 12/13/16 16:06 98.8 109 18 109/66 97 12/13/16 12:20 98.6 79 18 108/70 97 12/13/16 08:54 Room Air 21 12/13/16 08:24 98.2 71 18 106/65 94 12/13/16 04:00 98.1 79 16 103/70 96 12/13/16 00:00 98.3 83 16 109/64 94 12/12/16 21:00 Room Air 12/12/16 20:00 98.7 87 17 114/66 95 I/O 12/12/16 12/12/16 12/12/16 12/13/16 12/13/16 12/13/16 07:00 15:00 23:00 07:00 15:00 23:00 Intake Total 360 ml 840 ml 600 ml 360 ml Output Total 190 ml Balance 170 ml 840 ml 600 ml 360 ml Intake Oral 360 ml 840 ml 600 ml 360 ml Chest Tube Drainage Total 190 ml # Voids 2 1 1 1 # Bowel Movements 2 0 1 1 Result Diagram: 12/13/16 0852 12/13/16 0852 Objective Remarks GENERAL: WBWN Wm, NAD SKIN: Warm and dry. HEAD: Normocephalic. EYES: No scleral icterus. No injection or drainage. NECK: Supple, trachea midline. No JVD or lymphadenopathy. CARDIOVASCULAR: Regular rate and rhythm without murmurs, gallops, or rubs. RESPIRATORY: Breath sounds equal bilaterally. No accessory muscle use. Right chest tube draining GASTROINTESTINAL: Abdomen soft, non-tender, nondistended. MUSCULOSKELETAL: No cyanosis, or edema. BACK: Nontender without obvious deformity. No CVA tenderness. A/P Assessment and Plan Pleural effusion, s/p right chest tube Cirrhosis of live Atelactesis SZ disorder PLAN Chest tube to suction Plans for Pleurex cathetor Cont abx Cont Aldactone Dr. Shelton will FU in AM. Leonides Walker MD Dec 13, 2016 16:33
[2016-12-13 20:13] VITALS: BP 98/60; PULSE 120; RESP 18; TEMP 100.1; O2SAT 97
[2016-12-14] VITALS (7 sets, daily range): BP systolic 102–117; BP diastolic 55–73; PULSE 91–129; RESP 18–20; TEMP 98–100.5; O2SAT 93–97
[2016-12-14] MEDS: ACETAMINOPHEN 325 MG TAB PO PRN (00:06)
[2016-12-14] MEDS ORDERED: METOPROLOL TARTRATE 25 MG TAB PO ONE (01:30)
[2016-12-14] MEDS: CHLORHEXIDINE 0.12% (ORAL KIT) 15 ML CUP MT SCH ×2 (08:00→20:00)
[2016-12-14] MEDS: FUROSEMIDE 40 MG TAB PO SCH ×2 (09:48→20:57)
[2016-12-14] MEDS: LACTULOSE SYRUP 20 GM/30 ML CUP PO SCH ×4 (09:48→20:57)
[2016-12-14] MEDS: DIVALPROEX SODIUM DELAYED RELEASE 250 MG TAB PO SCH ×2 (09:48→20:57)
[2016-12-14] MEDS: THIAMINE HCL 100 MG TAB PO SCH (09:48)
[2016-12-14] MEDS: CITALOPRAM HYDROBROMIDE 40 MG TAB PO SCH (09:48)
[2016-12-14] MEDS: SPIRONOLACTONE 50 MG TAB PO SCH ×2 (09:49→18:06)
[2016-12-14] MEDS: FOLIC ACID 1 MG TAB PO SCH (09:49)
[2016-12-14] MEDS: RIFAXIMIN 550 MG TAB PO SCH ×2 (09:49→20:57)
[2016-12-14] MEDS: MULTIVITAMIN TAB PO SCH (09:49)
[2016-12-14] MEDS: PANTOPRAZOLE SOD 40 MG DELAYED RELEASE TAB PO SCH (09:49)
[2016-12-14] MEDS: SODIUM CHLORIDE 0.9% FLUSH 5 ML FLUSH IV FLUSH SCH ×2 (09:49→20:58)
[2016-12-14] MEDS: MORPHINE SULFATE ORAL SOLN 10 MG/0.5 ML SYRINGE PO/SL PRN ×2 (09:56→20:59)
--- NOTE | 2016-12-14 14:53 | HHI.PR ---
Subjective Remarks Follow up hydrothorax, chest tube. The patient is still reporting some right chest discomfort related to the chest tube. No other complaints at this time. Objective Vitals Vital Signs Date Time Temp Pulse Resp B/P Pulse Ox O2 Delivery O2 Flow Rate FiO2 12/14/16 12:00 98.0 100 18 102/65 96 12/14/16 08:00 98.1 94 18 102/68 96 12/14/16 08:00 99 12/14/16 04:40 98.6 91 20 102/55 95 12/14/16 00:13 93 Nasal Cannula 2.00 12/14/16 00:09 100.5 129 20 109/59 93 12/13/16 21:00 95 Nasal Cannula 2.00 12/13/16 20:13 100.1 120 18 98/60 97 12/13/16 16:06 98.8 109 18 109/66 97 I/O 12/13/16 12/13/16 12/13/16 12/14/16 12/14/16 12/14/16 07:00 15:00 23:00 07:00 15:00 23:00 Intake Total 360 ml 720 ml 480 ml Balance 360 ml 720 ml 480 ml Intake Oral 360 ml 720 ml 480 ml # Voids 1 2 2 2 # Bowel Movements 1 2 1 2 Result Diagram: 12/13/16 0852 12/13/16 0852 Imaging Last Impressions Chest X-Ray 12/11/16 0000 Signed Impressions: Service Date/Time: Sunday, December 11, 2016 18:42 - CONCLUSION: Small left pleural effusion and slight bibasilar atelectasis and/or infiltrate. Jose Jarvis MD Abdomen Ultrasound 12/11/16 0000 Signed Impressions: Service Date/Time: Sunday, December 11, 2016 18:05 - CONCLUSION: No ascites. Jose Jarvis MD Liver Ultrasound 11/26/16 0000 Signed Impressions: Service Date/Time: November 14:23 - CONCLUSION: 1. The portal vein is patent. 2. Multiple gallstones in the gallbladder. No definite biliary tract obstruction. There is thickening of the gallbladder wall with some fluid around the gallbladder. This can be seen with either acute or chronic cholecystitis. This would have to be correlated with patient's physical, clinical exam and lab values. Sudhakar Zapata MD Chest CT 11/25/16 0000 Signed Impressions: Service Date/Time: Friday, November 25, 2016 11:37 - CONCLUSION: Very large right pleural effusion with complete collapse of the right lung. Sudhakar Zapata MD Abdomen/Pelvis CT 11/25/16 0000 Signed Impressions: Service Date/Time: Friday, November 25, 2016 11:37 - CONCLUSION: Large right-sided pleural effusion with adjacent compressive atelectasis of the right lung. There is mass effect on the heart displacing it leftward within the thoracic cavity. There is a large amount of ascites which is not significantly changed as compared to the prior exam. The liver has a cirrhotic appearance. Mary Bradley MD Objective Remarks General: No acute distress. Heart: Regular rate and rhythm. No murmur. Lungs: Decreased breath sounds in the right base. Chest tube on the right. Abdomen: Soft, nontender, nondistended. Extremities: No lower extremity edema. Psych: Alert, somewhat confused. Procedures 11/25/16 right pigtail chest tube placement 11/26/16 right chest tube placement 11/26/16 orotracheal intubation 11/26/16 subclavian central line placement Urinary Catheter: No Vascular Central Line Catheter: No A/P Problem List: (1) Sepsis ICD Code: A41.9 Status: Resolved (2) Respiratory insufficiency ICD Code: R06.89 Status: Acute (3) Pleural effusion, right ICD Code: J90 Status: Acute (4) Collapse of right lung ICD Code: J98.11 Status: Acute (5) Probable pneumonia Status: Acute (6) Seizure ICD Code: R56.9 Status: Acute (7) Liver failure ICD Code: K72.90 Status: Chronic (8) Alcohol dependence ICD Code: F10.20 Status: Chronic (9) Alcohol-induced cirrhosis Status: Chronic Assessment and Plan Reviewed/updated 12/14/16. No change. Continue chest tube. Pulmonology has suggested considering discharge home with chest tube in place. Pleurx catheter placement requested. I spoke with Dr. Kaur (interventional radiology), who suggests that this would be a short-term fix and that the patient would have significant risk of infection if the catheter remained in long-term. 1. Acute respiratory failure: Improved. Patient extubated. Pulmonology consulted. Continue supplemental oxygen. Bronchodilators as needed. 2. Large right pleural effusion with right lung collapse and mass effect: Status post pigtail catheter placement on 11/25/16. The catheter was pulled out by the patient. Chest tube was placed again on 11/26/16. Pulmonology managing chest tube. 3. Alcoholic liver disease, chronic: Continue lactulose, Xifaxan. Gastroenterology has signed off. Continue Inderal, Aldactone, Lasix. 4. Alcohol withdrawal, dependence: Patient is now off Precedex drip. Ativan as needed for withdrawal symptoms per CIWA protocol. No Ativan required in last 24 hours. Continue thiamine daily. Taper Librium. 5. Sepsis, pneumonia: Continue antibiotics. 6. Thrombocytopenia: Likely secondary to chronic liver disease. Stable. 7. GI prophylaxis: PPI. 8. DVT prophylaxis: SCDs. Avoid chemical prophylaxis secondary to thrombocytopenia. 9. Nausea/vomiting: Antiemetics as needed. 10. Hepatic encephalopathy: Lactulose, Xifaxan. Discharge Planning Plan per prior M.D. discussion with family: Mother agrees with Pleurx catheter placement and discharge home on hospice when stable. Problem Qualifiers (1) Sepsis: Qualified Code: A41.9 - Sepsis, due to unspecified organism (2) Alcohol dependence: Nirav Jalloh MD Dec 14, 2016 14:53
[2016-12-15] VITALS (8 sets, daily range): BP systolic 93–108; BP diastolic 64–68; PULSE 80–108; RESP 16–18; TEMP 97.6–99.9; O2SAT 94–96
[2016-12-15] MEDS: MORPHINE SULFATE ORAL SOLN 10 MG/0.5 ML SYRINGE PO/SL PRN ×4 (06:07→21:10)
[2016-12-15] MEDS: CHLORHEXIDINE 0.12% (ORAL KIT) 15 ML CUP MT SCH ×2 (08:00→20:00)
[2016-12-15] MEDS: FOLIC ACID 1 MG TAB PO SCH (09:00)
[2016-12-15] MEDS: THIAMINE HCL 100 MG TAB PO SCH (09:00)
[2016-12-15] MEDS: LACTULOSE SYRUP 20 GM/30 ML CUP PO SCH ×4 (10:07→21:10)
[2016-12-15] MEDS: MULTIVITAMIN TAB PO SCH (10:07)
[2016-12-15] MEDS: RIFAXIMIN 550 MG TAB PO SCH ×2 (10:08→21:09)
[2016-12-15] MEDS: SPIRONOLACTONE 50 MG TAB PO SCH ×2 (10:08→17:59)
[2016-12-15] MEDS: PANTOPRAZOLE SOD 40 MG DELAYED RELEASE TAB PO SCH (10:08)
[2016-12-15] MEDS: CITALOPRAM HYDROBROMIDE 40 MG TAB PO SCH (10:08)
[2016-12-15] MEDS: SODIUM CHLORIDE 0.9% FLUSH 5 ML FLUSH IV FLUSH SCH ×2 (10:09→21:00)
[2016-12-15] MEDS: FUROSEMIDE 40 MG TAB PO SCH ×2 (10:09→21:09)
[2016-12-15] MEDS: DIVALPROEX SODIUM DELAYED RELEASE 250 MG TAB PO SCH ×2 (10:09→21:00)
--- NOTE | 2016-12-15 14:05 | HHI.PR ---
Subjective Remarks Follow up hydrothorax, chest tube. Patient still having discomfort at the site of the chest tube, but less than yesterday. No other complaints at this time. Objective Vitals Vital Signs Date Time Temp Pulse Resp B/P Pulse Ox O2 Delivery O2 Flow Rate FiO2 12/15/16 12:00 98.3 93 18 101/64 95 12/15/16 08:00 98.7 93 18 93/64 96 12/15/16 04:00 99.6 97 18 105/66 95 12/15/16 00:00 99.9 100 18 108/66 95 12/14/16 21:45 Room Air 12/14/16 20:00 101 12/14/16 20:00 98.6 99 18 114/59 96 12/14/16 16:00 98.1 103 20 117/73 97 I/O 12/14/16 12/14/16 12/14/16 12/15/16 12/15/16 12/15/16 07:00 15:00 23:00 07:00 15:00 23:00 Intake Total 720 ml 242 ml 240 ml Output Total 45 ml 42 ml Balance 720 ml 197 ml 198 ml Intake Oral 720 ml 240 ml 240 ml IV Total 2 ml Chest Tube Drainage Total 45 ml 42 ml # Voids 2 1 1 2 # Bowel Movements 2 1 1 2 Result Diagram: 12/13/16 0852 12/13/1652 Imaging Last Impressions Chest X-Ray 12/11/16 0000 Signed Impressions: Service Date/Time: Sunday, December 11, 2016 18:42 - CONCLUSION: Small left pleural effusion and slight bibasilar atelectasis and/or infiltrate. Jose Jarvis MD Abdomen Ultrasound 12/11/16 0000 Signed Impressions: Service Date/Time: Sunday, December 11, 2016 18:05 - CONCLUSION: No ascites. Jose Jarvis MD Liver Ultrasound 11/26/16 0000 Signed Impressions: Service Date/Time: November 14:23 - CONCLUSION: 1. The portal vein is patent. 2. Multiple gallstones in the gallbladder. No definite biliary tract obstruction. There is thickening of the gallbladder wall with some fluid around the gallbladder. This can be seen with either acute or chronic cholecystitis. This would have to be correlated with patient's physical, clinical exam and lab values. Sudhakar J. Siragusa, MD Chest CT 11/25/16 0000 Signed Impressions: Service Date/Time: Friday, November 25, 2016 11:37 - CONCLUSION: Very large right pleural effusion with complete collapse of the right lung. Sudhakar Zapata MD Abdomen/Pelvis CT 11/25/16 0000 Signed Impressions: Service Date/Time: Friday, November 25, 2016 11:37 - CONCLUSION: Large right-sided pleural effusion with adjacent compressive atelectasis of the right lung. There is mass effect on the heart displacing it leftward within the thoracic cavity. There is a large amount of ascites which is not significantly changed as compared to the prior exam. The liver has a cirrhotic appearance. Mary Bradley MD Objective Remarks General: No acute distress. Heart: Regular rate and rhythm. No murmur. Lungs: Decreased breath sounds in the right base. Chest tube on the right. Abdomen: Soft, nontender, nondistended. Extremities: No lower extremity edema. Psych: Alert, somewhat confused. Procedures 11/25/16 right pigtail chest tube placement 11/26/16 right chest tube placement 11/26/16 orotracheal intubation 11/26/16 subclavian central line placement Urinary Catheter: No Vascular Central Line Catheter: No A/P Problem List: (1) Sepsis ICD Code: A41.9 Status: Resolved (2) Respiratory insufficiency ICD Code: R06.89 Status: Acute (3) Pleural effusion, right ICD Code: J90 Status: Acute (4) Collapse of right lung ICD Code: J98.11 Status: Acute (5) Probable pneumonia Status: Acute (6) Seizure ICD Code: R56.9 Status: Acute (7) Liver failure ICD Code: K72.90 Status: Chronic (8) Alcohol dependence ICD Code: F10.20 Status: Chronic (9) Alcohol-induced cirrhosis Status: Chronic Assessment and Plan Reviewed/updated 12/15/16. No change. Continue chest tube. Pulmonology has suggested considering discharge home with chest tube in place. Pleurx catheter placement requested. Will need further clarification from pulmonology before catheter placement. 1. Acute respiratory failure: Improved. Patient extubated. Pulmonology consulted. Continue supplemental oxygen. Bronchodilators as needed. 2. Large right pleural effusion with right lung collapse and mass effect: Status post pigtail catheter placement on 11/25/16. The catheter was pulled out by the patient. Chest tube was placed again on 11/26/16. Pulmonology managing chest tube. 3. Alcoholic liver disease, chronic: Continue lactulose, Xifaxan. Gastroenterology has signed off. Continue Inderal, Aldactone, Lasix. 4. Alcohol withdrawal, dependence: Patient is now off Precedex drip. Ativan as needed for withdrawal symptoms per CIWA protocol. No Ativan required in last 24 hours. Continue thiamine daily. Taper Librium. 5. Sepsis, pneumonia: Continue antibiotics. 6. Thrombocytopenia: Likely secondary to chronic liver disease. Stable. 7. GI prophylaxis: PPI. 8. DVT prophylaxis: SCDs. Avoid chemical prophylaxis secondary to thrombocytopenia. 9. Nausea/vomiting: Antiemetics as needed. 10. Hepatic encephalopathy: Lactulose, Xifaxan. Discharge Planning Plan per prior M.D. discussion with family: Mother agrees with Pleurx catheter placement and discharge home on hospice when stable. Problem Qualifiers (1) Sepsis: Qualified Code: A41.9 - Sepsis, due to unspecified organism (2) Alcohol dependence: Nirav Jalloh MD Dec 15, 2016 14:05
[2016-12-15] MEDS: PROMETHAZINE INJ 25 MG/ML VIAL IM PRN (21:30)
[2016-12-15] MEDS: hydrOXYzine HCL 25 MG TAB PO PRN (23:40)
[2016-12-16] VITALS (7 sets, daily range): BP systolic 98–115; BP diastolic 61–73; PULSE 102–116; RESP 16–32; TEMP 98.5–99.9; O2SAT 94–98
[2016-12-16] MEDS: CHLORHEXIDINE 0.12% (ORAL KIT) 15 ML CUP MT SCH ×2 (08:00→18:51)
[2016-12-16] MEDS: SPIRONOLACTONE 50 MG TAB PO SCH ×2 (09:00→17:50)
[2016-12-16] MEDS: SODIUM CHLORIDE 0.9% FLUSH 5 ML FLUSH IV FLUSH SCH ×2 (09:00→22:00)
[2016-12-16] MEDS: DIVALPROEX SODIUM DELAYED RELEASE 250 MG TAB PO SCH ×2 (09:00→21:57)
[2016-12-16] MEDS: THIAMINE HCL 100 MG TAB PO SCH (10:09)
[2016-12-16] MEDS: PANTOPRAZOLE SOD 40 MG DELAYED RELEASE TAB PO SCH (10:09)
[2016-12-16] MEDS: FUROSEMIDE 40 MG TAB PO SCH ×2 (10:10→21:57)
[2016-12-16] MEDS: MULTIVITAMIN TAB PO SCH (10:10)
[2016-12-16] MEDS: LACTULOSE SYRUP 20 GM/30 ML CUP PO SCH ×4 (10:10→21:58)
[2016-12-16] MEDS: CITALOPRAM HYDROBROMIDE 40 MG TAB PO SCH (10:10)
[2016-12-16] MEDS: MORPHINE SULFATE ORAL SOLN 10 MG/0.5 ML SYRINGE PO/SL PRN ×4 (10:10→21:57)
[2016-12-16] MEDS: RIFAXIMIN 550 MG TAB PO SCH ×2 (10:10→21:57)
[2016-12-16] MEDS: FOLIC ACID 1 MG TAB PO SCH (10:10)
--- NOTE | 2016-12-16 13:53 | HHI.PR ---
Subjective Remarks Follow-up chest tube, hydrothorax. No new complaints today. Going for catheter placement this afternoon. Objective Vitals Vital Signs Date Time Temp Pulse Resp B/P Pulse Ox O2 Delivery O2 Flow Rate FiO2 12/16/16 12:25 98.9 116 20 115/65 97 12/16/16 11:27 103 12/16/16 08:06 98.5 106 18 105/72 95 12/16/16 04:00 98.8 104 16 102/69 94 12/16/16 00:00 99.6 110 32 110/73 98 12/15/16 22:00 Room Air 12/15/16 20:30 97.6 108 16 107/68 94 12/15/16 20:11 104 12/15/16 17:30 98.3 80 16 107/67 94 I/O 12/15/16 12/15/16 12/15/16 12/16/16 12/16/16 12/16/16 07:00 15:00 23:00 07:00 15:00 23:00 Intake Total 240 ml 720 ml 242 ml 482 ml Output Total 42 ml 800 ml 180 ml 50 ml Balance 198 ml -80 ml 62 ml 432 ml Intake Oral 240 ml 720 ml 240 ml 480 ml IV Total 2 ml 2 ml Output Urine Total 800 ml Chest Tube Drainage Total 42 ml 180 ml 50 ml # Voids 2 2 2 # Bowel Movements 2 1 1 3 Result Diagram: 12/13/16 0852 12/13/16 0852 Imaging Last Impressions Chest X-Ray 12/11/16 0000 Signed Impressions: Service Date/Time: Sunday, December 11, 2016 18:42 - CONCLUSION: Small left pleural effusion and slight bibasilar atelectasis and/or infiltrate. Jose Jarvis MD Abdomen Ultrasound 12/11/16 0000 Signed Impressions: Service Date/Time: Sunday, December 11, 2016 18:05 - CONCLUSION: No ascites. Jose Jarvis MD Liver Ultrasound 11/26/16 0000 Signed Impressions: Service Date/Time: November 14:23 - CONCLUSION: 1. The portal vein is patent. 2. Multiple gallstones in the gallbladder. No definite biliary tract obstruction. There is thickening of the gallbladder wall with some fluid around the gallbladder. This can be seen with either acute or chronic cholecystitis. This would have to be correlated with patient's physical, clinical exam and lab values. Sudhakar Zapata MD Chest CT 11/25/16 0000 Signed Impressions: Service Date/Time: Friday, November 25, 2016 11:37 - CONCLUSION: Very large right pleural effusion with complete collapse of the right lung. Sudhakar Zapata MD Abdomen/Pelvis CT 11/25/16 0000 Signed Impressions: Service Date/Time: Friday, November 25, 2016 11:37 - CONCLUSION: Large right-sided pleural effusion with adjacent compressive atelectasis of the right lung. There is mass effect on the heart displacing it leftward within the thoracic cavity. There is a large amount of ascites which is not significantly changed as compared to the prior exam. The liver has a cirrhotic appearance. Mary Bradley MD Objective Remarks General: No acute distress. Heart: Regular rate and rhythm. No murmur. Lungs: Decreased breath sounds in the right base. Chest tube on the right. Abdomen: Soft, nontender, nondistended. Extremities: No lower extremity edema. Psych: Alert, somewhat confused. Procedures 11/25/16 right pigtail chest tube placement 11/26/16 right chest tube placement 11/26/16 orotracheal intubation 11/26/16 subclavian central line placement Urinary Catheter: No Vascular Central Line Catheter: No A/P Problem List: (1) Sepsis ICD Code: A41.9 Status: Resolved (2) Respiratory insufficiency ICD Code: R06.89 Status: Acute (3) Pleural effusion, right ICD Code: J90 Status: Acute (4) Collapse of right lung ICD Code: J98.11 Status: Acute (5) Probable pneumonia Status: Acute (6) Seizure ICD Code: R56.9 Status: Acute (7) Liver failure ICD Code: K72.90 Status: Chronic (8) Alcohol dependence ICD Code: F10.20 Status: Chronic (9) Alcohol-induced cirrhosis Status: Chronic Assessment and Plan Reviewed/updated 12/16/16. No change. Continue chest tube. Pleurx catheter placement requested. Discussed with Dr. Shelton. Plan for catheter placement this afternoon so patient can possibly be discharged home tomorrow. 1. Acute respiratory failure: Improved. Patient extubated. Pulmonology consulted. Continue supplemental oxygen. Bronchodilators as needed. 2. Large right pleural effusion with right lung collapse and mass effect: Status post pigtail catheter placement on 11/25/16. The catheter was pulled out by the patient. Chest tube was placed again on 11/26/16. Pulmonology managing chest tube. 3. Alcoholic liver disease, chronic: Continue lactulose, Xifaxan. Gastroenterology has signed off. Continue Inderal, Aldactone, Lasix. 4. Alcohol withdrawal, dependence: Patient is now off Precedex drip. Ativan as needed for withdrawal symptoms per CIWA protocol. No Ativan required in last 24 hours. Continue thiamine daily. Taper Librium. 5. Sepsis, pneumonia: Continue antibiotics. 6. Thrombocytopenia: Likely secondary to chronic liver disease. Stable. 7. GI prophylaxis: PPI. 8. DVT prophylaxis: SCDs. Avoid chemical prophylaxis secondary to thrombocytopenia. 9. Nausea/vomiting: Antiemetics as needed. 10. Hepatic encephalopathy: Lactulose, Xifaxan. Discharge Planning Plan per prior M.D. discussion with family: Mother agrees with Pleurx catheter placement and discharge home on hospice when stable. Possible discharge home tomorrow. Patient states that he does not want hospice. Problem Qualifiers (1) Sepsis: Qualified Code: A41.9 - Sepsis, due to unspecified organism (2) Alcohol dependence: Nirav Jalloh MD Dec 16, 2016 13:53
[2016-12-16] MEDS: ACETAMINOPHEN 325 MG TAB PO PRN (16:22)
[2016-12-16] MEDS: hydrOXYzine HCL 25 MG TAB PO PRN (21:57)
[2016-12-17] VITALS (10 sets, daily range): BP systolic 103–121; BP diastolic 52–76; PULSE 99–127; RESP 20–25; TEMP 97.8–101.1; O2SAT 92–98
[2016-12-17] MEDS: MORPHINE SULFATE ORAL SOLN 10 MG/0.5 ML SYRINGE PO/SL PRN ×4 (03:16→20:36)
[2016-12-17] MEDS: CHLORHEXIDINE 0.12% (ORAL KIT) 15 ML CUP MT SCH ×2 (08:00→20:00)
[2016-12-17] MEDS: CITALOPRAM HYDROBROMIDE 40 MG TAB PO SCH (09:48)
[2016-12-17] MEDS: DIVALPROEX SODIUM DELAYED RELEASE 250 MG TAB PO SCH ×2 (09:48→20:55)
[2016-12-17] MEDS: FOLIC ACID 1 MG TAB PO SCH (09:48)
[2016-12-17] MEDS: LACTULOSE SYRUP 20 GM/30 ML CUP PO SCH ×4 (09:48→20:36)
[2016-12-17] MEDS: FUROSEMIDE 40 MG TAB PO SCH ×2 (09:49→20:38)
[2016-12-17] MEDS: THIAMINE HCL 100 MG TAB PO SCH (09:49)
[2016-12-17] MEDS: MULTIVITAMIN TAB PO SCH (09:49)
[2016-12-17] MEDS: RIFAXIMIN 550 MG TAB PO SCH ×2 (09:49→20:38)
[2016-12-17] MEDS: PANTOPRAZOLE SOD 40 MG DELAYED RELEASE TAB PO SCH (09:49)
[2016-12-17] MEDS: SODIUM CHLORIDE 0.9% FLUSH 5 ML FLUSH IV FLUSH SCH ×2 (10:04→20:55)
[2016-12-17] MEDS: SPIRONOLACTONE 50 MG TAB PO SCH ×2 (10:04→18:34)
[2016-12-17] MEDS ORDERED: LIDOCAINE 1%/EPINEPHrine 1:100,000 SOLN 20 ML VIAL ONE (11:49)
[2016-12-17] MEDS ORDERED: fentaNYL CITRATE 250 MCG/5 ML AMP ONE (12:05)
[2016-12-17] MEDS ORDERED: MIDAZOLAM HCL 5 MG/5 ML VIAL ONE (12:05)
[2016-12-17] MEDS ORDERED: HYDROmorphone HCL PF 2 MG/ML VIAL ONE (12:07)
[2016-12-17] MEDS ORDERED: IOHEXOL 350 MG/ML 50 ML BTL (for RAD DIAG) ONE (14:08)
--- NOTE | 2016-12-17 15:36 | HHI.PR ---
Subjective Remarks ALERT NEW TUBE PLACED Objective Last Impressions Chest X-Ray 12/11/16 0000 Signed Impressions: Service Date/Time: Sunday, December 11, 2016 18:42 - CONCLUSION: Small left pleural effusion and slight bibasilar atelectasis and/or infiltrate. Jose Jarvis MD Abdomen Ultrasound 12/11/16 0000 Signed Impressions: Service Date/Time: Sunday, December 11, 2016 18:05 - CONCLUSION: No ascites. Jose Jarvis MD Liver Ultrasound 11/26/16 0000 Signed Impressions: Service Date/Time: November 14:23 - CONCLUSION: 1. The portal vein is patent. 2. Multiple gallstones in the gallbladder. No definite biliary tract obstruction. There is thickening of the gallbladder wall with some fluid around the gallbladder. This can be seen with either acute or chronic cholecystitis. This would have to be correlated with patient's physical, clinical exam and lab values. Sudhakar Zapata MD Chest CT 11/25/16 0000 Signed Impressions: Service Date/Time: Friday, November 25, 2016 11:37 - CONCLUSION: Very large right pleural effusion with complete collapse of the right lung. Sudhakar Zapata MD Abdomen/Pelvis CT 11/25/16 0000 Signed Impressions: Service Date/Time: Friday, November 25, 2016 11:37 - CONCLUSION: Large right-sided pleural effusion with adjacent compressive atelectasis of the right lung. There is mass effect on the heart displacing it leftward within the thoracic cavity. There is a large amount of ascites which is not significantly changed as compared to the prior exam. The liver has a cirrhotic appearance. Mary Bradley MD Vital Signs Date Time Temp Pulse Resp B/P Pulse Ox O2 Delivery O2 Flow Rate FiO2 12/17/16 15:05 111 20 103/73 96 12/17/16 14:35 113 20 116/76 96 12/17/16 14:20 109 20 121/72 93 12/17/16 14:20 98.0 109 25 121/72 93 12/17/16 09:16 99.5 12/17/16 08:30 20 12/17/16 08:00 100.7 127 20 108/75 95 12/17/16 04:00 98.4 115 20 119/52 98 2/9/17 02:33 99 12/17/16 00:00 97.8 104 20 105/65 97 12/16/16 22:00 Room Air 12/16/16 20:00 98.5 103 19 107/72 94 12/16/16 16:00 99.9 102 18 98/61 95 I/O 12/16/16 12/16/16 12/16/16 12/17/16 12/17/16 12/17/16 07:00 15:00 23:00 07:00 15:00 23:00 Intake Total 482 ml 0 ml 2 ml Output Total 50 ml 450 ml Balance 432 ml 0 ml -448 ml Intake Oral 480 ml 0 ml 0 ml IV Total 2 ml 2 ml Chest Tube Drainage Total 50 ml 450 ml # Voids 2 2 2 # Bowel Movements 3 2 1 Result Diagram: 12/13/16 0852 12/13/16 0852 Objective Remarks Last Impressions Chest X-Ray 12/11/16 0000 Signed Impressions: Service Date/Time: Sunday, December 11, 2016 18:42 - CONCLUSION: Small left pleural effusion and slight bibasilar atelectasis and/or infiltrate. Jose Jarvis MD Abdomen Ultrasound 12/11/16 0000 Signed Impressions: Service Date/Time: Sunday, December 11, 2016 18:05 - CONCLUSION: No ascites. Jose Jarvis MD Liver Ultrasound 11/26/16 0000 Signed Impressions: Service Date/Time: November 14:23 - CONCLUSION: 1. The portal vein is patent. 2. Multiple gallstones in the gallbladder. No definite biliary tract obstruction. There is thickening of the gallbladder wall with some fluid around the gallbladder. This can be seen with either acute or chronic cholecystitis. This would have to be correlated with patient's physical, clinical exam and lab values. Sudhakar Zapata MD Chest CT 11/25/16 0000 Signed Impressions: Service Date/Time: Friday, November 25, 2016 11:37 - CONCLUSION: Very large right pleural effusion with complete collapse of the right lung. Sudhakar Zapata MD Abdomen/Pelvis CT 11/25/16 0000 Signed Impressions: Service Date/Time: Friday, November 25, 2016 11:37 - CONCLUSION: Large right-sided pleural effusion with adjacent compressive atelectasis of the right lung. There is mass effect on the heart displacing it leftward within the thoracic cavity. There is a large amount of ascites which is not significantly changed as compared to the prior exam. The liver has a cirrhotic appearance. Mary Bradley MD Medications and IVs GENERAL: SKIN: Warm and dry. HEAD: Atraumatic. Normocephalic. EYES: Pupils equal and round. No scleral icterus. No injection or drainage. ENT: No nasal bleeding or discharge. Mucous membranes pink and moist. NECK: Trachea midline. No JVD. CARDIOVASCULAR: Regular rate and rhythm. RESPIRATORY: No accessory muscle use. Clear to auscultation. Breath sounds equal bilaterally. GASTROINTESTINAL: Abdomen soft, non-tender, nondistended. Hepatic and splenic margins not palpable. MUSCULOSKELETAL: Extremities without clubbing, cyanosis, or edema. No obvious deformities. NEUROLOGICAL: Awake and alert. No obvious cranial nerve deficits. Motor grossly within normal limits. Five out of 5 muscle strength in the arms and legs. Normal speech. PSYCHIATRIC: Appropriate mood and affect; insight and judgment normal. Assessment and Plan Assessment and Plan CLINICALY STABLE HOME SOON WITH DRAINAGE. Cat Shelton MD Dec 17, 2016 15:36
--- NOTE | 2016-12-17 16:02 | PD.RAD ---
Post Procedure Progress Note Pre Procedure Diagnosis: (1) Pleural effusion, right Post Procedure Diagnosis: (1) Pleural effusion, right Procedure Date: Dec 17, 2016 Supervising Radiologist: Grzegorz Kaur Proceduralist/Assist: Rema Gill RT(R)(CV), RT Rocael(R)() Anesthesia: Local, Analgesia, Conscious Sedation Plan of Activity Patient to Unit: ROPU Patient Condition: Good See PACS Report for procedural detail/treatment Drainage Procedure Procedure 1 Imaging Guidance: Fluoroscopy, Ultrasound Procedure Type: Chest Tube Tunneled Procedure: Placement [place]: 15 Drainage: [place] drainage Fluid Removal (CCs): 800 Fluid Description: Yellow Findings: Aspira drainage catheter placement Grzegorz Kaur MD Dec 17, 2016 16:02
--- NOTE | 2016-12-17 16:18 | HHI.PR ---
Subjective Remarks Follow up hydrothorax. Patient just returned from catheter placement. He has discomfort at the site. No other complaints. Objective Vitals Vital Signs Date Time Temp Pulse Resp B/P Pulse Ox O2 Delivery O2 Flow Rate FiO2 12/17/16 15:05 111 20 103/73 96 12/17/16 14:35 113 20 116/76 96 12/17/16 14:20 109 20 121/72 93 12/17/16 14:20 98.0 109 25 121/72 93 12/17/16 09:16 99.5 12/17/16 08:30 20 12/17/16 08:00 100.7 127 20 108/75 95 12/17/16 04:00 98.4 115 20 119/52 98 12/17/16 02:33 99 12/17/16 00:00 97.8 104 20 105/65 97 12/16/16 22:00 Room Air 12/16/16 20:00 98.5 103 19 107/72 94 I/O 12/16/16 12/16/16 12/16/16 12/17/16 12/17/16 12/17/16 07:00 15:00 23:00 07:00 15:00 23:00 Intake Total 482 ml 0 ml 2 ml Output Total 50 ml 450 ml Balance 432 ml 0 ml -448 ml Intake Oral 480 ml 0 ml 0 ml IV Total 2 ml 2 ml Chest Tube Drainage Total 50 ml 450 ml # Voids 2 2 2 # Bowel Movements 3 2 1 Result Diagram: 12/13/16 0852 12/13/16 0852 Imaging Last Impressions Chest X-Ray 12/11/16 0000 Signed Impressions: Service Date/Time: Sunday, December 11, 2016 18:42 - CONCLUSION: Small left pleural effusion and slight bibasilar atelectasis and/or infiltrate. Jose Jarvis MD Abdomen Ultrasound 12/11/16 0000 Signed Impressions: Service Date/Time: Sunday, December 11, 2016 18:05 - CONCLUSION: No ascites. Jose Jarvis MD Liver Ultrasound 11/26/16 0000 Signed Impressions: Service Date/Time: November 14:23 - CONCLUSION: 1. The portal vein is patent. 2. Multiple gallstones in the gallbladder. No definite biliary tract obstruction. There is thickening of the gallbladder wall with some fluid around the gallbladder. This can be seen with either acute or chronic cholecystitis. This would have to be correlated with patient's physical, clinical exam and lab values. Sudhakar Zapata MD Chest CT 11/25/16 0000 Signed Impressions: Service Date/Time: Friday, November 25, 2016 11:37 - CONCLUSION: Very large right pleural effusion with complete collapse of the right lung. Sudhakar Zapata MD Abdomen/Pelvis CT 11/25/16 0000 Signed Impressions: Service Date/Time: Friday, November 25, 2016 11:37 - CONCLUSION: Large right-sided pleural effusion with adjacent compressive atelectasis of the right lung. There is mass effect on the heart displacing it leftward within the thoracic cavity. There is a large amount of ascites which is not significantly changed as compared to the prior exam. The liver has a cirrhotic appearance. Mary Bradley MD Objective Remarks General: No acute distress. Heart: Regular rate and rhythm. No murmur. Lungs: Decreased breath sounds in the right base. Chest tube on the right. Abdomen: Soft, nontender, nondistended. Extremities: No lower extremity edema. Psych: Alert, somewhat confused. Procedures 11/25/16 right pigtail chest tube placement 11/26/16 right chest tube placement 11/26/16 orotracheal intubation 11/26/16 subclavian central line placement Urinary Catheter: No Vascular Central Line Catheter: No A/P Problem List: (1) Sepsis ICD Code: A41.9 Status: Resolved (2) Respiratory insufficiency ICD Code: R06.89 Status: Acute (3) Pleural effusion, right ICD Code: J90 Status: Acute (4) Collapse of right lung ICD Code: J98.11 Status: Acute (5) Probable pneumonia Status: Acute (6) Seizure ICD Code: R56.9 Status: Acute (7) Liver failure ICD Code: K72.90 Status: Chronic (8) Alcohol dependence ICD Code: F10.20 Status: Chronic (9) Alcohol-induced cirrhosis Status: Chronic Assessment and Plan Reviewed/updated 12/17/16. Aspira drainage catheter placed. Discussed with Dr. Shelton. Possible discharge home next 1-2 days. Continue pain control. 1. Acute respiratory failure: Improved. Patient extubated. Pulmonology consulted. Continue supplemental oxygen. Bronchodilators as needed. 2. Large right pleural effusion with right lung collapse and mass effect: Status post pigtail catheter placement on 11/25/16. The catheter was pulled out by the patient. Chest tube was placed again on 11/26/16. Pulmonology managing chest tube. 3. Alcoholic liver disease, chronic: Continue lactulose, Xifaxan. Gastroenterology has signed off. Continue Inderal, Aldactone, Lasix. 4. Alcohol withdrawal, dependence: Patient is now off Precedex drip. Ativan as needed for withdrawal symptoms per CIWA protocol. No Ativan required in last 24 hours. Continue thiamine daily. Taper Librium. 5. Sepsis, pneumonia: Continue antibiotics. 6. Thrombocytopenia: Likely secondary to chronic liver disease. Stable. 7. GI prophylaxis: PPI. 8. DVT prophylaxis: SCDs. Avoid chemical prophylaxis secondary to thrombocytopenia. 9. Nausea/vomiting: Antiemetics as needed. 10. Hepatic encephalopathy: Lactulose, Xifaxan. Discharge Planning Plan per prior M.D. discussion with family: Mother agrees with Pleurx catheter placement and discharge home on hospice when stable. Possible discharge home tomorrow. Patient states that he does not want hospice. Problem Qualifiers (1) Sepsis: Qualified Code: A41.9 - Sepsis, due to unspecified organism (2) Alcohol dependence: Nirav Jalloh MD Dec 17, 2016 16:18
[2016-12-17] MEDS: ACETAMINOPHEN 325 MG TAB PO PRN (23:00)
[2016-12-18] VITALS (7 sets, daily range): BP systolic 102–116; BP diastolic 66–77; PULSE 95–134; RESP 18–20; TEMP 98.4–99.9; O2SAT 92–95
[2016-12-18] MEDS: MORPHINE SULFATE ORAL SOLN 10 MG/0.5 ML SYRINGE PO/SL PRN ×3 (02:42→13:04)
[2016-12-18] MEDS: CHLORHEXIDINE 0.12% (ORAL KIT) 15 ML CUP MT SCH ×2 (08:00→20:00)
[2016-12-18] MEDS: SPIRONOLACTONE 50 MG TAB PO SCH ×2 (09:00→18:00)
[2016-12-18] MEDS: CITALOPRAM HYDROBROMIDE 40 MG TAB PO SCH (09:10)
[2016-12-18] MEDS: LACTULOSE SYRUP 20 GM/30 ML CUP PO SCH ×4 (09:11→21:16)
[2016-12-18] MEDS: DIVALPROEX SODIUM DELAYED RELEASE 250 MG TAB PO SCH ×2 (09:11→21:15)
[2016-12-18] MEDS: FOLIC ACID 1 MG TAB PO SCH (09:11)
[2016-12-18] MEDS: RIFAXIMIN 550 MG TAB PO SCH ×2 (09:12→21:15)
[2016-12-18] MEDS: THIAMINE HCL 100 MG TAB PO SCH (09:12)
[2016-12-18] MEDS: MULTIVITAMIN TAB PO SCH (09:12)
[2016-12-18] MEDS: PANTOPRAZOLE SOD 40 MG DELAYED RELEASE TAB PO SCH (09:12)
[2016-12-18] MEDS: FUROSEMIDE 40 MG TAB PO SCH ×2 (09:12→21:14)
[2016-12-18] MEDS: SODIUM CHLORIDE 0.9% FLUSH 5 ML FLUSH IV FLUSH SCH ×2 (09:15→21:15)
--- NOTE | 2016-12-18 09:53 | RADRPT ---
EXAM DATE/TIME: 12/17/2016 12:31 [facility] COMPARISON: No previous studies available for comparison. INDICATIONS : Patient is in need of placement of a tunneled pleural drain for recurrent right sided pleural effusio n. MEDICAL HISTORY : History of respiratory insufficiency, pneumonia, sepsis, liver failure, ascites, alcohol induced cirr hosis, seizures, SURGICAL HISTORY : History of right shoulder, left knee surgery, jaw surgery. ENCOUNTER: Initial ACUITY: >1 year PAIN SCORE: 8/10 LOCATION: Right chest FLUORO TIME: 3.7 minutes SEDATION TIME: 90 minutes CONTRAST: 40 cc Omnipaque (iohexol) 350 MEDICATION(S): 1.) 4 mg midazolam (Versed) IV 2.) 200 mcg fentanyl (Sublimaze) IV 3.) 2 mg hydromorphone (Dilaudid) IV DEVICE(S): 1.) Aspira catheter 15.5Fr PROCEDURE : 1. ultrasound guided placement of a right pleural needle. 2. Conscious sedation with continuous EKG and Oximetry monitoring. 3. Fluoroscopic-guided placement of a tunneled right-sided chest tube. 4. Right-sided thoracentesis. The risks, benefits and alternatives to the procedure were explained and verbal and written consent w as obtained. The site was prepped in sterile fashion. Full sterile technique was used, including ca p, mask, sterile gloves and gown and a large sterile sheet. Hand hygiene and 2% chlorhexidine prep w as utilized per protocol for cutaneous antisepsis with appropriate dry time for site. The skin and s ubcutaneous tissues were infiltrated with local anesthetic solution. When the patient was prepped for the procedure, it was noted that the existing chest tube is a surgic ally placed large caliber device which would not be appropriate for exchange to a tunneled chest tube . In addition, the large bore catheter effectively decompressed the right pleural space and therefore , there was no identifiable fluid to access the right pleural cavity. Therefore, position of the surg ically placed tube was confirmed with positive contrast. Subsequently, 750 cc of sterile saline was g ravity infused into the right pleural space to facilitate ultrasound-guided placement of a limited mi cropuncture needle in the right pleural space just above the hemidiaphragm. The 018 wire was advanced through the needle over which a 3-4 dilator was placed. Through the outer 4 [place] dilator, an 035 G lidewire was advanced inferiorly into the pleural space posterior to the diaphragm. A hockey-stick ca theter was advanced over the wire and position was confirmed with positive contrast. A subcutaneous tract was developed on the skin surface and a dermatotomy made of normal in scalpel af ter appropriate local anesthetic. The Aspira catheter was then advanced antegrade through the subcuta neous tunnel. A pleural access was then serially dilated to accommodate the sheath. [place] wire was th en advanced to the Aspira catheter in the central portion of the Aspira advanced over the wire, throu gh the sheath and into the pleural cavity. Catheter was assembled. Positive contrast injection again confirmed appropriate position in the pleural space posterior to the right hemidiaphragm. The Aspira catheter was then connected to 40 cm of Pleur-evac suction and 800 cc of pleural fluid removed. The P leur-evac was then reconnected to the surgically placed chest tube in the Aspira catheter was capped. The chest wall dermatotomy was closed with 3-0 Vicryl suture and Dermabond adhesive. Conscious sedation was performed with the prescribed dosages and duration as above. EKG and oximetry remained stable throughout the procedure. CONCLUSION: 1. Right-sided tunneled chest tube placement as above. 2. Thoracentesis through the recently placed tube with removal of 800 cc of pleural fluid. Grzegorz Kaur MD on December 18, 2016 at 9:34 Board Certified Radiologist. This report was verified electronically.
[2016-12-18 11:21] LABS: AUTOMATED NEUTROPHIL # 7.2 TH/MM3 (1.8-7.7); BASOPHIL % 0.4 % (0.0-2.0); EOSINOPHIL # 0.3 TH/MM3 (0-0.4); EOSINOPHIL % 2.3 % (0.0-4.0); HEMATOCRIT 37.7 % (39.0-51.0); LYMPH % 10.6 % (9.0-44.0); LYMPHOCYTE # 1.1 TH/MM3 (1.0-4.8); MEAN CELL VOLUME 91.8 FL (80.0-100.0); MEAN CORPUSCULAR HEMOGLOBIN 32.2 PG (27.0-34.0); MONO % 19.6 % (0.0-8.0); NEUT % 67.1 % (16.0-70.0); PLATELET COUNT 97 TH/MM3 (150-450); RED BLOOD COUNT 4.11 MIL/MM3 (4.50-5.90); RED CELL DISTRIBUTION WIDTH 15.7 % (11.6-17.2); WHITE BLOOD COUNT 10.8 TH/MM3 (4.0-11.0)
[2016-12-18 11:26] LABS: HEMO FLAGS AUTO DIFF
[2016-12-18 11:46] LABS: BICARBONATE 28.1 MEQ/L (21.0-32.0); POTASSIUM 3.5 MEQ/L (3.5-5.1)
[2016-12-18 12:14] LABS: BANDS 4 % (0-6); EOSINOPHILS 2 % (0-4); METAMYELOCYTES 2 % (0-1); NEUTROPHIL # MANUAL DIFF 7.7 TH/MM3 (1.8-7.7); PLATELET ESTIMATE SMEAR LOW (NORMAL); PLATELET MORPHOLOGY NORMAL (NORMAL); POLYS (SEG NEUTROPHILS) 65 % (16-70); SCAN/DIFF FINAL DIFF MANUAL; WBC DIFF SAMPLE 100
[2016-12-18] MEDS ORDERED: LORazepam 2 MG/ML VIAL IV PUSH ONE (15:15)
--- NOTE | 2016-12-18 16:18 | HHI.PR ---
Subjective Remarks Follow up hydrothorax. Patient just returned from IR after repositioning of the Pleurx catheter. He is still having discomfort at the site of the tubes. Objective Vitals Vital Signs Date Time Temp Pulse Resp B/P Pulse Ox O2 Delivery O2 Flow Rate FiO2 12/18/16 15:10 18 12/18/16 12:26 93 Room Air 12/18/16 12:00 99.9 107 20 113/72 93 12/18/16 08:00 98.4 101 18 102/66 93 12/18/16 04:00 98.7 95 20 110/69 92 12/18/16 02:37 127 12/18/16 00:32 113 18 115/72 95 12/17/16 20:35 93 Room Air 12/17/16 20:00 101.1 115 20 108/72 95 12/17/16 17:15 96 Room Air I/O 12/17/16 12/17/16 12/17/16 12/18/16 12/18/16 12/18/16 07:00 15:00 23:00 07:00 15:00 23:00 Intake Total 2 ml 0 ml 220 ml 480 ml 0 ml Output Total 450 ml 10 ml 500 ml 0 ml Balance -448 ml 0 ml 220 ml 470 ml -500 ml 0 ml Intake Oral 0 ml 0 ml 220 ml 480 ml IV Total 2 ml 0 ml 0 ml Chest Tube Drainage Total 450 ml 10 ml 0 ml Drainage Total 500 ml # Voids 2 1 0 1 # Bowel Movements 0 0 1 Result Diagram: 12/18/16 1059 12/18/16 1059 Imaging Last Impressions Catheter Placement X-Ray 12/17/16 0000 Signed Impressions: Service Date/Time: December 12:31 - CONCLUSION: 1. Right-sided tunneled chest tube placement as above. 2. Thoracentesis through the recently placed tube with removal of 800 cc of pleural fluid. Grzegorz Kaur MD Chest X-Ray 12/11/16 0000 Signed Impressions: Service Date/Time: Sunday, December 11, 2016 18:42 - CONCLUSION: Small left pleural effusion and slight bibasilar atelectasis and/or infiltrate. Jose Jarvis MD Abdomen Ultrasound 12/11/16 0000 Signed Impressions: Service Date/Time: Sunday, December 11, 2016 18:05 - CONCLUSION: No ascites. Jose Jarvis MD Liver Ultrasound 11/26/16 0000 Signed Impressions: Service Date/Time: November 14:23 - CONCLUSION: 1. The portal vein is patent. 2. Multiple gallstones in the gallbladder. No definite biliary tract obstruction. There is thickening of the gallbladder wall with some fluid around the gallbladder. This can be seen with either acute or chronic cholecystitis. This would have to be correlated with patient's physical, clinical exam and lab values. Sudhakar Zapata MD Chest CT 11/25/16 0000 Signed Impressions: Service Date/Time: Friday, November 25, 2016 11:37 - CONCLUSION: Very large right pleural effusion with complete collapse of the right lung. Sudhakar Zapata MD Abdomen/Pelvis CT 11/25/16 0000 Signed Impressions: Service Date/Time: Friday, November 25, 2016 11:37 - CONCLUSION: Large right-sided pleural effusion with adjacent compressive atelectasis of the right lung. There is mass effect on the heart displacing it leftward within the thoracic cavity. There is a large amount of ascites which is not significantly changed as compared to the prior exam. The liver has a cirrhotic appearance. Mary Bradley MD Objective Remarks General: No acute distress. Heart: Regular rate and rhythm. No murmur. Lungs: Decreased breath sounds in the right base. Chest tubes on the right. Abdomen: Soft, nontender, nondistended. Extremities: No lower extremity edema. Psych: Alert, somewhat confused. Procedures 11/25/16 right pigtail chest tube placement 11/26/16 right chest tube placement 11/26/16 orotracheal intubation 11/26/16 subclavian central line placement Urinary Catheter: No Vascular Central Line Catheter: No A/P Problem List: (1) Sepsis ICD Code: A41.9 Status: Resolved (2) Respiratory insufficiency ICD Code: R06.89 Status: Acute (3) Pleural effusion, right ICD Code: J90 Status: Acute (4) Collapse of right lung ICD Code: J98.11 Status: Acute (5) Probable pneumonia Status: Acute (6) Seizure ICD Code: R56.9 Status: Acute (7) Liver failure ICD Code: K72.90 Status: Chronic (8) Alcohol dependence ICD Code: F10.20 Status: Chronic (9) Alcohol-induced cirrhosis Status: Chronic Assessment and Plan Reviewed/updated 12/18/16. Aspira drainage catheter placed. Discussed with Dr. Gomez, pulmonology. Hold discharge due to fever. Adjust pain medications. Will have chest tube removed. IR states that since the tube was placed by the litigation docket manager, it needs to be removed by the litigation docket manager. Discussed with Dr. Perrin, who will come to remove the chest tube. 1. Acute respiratory failure: Improved. Patient extubated. Pulmonology consulted. Continue supplemental oxygen. Bronchodilators as needed. 2. Large right pleural effusion with right lung collapse and mass effect: Status post pigtail catheter placement on 11/25/16. The catheter was pulled out by the patient. Chest tube was placed again on 11/26/16. Pulmonology managing chest tube. Aspira catheter placed 12/17/16. 3. Alcoholic liver disease, chronic: Continue lactulose, Xifaxan. Gastroenterology has signed off. Continue Inderal, Aldactone, Lasix. 4. Alcohol withdrawal, dependence: Withdrawal resolved. Continue thiamine daily. 5. Sepsis, pneumonia: Continue antibiotics. 6. Thrombocytopenia: Likely secondary to chronic liver disease. Stable. 7. GI prophylaxis: PPI. 8. DVT prophylaxis: SCDs. Avoid chemical prophylaxis secondary to thrombocytopenia. 9. Nausea/vomiting: Antiemetics as needed. 10. Hepatic encephalopathy: Lactulose, Xifaxan. Discharge Planning Plan per prior M.D. discussion with family: Mother agrees with Pleurx catheter placement and discharge home on hospice when stable. Possible discharge home tomorrow. Patient states that he does not want hospice. Problem Qualifiers (1) Sepsis: Qualified Code: A41.9 - Sepsis, due to unspecified organism (2) Alcohol dependence: Nirav Jalloh MD Dec 18, 2016 16:18
[2016-12-18] MEDS ORDERED: fentaNYL CITRATE 250 MCG/5 ML AMP ONE (16:54)
[2016-12-18] MEDS ORDERED: IOHEXOL 350 MG/ML 50 ML BTL (for RAD DIAG) ONE (17:17)
--- NOTE | 2016-12-18 17:31 | PD.RAD ---
Post Procedure Progress Note Pre Procedure Diagnosis: (1) Pleural effusion, right (2) Pain Post Procedure Diagnosis: (1) Pain (2) Pleural effusion, right Procedure Date: Dec 18, 2016 Supervising Radiologist: Grzegorz Kaur Proceduralist/Assist: Shazia Kelly, RT(R)(), Sid Baum, RT(R) Anesthesia: Local (Lidocain in pleural space), Analgesia Plan of Activity Patient to Unit: Nursing Unit Patient Condition: Good See PACS Report for procedural detail/treatment Drainage Procedure Procedure 1 Imaging Guidance: Fluoroscopy Side: Right Procedure Type: Chest Tube Tunneled Procedure: Reposition (Moved more cephalad out of inferior pleural space to reduce pain with respirations), Evaluation Grzegorz Kaur MD Dec 18, 2016 17:30
[2016-12-18] MEDS ORDERED: Vancomycin Consult Pharmacy 1 EA OTHER SCH (19:30)
[2016-12-18] MEDS: LEVOFLOXACIN 500 MG PREMIX INJ 100 ML IV SCH (20:00)
[2016-12-18] MEDS: hydrOXYzine HCL 25 MG TAB PO PRN (21:14)
[2016-12-18] MEDS: VANCOMYCIN INJ 1,500 MG in SODIUM CHLORID 0.9% 500 ML INJ 500 ML IV SCH (23:22)
[2016-12-19] VITALS (9 sets, daily range): BP systolic 99–116; BP diastolic 57–71; PULSE 85–124; RESP 16–24; TEMP 97–100; O2SAT 93–97
[2016-12-19] MEDS: VANCOMYCIN INJ 1,500 MG in SODIUM CHLORID 0.9% 500 ML INJ 500 ML IV SCH ×2 (06:58→13:10)
[2016-12-19] MEDS: CHLORHEXIDINE 0.12% (ORAL KIT) 15 ML CUP MT SCH ×2 (08:00→20:00)
[2016-12-19] MEDS: SODIUM CHLORIDE 0.9% FLUSH 5 ML FLUSH IV FLUSH SCH ×2 (09:00→21:12)
[2016-12-19] MEDS: DIVALPROEX SODIUM DELAYED RELEASE 250 MG TAB PO SCH ×2 (09:05→21:13)
[2016-12-19] MEDS: LACTULOSE SYRUP 20 GM/30 ML CUP PO SCH ×4 (09:05→21:14)
[2016-12-19] MEDS: FOLIC ACID 1 MG TAB PO SCH (09:05)
[2016-12-19] MEDS: FUROSEMIDE 40 MG TAB PO SCH ×2 (09:05→21:13)
[2016-12-19] MEDS: RIFAXIMIN 550 MG TAB PO SCH ×2 (09:05→21:14)
[2016-12-19] MEDS: PANTOPRAZOLE SOD 40 MG DELAYED RELEASE TAB PO SCH (09:05)
[2016-12-19] MEDS: MULTIVITAMIN TAB PO SCH (09:05)
[2016-12-19] MEDS: SPIRONOLACTONE 50 MG TAB PO SCH ×2 (09:05→16:45)
[2016-12-19] MEDS: CITALOPRAM HYDROBROMIDE 40 MG TAB PO SCH (09:05)
[2016-12-19] MEDS: THIAMINE HCL 100 MG TAB PO SCH (09:05)
--- NOTE | 2016-12-19 13:10 | HHI.PR ---
Subjective Remarks Follow up hydrothorax, fever. Patient seen with Dr. Kaur at bedside. He is having significant pain from the catheter. Nothing has relieved it including pain medication and position changes. Objective Vitals Vital Signs Date Time Temp Pulse Resp B/P Pulse Ox O2 Delivery O2 Flow Rate FiO2 12/19/16 12:04 98 12/19/16 08:00 Room Air 12/19/16 08:00 98.0 97 18 107/69 96 12/19/16 04:00 98.0 101 20 104/65 94 12/19/16 00:37 97.8 124 20 116/71 97 12/18/16 20:00 108 12/18/16 20:00 98.8 118 20 116/77 95 12/18/16 19:15 Room Air 21 12/18/16 16:00 99.6 134 20 106/71 94 12/18/16 15:10 18 I/O 12/18/16 12/18/16 12/18/16 12/19/16 12/19/16 12/19/16 07:00 15:00 23:00 07:00 15:00 23:00 Intake Total 480 ml 1440 ml 120 ml 915 ml Output Total 10 ml 500 ml 0 ml Balance 470 ml 940 ml 120 ml 915 ml Intake Oral 480 ml 1440 ml 120 ml 360 ml IV Total 0 ml 555 ml Chest Tube Drainage Total 10 ml 0 ml Drainage Total 500 ml # Voids 1 2 2 1 # Bowel Movements 1 2 Result Diagram: 12/18/16 1059 12/18/16 1059 Imaging Last Impressions Catheter Placement X-Ray 12/17/16 0000 Signed Impressions: Service Date/Time: December 12:31 - CONCLUSION: 1. Right-sided tunneled chest tube placement as above. 2. Thoracentesis through the recently placed tube with removal of 800 cc of pleural fluid. Grzegorz Kaur MD Chest X-Ray 12/11/16 0000 Signed Impressions: Service Date/Time: Sunday, December 11, 2016 18:42 - CONCLUSION: Small left pleural effusion and slight bibasilar atelectasis and/or infiltrate. Jose Jarvis MD Abdomen Ultrasound 12/11/16 0000 Signed Impressions: Service Date/Time: Sunday, December 11, 2016 18:05 - CONCLUSION: No ascites. Jose Jarvis MD Liver Ultrasound 11/26/16 0000 Signed Impressions: Service Date/Time: November 14:23 - CONCLUSION: 1. The portal vein is patent. 2. Multiple gallstones in the gallbladder. No definite biliary tract obstruction. There is thickening of the gallbladder wall with some fluid around the gallbladder. This can be seen with either acute or chronic cholecystitis. This would have to be correlated with patient's physical, clinical exam and lab values. Sudhakar Zapata MD Chest CT 11/25/16 0000 Signed Impressions: Service Date/Time: Friday, November 25, 2016 11:37 - CONCLUSION: Very large right pleural effusion with complete collapse of the right lung. Sudhakar Zapata MD Abdomen/Pelvis CT 11/25/16 0000 Signed Impressions: Service Date/Time: Friday, November 25, 2016 11:37 - CONCLUSION: Large right-sided pleural effusion with adjacent compressive atelectasis of the right lung. There is mass effect on the heart displacing it leftward within the thoracic cavity. There is a large amount of ascites which is not significantly changed as compared to the prior exam. The liver has a cirrhotic appearance. Mary Bradley MD Objective Remarks General: No acute distress. Appears quite uncomfortable. Heart: Regular rate and rhythm. No murmur. Lungs: Decreased breath sounds in the right base. Catheter on right. Abdomen: Soft, nontender, nondistended. Extremities: No lower extremity edema. Psych: Alert, answers questions appropriately. Procedures 11/25/16 right pigtail chest tube placement 11/26/16 right chest tube placement 11/26/16 orotracheal intubation 11/26/16 subclavian central line placement Urinary Catheter: No Vascular Central Line Catheter: No A/P Problem List: (1) Sepsis ICD Code: A41.9 Status: Resolved (2) Respiratory insufficiency ICD Code: R06.89 Status: Acute (3) Pleural effusion, right ICD Code: J90 Status: Acute (4) Collapse of right lung ICD Code: J98.11 Status: Acute (5) Probable pneumonia Status: Acute (6) Seizure ICD Code: R56.9 Status: Acute (7) Liver failure ICD Code: K72.90 Status: Chronic (8) Alcohol dependence ICD Code: F10.20 Status: Chronic (9) Alcohol-induced cirrhosis Status: Chronic Assessment and Plan Reviewed/updated 12/19/16. Aspira drainage catheter removed by Dr. Kaur due to pain. Discussed with Dr. Gomez, pulmonology. Patient continues to have fever. Chest tube removed last night. Continue antibiotics to cover for possible infection at chest tube site. The patient will need to have another catheter placed early next week. He will likely have reaccumulation of fluid over the next couple days. We'll monitor respiratory status. 1. Acute respiratory failure: Improved. Patient extubated. Pulmonology consulted. Continue supplemental oxygen. Bronchodilators as needed. 2. Large right pleural effusion with right lung collapse and mass effect: Status post pigtail catheter placement on 11/25/16. The catheter was pulled out by the patient. Chest tube was placed again on 11/26/16. Pulmonology managing chest tube. Aspira catheter placed 12/17/16. 3. Alcoholic liver disease, chronic: Continue lactulose, Xifaxan. Gastroenterology has signed off. Continue Inderal, Aldactone, Lasix. 4. Alcohol withdrawal, dependence: Withdrawal resolved. Continue thiamine daily. 5. Sepsis, pneumonia: Continue antibiotics. 6. Thrombocytopenia: Likely secondary to chronic liver disease. Stable. 7. GI prophylaxis: PPI. 8. DVT prophylaxis: SCDs. Avoid chemical prophylaxis secondary to thrombocytopenia. 9. Nausea/vomiting: Antiemetics as needed. 10. Hepatic encephalopathy: Lactulose, Xifaxan. Discharge Planning Plan per prior M.D. discussion with family: Mother agrees with Pleurx catheter placement and discharge home on hospice when stable. Possible discharge home tomorrow. Patient states that he does not want hospice. Problem Qualifiers (1) Sepsis: Qualified Code: A41.9 - Sepsis, due to unspecified organism (2) Alcohol dependence: Nirav Jalloh MD Dec 19, 2016 13:10
[2016-12-19] MEDS ORDERED: MORPHINE SULFATE 8 MG/ML INJ ONE (13:19)
[2016-12-19] MEDS ORDERED: MORPHINE SULFATE 4 MG/ML INJ IV PUSH ONE (13:30)
--- NOTE | 2016-12-19 13:41 | PD.RAD ---
Radiology Note Manipulated Aspira drain yesterday and moved it more cephalad out of the posterior costophrenic angle. Large bore surgical chest tube also removed yesterday. Patient still experiencing severe pain with respirations presumably secondary to the catheter position low in the pleural space posterior to the liver. Functions well but pain intolerable. Therefore, tube was removed. Will reassess on Wednesday. If sufficient fluid at that time, can place a new Aspira catheter and direct it more cephalad out of the posterior CP angle. Grzegorz Kaur MD Dec 19, 2016 13:41
--- NOTE | 2016-12-19 14:17 | RADRPT ---
EXAM DATE/TIME: 12/19/2016 13:52 [facility] COMPARISON: CHEST SINGLE AP, November 28, 2016, 5:20. INDICATIONS : Chest Pain, Post Right Side Chest Tube Removal, Pain most prevalent at Chest Tube site. MEDICAL HISTORY : respiratory insufficiency, pneumonia, sepsis, liver failure, ascites, alcohol induced cirrhosis, seiz ures. SURGICAL HISTORY : right shoulder, left knee, jaw surgery. ENCOUNTER: Initial ACUITY: 1 day PAIN SCORE: 6/10 LOCATION: Bilateral chest FINDINGS: A single view of the chest demonstrates minimal bibasilar atelectasis. Diminished lung volumes. The c ardiomediastinal contours are unremarkable. Osseous structures are intact. Right-sided chest tube re moved. CONCLUSION: Bibasilar atelectasis. No pneumothorax. Magdiel Lucas MD on December 19, 2016 at 14:15 Board Certified Radiologist. This report was verified electronically.
[2016-12-19] MEDS: LEVOFLOXACIN 500 MG PREMIX INJ 100 ML IV SCH (21:09)
[2016-12-19] MEDS ORDERED: PHARMACY ORDERED LAB XX ONE (21:45)
[2016-12-19] MEDS: hydrOXYzine HCL 25 MG TAB PO PRN (23:39)
[2016-12-20] VITALS (8 sets, daily range): BP systolic 106–135; BP diastolic 62–81; PULSE 112–122; RESP 18–24; TEMP 98.5–100; O2SAT 90–97
[2016-12-20] MEDS: VANCOMYCIN INJ 1,500 MG in SODIUM CHLORID 0.9% 500 ML INJ 500 ML IV SCH ×4 (00:06→21:47)
[2016-12-20] MEDS ORDERED: LORazepam 2 MG/ML VIAL IV PUSH ONE ×2 (03:15→22:30)
[2016-12-20] MEDS: CHLORHEXIDINE 0.12% (ORAL KIT) 15 ML CUP MT SCH ×2 (08:00→20:00)
[2016-12-20] MEDS: DIVALPROEX SODIUM DELAYED RELEASE 250 MG TAB PO SCH ×2 (08:38→21:46)
[2016-12-20] MEDS: PANTOPRAZOLE SOD 40 MG DELAYED RELEASE TAB PO SCH (08:38)
[2016-12-20] MEDS: LACTULOSE SYRUP 20 GM/30 ML CUP PO SCH ×4 (08:38→21:46)
[2016-12-20] MEDS: MULTIVITAMIN TAB PO SCH (08:39)
[2016-12-20] MEDS: THIAMINE HCL 100 MG TAB PO SCH (08:39)
[2016-12-20] MEDS: SODIUM CHLORIDE 0.9% FLUSH 5 ML FLUSH IV FLUSH SCH ×2 (08:39→21:45)
[2016-12-20] MEDS: RIFAXIMIN 550 MG TAB PO SCH ×2 (08:39→21:46)
[2016-12-20] MEDS: CITALOPRAM HYDROBROMIDE 40 MG TAB PO SCH (08:39)
[2016-12-20] MEDS: SPIRONOLACTONE 50 MG TAB PO SCH ×2 (08:39→18:44)
[2016-12-20] MEDS: FOLIC ACID 1 MG TAB PO SCH (08:39)
[2016-12-20] MEDS: FUROSEMIDE 40 MG TAB PO SCH ×2 (08:39→21:46)
--- NOTE | 2016-12-20 10:02 | HHI.PR ---
Subjective Remarks Follow up hydrothorax, pain. He states that his pain is much better today. His mother is at bedside and states that the patient has been more confused today. Patient denies dyspnea. Objective Vitals Vital Signs Date Time Temp Pulse Resp B/P Pulse Ox O2 Delivery O2 Flow Rate FiO2 12/20/16 04:00 99.8 112 24 121/64 92 12/20/16 00:00 100.0 117 24 115/67 94 12/19/16 20:00 102 12/19/16 20:00 Room Air 12/19/16 19:50 98.4 98 16 104/63 94 12/19/16 16:00 98.2 85 18 99/57 93 12/19/16 12:04 98 12/19/16 12:00 97.0 103 18 107/60 94 I/O 12/19/16 12/19/16 12/19/16 12/20/16 12/20/16 12/20/16 07:00 15:00 23:00 07:00 15:00 23:00 Intake Total 915 ml 2267 ml 1089 ml Output Total 450 ml Balance 915 ml 1817 ml 1089 ml Intake Oral 360 ml 960 ml IV Total 555 ml 1307 ml 1089 ml Drainage Total 450 ml # Voids 1 3 # Bowel Movements 1 Result Diagram: 12/18/16 1059 12/18/16 1059 Imaging Last Impressions Chest X-Ray 12/19/16 1341 Signed Impressions: Service Date/Time: Monday, December 19, 2016 13:52 - CONCLUSION: Bibasilar atelectasis. No pneumothorax. Magdiel Lucas MD Catheter Placement X-Ray 12/17/16 0000 Signed Impressions: Service Date/Time: December 12:31 - CONCLUSION: 1. Right-sided tunneled chest tube placement as above. 2. Thoracentesis through the recently placed tube with removal of 800 cc of pleural fluid. Grzegorz Kaur MD Abdomen Ultrasound 12/11/16 0000 Signed Impressions: Service Date/Time: Sunday, December 11, 2016 18:05 - CONCLUSION: No ascites. Jose Jarvis MD Liver Ultrasound 11/26/16 0000 Signed Impressions: Service Date/Time: November 14:23 - CONCLUSION: 1. The portal vein is patent. 2. Multiple gallstones in the gallbladder. No definite biliary tract obstruction. There is thickening of the gallbladder wall with some fluid around the gallbladder. This can be seen with either acute or chronic cholecystitis. This would have to be correlated with patient's physical, clinical exam and lab values. Sudhakar Zapata MD Chest CT 11/25/16 0000 Signed Impressions: Service Date/Time: Friday, November 25, 2016 11:37 - CONCLUSION: Very large right pleural effusion with complete collapse of the right lung. Sudhakar Zapata MD Abdomen/Pelvis CT 11/25/16 0000 Signed Impressions: Service Date/Time: Friday, November 25, 2016 11:37 - CONCLUSION: Large right-sided pleural effusion with adjacent compressive atelectasis of the right lung. There is mass effect on the heart displacing it leftward within the thoracic cavity. There is a large amount of ascites which is not significantly changed as compared to the prior exam. The liver has a cirrhotic appearance. Mary Bradley MD Objective Remarks General: No acute distress. Heart: Regular rate and rhythm. No murmur. Lungs: Decreased breath sounds in the right base. Abdomen: Soft, nontender, nondistended. Extremities: No lower extremity edema. Psych: Alert. Answers questions appropriately, but does appear confused at times. Procedures 11/25/16 right pigtail chest tube placement 11/26/16 right chest tube placement 11/26/16 orotracheal intubation 11/26/16 subclavian central line placement Urinary Catheter: No Vascular Central Line Catheter: No A/P Problem List: (1) Sepsis ICD Code: A41.9 Status: Resolved (2) Respiratory insufficiency ICD Code: R06.89 Status: Acute (3) Pleural effusion, right ICD Code: J90 Status: Acute (4) Collapse of right lung ICD Code: J98.11 Status: Acute (5) Probable pneumonia Status: Acute (6) Seizure ICD Code: R56.9 Status: Acute (7) Liver failure ICD Code: K72.90 Status: Chronic (8) Alcohol dependence ICD Code: F10.20 Status: Chronic (9) Alcohol-induced cirrhosis Status: Chronic Assessment and Plan Reviewed/updated 12/20/16. Aspira drainage catheter removed yesterday by Dr. Kaur due to pain. Patient continues to have low-grade fever. Continue antibiotics to cover for possible infection at chest tube site. The patient will need to have another catheter placed early this week. He will likely have reaccumulation of fluid over the next couple days. We'll monitor respiratory status. Continue supplemental oxygen. 1. Acute respiratory failure: Improved. Patient extubated. Pulmonology consulted. Continue supplemental oxygen. Bronchodilators as needed. 2. Large right pleural effusion with right lung collapse and mass effect: Status post pigtail catheter placement on 11/25/16. The catheter was pulled out by the patient. Chest tube was placed again on 11/26/16. Aspira catheter placed and removed 12/19/16 due to pain. Catheter to be replaced by IR in next 1- 2 days. 3. Alcoholic liver disease, chronic: Continue lactulose, Xifaxan. Gastroenterology has signed off. Continue Inderal, Aldactone, Lasix. 4. Alcohol withdrawal, dependence: Withdrawal resolved. Continue thiamine daily. 5. Sepsis, pneumonia: Continue antibiotics. 6. Thrombocytopenia: Likely secondary to chronic liver disease. Stable. 7. GI prophylaxis: PPI. 8. DVT prophylaxis: SCDs. Avoid chemical prophylaxis secondary to thrombocytopenia. 9. Nausea/vomiting: Antiemetics as needed. 10. Hepatic encephalopathy: Lactulose, Xifaxan. Discharge Planning Plan per prior M.D. discussion with family: Mother agrees with Pleurx catheter placement and discharge home on hospice when stable. Possible discharge home tomorrow. Patient states that he does not want hospice. Problem Qualifiers (1) Sepsis: Qualified Code: A41.9 - Sepsis, due to unspecified organism (2) Alcohol dependence: Nirav Jalloh MD Dec 20, 2016 10:02
[2016-12-20] MEDS: hydrOXYzine HCL 25 MG TAB PO PRN ×2 (12:36→21:46)
[2016-12-20] MEDS: LEVOFLOXACIN 500 MG PREMIX INJ 100 ML IV SCH (21:43)
[2016-12-20] MEDS ORDERED: HYDROmorphone HCL PF 1 MG/ML VIAL IV PUSH ONE (22:30)
[2016-12-21] VITALS (8 sets, daily range): BP systolic 91–112; BP diastolic 55–68; PULSE 88–108; RESP 12–20; TEMP 97.9–100.6; O2SAT 92–97
[2016-12-21] MEDS: ACETAMINOPHEN 325 MG TAB PO PRN (02:10)
[2016-12-21] MEDS: VANCOMYCIN INJ 1,500 MG in SODIUM CHLORID 0.9% 500 ML INJ 500 ML IV SCH ×3 (06:03→23:05)
[2016-12-21] MEDS: CHLORHEXIDINE 0.12% (ORAL KIT) 15 ML CUP MT SCH ×2 (08:00→20:00)
[2016-12-21] MEDS: DIVALPROEX SODIUM DELAYED RELEASE 250 MG TAB PO SCH ×2 (09:59→22:15)
[2016-12-21] MEDS: CITALOPRAM HYDROBROMIDE 40 MG TAB PO SCH (09:59)
[2016-12-21] MEDS: MULTIVITAMIN TAB PO SCH (09:59)
[2016-12-21] MEDS: LACTULOSE SYRUP 20 GM/30 ML CUP PO SCH ×4 (09:59→22:15)
[2016-12-21] MEDS: PANTOPRAZOLE SOD 40 MG DELAYED RELEASE TAB PO SCH (09:59)
[2016-12-21] MEDS: RIFAXIMIN 550 MG TAB PO SCH ×2 (09:59→22:15)
[2016-12-21] MEDS: FUROSEMIDE 40 MG TAB PO SCH ×2 (09:59→22:16)
[2016-12-21] MEDS: FOLIC ACID 1 MG TAB PO SCH (09:59)
[2016-12-21] MEDS: THIAMINE HCL 100 MG TAB PO SCH (09:59)
[2016-12-21] MEDS: SODIUM CHLORIDE 0.9% FLUSH 5 ML FLUSH IV FLUSH SCH ×2 (09:59→22:11)
[2016-12-21] MEDS: SPIRONOLACTONE 50 MG TAB PO SCH ×2 (10:03→18:00)
[2016-12-21] MEDS: hydrOXYzine HCL 25 MG TAB PO PRN ×2 (10:06→22:15)
--- NOTE | 2016-12-21 12:55 | HHI.PR ---
Subjective Remarks no complains of chest pain or shortness of breath Objective Vitals Vital Signs Date Time Temp Pulse Resp B/P Pulse Ox O2 Delivery O2 Flow Rate FiO2 12/21/16 12:07 93 Room Air 12/21/16 11:25 96 12/21/16 09:45 93 12/21/16 08:00 97.9 91 12 104/59 97 12/21/16 07:10 18 12/21/16 04:00 98.4 101 18 102/59 92 12/21/16 00:00 100.6 108 20 105/68 92 12/20/16 20:00 99.1 122 22 135/81 97 12/20/16 20:00 119 12/20/16 20:00 Room Air 12/20/16 19:55 94 Nasal Cannula 2.00 12/20/16 16:02 92 21 I/O 12/20/16 12/20/16 12/20/16 12/21/16 12/21/16 12/21/16 07:00 15:00 23:00 07:00 15:00 23:00 Intake Total 1089 ml 600 ml 600 ml 180 ml Balance 1089 ml 600 ml 600 ml 180 ml Intake Oral 600 ml 600 ml 180 ml IV Total 1089 ml # Voids 4 0 1 # Bowel Movements 1 2 Result Diagram: 12/18/16 1059 12/21/16 0624 Imaging Last Impressions Chest X-Ray 12/19/16 1341 Signed Impressions: Service Date/Time: Monday, December 19, 2016 13:52 - CONCLUSION: Bibasilar atelectasis. No pneumothorax. Magdiel Lucas MD Catheter Placement X-Ray 12/17/16 0000 Signed Impressions: Service Date/Time: December 12:31 - CONCLUSION: 1. Right-sided tunneled chest tube placement as above. 2. Thoracentesis through the recently placed tube with removal of 800 cc of pleural fluid. Grzegorz Kaur MD Abdomen Ultrasound 12/11/16 0000 Signed Impressions: Service Date/Time: Sunday, December 11, 2016 18:05 - CONCLUSION: No ascites. Jose Jarvis MD Liver Ultrasound 11/26/16 0000 Signed Impressions: Service Date/Time: November 14:23 - CONCLUSION: 1. The portal vein is patent. 2. Multiple gallstones in the gallbladder. No definite biliary tract obstruction. There is thickening of the gallbladder wall with some fluid around the gallbladder. This can be seen with either acute or chronic cholecystitis. This would have to be correlated with patient's physical, clinical exam and lab values. Sudhakar Zapata MD Chest CT 11/25/16 0000 Signed Impressions: Service Date/Time: Friday, November 25, 2016 11:37 - CONCLUSION: Very large right pleural effusion with complete collapse of the right lung. Sudhakar Zapata MD Abdomen/Pelvis CT 11/25/16 0000 Signed Impressions: Service Date/Time: Friday, November 25, 2016 11:37 - CONCLUSION: Large right-sided pleural effusion with adjacent compressive atelectasis of the right lung. There is mass effect on the heart displacing it leftward within the thoracic cavity. There is a large amount of ascites which is not significantly changed as compared to the prior exam. The liver has a cirrhotic appearance. Mary Bradley MD Objective Remarks awake and alert, oriented x 3 lungs decreased breath sounds, no rales o rhweezes, slightly decreased breath sounds right side regular rhythm abdomen soft, nontender extremities no edema Procedures 11/25/16 right pigtail chest tube placement 11/26/16 right chest tube placement 11/26/16 orotracheal intubation 11/26/16 subclavian central line placement A/P Problem List: (1) Sepsis ICD Code: A41.9 Status: Resolved (2) Respiratory insufficiency ICD Code: R06.89 Status: Acute (3) Pleural effusion, right ICD Code: J90 Status: Acute (4) Collapse of right lung ICD Code: J98.11 Status: Acute (5) Probable pneumonia Status: Acute (6) Seizure ICD Code: R56.9 Status: Acute (7) Liver failure ICD Code: K72.90 Status: Chronic (8) Alcohol dependence ICD Code: F10.20 Status: Chronic (9) Alcohol-induced cirrhosis Status: Chronic Assessment and Plan Aspiration drainage catheter removed 12/[address] Kaur due to pain. Patient continues to have low-grade fever. Continue antibiotics to cover for possible infection at chest tube site. The patient will need to have another catheter placed early this week. He will likely have reaccumulation of fluid over the next couple days. We'll monitor respiratory status. Continue supplemental oxygen. 1. Acute respiratory failure: Improved. Patient extubated. Pulmonology ff. Continue supplemental oxygen. Bronchodilators as needed. 2. Large right pleural effusion with right lung collapse and mass effect: Status post pigtail catheter placement on 11/25/16. The catheter was pulled out by the patient. Chest tube was placed again on 11/26/16. Aspira catheter placed and removed 12/19/16 due to pain. Catheter to be replaced by IR- today 3. Alcoholic liver disease, chronic: Continue lactulose, Xifaxan. Gastroenterology has signed off. Continue Inderal, Aldactone, Lasix. 4. Alcohol withdrawal, dependence: Withdrawal resolved. Continue thiamine daily. 5. Sepsis, pneumonia: Continue antibiotics. 6. Thrombocytopenia: Likely secondary to chronic liver disease. Stable. 7. GI prophylaxis: PPI. 8. DVT prophylaxis: SCDs. Avoid chemical prophylaxis secondary to thrombocytopenia. 9. Nausea/vomiting: Antiemetics as needed. 10. Hepatic encephalopathy: Lactulose, Xifaxan. Discharge Planning Plan per prior M.D. discussion with family: Mother agrees with Pleurx catheter placement and discharge home on hospice when stable. Problem Qualifiers (1) Sepsis: Qualified Code: A41.9 - Sepsis, due to unspecified organism (2) Alcohol dependence: Ammon Rosales MD Dec 21, 2016 12:55
[2016-12-21] MEDS ORDERED: LIDOCAINE 1%/EPINEPHrine 1:100,000 SOLN 20 ML VIAL ONE ×2 (14:40→16:38)
--- NOTE | 2016-12-21 15:10 | HHI.PR ---
Subjective Remarks ALERT no sob CXRAY right pleural efffusion Objective Vital Signs Date Time Temp Pulse Resp B/P Pulse Ox O2 Delivery O2 Flow Rate FiO2 12/21/16 12:07 93 Room Air 12/21/16 12:00 98.4 94 12 110/59 95 12/21/16 11:25 96 12/21/16 09:45 93 12/21/16 08:00 97.9 91 12 104/59 97 12/21/16 07:10 18 12/21/16 04:00 98.4 101 18 102/59 92 12/21/16 00:00 100.6 108 20 105/68 92 12/20/16 20:00 99.1 122 22 135/81 97 12/20/16 20:00 119 12/20/16 20:00 Room Air 12/20/16 19:55 94 Nasal Cannula 2.00 12/20/16 16:02 92 21 I/O 12/20/16 12/20/16 12/20/16 12/21/16 12/21/16 12/21/16 07:00 15:00 23:00 07:00 15:00 23:00 Intake Total 1089 ml 600 ml 600 ml 180 ml 2 ml Balance 1089 ml 600 ml 600 ml 180 ml 2 ml Intake Oral 600 ml 600 ml 180 ml IV Total 1089 ml 2 ml # Voids 4 0 1 # Bowel Movements 1 2 Result Diagram: 12/18/16 1059 12/21/16 0624 Imaging Last Imp Last ImpressionGENERAL: SKIN: Warm and dry. HEAD: Atraumatic. Normocephalic. EYES: Pupils equal and round. No scleral icterus. No injection or drainage. ENT: No nasal bleeding or discharge. Mucous membranes pink and moist. NECK: Trachea midline. No JVD. CARDIOVASCULAR: Regular rate and rhythm. RESPIRATORY: No accessory muscle use.decrease brath sounds right baseSKELETAL: Extremities without clubbing, cyanosis, or edema. No obvious deformities. NEUROLOGICAL: Awake and alert. No obvious cranial nerve deficits. Motor grossly within normal limits. Five out of 5 muscle strength in the arms and legs. Normal speech. PSYCHIATRIC: Appropriate mood and affect; insight and judgment normal. s Chest X-Ray 12/19/16 1341 Signed Impressions: Service Date/Time: Monday, December 19, 2016 13:52 - CONCLUSION: Bibasilar atelectasis. No pneumothorax. Magdiel Lucas MD Catheter Placement X-Ray 12/17/16 0000 Signed Impressions: Service Date/Time: December 12:31 - CONCLUSION: 1. Right-sided tunneled chest tube placement as above. 2. Thoracentesis through the recently placed tube with removal of 800 cc of pleural fluid. Grzegorz aKur MD Abdomen Ultrasound 12/11/16 0000 Signed Impressions: Service Date/Time: Sunday, December 11, 2016 18:05 - CONCLUSION: No ascites. Jose Jarvis MD Liver Ultrasound 11/26/16 0000 Signed Impressions: Service Date/Time: November 14:23 - CONCLUSION: 1. The portal vein is patent. 2. Multiple gallstones in the gallbladder. No definite biliary tract obstruction. There is thickening of the gallbladder wall with some fluid around the gallbladder. This can be seen with either acute or chronic cholecystitis. This would have to be correlated with patient's physical, clinical exam and lab values. Sudhakar Zapata MD Chest CT 11/25/16 0000 Signed Impressions: Service Date/Time: Friday, November 25, 2016 11:37 - CONCLUSION: Very large right pleural effusion with complete collapse of the right lung. Sudhakar Zapata MD Abdomen/Pelvis CT 11/25/16 0000 Signed Impressions: Service Date/Time: Friday, November 25, 2016 11:37 - CONCLUSION: Large right-sided pleural effusion with adjacent compressive atelectasis of the right lung. There is mass effect on the heart displacing it leftward within the thoracic cavity. There is a large amount of ascites which is not significantly changed as compared to the prior exam. The liver has a cirrhotic appearance. Mary Bradley MD ressions Chest X-Ray 12/19/16 1341 Signed Impressions: Service Date/Time: Monday, December 19, 2016 13:52 - CONCLUSION: Bibasilar atelectasis. No pneumothorax. Magdiel Lucas MD Catheter Placement X-Ray 12/17/16 0000 Signed Impressions: Service Date/Time: December 12:31 - CONCLUSION: 1. Right-sided tunneled chest tube placement as above. 2. Thoracentesis through the recently placed tube with removal of 800 cc of pleural fluid. Grzegorz Kaur MD Abdomen Ultrasound 12/11/16 0000 Signed Impressions: Service Date/Time: Sunday, December 11, 2016 18:05 - CONCLUSION: No ascites. Jose Jarvis MD Liver Ultrasound 11/26/16 0000 Signed Impressions: Service Date/Time: November 14:23 - CONCLUSION: 1. The portal vein is patent. 2. Multiple gallstones in the gallbladder. No definite biliary tract obstruction. There is thickening of the gallbladder wall with some fluid around the gallbladder. This can be seen with either acute or chronic cholecystitis. This would have to be correlated with patient's physical, clinical exam and lab values. Sudhakar Zapata MD Chest CT 11/25/16 0000 Signed Impressions: Service Date/Time: Friday, November 25, 2016 11:37 - CONCLUSION: Very large right pleural effusion with complete collapse of the right lung. Sudhakar Zapata MD Abdomen/Pelvis CT 11/25/16 0000 Signed Impressions: Service Date/Time: Friday, November 25, 2016 11:37 - CONCLUSION: Large right-sided pleural effusion with adjacent compressive atelectasis of the right lung. There is mass effect on the heart displacing it leftward within the thoracic cavity. There is a large amount of ascites which is not significantly changed as compared to the prior exam. The liver has a cirrhotic appearance. Mary Bradley MD Objective Remarks Last Impressions Chest X-Ray 12/11/16 0000 Signed Impressions: Service Date/Time: Sunday, December 11, 2016 18:42 - CONCLUSION: Small left pleural effusion and slight bibasilar atelectasis and/or infiltrate. Jose Jarvis MD Abdomen Ultrasound 12/11/16 0000 Signed Impressions: Service Date/Time: Sunday, December 11, 2016 18:05 - CONCLUSION: No ascites. Jose Jarvis MD Liver Ultrasound 11/26/16 0000 Signed Impressions: Service Date/Time: November 14:23 - CONCLUSION: 1. The portal vein is patent. 2. Multiple gallstones in the gallbladder. No definite biliary tract obstruction. There is thickening of the gallbladder wall with some fluid around the gallbladder. This can be seen with either acute or chronic cholecystitis. This would have to be correlated with patient's physical, clinical exam and lab values. Sudhakar Zapata MD Chest CT 11/25/16 0000 Signed Impressions: Service Date/Time: Friday, November 25, 2016 11:37 - CONCLUSION: Very large right pleural effusion with complete collapse of the right lung. Sudhakar Zapata MD Abdomen/Pelvis CT 11/25/16 0000 Signed Impressions: Service Date/Time: Friday, November 25, 2016 11:37 - CONCLUSION: Large right-sided pleural effusion with adjacent compressive atelectasis of the right lung. There is mass effect on the heart displacing it leftward within the thoracic cavity. There is a large amount of ascites which is not significantly changed as compared to the prior exam. The liver has a cirrhotic appearance. Mary Bradley MD Assessment and Plan Assessment and Plan CLINICALY STABLE new ct to be placed for right effusion Cat Shelton MD Dec 21, 2016 15:10
[2016-12-21] MEDS ORDERED: MIDAZOLAM HCL 5 MG/5 ML VIAL ONE ×2 (15:11→16:33)
[2016-12-21] MEDS ORDERED: fentaNYL CITRATE 250 MCG/5 ML AMP ONE ×2 (15:11→16:33)
[2016-12-21] MEDS ORDERED: IOHEXOL 350 MG/ML 50 ML BTL (for RAD DIAG) ONE (17:27)
--- NOTE | 2016-12-21 17:45 | PD.RAD ---
Post Procedure Progress Note Pre Procedure Diagnosis: (1) Pleural effusion, right Post Procedure Diagnosis: (1) Pleural effusion, right Procedure Date: Dec 21, 2016 Supervising Radiologist: Grzegorz Kaur Proceduralist/Assist: Shazia Mckinley RT(R), Sid Baum RT(R) Anesthesia: Local, Analgesia, Conscious Sedation Plan of Activity Patient to Unit: PACU Patient Condition: Good See PACS Report for procedural detail/treatment Drainage Procedure Procedure 1 Imaging Guidance: Fluoroscopy Procedure Type: Chest Tube Tunneled Procedure: Conversion (Had chest tube placed in CT) Fluid Removal (CCs): 2000 Fluid Description: Yellow Findings: Pt had severe pain with inspiration with previous catheter. This device directed cephalad along medial wall of thorax Grzegorz Kaur MD Dec 21, 2016 17:45
--- NOTE | 2016-12-21 17:55 | RADRPT ---
EXAM DATE/TIME: 12/21/2016 15:20 INDICATIONS : FLUID SEDATION TIME: 30 minutes MEDICATION(S): 1.) 4 mg midazolam (Versed) IV 2.) 200 mcg fentanyl (Sublimaze) IV DEVICE(S): 1.) 10 Fr Jeannette Fluid was discarded. MEDICAL HISTORY : Cirrhosis. Hypertension. Cardiovascular disease. SEIZURES SURGICAL HISTORY : ORTHOPEDIC ENCOUNTER: Initial ACUITY: 1 day PAIN SCORE: 0/10 LOCATION: Right chest PROCEDURE: 1.) Conscious sedation with continuous EKG and oximetry monitoring. PROCEDURE : 1. CT guided chest tube placement. 2. Conscious sedation with continuous EKG and oximetry monitoring. The risks, benefits and alternatives to the procedure were explained and verbal and written consent w as obtained. The site was prepped in sterile fashion. Full sterile technique was used, including ca p, mask, sterile gloves and gown and a large sterile sheet. Hand hygiene and 2% chlorhexidine and/or betadine/alcohol prep was utilized per protocol for cutaneous antisepsis. The skin and subcutaneous tissues were infiltrated with local anesthetic solution. With CT guidance the chest was punctured and the prescribed catheter was placed in the lung apex. Wal l suction was applied. Post procedure images demonstrate satisfactory position of the tube. The cat heter was secured with a Percu-Stay dressing. Conscious sedation was performed with the prescribed dosages and duration as above. The patient irma ated the procedure well and there were no complications. EKG and oximetry remained stable throughout the procedure. The patient was sent to post anesthesia recovery in stable condition. CONCLUSION: Uncomplicated chest tube placement as above. This was done to facilitate Aspira-drain placement in specials. Grzegorz Kaur MD on December 21, 2016 at 17:50 Board Certified Radiologist. This report was verified electronically.
[2016-12-21] MEDS: LEVOFLOXACIN 500 MG PREMIX INJ 100 ML IV SCH (22:10)
[2016-12-22] VITALS (10 sets, daily range): BP systolic 92–120; BP diastolic 55–75; PULSE 71–120; RESP 16–20; TEMP 97.1–99.9; O2SAT 90–98
[2016-12-22] MEDS: VANCOMYCIN INJ 1,500 MG in SODIUM CHLORID 0.9% 500 ML INJ 500 ML IV SCH ×3 (05:50→22:50)
[2016-12-22] MEDS: MULTIVITAMIN TAB PO SCH (09:00)
[2016-12-22] MEDS ORDERED: IOHEXOL 350 MG/ML 50 ML BTL (for RAD DIAG) ONE (09:30)
[2016-12-22] MEDS: CITALOPRAM HYDROBROMIDE 40 MG TAB PO SCH (10:24)
[2016-12-22] MEDS: SPIRONOLACTONE 50 MG TAB PO SCH ×2 (10:24→20:12)
[2016-12-22] MEDS: RIFAXIMIN 550 MG TAB PO SCH ×2 (10:24→21:32)
[2016-12-22] MEDS: DIVALPROEX SODIUM DELAYED RELEASE 250 MG TAB PO SCH ×2 (10:24→21:32)
[2016-12-22] MEDS: FOLIC ACID 1 MG TAB PO SCH (10:24)
[2016-12-22] MEDS: PANTOPRAZOLE SOD 40 MG DELAYED RELEASE TAB PO SCH (10:24)
[2016-12-22] MEDS: FUROSEMIDE 40 MG TAB PO SCH ×2 (10:24→21:32)
[2016-12-22] MEDS: THIAMINE HCL 100 MG TAB PO SCH (10:25)
[2016-12-22] MEDS: LACTULOSE SYRUP 20 GM/30 ML CUP PO SCH ×4 (10:25→21:33)
[2016-12-22] MEDS: hydrOXYzine HCL 25 MG TAB PO PRN (10:27)
[2016-12-22] MEDS: ACETAMINOPHEN 325 MG TAB PO PRN (11:29)
[2016-12-22] MEDS: SODIUM CHLORIDE 0.9% FLUSH 5 ML FLUSH IV FLUSH SCH ×2 (13:34→21:33)
--- NOTE | 2016-12-22 13:38 | HHI.PR ---
Subjective Remarks appears comfortable, ask for pain meds for chest tube site pain Objective Vitals Vital Signs Date Time Temp Pulse Resp B/P Pulse Ox O2 Delivery O2 Flow Rate FiO2 12/22/16 12:00 99.9 117 20 107/73 90 12/22/16 08:00 99.0 120 20 113/75 93 12/22/16 06:37 99.7 113 18 108/60 91 12/22/16 02:00 97.1 92 16 100/60 98 12/22/16 00:09 96 Nasal Cannula 2.00 12/21/16 21:56 112/68 12/21/16 21:25 98.0 88 18 91/55 97 12/21/16 20:00 Room Air 12/21/16 18:45 98.6 98 14 108/69 94 Room Air 12/21/16 18:30 96 16 107/69 96 Nasal Cannula 3 12/21/16 18:15 98 15 104/67 96 Nasal Cannula 3 12/21/16 18:00 96 14 109/68 96 Nasal Cannula 3 12/21/16 17:44 98.5 99 15 107/72 98 Nasal Cannula 5 I/O 12/21/16 12/21/16 12/21/16 12/22/16 12/22/16 12/22/16 07:00 15:00 23:00 07:00 15:00 23:00 Intake Total 180 ml 2 ml 500 ml Output Total 2400 ml Balance 180 ml 2 ml -1900 ml Intake Oral 180 ml IV Total 2 ml Other 500 ml Chest Tube Drainage Total 1200 ml Drainage Total 1200 ml # Voids 1 0 1 # Bowel Movements 0 1 Result Diagram: 12/18/16 1059 12/22/16 0758 Imaging Last Impressions Chest Tube Insertion 12/21/16 1430 Signed Impressions: Service Date/Time: Wednesday, December 21, 2016 15:20 - CONCLUSION: Uncomplicated chest tube placement as above. This was done to facilitate Aspira-drain placement in specials. Grzegorz Kaur MD Chest X-Ray 12/19/16 1341 Signed Impressions: Service Date/Time: Monday, December 19, 2016 13:52 - CONCLUSION: Bibasilar atelectasis. No pneumothorax. Magdiel Lucas MD Catheter Placement X-Ray 12/17/16 0000 Signed Impressions: Service Date/Time: December 12:31 - CONCLUSION: 1. Right-sided tunneled chest tube placement as above. 2. Thoracentesis through the recently placed tube with removal of 800 cc of pleural fluid. Grzegorz Kaur MD Abdomen Ultrasound 12/11/16 0000 Signed Impressions: Service Date/Time: Sunday, December 11, 2016 18:05 - CONCLUSION: No ascites. Jose Jarvis MD Liver Ultrasound 11/26/16 0000 Signed Impressions: Service Date/Time: November 14:23 - CONCLUSION: 1. The portal vein is patent. 2. Multiple gallstones in the gallbladder. No definite biliary tract obstruction. There is thickening of the gallbladder wall with some fluid around the gallbladder. This can be seen with either acute or chronic cholecystitis. This would have to be correlated with patient's physical, clinical exam and lab values. Sudhakar Zapata MD Chest CT 11/25/16 0000 Signed Impressions: Service Date/Time: Friday, November 25, 2016 11:37 - CONCLUSION: Very large right pleural effusion with complete collapse of the right lung. Sudhakar Zapata MD Abdomen/Pelvis CT 11/25/16 0000 Signed Impressions: Service Date/Time: Friday, November 25, 2016 11:37 - CONCLUSION: Large right-sided pleural effusion with adjacent compressive atelectasis of the right lung. There is mass effect on the heart displacing it leftward within the thoracic cavity. There is a large amount of ascites which is not significantly changed as compared to the prior exam. The liver has a cirrhotic appearance. Mary Bradley MD Objective Remarks awake and alert, oriented x 3 lungs decreased breath sounds, no rales or wheezes, slightly decreased breath sounds right side, CT in place- right regular rhythm abdomen soft, nontender extremities no edema, right forearm- phlebitis with surrounding erythema Procedures 11/25/16 right pigtail chest tube placement 11/26/16 right chest tube placement 11/26/16 orotracheal intubation 11/26/16 subclavian central line placement 12/21- right chest tube placement A/P Problem List: (1) Sepsis ICD Code: A41.9 Status: Resolved (2) Respiratory insufficiency ICD Code: R06.89 Status: Acute (3) Pleural effusion, right ICD Code: J90 Status: Acute (4) Collapse of right lung ICD Code: J98.11 Status: Acute (5) Probable pneumonia Status: Acute (6) Seizure ICD Code: R56.9 Status: Acute (7) Liver failure ICD Code: K72.90 Status: Chronic (8) Alcohol dependence ICD Code: F10.20 Status: Chronic (9) Alcohol-induced cirrhosis Status: Chronic Assessment and Plan Aspiration drainage catheter removed 12/[address] Kaur due to pain. Patient continues to have low-grade fever. Continue antibiotics to cover for possible infection at chest tube site. The patient will need to have another catheter placed early this week. He will likely have reaccumulation of fluid over the next couple days. We'll monitor respiratory status. Continue supplemental oxygen. 1. Acute respiratory failure: Improved. Patient extubated. Pulmonology ff. Continue supplemental oxygen. Bronchodilators as needed. 2. Large right pleural effusion with right lung collapse and mass effect: Status post pigtail catheter placement on 11/25/16. The catheter was pulled out by the patient. Chest tube was placed again on 11/26/16. Aspira catheter placed and removed 12/19/16 due to pain. s/p chest tube catheter placed 12/21 3. Alcoholic liver disease, chronic: Continue lactulose, Xifaxan. Gastroenterology has signed off. Continue Inderal, Aldactone, Lasix. 4. Alcohol withdrawal, dependence: Withdrawal resolved. Continue thiamine daily. 5. Sepsis, pneumonia:blood cultures negative. DC Vancomycin. change to po Levaquin 6. Thrombocytopenia: Likely secondary to chronic liver disease. Stable. 7. GI prophylaxis: PPI. 8. DVT prophylaxis: SCDs. Avoid chemical prophylaxis secondary to thrombocytopenia. 9. Nausea/vomiting: Antiemetics as needed. 10. Hepatic encephalopathy: Lactulose, Xifaxan. Right forearm cellulitis with phlebitis- Warm compress to area qid. monitor area Problem Qualifiers (1) Sepsis: Qualified Code: A41.9 - Sepsis, due to unspecified organism (2) Alcohol dependence: Ammon Rosales MD Dec 22, 2016 13:38
--- NOTE | 2016-12-22 18:43 | HHI.PR ---
Subjective Remarks ALERT no sob CXRAY right pleural efffusion Objective Vital Signs Date Time Temp Pulse Resp B/P Pulse Ox O2 Delivery O2 Flow Rate FiO2 12/22/16 17:10 95 Nasal Cannula 2.00 12/22/16 17:00 97.7 94 17 92/55 94 12/22/16 16:00 98.4 97 16 102/62 95 12/22/16 12:00 99.9 117 20 107/73 90 12/22/16 08:00 99.0 120 20 113/75 93 12/22/16 06:37 99.7 113 18 108/60 91 12/22/16 02:00 97.1 92 16 100/60 98 12/22/16 00:09 96 Nasal Cannula 2.00 12/21/16 21:56 112/68 12/21/16 21:25 98.0 88 18 91/55 97 12/21/16 20:00 Room Air 12/21/16 18:45 98.6 98 14 108/69 94 Room Air I/O 12/21/16 12/21/16 12/21/16 12/22/16 12/22/16 12/22/16 07:00 15:00 23:00 07:00 15:00 23:00 Intake Total 180 ml 2 ml 500 ml Output Total 2400 ml 800 ml Balance 180 ml 2 ml -1900 ml -800 ml Intake Oral 180 ml IV Total 2 ml Other 500 ml Chest Tube Drainage Total 1200 ml Drainage Total 1200 ml 800 ml # Voids 1 0 1 # Bowel Movements 0 1 Result Diagram: 12/18/16 1059 12/22/16 0758 Objective Remarks Last Impressions Chest X-Ray 12/11/16 0000 Signed Impressions: Service Date/Time: Sunday, December 11, 2016 18:42 - CONCLUSION: Small left pleural effusion and slight bibasilar atelectasis and/or infiltrate. Jose Jarvis MD Abdomen Ultrasound 12/11/16 0000 Signed Impressions: Service Date/Time: Sunday, December 11, 2016 18:05 - CONCLUSION: No ascites. Jose Jarvis MD Liver Ultrasound 11/26/16 0000 Signed Impressions: Service Date/Time: November 14:23 - CONCLUSION: 1. The portal vein is patent. 2. Multiple gallstones in the gallbladder. No definite biliary tract obstruction. There is thickening of the gallbladder wall with some fluid around the gallbladder. This can be seen with either acute or chronic cholecystitis. This would have to be correlated with patient's physical, clinical exam and lab values. Sudhakar Zapata MD Chest CT 11/25/16 0000 Signed Impressions: Service Date/Time: Friday, November 25, 2016 11:37 - CONCLUSION: Very large right pleural effusion with complete collapse of the right lung. Sudhakar Zapata MD Abdomen/Pelvis CT 11/25/16 0000 Signed Impressions: Service Date/Time: Friday, November 25, 2016 11:37 - CONCLUSION: Large right-sided pleural effusion with adjacent compressive atelectasis of the right lung. There is mass effect on the heart displacing it leftward within the thoracic cavity. There is a large amount of ascites which is not significantly changed as compared to the prior exam. The liver has a cirrhotic appearance. Mary Bradley MD Medications and IVs GENERAL: SKIN: Warm and dry. HEAD: Atraumatic. Normocephalic. EYES: Pupils equal and round. No scleral icterus. No injection or drainage. ENT: No nasal bleeding or discharge. Mucous membranes pink and moist. NECK: Trachea midline. No JVD. CARDIOVASCULAR: Regular rate and rhythm. RESPIRATORY: No accessory muscle use. Clear to auscultation. Breath sounds equal bilaterally.CHEST TBE IN PLACE GASTROINTESTINAL: Abdomen soft, non-tender, nondistended. Hepatic and splenic margins not palpable. MUSCULOSKELETAL: Extremities without clubbing, cyanosis, or edema. No obvious deformities. NEUROLOGICAL: Awake and alert. No obvious cranial nerve deficits. Motor grossly within normal limits. Five out of 5 muscle strength in the arms and legs. Normal speech. PSYCHIATRIC: Appropriate mood and affect; insight and judgment normal. Assessment and Plan Assessment and Plan CLINICALY STABLE CT draining well Cat Shelton MD Dec 22, 2016 18:43
--- NOTE | 2016-12-22 18:44 | HHI.HCPN ---
Reason for visit a. To assist with evaluation and management of symptoms including: dyspnea , encephalopathy; agitation; urinary retention; pain b. To assist medical decision maker(s) with: better understanding of current medical conditions; weighing benefits/burdens of medical treatment options; making medical treatment decisions. . Subjective/Interval History Mr. Arias underwent chest tube change on 12/21/16 with hopes of minimizing pain from the tube. Patient continues to report significant pain at the chest tube site and says it is not getting better. Of course, with his encephalopathy , he is not a very reliable historian. He used 4 doses of Oxycodone 10 over the last 24 hours and one dose of Oxycodone 5. Nursing pain levels are mostly in 6-9 range when the medication is given and the results are usually good. He denies pain any other place. He denies SOB, urinary retention. He tells me his appetite is reasonable. He gets out of bed to use the bathroom. I attempt to discuss goals of medical treatment with him. He says, "I just want to go home and get stronger and go on with my life." He has little insight into his current condition and has little memory of our prior conversations. Tmax on 12/20 was 100.6. HR 94-120; BP wnl; 02 sats as low as 90 and 91 on RA but 95 on 2 L/min Chest tube drained 1200 cc today. Patient voiding well. Bowels moving regularly (on lactulose 45 ml qid). No new CBC. REnal function WNL. Continues on antibiotic therapy. . Family/friend interactions Left message for mother to call me. . Advance Directives Living Will: Never completed Health Care Surrogate: Never completed Durable Power of Junior Software Developer: Never completed Advance Directive Specifics Date completed: Advance directives never completed. . Health Care Surrogate(s): No written designation of health care surrogacy. . Documented care wishes: No written documentation of health care goals/preferences. . Objective Vital Signs Date Time Temp Pulse Resp B/P Pulse Ox O2 Delivery O2 Flow Rate FiO2 12/22/16 17:10 95 Nasal Cannula 2.00 12/22/16 17:00 97.7 94 17 92/55 94 12/22/16 16:00 98.4 97 16 102/62 95 12/22/16 12:00 99.9 117 20 107/73 90 12/22/16 08:00 99.0 120 20 113/75 93 12/22/16 06:37 99.7 113 18 108/60 91 12/22/16 02:00 97.1 92 16 100/60 98 12/22/16 00:09 96 Nasal Cannula 2.00 12/21/16 21:56 112/68 12/21/16 21:25 98.0 88 18 91/55 97 12/21/16 20:00 Room Air 12/21/16 18:45 98.6 98 14 108/69 94 Room Air 12/21/16 18:30 96 16 107/69 96 Nasal Cannula 3 12/21/16 18:15 98 15 104/67 96 Nasal Cannula 3 Intake & Output 12/22/16 12/22/16 07:00 19:00 Output Total 800 ml Balance -800 ml Drainage Total 800 ml # Voids 1 # Bowel Movements 1 . Physical Exam CONSTITUTIONAL/GENERAL: This is an adequately nourished patient,alert, mild confusion. Occasional grimace. TUBES/LINES/DRAINS: peripheral IV UE, right chest tube; CARDIOVASCULAR: Regular rate and rhythm , no murmur. No peripheral edema. No JVD. RESPIRATORY/CHEST: Symmetric, unlabored respirations on room air. Clear, reasonable air movement bilaterally. Bibasilar crackles. Right pleural drainage catheter taped to right thorax. GASTROINTESTINAL: Abdomen soft, nondistended, nontender. No hepato-splenomegaly , or palpable masses. No guarding. Bowel sounds present. NEUROLOGICAL: alert, oriented to person , hospital, [facility]. Very limited insight. Cooperative, follows commands. Speech clear. Moves all extremities. PSYCHIATRIC: no apparent anxiety or hallucination . Diagnostic Tests Laboratory Laboratory Tests Test 12/20/16 12/21/16 12/22/16 00:02 06:24 07:58 Vancomycin Level Trough 12.7 MCG/ML (5.0-10.0) Creatinine 0.51 MG/DL 0.59 MG/DL (0.60-1.30) (0.60-1.30) Estimat Glomerular Filtration 180 ML/MIN 152 ML/MIN Rate (>89) (>89) . Result Diagram: 12/18/16 1059 12/22/16 0758 Microbiology Microbiology Date/Time Procedure Status Source Growth 12/18/16 23:50 Gram Stain - Final Complete Wound Chest 12/18/16 23:50 Wound Culture - Final Complete Wound Chest MODERATE GROWTH NORMAL SKIN LM... . Imaging Last Impressions Chest Tube Insertion 12/21/16 1430 Signed Impressions: Service Date/Time: Wednesday, December 21, 2016 15:20 - CONCLUSION: Uncomplicated chest tube placement as above. This was done to facilitate Aspira-drain placement in specials. Grzegorz Kaur MD Chest X-Ray 12/19/16 1341 Signed Impressions: Service Date/Time: Monday, December 19, 2016 13:52 - CONCLUSION: Bibasilar atelectasis. No pneumothorax. Magdiel Lucas MD Catheter Placement X-Ray 12/17/16 0000 Signed Impressions: Service Date/Time: December 12:31 - CONCLUSION: 1. Right-sided tunneled chest tube placement as above. 2. Thoracentesis through the recently placed tube with removal of 800 cc of pleural fluid. Grzegorz Kaur MD Abdomen Ultrasound 12/11/16 0000 Signed Impressions: Service Date/Time: Sunday, December 11, 2016 18:05 - CONCLUSION: No ascites. Jose Jarvis MD Liver Ultrasound 11/26/16 0000 Signed Impressions: Service Date/Time: November 14:23 - CONCLUSION: 1. The portal vein is patent. 2. Multiple gallstones in the gallbladder. No definite biliary tract obstruction. There is thickening of the gallbladder wall with some fluid around the gallbladder. This can be seen with either acute or chronic cholecystitis. This would have to be correlated with patient's physical, clinical exam and lab values. Sudhakar Zapata MD Chest CT 11/25/16 0000 Signed Impressions: Service Date/Time: Friday, November 25, 2016 11:37 - CONCLUSION: Very large right pleural effusion with complete collapse of the right lung. Sudhakar Zapata MD Abdomen/Pelvis CT 11/25/16 0000 Signed Impressions: Service Date/Time: Friday, November 25, 2016 11:37 - CONCLUSION: Large right-sided pleural effusion with adjacent compressive atelectasis of the right lung. There is mass effect on the heart displacing it leftward within the thoracic cavity. There is a large amount of ascites which is not significantly changed as compared to the prior exam. The liver has a cirrhotic appearance. Mary Bradley MD . Procedures * Right chest pig-tail catheter placement * right chest tube placement * Intubation/mechanical ventilation * Right subclavian central line placement. . 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 No evidence of infection at this time. Patient had similar presentation at time of his last admission at end of Jul 2016. . . (2) Collapse of right lung Comment: Due to pleural effusion. Chest tube in place with re-expansion. . (3) Probable pneumonia (4) Hepatic encephalopathy Comment: Appears chronic at this time. . (5) Respiratory insufficiency Comment: Probably due to the large pleural effusion. . (6) Ascites (7) Alcohol-induced cirrhosis (8) Portal hypertension (9) Urinary retention Comment: Began when zayas was discontinued. Probably just from post-zayas swelling. Possibly exacerbated by morphine. Resolved. . Symptom Scale: (1) Pain 0-10 Scale: Unable to quantify Comment: Patient had not significant pre-hospital pain syndromes. Has had significant pain at chest tube site. Hopefully, with chest tube change and re- direction of catheter this will be resolved. . . (2) Dyspnea 0-10 Scale: 0 Comment: Patient had significant dyspnea from his pleural effusion. Significantimprovement post thoracentesis and chest tube placement. Sats still low on RA. . 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 Mental status began to decline when patient started drinking again approximately one month ago. Also declined to take lactulose at home as directed. Even with hospital care, no alcohol, and regular lactulose, encephalopathy is still apparent. Probably chronic changes. . . (4) Agitation 0-10 Scale: Unable to quantify Comment: Probably a combination of EtOH withdrawal and delirium. Improved. Agitation level certainly much better to date than during hospitalization of Jul-Aug 2016. . . Pertinent Non-Medical Issues Psychosocial: Patient psychosocial support comes primarily from his mother and his brother. The patient lives with his brother who is currently unemployed. The patient's mother visits several times a day. Spiritual: Cheondoism Legal: No advance directives Ethical issues impacting care: Patient is incapacitated; it is still unclear if he will regain capacity to make his own health care decisions. . Important Contacts * Catherine Arias (mother and proxy decision maker) [phone] . Prognosis The patient was critically ill and initially required mechanical ventilation in an intensive care unit bed. He required chest tube placement. Though he is relatively young, his resilience is undoubtedly impacted by his history of alcohol abuse. If the patient is able to avoid other significant complications he should be able to survive the hospitalization. He is certainly at risk for infection and possible hepatorenal syndrome. Based on his recent history he may have enough functioning liver to allow survival if he completely abstains from alcohol. It is becoming quite clear that any alcohol use leads to critical illness relatively quickly. Some of his encephalopathy may be permanent at this time. Per family, patient has refused any help for his alcoholism or depression and he continues to decline. Patient, however, has refused DNR status and has told his family several times that he wants ongoing aggressive care. . Code Status: Full Code Plan == CODE STATUS: FULL CODE . Patient has told family members that he wants to remain a "full code." == Decision-making: Patient is currently incapacitated to make his own health care decisions. He has little insight into his own illness and cannot remember prior conversations. It is not known if he will regain capacity to do so. There is no written designation of health care surrogate. As the patient is not , and has no adult children or surviving father, healthcare decision- making falls to his mother. She is making those decisions with the input of the patient's brother. == Goals of medical treatment: The patient has told both his mother and his brother that he would want ongoing aggressive treatment including resuscitation attempts. His goals have been confusing, however.. He has made it clear he wants to be kept alive. On the other hand, he continues to refuse help with his alcoholism or depression. While he doesn't want to sign a DNR, he has wanted to remain with hospice. == Pain: Pain had not been a significant problem for this patient prior to this admission. Patient has had ongoing problems with pain at his right chest tube site. Pleural drainage catheter was replaced and re-directed on 12/21/16 and we are hoping this will resolve pain issue. Patient has order for PRN oxycodone which appears to be adequate. No further recommendations at this time. == Dyspnea: Patient came in with a very large right pleural effusion with respiratory distress. After initial drainage, the inserted pigtail catheter was unintentionally removed by the patient. There was rapid reaccumulation of fluid. A chest tube was placed. Patient was extubated 11/28. He has continued to drain large volumes of pleural fluid probably from cirrhosis induced hydrothorax. A pleural drainage cathter has been placed but was causing pain and had to be replaced and re-positioned. == Encephalopathy; Though encephalopathy has improved since admission, he continues to have some mild encephalopathy in spite of being off alcohol, using lactulose regularly, and being fed well. Some of this encephalopathy is likley going to be permanent. No further recommendations at this time. . == prev. w urinary retention, now voiding adequately. == Agitation: Patient was severely agitated during his last admission. It was agitation that cause the long length of stay. fortunately, this has not been as significant an issue on this admission. Current med regimen appears effective. No further recommendations at this time. == Depression: Per patient's mother, patient has had a several year period of significant depression. Currently on citalopram. No further recommendations at this time. == Patient has little insight into his own illness but continues to want aggressive care when asked. Family will likely yield to his wishes. Goals therefore, are not hospice appropriate. If hospice enrolls him, patient will likely return to the ED as soon as family is concerned about decline. I have put a call into patient's mother (his proxy) to discuss goals further in an effort to help with a discharge plan. Patient should probably not be in a situation where he is left alone for prolonged periods of time. == Discharge planning might also depend on how long patient will continue to need IV antibiotics. == Palliative care will continue to follow to assist with symptom management and to further clarify goals of medical treatment as the clinical course evolves. . Attestation To help prompt me to consider important information that might be impacting today's encounter and assessment, information from prior notes written by myself or my colleagues may have been "brought forward" into today's note. My signature on this note, however, is an attestation that I personally performed the exam, history, and/or decision-making noted today, and, unless otherwise indicated, the interactions with patient, family, and staff as well as the review of records all occurred today. I also attest that the listed assessment and stated plan reflect my best clinical judgment today based on the combination of historical information, prior notes, and today's exam/ interactions. When time spent is documented, it refers only to time spent today by the signer, or if indicated, combined time spent today by collaborating physician/nurse practitioner. . Harshal Funk MD Dec 22, 2016 18:44
[2016-12-22] MEDS: CHLORHEXIDINE 0.12% (ORAL KIT) 15 ML CUP MT SCH (20:00)
[2016-12-22] MEDS: CEPHALEXIN MONOHYDRATE 500 MG CAP PO SCH (20:12)
[2016-12-22] MEDS: LEVOFLOXACIN 500 MG PREMIX INJ 100 ML IV SCH (20:14)
[2016-12-23] VITALS (10 sets, daily range): BP systolic 100–126; BP diastolic 59–79; PULSE 90–133; RESP 16–20; TEMP 96–99.5; O2SAT 90–96
[2016-12-23] MEDS: CEPHALEXIN MONOHYDRATE 500 MG CAP PO SCH ×4 (00:36→18:13)
[2016-12-23] MEDS ORDERED: PHARMACY ORDERED LAB XX ONE (05:45)
[2016-12-23] MEDS: VANCOMYCIN INJ 1,500 MG in SODIUM CHLORID 0.9% 500 ML INJ 500 ML IV SCH (06:12)
[2016-12-23] MEDS: SPIRONOLACTONE 50 MG TAB PO SCH ×2 (09:30→18:13)
[2016-12-23] MEDS: FUROSEMIDE 40 MG TAB PO SCH ×2 (09:30→20:34)
[2016-12-23] MEDS: MULTIVITAMIN TAB PO SCH (09:30)
[2016-12-23] MEDS: FOLIC ACID 1 MG TAB PO SCH (09:30)
[2016-12-23] MEDS: PANTOPRAZOLE SOD 40 MG DELAYED RELEASE TAB PO SCH (09:30)
[2016-12-23] MEDS: DIVALPROEX SODIUM DELAYED RELEASE 250 MG TAB PO SCH ×2 (09:30→20:34)
[2016-12-23] MEDS: THIAMINE HCL 100 MG TAB PO SCH (09:30)
[2016-12-23] MEDS: hydrOXYzine HCL 25 MG TAB PO PRN (09:30)
[2016-12-23] MEDS: RIFAXIMIN 550 MG TAB PO SCH ×2 (09:30→20:34)
[2016-12-23] MEDS: CITALOPRAM HYDROBROMIDE 40 MG TAB PO SCH (09:30)
[2016-12-23] MEDS: LACTULOSE SYRUP 20 GM/30 ML CUP PO SCH ×4 (09:31→20:35)
[2016-12-23] MEDS: SODIUM CHLORIDE 0.9% FLUSH 5 ML FLUSH IV FLUSH SCH ×2 (09:31→20:28)
--- NOTE | 2016-12-23 10:56 | RADRPT ---
EXAM DATE/TIME: 12/23/2016 10:41 [facility] COMPARISON: CHEST SINGLE AP, December 19, 2016, 13:52. INDICATIONS : Pleural effusion. MEDICAL HISTORY : Pneumonia, sepsis, liver failure, ascities, seizure. SURGICAL HISTORY : None. ENCOUNTER: Subsequent ACUITY: 1 month PAIN SCORE: 0/10 LOCATION: Bilateral chest FINDINGS: A single view of the chest demonstrates the lungs to be symmetrically, but under aerated with bibasil ar atelectatic changes/scarring. Right pleural drainage catheter is identified with the tip identifie d inferomedially. No significant effusion on the right. Small effusion on the left. Heart size is nor mal. Osseous structures are intact. CONCLUSION: 1. Right-sided thoracostomy tube is appropriately positioned. 2. Probable small left-sided effusion. No significant effusion on the right. 3. Persistent bibasilar atelectatic changes/scarring. No pneumothorax. Grzegorz Kaur MD on December 23, 2016 at 10:52 Board Certified Radiologist. This report was verified electronically.
--- NOTE | 2016-12-23 11:09 | HHI.PR ---
Subjective Remarks d/w Dr. Kaur- Aspira drain inplace- draining well- plan to drain 500 cc daily for next 7 days and reassess Objective Vitals Vital Signs Date Time Temp Pulse Resp B/P Pulse Ox O2 Delivery O2 Flow Rate FiO2 12/23/16 08:00 99.0 106 20 107/65 90 12/23/16 04:21 99.2 90 18 126/79 95 12/23/16 00:24 99.1 113 20 108/67 96 12/22/16 20:30 98.0 71 17 120/56 96 12/22/16 20:00 98.5 100 18 104/67 95 12/22/16 19:00 Nasal Cannula 2.00 12/22/16 17:10 95 Nasal Cannula 2.00 12/22/16 17:00 97.7 94 17 92/55 94 12/22/16 16:00 98.4 97 16 102/62 95 12/22/16 12:00 99.9 117 20 107/73 90 I/O 12/22/16 12/22/16 12/22/16 12/23/16 12/23/16 12/23/16 07:00 15:00 23:00 07:00 15:00 23:00 Intake Total 850 ml 400 ml Output Total 2200 ml 250 ml Balance -1350 ml 150 ml Intake Oral 850 ml 400 ml Output Urine Total 1400 ml 250 ml Drainage Total 800 ml # Voids 1 # Bowel Movements 1 0 0 Result Diagram: 12/23/16 0852 Objective Remarks awake and alert, oriented x 3 lungs decreased breath sounds, no rales or wheezes, slightly decreased breath sounds right side, CT in place- right regular rhythm abdomen soft, nontender extremities no edema, right forearm- phlebitis with surrounding erythema Procedures 11/25/16 right pigtail chest tube placement 11/26/16 right chest tube placement 11/26/16 orotracheal intubation 11/26/16 subclavian central line placement 12/21- right chest tube placement A/P Problem List: (1) Sepsis ICD Code: A41.9 Status: Resolved (2) Respiratory insufficiency ICD Code: R06.89 Status: Acute (3) Pleural effusion, right ICD Code: J90 Status: Acute (4) Collapse of right lung ICD Code: J98.11 Status: Acute (5) Probable pneumonia Status: Acute (6) Seizure ICD Code: R56.9 Status: Acute (7) Liver failure ICD Code: K72.90 Status: Chronic (8) Alcohol dependence ICD Code: F10.20 Status: Chronic (9) Alcohol-induced cirrhosis Status: Chronic Assessment and Plan Aspiration drainage catheter removed 12/[address] Kaur due to pain. Patient continues to have low-grade fever. Continue antibiotics to cover for possible infection at chest tube site. The patient will need to have another catheter placed early this week. He will likely have reaccumulation of fluid over the next couple days. We'll monitor respiratory status. Continue supplemental oxygen. 1. Acute respiratory failure: Improved. Patient extubated. Pulmonology ff. Continue supplemental oxygen. Bronchodilators as needed. 2. Large right pleural effusion with right lung collapse and mass effect: Status post pigtail catheter placement on 11/25/16. The catheter was pulled out by the patient. Chest tube was placed again on 11/26/16. Aspira catheter placed and removed 12/19/16 due to pain. s/p chest tube catheter placed 12/21. d/w Dr. Kaur 12/23- drain daily about 500 cc then stop when pain occurs. for the next 10 days then will reassess 3. Alcoholic liver disease, chronic: Continue lactulose, Xifaxan. Gastroenterology has signed off. Continue Inderal, Aldactone, Lasix. 4. Alcohol withdrawal, dependence: Withdrawal resolved. Continue thiamine daily. 5. Sepsis, pneumonia:blood cultures negative. DC Vancomycin. change to po Levaquin 6. Thrombocytopenia: Likely secondary to chronic liver disease. Stable. 7. GI prophylaxis: PPI. 8. DVT prophylaxis: SCDs. Avoid chemical prophylaxis secondary to thrombocytopenia. 9. Nausea/vomiting: Antiemetics as needed. 10. Hepatic encephalopathy: Lactulose, Xifaxan. Right forearm cellulitis with phlebitis- Warm compress to area qid. monitor area Problem Qualifiers (1) Sepsis: Qualified Code: A41.9 - Sepsis, due to unspecified organism (2) Alcohol dependence: Ammon Rosales MD Dec 23, 2016 11:09
--- NOTE | 2016-12-23 19:04 | HHI.PR ---
Subjective Remarks ALERT no sob CXRAY right pleural efffusion Objective Vital Signs Date Time Temp Pulse Resp B/P Pulse Ox O2 Delivery O2 Flow Rate FiO2 12/23/16 18:36 92 21 12/23/16 16:00 99.5 133 18 100/78 91 12/23/16 12:56 93 12/23/16 12:00 99.3 121 20 109/59 90 12/23/16 08:00 96 Nasal Cannula 2.00 21 12/23/16 08:00 102 12/23/16 08:00 99.0 106 20 107/65 90 12/23/16 04:21 99.2 90 18 126/79 95 12/23/16 00:24 99.1 113 20 108/67 96 12/22/16 20:30 98.0 71 17 120/56 96 12/22/16 20:00 98.5 100 18 104/67 95 I/O 12/22/16 12/22/16 12/22/16 12/23/16 12/23/16 12/23/16 07:00 15:00 23:00 07:00 15:00 23:00 Intake Total 850 ml 400 ml Output Total 2200 ml 250 ml 800 ml Balance -1350 ml 150 ml -800 ml Intake Oral 850 ml 400 ml Output Urine Total 1400 ml 250 ml Chest Tube Drainage Total 800 ml Drainage Total 800 ml # Voids 1 # Bowel Movements 1 0 0 Result Diagram: 12/23/16 0852 Objective Remarks Last Impressions Chest X-Ray 12/11/16 0000 Signed Impressions: Service Date/Time: Sunday, December 11, 2016 18:42 - CONCLUSION: Small left pleural effusion and slight bibasilar atelectasis and/or infiltrate. Jose Jarvis MD Abdomen Ultrasound 12/11/16 0000 Signed Impressions: Service Date/Time: Sunday, December 11, 2016 18:05 - CONCLUSION: No ascites. Jose Jarvis MD Liver Ultrasound 11/26/16 0000 Signed Impressions: Service Date/Time: November 14:23 - CONCLUSION: 1. The portal vein is patent. 2. Multiple gallstones in the gallbladder. No definite biliary tract obstruction. There is thickening of the gallbladder wall with some fluid around the gallbladder. This can be seen with either acute or chronic cholecystitis. This would have to be correlated with patient's physical, clinical exam and lab values. Sudhakar Zapata MD Chest CT 11/25/16 0000 Signed Impressions: Service Date/Time: Friday, November 25, 2016 11:37 - CONCLUSION: Very large right pleural effusion with complete collapse of the right lung. Sudhakar Zapata MD Abdomen/Pelvis CT 11/25/16 0000 Signed Impressions: Service Date/Time: Friday, November 25, 2016 11:37 - CONCLUSION: Large right-sided pleural effusion with adjacent compressive atelectasis of the right lung. There is mass effect on the heart displacing it leftward within the thoracic cavity. There is a large amount of ascites which is not significantly changed as compared to the prior exam. The liver has a cirrhotic appearance. Mary Bradley MD Medications and IVs GENERAL: SKIN: Warm and dry. HEAD: Atraumatic. Normocephalic. EYES: Pupils equal and round. No scleral icterus. No injection or drainage. ENT: No nasal bleeding or discharge. Mucous membranes pink and moist. NECK: Trachea midline. No JVD. CARDIOVASCULAR: Regular rate and rhythm. RESPIRATORY: No accessory muscle use. Clear to auscultation. Breath sounds equal bilaterally. GASTROINTESTINAL: Abdomen soft, non-tender, nondistended. Hepatic and splenic margins not palpable. MUSCULOSKELETAL: Extremities without clubbing, cyanosis, or edema. No obvious deformities. NEUROLOGICAL: Awake and alert. No obvious cranial nerve deficits. Motor grossly within normal limits. Five out of 5 muscle strength in the arms and legs. Normal speech. PSYCHIATRIC: Appropriate mood and affect; insight and judgment normal. Assessment and Plan Assessment and Plan CLINICALY STABLE CT draining well Cat Shelton MD Dec 23, 2016 19:04
[2016-12-23] MEDS: CHLORHEXIDINE 0.12% (ORAL KIT) 15 ML CUP MT SCH (20:00)
[2016-12-23] MEDS: LEVOFLOXACIN 500 MG PREMIX INJ 100 ML IV SCH (20:34)
[2016-12-23] MEDS: VANCOMYCIN INJ 1,250 MG in SODIUM CHLOR 0.9% 250 ML INJ 250 ML IV SCH (22:07)
[2016-12-24] VITALS (8 sets, daily range): BP systolic 99–148; BP diastolic 49–72; PULSE 94–114; RESP 18–20; TEMP 97.9–99.6; O2SAT 92–94
[2016-12-24] MEDS: CEPHALEXIN MONOHYDRATE 500 MG CAP PO SCH ×4 (00:33→17:58)
[2016-12-24] MEDS: VANCOMYCIN INJ 1,250 MG in SODIUM CHLOR 0.9% 250 ML INJ 250 ML IV SCH (05:10)
[2016-12-24] MEDS: CHLORHEXIDINE 0.12% (ORAL KIT) 15 ML CUP MT SCH ×2 (08:00→20:00)
--- NOTE | 2016-12-24 08:49 | HHI.PR ---
Subjective Remarks ALERT no sob CXRAY right pleural efffusion Objective Vital Signs Date Time Temp Pulse Resp B/P Pulse Ox O2 Delivery O2 Flow Rate FiO2 12/24/16 04:00 98.7 102 20 99/65 94 12/24/16 00:00 98.3 110 20 110/49 94 12/23/16 20:05 96.0 120 16 112/66 92 12/23/16 19:00 Nasal Cannula 2.00 21 12/23/16 18:55 96.0 120 16 112/66 92 12/23/16 18:36 92 21 12/23/16 16:55 96.0 112 16 112/66 92 12/23/16 16:00 99.4 115 20 112/64 92 12/23/16 16:00 99.5 133 18 100/78 91 12/23/16 12:56 93 12/23/16 12:00 99.3 121 20 109/59 90 I/O 12/23/16 12/23/16 12/23/16 12/24/16 12/24/16 12/24/16 07:00 15:00 23:00 07:00 15:00 23:00 Intake Total 400 ml 360 ml 240 ml 300 ml Output Total 250 ml 800 ml Balance 150 ml -440 ml 240 ml 300 ml Intake Oral 400 ml 360 ml 240 ml 300 ml Output Urine Total 250 ml Chest Tube Drainage Total 800 ml # Voids 1 5 3 # Bowel Movements 0 1 1 2 Result Diagram: 12/23/16 0852 Objective Remarks Last Impressions Chest X-Ray 12/11/16 0000 Signed Impressions: Service Date/Time: Sunday, December 11, 2016 18:42 - CONCLUSION: Small left pleural effusion and slight bibasilar atelectasis and/or infiltrate. Jose Jarvis MD Abdomen Ultrasound 12/11/16 0000 Signed Impressions: Service Date/Time: Sunday, December 11, 2016 18:05 - CONCLUSION: No ascites. Jose Jarvis MD Liver Ultrasound 11/26/16 0000 Signed Impressions: Service Date/Time: November 14:23 - CONCLUSION: 1. The portal vein is patent. 2. Multiple gallstones in the gallbladder. No definite biliary tract obstruction. There is thickening of the gallbladder wall with some fluid around the gallbladder. This can be seen with either acute or chronic cholecystitis. This would have to be correlated with patient's physical, clinical exam and lab values. Sudhakar Zapata MD Chest CT 11/25/16 0000 Signed Impressions: Service Date/Time: Friday, November 25, 2016 11:37 - CONCLUSION: Very large right pleural effusion with complete collapse of the right lung. Sudhakar Zapata MD Abdomen/Pelvis CT 11/25/16 0000 Signed Impressions: Service Date/Time: Friday, November 25, 2016 11:37 - CONCLUSION: Large right-sided pleural effusion with adjacent compressive atelectasis of the right lung. There is mass effect on the heart displacing it leftward within the thoracic cavity. There is a large amount of ascites which is not significantly changed as compared to the prior exam. The liver has a cirrhotic appearance. Mary Bradley MD Medications and IVs GENERAL: SKIN: Warm and dry. HEAD: Atraumatic. Normocephalic. EYES: Pupils equal and round. No scleral icterus. No injection or drainage. ENT: No nasal bleeding or discharge. Mucous membranes pink and moist. NECK: Trachea midline. No JVD. CARDIOVASCULAR: Regular rate and rhythm. RESPIRATORY: No accessory muscle use. Clear to auscultation. Breath sounds equal bilaterally. GASTROINTESTINAL: Abdomen soft, non-tender, nondistended. Hepatic and splenic margins not palpable. MUSCULOSKELETAL: Extremities without clubbing, cyanosis, or edema. No obvious deformities. NEUROLOGICAL: Awake and alert. No obvious cranial nerve deficits. Motor grossly within normal limits. Five out of 5 muscle strength in the arms and legs. Normal speech. PSYCHIATRIC: Appropriate mood and affect; insight and judgment normal. Assessment and Plan Assessment and Plan CLINICALY STABLE CT draining well Cat Shelton MD Dec 24, 2016 08:49
[2016-12-24] MEDS: SODIUM CHLORIDE 0.9% FLUSH 5 ML FLUSH IV FLUSH SCH ×2 (09:00→22:24)
[2016-12-24] MEDS: LACTULOSE SYRUP 20 GM/30 ML CUP PO SCH ×4 (09:33→22:24)
[2016-12-24] MEDS: RIFAXIMIN 550 MG TAB PO SCH ×2 (09:34→22:23)
[2016-12-24] MEDS: FUROSEMIDE 40 MG TAB PO SCH ×2 (09:34→22:23)
[2016-12-24] MEDS: SPIRONOLACTONE 50 MG TAB PO SCH ×2 (09:34→17:58)
[2016-12-24] MEDS: FOLIC ACID 1 MG TAB PO SCH (09:34)
[2016-12-24] MEDS: DIVALPROEX SODIUM DELAYED RELEASE 250 MG TAB PO SCH ×2 (09:34→22:23)
[2016-12-24] MEDS: MULTIVITAMIN TAB PO SCH (09:34)
[2016-12-24] MEDS: PANTOPRAZOLE SOD 40 MG DELAYED RELEASE TAB PO SCH (09:34)
[2016-12-24] MEDS: THIAMINE HCL 100 MG TAB PO SCH (09:34)
[2016-12-24] MEDS: CITALOPRAM HYDROBROMIDE 40 MG TAB PO SCH (09:34)
--- NOTE | 2016-12-24 10:25 | HHI.PR ---
Subjective Remarks patient in a pleasant and good mood, no complains of pain aware of the plan of draining chest tube daily- drained this am about 500 cc- tolerated well Objective Vitals Vital Signs Date Time Temp Pulse Resp B/P Pulse Ox O2 Delivery O2 Flow Rate FiO2 12/24/16 08:08 98.3 104 18 99/54 92 12/24/16 07:15 Nasal Cannula 2.00 21 12/24/16 04:00 98.7 102 20 99/65 94 12/24/16 00:00 98.3 110 20 110/49 94 12/23/16 20:05 96.0 120 16 112/66 92 12/23/16 19:00 Nasal Cannula 2.00 21 12/23/16 18:55 96.0 120 16 112/66 92 12/23/16 18:36 92 21 12/23/16 16:55 96.0 112 16 112/66 92 12/23/16 16:00 99.4 115 20 112/64 92 12/23/16 16:00 99.5 133 18 100/78 91 12/23/16 12:56 93 12/23/16 12:00 99.3 121 20 109/59 90 I/O 12/23/16 12/23/16 12/23/16 12/24/16 12/24/16 12/24/16 07:00 15:00 23:00 07:00 15:00 23:00 Intake Total 400 ml 360 ml 240 ml 300 ml Output Total 250 ml 800 ml Balance 150 ml -440 ml 240 ml 300 ml Intake Oral 400 ml 360 ml 240 ml 300 ml Output Urine Total 250 ml Chest Tube Drainage Total 800 ml # Voids 1 5 3 # Bowel Movements 0 1 1 2 Result Diagram: 12/23/16 0852 Imaging Last Impressions Chest X-Ray 12/23/16 1028 Signed Impressions: Service Date/Time: Friday, December 23, 2016 10:41 - CONCLUSION: 1. Right-sided thoracostomy tube is appropriately positioned. 2. Probable small left-sided effusion. No significant effusion on the right. 3. Persistent bibasilar atelectatic changes/scarring. No pneumothorax. Grzegorz Kaur MD Chest Tube Insertion 12/21/16 1430 Signed Impressions: Service Date/Time: Wednesday, December 21, 2016 15:20 - CONCLUSION: Uncomplicated chest tube placement as above. This was done to facilitate Aspira-drain placement in specials. Grzegorz Kaur MD Catheter Placement X-Ray 12/17/16 0000 Signed Impressions: Service Date/Time: December 12:31 - CONCLUSION: 1. Right-sided tunneled chest tube placement as above. 2. Thoracentesis through the recently placed tube with removal of 800 cc of pleural fluid. Grzegorz Kaur MD Abdomen Ultrasound 12/11/16 0000 Signed Impressions: Service Date/Time: Sunday, December 11, 2016 18:05 - CONCLUSION: No ascites. Jose Jarvis MD Liver Ultrasound 11/26/16 0000 Signed Impressions: Service Date/Time: November 14:23 - CONCLUSION: 1. The portal vein is patent. 2. Multiple gallstones in the gallbladder. No definite biliary tract obstruction. There is thickening of the gallbladder wall with some fluid around the gallbladder. This can be seen with either acute or chronic cholecystitis. This would have to be correlated with patient's physical, clinical exam and lab values. Sudhakar Zapata MD Chest CT 11/25/16 0000 Signed Impressions: Service Date/Time: Friday, November 25, 2016 11:37 - CONCLUSION: Very large right pleural effusion with complete collapse of the right lung. Sudhakar Zapata MD Abdomen/Pelvis CT 11/25/16 0000 Signed Impressions: Service Date/Time: Friday, November 25, 2016 11:37 - CONCLUSION: Large right-sided pleural effusion with adjacent compressive atelectasis of the right lung. There is mass effect on the heart displacing it leftward within the thoracic cavity. There is a large amount of ascites which is not significantly changed as compared to the prior exam. The liver has a cirrhotic appearance. Mary Bradley MD Objective Remarks awake and alert, oriented x 3 lungs decreased breath sounds, no rales or wheezes, slightly decreased breath sounds right side, CT in place- right regular rhythm abdomen soft, nontender extremities no edema, right forearm- phlebitis with surrounding erythema- improving on exam- Procedures 11/25/16 right pigtail chest tube placement 11/26/16 right chest tube placement 11/26/16 orotracheal intubation 11/26/16 subclavian central line placement 12/21- right chest tube placement A/P Problem List: (1) Sepsis ICD Code: A41.9 Status: Resolved (2) Respiratory insufficiency ICD Code: R06.89 Status: Acute (3) Pleural effusion, right ICD Code: J90 Status: Acute (4) Collapse of right lung ICD Code: J98.11 Status: Acute (5) Probable pneumonia Status: Acute (6) Seizure ICD Code: R56.9 Status: Acute (7) Liver failure ICD Code: K72.90 Status: Chronic (8) Alcohol dependence ICD Code: F10.20 Status: Chronic (9) Alcohol-induced cirrhosis Status: Chronic Assessment and Plan Aspiration drainage catheter removed 12/[address] Kaur due to pain. Patient continues to have low-grade fever. Continue antibiotics to cover for possible infection at chest tube site. The patient will need to have another catheter placed early this week. He will likely have reaccumulation of fluid over the next couple days. We'll monitor respiratory status. Continue supplemental oxygen. 1. Acute respiratory failure: Improved. Patient extubated. Pulmonology ff. Continue supplemental oxygen. Bronchodilators as needed. 2. Large right pleural effusion with right lung collapse and mass effect: Status post pigtail catheter placement on 11/25/16. The catheter was pulled out by the patient. Chest tube was placed again on 11/26/16. Aspira catheter placed 12/17/16 and removed 12/19/16 due to pain. s/p chest tube catheter placed 12/21. d/w Dr. Kaur 12/23- drain daily about 500 cc then stop when pain occurs. for the next 10 days then will reassess 3. Alcoholic liver disease, chronic: Continue lactulose, Xifaxan. Gastroenterology has signed off. Continue Inderal, Aldactone, Lasix. 4. Alcohol withdrawal, dependence: Withdrawal resolved. Continue thiamine daily. 5. Sepsis, pneumonia:blood cultures negative.fluid cultures negative. DC Vancomycin. continue Levaquin 6. Thrombocytopenia: Likely secondary to chronic liver disease. Stable. 7. GI prophylaxis: PPI. 8. DVT prophylaxis: SCDs. Avoid chemical prophylaxis secondary to thrombocytopenia. 9. Nausea/vomiting: Antiemetics as needed. 10. Hepatic encephalopathy: Lactulose, Xifaxan. Right forearm cellulitis with phlebitis- noted 12/23-- Improving Warm compress to area qid. monitor area Cephalexin 500 mg po qid Problem Qualifiers (1) Sepsis: Qualified Code: A41.9 - Sepsis, due to unspecified organism (2) Alcohol dependence: Ammon Rosales MD Dec 24, 2016 10:25
--- NOTE | 2016-12-24 11:40 | HHI.HCPN ---
Reason for visit a. To assist with evaluation and management of symptoms including: dyspnea , encephalopathy; agitation; urinary retention; pain b. To assist medical decision maker(s) with: better understanding of current medical conditions; weighing benefits/burdens of medical treatment options; making medical treatment decisions. . Subjective/Interval History Mr. Arias is awake and alert. He converses easily and seems cognitively sharp with superficial conversation but when I ask him what city this is , he says, "[place]." He thought the President was Miguel Ángel Thomas and when I said there is a new one now, he said, "Oh yeah -- [place]." He often repeats himself. He continues to complain of chest pain. It is worse with deep breathing and coughing. It is not positional. He said the pain was due to the pleural drain , but then pointed to where he thought the drain was on his left side (not the right). He said most of his pain is all across the chest. He denies SOB. He tells me his bowels are moving and he has no difficulty urinating. He is steady on his feet. He says keeping his spirits up is challenging. He wants to go home but is not sure how he is going to manage there. Used total of 20 mg of prn oxycodone on 12/23/16. Nursing pain level scores show pain at #8-9 when meds are given. I met with [facility] leadership on 12/23/16 to discuss this patient. It was felt that since goals remain aggressive and he had already revoked hospice once when he got ill, it was not appropriate to re-enroll him in hospice until such time as goals clearly change. We discussed other options including [facility] which might prove to be a better post- discharge plan if we can find a physician to oversee the home health care. Tmax 98.7; RR 16-20; 02 sats 92-94 on 2 L/min; BP 99-126- 54- 79 Chest tube drainage 800 cc Bowels moving. Voiding well. EAting well at dinner , but breakfast and lunch consumption is variable. . Family/friend interactions Spoke with patient's mother by phone evening of 12/23/16. Discussed patients current condition and prognosis. We discussed likelihood of ongoing need for pleural drainage and how the encepahlopathy we currently see may be permanent. We discussed risks post discharge including -- patient becoming confused and pulling out pleural drain; infection; full hepatic failure if he begins drinking again; etc. Mother confirmed that goals remains aggressive and that once discharged, should he become ill again, she would want him re-hospitalized and to undergo any necessary treatments. We discussed how hospice would not be appropriate given those goals and she was quite understanding. She very much wants to get patient home once need for acute care hospitalization ends. We discussed the possibility of [facility] if we can find a physician and if he qualifies. We discussed how home health would teach caregivers how to manage pleural drain. Mother reports that her sister will be moving here to help . She was fine with being taught how to care for the catheter. She also told me that the patient's brother is holding down a job now and there is less of a chance that the two of them would be bad for each other. I spoke with Sydni at case management and updated her on this conversation. . Advance Directives Living Will: Never completed Health Care Surrogate: Never completed Durable Power of Chair Post Machine Operator: Never completed Advance Directive Specifics Date completed: Advance directives never completed. . Health Care Surrogate(s): No written designation of health care surrogacy. . Documented care wishes: No written documentation of health care goals/preferences. . Objective Vital Signs Date Time Temp Pulse Resp B/P Pulse Ox O2 Delivery O2 Flow Rate FiO2 12/24/16 08:08 98.3 104 18 99/54 92 12/24/16 07:15 Nasal Cannula 2.00 21 12/24/16 04:00 98.7 102 20 99/65 94 12/24/16 00:00 98.3 110 20 110/49 94 12/23/16 20:05 96.0 120 16 112/66 92 12/23/16 19:00 Nasal Cannula 2.00 21 12/23/16 18:55 96.0 120 16 112/66 92 12/23/16 18:36 92 21 12/23/16 16:55 96.0 112 16 112/66 92 12/23/16 16:00 99.4 115 20 112/64 92 12/23/16 16:00 99.5 133 18 100/78 91 12/23/16 12:56 93 12/23/16 12:00 99.3 121 20 109/59 90 Intake & Output 12/24/16 12/24/16 07:00 19:00 Intake Total 240 ml 300 ml Balance 240 ml 300 ml Intake Oral 240 ml 300 ml # Voids 5 3 # Bowel Movements 1 2 . Physical Exam CONSTITUTIONAL/GENERAL: This is an adequately nourished patient,alert, mild confusion. Occasional grimace. TUBES/LINES/DRAINS: peripheral IV UE, right chest tube; CARDIOVASCULAR: Regular rate and rhythm , no murmur. No peripheral edema. No JVD. RESPIRATORY/CHEST: Symmetric, unlabored respirations on room air. Decreased air movement on right. Faint bibasilar crackles. Right pleural drainage catheter taped to right thorax. GASTROINTESTINAL: Abdomen soft, nondistended, nontender. No hepato-splenomegaly , or palpable masses. No guarding. Bowel sounds present. NEUROLOGICAL: alert, oriented to person. Disoriented to place, President. Very limited insight. Cooperative, follows commands. Speech clear. Moves all extremities. PSYCHIATRIC: no apparent anxiety or hallucination . Affect depressed. . Diagnostic Tests Laboratory Laboratory Tests Test 12/22/16 12/23/16 12/23/16 07:58 06:07 08:52 Creatinine 0.59 MG/DL 0.77 MG/DL (0.60-1.30) (0.60-1.30) Estimat Glomerular Filtration 152 ML/MIN 112 ML/MIN Rate (>89) (>89) Vancomycin Level Trough 22.7 MCG/ML (5.0-10.0) . Result Diagram: 12/23/16 0852 Imaging Last Impressions Chest X-Ray 12/23/16 1028 Signed Impressions: Service Date/Time: Friday, December 23, 2016 10:41 - CONCLUSION: 1. Right-sided thoracostomy tube is appropriately positioned. 2. Probable small left-sided effusion. No significant effusion on the right. 3. Persistent bibasilar atelectatic changes/scarring. No pneumothorax. Grzegorz Kaur MD Chest Tube Insertion 12/21/16 1430 Signed Impressions: Service Date/Time: Wednesday, December 21, 2016 15:20 - CONCLUSION: Uncomplicated chest tube placement as above. This was done to facilitate Aspira-drain placement in specials. Grzegorz Kaur MD Catheter Placement X-Ray 12/17/16 0000 Signed Impressions: Service Date/Time: December 12:31 - CONCLUSION: 1. Right-sided tunneled chest tube placement as above. 2. Thoracentesis through the recently placed tube with removal of 800 cc of pleural fluid. Grzegorz Kaur MD Abdomen Ultrasound 12/11/16 0000 Signed Impressions: Service Date/Time: Sunday, December 11, 2016 18:05 - CONCLUSION: No ascites. KTea Jarvis MD Liver Ultrasound 11/26/16 0000 Signed Impressions: Service Date/Time: November 14:23 - CONCLUSION: 1. The portal vein is patent. 2. Multiple gallstones in the gallbladder. No definite biliary tract obstruction. There is thickening of the gallbladder wall with some fluid around the gallbladder. This can be seen with either acute or chronic cholecystitis. This would have to be correlated with patient's physical, clinical exam and lab values. Sudhakar Zapata MD Chest CT 11/25/16 0000 Signed Impressions: Service Date/Time: Friday, November 25, 2016 11:37 - CONCLUSION: Very large right pleural effusion with complete collapse of the right lung. Sudhakar Zapata MD Abdomen/Pelvis CT 11/25/16 0000 Signed Impressions: Service Date/Time: Friday, November 25, 2016 11:37 - CONCLUSION: Large right-sided pleural effusion with adjacent compressive atelectasis of the right lung. There is mass effect on the heart displacing it leftward within the thoracic cavity. There is a large amount of ascites which is not significantly changed as compared to the prior exam. The liver has a cirrhotic appearance. Mary Bradley MD . Procedures * Right chest pig-tail catheter placement * right chest tube placement * Intubation/mechanical ventilation * Right subclavian central line placement. . 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 No evidence of infection at this time. Patient had similar presentation at time of his last admission at end of Jul 2016. . . (2) Collapse of right lung Comment: Due to pleural effusion. Chest tube in place with re-expansion. . (3) Probable pneumonia (4) Hepatic encephalopathy Comment: Appears chronic at this time. . (5) Respiratory insufficiency Comment: Probably due to the large pleural effusion. . (6) Ascites (7) Alcohol-induced cirrhosis (8) Portal hypertension (9) Urinary retention Comment: Began when zayas was discontinued. Probably just from post-zayas swelling. Possibly exacerbated by morphine. Resolved. . Symptom Scale: (1) Pain 0-10 Scale: Unable to quantify Comment: Patient had not significant pre-hospital pain syndromes. Has had significant pain at chest tube site. Hopefully, with chest tube change and re- direction of catheter this will be resolved. . . (2) Dyspnea 0-10 Scale: 0 Comment: Patient had significant dyspnea from his pleural effusion. Significant improvement post thoracentesis and chest tube placement. Sats still low on RA. . 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 Mental status began to decline when patient started drinking again approximately one month ago. Also declined to take lactulose at home as directed. Even with hospital care, no alcohol, and regular lactulose, encephalopathy is still apparent. Probably chronic changes. . . (4) Agitation 0-10 Scale: Unable to quantify Comment: Probably a combination of EtOH withdrawal and delirium. Improved. Agitation level certainly much better to date than during hospitalization of Jul-Aug 2016. . . Pertinent Non-Medical Issues Psychosocial: Patient psychosocial support comes primarily from his mother and his brother. The patient lives with his brother who is currently unemployed. The patient's mother visits several times a day. Spiritual: Mandaen Legal: No advance directives Ethical issues impacting care: Patient is incapacitated; it is still unclear if he will regain capacity to make his own health care decisions. . Important Contacts * Catherinejayda Arias (mother and proxy decision maker) [phone] . Prognosis The patient was critically ill and initially required mechanical ventilation in an intensive care unit bed. He required chest tube placement. Though he is relatively young, his resilience is undoubtedly impacted by his history of alcohol abuse. If the patient is able to avoid other significant complications he should be able to survive the hospitalization. He is certainly at risk for infection and possible hepatorenal syndrome. Based on his recent history he may have enough functioning liver to allow survival if he completely abstains from alcohol. It is becoming quite clear that any alcohol use leads to critical illness relatively quickly. Some of his encephalopathy may be permanent at this time. Per family, patient has refused any help for his alcoholism or depression and he continues to decline. Patient, however, has refused DNR status and has told his family several times that he wants ongoing aggressive care. . Code Status: Full Code Plan == CODE STATUS: FULL CODE . Patient has told family members that he wants to remain a "full code." == Decision-making: Patient is currently incapacitated to make his own health care decisions. He has little insight into his own illness and cannot remember prior conversations. It is not known if he will regain capacity to do so. There is no written designation of health care surrogate. As the patient is not , and has no adult children or surviving father, healthcare decision- making falls to his mother. She is making those decisions with the input of the patient's brother. == Goals of medical treatment: The patient has told both his mother and his brother that he would want ongoing aggressive treatment including resuscitation attempts. His goals have been confusing, however.. He has made it clear he wants to be kept alive. On the other hand, he continues to refuse help with his alcoholism or depression. While he doesn't want to sign a DNR, and indicates he wants aggressive care including hospitalizations if neede, he has wanted to remain with hospice. == Pain: Pain had not been a significant problem for this patient prior to this admission. Patient has had ongoing problems with pain at his right chest tube site. Pleural drainage catheter was replaced and re-directed on 12/21/16 and we are hoping this will resolve pain issue. Patient has order for PRN oxycodone which appears to be adequate. No further recommendations at this time. == Dyspnea: Patient came in with a very large right pleural effusion with respiratory distress. After initial drainage, the inserted pigtail catheter was unintentionally removed by the patient. There was rapid reaccumulation of fluid. A chest tube was placed. Patient was extubated 11/28. He has continued to drain large volumes of pleural fluid probably from cirrhosis induced hydrothorax. A pleural drainage catheter has been placed but was causing pain and had to be replaced and re-positioned. == Encephalopathy; Though encephalopathy has improved since admission, he continues to have some mild encephalopathy in spite of being off alcohol, using lactulose regularly, and being fed well. Some of this encephalopathy is likely going to be permanent. Patient taking lactulose regularly. May want to push for at least 3 semi-formed bowel movements/day. . == Urinary retention: Had problems after zayas was removed. Now resolved. == Agitation: Patient was severely agitated during his last admission. It was agitation that cause the long length of stay. fortunately, this has not been as significant an issue on this admission. Current med regimen appears effective. No further recommendations at this time. == Depression: Per patient's mother, patient has had a several year period of significant depression. Currently on citalopram. No further recommendations at this time. == Patient has little insight into his own illness but continues to want aggressive care when asked. Family will likely yield to his wishes. Goals therefore, are not hospice appropriate. If hospice enrolls him, patient will likely return to the ED as soon as family is concerned about decline. == Once ready for discharge, [facility] may be the best option. Mother is open to being trained to care for the patient's pleural drainage catheter. I have discussed this option with [facility] and case management. Finding an accepting physician may be a challenge. == Palliative care will continue to follow to assist with symptom management and to further clarify goals of medical treatment as the clinical course evolves. . . Attestation To help prompt me to consider important information that might be impacting today's encounter and assessment, information from prior notes written by myself or my colleagues may have been "brought forward" into today's note. My signature on this note, however, is an attestation that I personally performed the exam, history, and/or decision-making noted today, and, unless otherwise indicated, the interactions with patient, family, and staff as well as the review of records all occurred today. I also attest that the listed assessment and stated plan reflect my best clinical judgment today based on the combination of historical information, prior notes, and today's exam/ interactions. When time spent is documented, it refers only to time spent today by the signer, or if indicated, combined time spent today by collaborating physician/nurse practitioner. . Harshal Funk MD Dec 24, 2016 11:40
--- NOTE | 2016-12-24 15:21 | RADRPT ---
EXAM DATE/TIME: 12/18/2016 17:22 COMPARISON: No previous studies available for comparison. INDICATIONS : Patient presents with sepsis and cirrhosis in need of tunneled catheter reposition due to pain at sit e. MEDICAL HISTORY : Alcoholic cirrhosis Anxiety Recent admit for sepsis from pneumonia Alcohol dependence HTN Renal failure SURGICAL HISTORY : Right shoulder and left knee surgery History of jaw surgery ENCOUNTER: Subsequent ACUITY: 1 month PAIN SCORE: 8/10 LOCATION: Right side/axillary FLUORO TIME: 0.65 minutes MEDICATION(S): 1.) 1 mg lorazepam (Ativan) IV 2.) 150 mcg fentanyl (Sublimaze) IV TECH NOTE: Exam performed without sedation.DOUG MARQUEZ MR#:[id number] Exam Dt/Desc: DecemberREPOSITION TUNNELED CATHETER FINDINGS: Initial image shows the Aspira catheter to be positioned low in the right hemithorax, presumably in t he deep sulcus posterior to the enlarged liver. This likely explains the discomfort with respiration. The hub of the Aspira was removed and replaced with a 10 Iraqi dilator to occlude the origin. The di lator, a stiff 035 Glidewire was used to manipulate the catheter and portion out of the posterior cos tophrenic angle further up into the hemithorax. At the completion of the exam, the catheter was pulle d out of the posterior costophrenic angle and arched in the right lung base. Contrast injection confi rmed excellent position. CONCLUSION: Successful repositioning of right Aspira catheter as above. Grzegorz Kaur MD on December 24, 2016 at 14:53 Board Certified Radiologist. This report was verified electronically.
[2016-12-24] MEDS: LEVOFLOXACIN 500 MG PREMIX INJ 100 ML IV SCH (22:17)
[2016-12-25] VITALS (8 sets, daily range): BP systolic 94–144; BP diastolic 58–64; PULSE 63–123; RESP 18–20; TEMP 97.5–98.8; O2SAT 90–97
[2016-12-25] MEDS: CEPHALEXIN MONOHYDRATE 500 MG CAP PO SCH ×4 (00:44→18:28)
[2016-12-25] MEDS ORDERED: PHARMACY ORDERED LAB XX ONE (05:45)
[2016-12-25] MEDS: CHLORHEXIDINE 0.12% (ORAL KIT) 15 ML CUP MT SCH ×2 (08:00→20:00)
--- NOTE | 2016-12-25 08:46 | HHI.PR ---
Subjective Remarks ALERT no sob CXRAY right pleural efffusion Objective Vital Signs Date Time Temp Pulse Resp B/P Pulse Ox O2 Delivery O2 Flow Rate FiO2 12/25/16 04:00 97.5 101 18 94/58 91 12/24/16 20:00 94 12/24/16 20:00 98.2 99 20 99/60 92 12/24/16 20:00 Nasal Cannula 2.00 12/24/16 16:08 98.9 112 18 126/68 94 12/24/16 13:03 93 21 12/24/16 12:08 99.6 110 18 148/67 94 I/O 12/24/16 12/24/16 12/24/16 12/25/16 12/25/16 12/25/16 07:00 15:00 23:00 07:00 15:00 23:00 Intake Total 780 ml 380 ml 320 ml Balance 780 ml 380 ml 320 ml Intake Oral 780 ml 380 ml 320 ml # Voids 8 2 3 # Bowel Movements 4 1 0 Result Diagram: 12/23/16 0852 Objective Remarks Last Impressions Chest X-Ray 12/11/16 0000 Signed Impressions: Service Date/Time: Sunday, December 11, 2016 18:42 - CONCLUSION: Small left pleural effusion and slight bibasilar atelectasis and/or infiltrate. Jose Jarvis MD Abdomen Ultrasound 12/11/16 0000 Signed Impressions: Service Date/Time: Sunday, December 11, 2016 18:05 - CONCLUSION: No ascites. Jose Jarvis MD Liver Ultrasound 11/26/16 0000 Signed Impressions: Service Date/Time: November 14:23 - CONCLUSION: 1. The portal vein is patent. 2. Multiple gallstones in the gallbladder. No definite biliary tract obstruction. There is thickening of the gallbladder wall with some fluid around the gallbladder. This can be seen with either acute or chronic cholecystitis. This would have to be correlated with patient's physical, clinical exam and lab values. Sudhakar Zapata MD Chest CT 11/25/16 0000 Signed Impressions: Service Date/Time: Friday, November 25, 2016 11:37 - CONCLUSION: Very large right pleural effusion with complete collapse of the right lung. Sudhakar Zapata MD Abdomen/Pelvis CT 11/25/16 0000 Signed Impressions: Service Date/Time: Friday, November 25, 2016 11:37 - CONCLUSION: Large right-sided pleural effusion with adjacent compressive atelectasis of the right lung. There is mass effect on the heart displacing it leftward within the thoracic cavity. There is a large amount of ascites which is not significantly changed as compared to the prior exam. The liver has a cirrhotic appearance. Mary Bradley MD Assessment and Plan Assessment and Plan CLINICALY STABLE CT draining well PLAN CONTINUE DRAINAGE INCREASE ACTIVITY HOME SOON Cat Shelton MD Dec 25, 2016 08:46
[2016-12-25] MEDS: LACTULOSE SYRUP 20 GM/30 ML CUP PO SCH ×4 (09:22→22:30)
[2016-12-25] MEDS: MULTIVITAMIN TAB PO SCH (09:23)
[2016-12-25] MEDS: FUROSEMIDE 40 MG TAB PO SCH ×2 (09:23→22:26)
[2016-12-25] MEDS: PANTOPRAZOLE SOD 40 MG DELAYED RELEASE TAB PO SCH (09:23)
[2016-12-25] MEDS: CITALOPRAM HYDROBROMIDE 40 MG TAB PO SCH (09:23)
[2016-12-25] MEDS: DIVALPROEX SODIUM DELAYED RELEASE 250 MG TAB PO SCH ×2 (09:23→22:26)
[2016-12-25] MEDS: FOLIC ACID 1 MG TAB PO SCH (09:23)
[2016-12-25] MEDS: RIFAXIMIN 550 MG TAB PO SCH ×2 (09:24→22:26)
[2016-12-25] MEDS: SPIRONOLACTONE 50 MG TAB PO SCH ×2 (09:24→18:28)
[2016-12-25] MEDS: THIAMINE HCL 100 MG TAB PO SCH (09:24)
[2016-12-25] MEDS: SODIUM CHLORIDE 0.9% FLUSH 5 ML FLUSH IV FLUSH SCH ×2 (09:25→22:26)
--- NOTE | 2016-12-25 13:56 | HHI.PR ---
Subjective Remarks patient pleasant today, no complains Objective Vitals Vital Signs Date Time Temp Pulse Resp B/P Pulse Ox O2 Delivery O2 Flow Rate FiO2 12/25/16 08:08 98.7 103 18 94/59 90 12/25/16 08:05 102 12/25/16 07:15 Room Air 12/25/16 04:00 97.5 101 18 94/58 91 12/24/16 20:00 94 12/24/16 20:00 98.2 99 20 99/60 92 12/24/16 20:00 Nasal Cannula 2.00 12/24/16 16:08 98.9 112 18 126/68 94 I/O 12/24/16 12/24/16 12/24/16 12/25/16 12/25/16 12/25/16 07:00 15:00 23:00 07:00 15:00 23:00 Intake Total 780 ml 380 ml 320 ml Balance 780 ml 380 ml 320 ml Intake Oral 780 ml 380 ml 320 ml # Voids 8 2 3 # Bowel Movements 4 1 0 Result Diagram: 12/23/16 0852 Imaging Last Impressions Chest X-Ray 12/23/16 1028 Signed Impressions: Service Date/Time: Friday, December 23, 2016 10:41 - CONCLUSION: 1. Right-sided thoracostomy tube is appropriately positioned. 2. Probable small left-sided effusion. No significant effusion on the right. 3. Persistent bibasilar atelectatic changes/scarring. No pneumothorax. Grzegorz Kaur MD Chest Tube Insertion 12/21/16 1430 Signed Impressions: Service Date/Time: Wednesday, December 21, 2016 15:20 - CONCLUSION: Uncomplicated chest tube placement as above. This was done to facilitate Aspira-drain placement in specials. Grzegorz Kaur MD Insertion Tunneled Catheter 12/18/16 1529 Signed Impressions: Service Date/Time: Sunday, December 18, 2016 17:22 - CONCLUSION: Successful repositioning of right Aspira catheter as above. Grzegorz Kaur MD Catheter Placement X-Ray 12/17/16 0000 Signed Impressions: Service Date/Time: December 12:31 - CONCLUSION: 1. Right-sided tunneled chest tube placement as above. 2. Thoracentesis through the recently placed tube with removal of 800 cc of pleural fluid. Grzegorz Kaur MD Abdomen Ultrasound 12/11/16 0000 Signed Impressions: Service Date/Time: Sunday, December 11, 2016 18:05 - CONCLUSION: No ascites. Jose Jarvis MD Liver Ultrasound 11/26/16 0000 Signed Impressions: Service Date/Time: November 14:23 - CONCLUSION: 1. The portal vein is patent. 2. Multiple gallstones in the gallbladder. No definite biliary tract obstruction. There is thickening of the gallbladder wall with some fluid around the gallbladder. This can be seen with either acute or chronic cholecystitis. This would have to be correlated with patient's physical, clinical exam and lab values. Sudhakar Zapata MD Chest CT 11/25/16 0000 Signed Impressions: Service Date/Time: Friday, November 25, 2016 11:37 - CONCLUSION: Very large right pleural effusion with complete collapse of the right lung. Sudhakar Zapata MD Abdomen/Pelvis CT 11/25/16 0000 Signed Impressions: Service Date/Time: Friday, November 25, 2016 11:37 - CONCLUSION: Large right-sided pleural effusion with adjacent compressive atelectasis of the right lung. There is mass effect on the heart displacing it leftward within the thoracic cavity. There is a large amount of ascites which is not significantly changed as compared to the prior exam. The liver has a cirrhotic appearance. Mary Bradley MD Objective Remarks awake and alert, oriented x 3 lungs decreased breath sounds, no rales or wheezes, slightly decreased breath sounds right side, CT in place- right regular rhythm abdomen soft, nontender extremities no edema, right forearm- phlebitis and erythema- decrease Procedures 11/25/16 right pigtail chest tube placement 11/26/16 right chest tube placement 11/26/16 orotracheal intubation 11/26/16 subclavian central line placement 12/21- right chest tube placement A/P Problem List: (1) Sepsis ICD Code: A41.9 Status: Resolved (2) Respiratory insufficiency ICD Code: R06.89 Status: Acute (3) Pleural effusion, right ICD Code: J90 Status: Acute (4) Collapse of right lung ICD Code: J98.11 Status: Acute (5) Probable pneumonia Status: Acute (6) Seizure ICD Code: R56.9 Status: Acute (7) Liver failure ICD Code: K72.90 Status: Chronic (8) Alcohol dependence ICD Code: F10.20 Status: Chronic (9) Alcohol-induced cirrhosis Status: Chronic Assessment and Plan Aspiration drainage catheter removed 12/[address] Kaur due to pain. Patient continues to have low-grade fever. Continue antibiotics to cover for possible infection at chest tube site. The patient will need to have another catheter placed early this week. He will likely have reaccumulation of fluid over the next couple days. We'll monitor respiratory status. Continue supplemental oxygen. 1. Acute respiratory failure: Improved. Patient extubated. Pulmonology ff. Continue supplemental oxygen. Bronchodilators as needed. 2. Large right pleural effusion with right lung collapse and mass effect: Status post pigtail catheter placement on 11/25/16. The catheter was pulled out by the patient. Chest tube was placed again on 11/26/16. Aspira catheter placed 12/17/16 and removed 12/19/16 due to pain. s/p chest tube catheter placed 12/21. d/w Dr. Kaur 12/23- drain daily about 500 cc then stop when pain occurs. for the next 10 days then will reassess monitor output 3. Alcoholic liver disease, chronic: Continue lactulose, Xifaxan. Gastroenterology has signed off. Continue Inderal, Aldactone, Lasix. 4. Alcohol withdrawal, dependence: Withdrawal resolved. Continue thiamine daily. 5. Sepsis, pneumonia:blood cultures negative.fluid cultures negative. DC Vancomycin. continue Levaquin 6. Thrombocytopenia: Likely secondary to chronic liver disease. Stable. 7. GI prophylaxis: PPI. 8. DVT prophylaxis: SCDs. Avoid chemical prophylaxis secondary to thrombocytopenia. 9. Nausea/vomiting: Antiemetics as needed. 10. Hepatic encephalopathy: Lactulose, Xifaxan. Right forearm cellulitis with phlebitis- noted on 12/23- Improving Warm compress to area qid. monitor area Cephalexin 500 mg po qid Problem Qualifiers (1) Sepsis: Qualified Code: A41.9 - Sepsis, due to unspecified organism (2) Alcohol dependence: Ammon Rosales MD Dec 25, 2016 13:56
--- NOTE | 2016-12-25 15:15 | RADRPT ---
EXAM DATE/TIME: 12/21/2016 16:37 [facility] COMPARISON: PLEURAL CATHETER PLACEMENT, RIGHT, December 17, 2016, 12:31. INDICATIONS : Patient has large right pleural effusion, with right lung collapse in need of aspira drain placement. MEDICAL HISTORY : Alcoholic cirrhosis Anxiety Recent admission for sepsis and pneumonia Alcohol dependence SURGICAL HISTORY : Right shoulder surgery Left knee surgery Jaw surgery ENCOUNTER: Initial ACUITY: 1 month PAIN SCORE: 7/10 LOCATION: Right side FLUORO TIME: 3.0 minutes SEDATION TIME: 60 minutes CONTRAST: 10 cc Omnipaque (iohexol) 350 MEDICATION(S): 1.) 4 mg midazolam (Versed) IV 2.) 200 mcg fentanyl (Sublimaze) IV Intra-procedural antibiotics were given as prescribed above. DEVICE(S): 1.) Aspiria catheter 15.5 FR PROCEDURE : 1. Aspira drainage catheter placement. 2. Conscious sedation with continuous EKG and Oximetry monitoring. The risks, benefits and alternatives to the procedure were explained and verbal and written consent w as obtained. The site was prepped in sterile fashion. Full sterile technique was used, including ca p, mask, sterile gloves and gown and a large sterile sheet. Hand hygiene and 2% chlorhexidine prep w as utilized per protocol for cutaneous antisepsis with appropriate dry time for site. The skin and s ubcutaneous tissues were infiltrated with local anesthetic solution. Utilizing the pleural catheter placed in CT, a wire was advanced into the pleural space. Because of t he deep posterior sulcus associated with hepatomegaly and pain on inspiration with the previous Aspir a catheter, the wire was directed cephalad and medially with a hockey-stick catheter. A subcutaneous tunnel was then created from the skin surface of appropriate local anesthetic. The pleural catheter d ermatotomy was then serially dilated to accommodate the peel-away sheath. The Aspira catheter was adv anced and a subcutaneous tunnel in the central portion advanced over the wire, through the sheath and into the pleural space. Final position showed the catheter entering the lower right hemithorax, ronaldo ersing centrally with the tip cephalad. Conscious sedation was performed with the prescribed dosages and duration as above. EKG and oximetry remained stable throughout the procedure. CONCLUSION: Placement of right-sided Aspira drainage catheter as above. Grzegorz Kaur MD on December 25, 2016 at 15:05 Board Certified Radiologist. This report was verified electronically.
[2016-12-25] MEDS: LEVOFLOXACIN 500 MG PREMIX INJ 100 ML IV SCH (22:25)
[2016-12-26] VITALS (9 sets, daily range): BP systolic 89–106; BP diastolic 51–69; PULSE 103–118; RESP 18–20; TEMP 98.2–99.1; O2SAT 84–96
[2016-12-26] MEDS: CEPHALEXIN MONOHYDRATE 500 MG CAP PO SCH ×5 (02:22→21:26)
[2016-12-26] MEDS: LACTULOSE SYRUP 20 GM/30 ML CUP PO SCH ×4 (08:52→21:26)
[2016-12-26] MEDS: MULTIVITAMIN TAB PO SCH (08:52)
[2016-12-26] MEDS: CITALOPRAM HYDROBROMIDE 40 MG TAB PO SCH (08:52)
[2016-12-26] MEDS: RIFAXIMIN 550 MG TAB PO SCH ×2 (08:52→21:26)
[2016-12-26] MEDS: FUROSEMIDE 40 MG TAB PO SCH ×2 (08:53→21:26)
[2016-12-26] MEDS: THIAMINE HCL 100 MG TAB PO SCH (08:53)
[2016-12-26] MEDS: PANTOPRAZOLE SOD 40 MG DELAYED RELEASE TAB PO SCH (08:53)
[2016-12-26] MEDS: DIVALPROEX SODIUM DELAYED RELEASE 250 MG TAB PO SCH ×2 (08:54→21:26)
[2016-12-26] MEDS: SODIUM CHLORIDE 0.9% FLUSH 5 ML FLUSH IV FLUSH SCH ×2 (08:55→21:33)
[2016-12-26] MEDS: SPIRONOLACTONE 50 MG TAB PO SCH ×2 (08:55→16:33)
[2016-12-26] MEDS: FOLIC ACID 1 MG TAB PO SCH (08:55)
[2016-12-26] MEDS: CHLORHEXIDINE 0.12% (ORAL KIT) 15 ML CUP MT SCH ×2 (08:55→20:00)
[2016-12-26] MEDS: PROMETHAZINE INJ 25 MG/ML VIAL IM PRN (09:00)
--- NOTE | 2016-12-26 09:26 | HHI.PR ---
Subjective Remarks awake and alert, no complains seen with John Alexander at bedside Objective Vitals Vital Signs Date Time Temp Pulse Resp B/P Pulse Ox O2 Delivery O2 Flow Rate FiO2 12/26/16 08:35 98.9 106 19 92/62 91 12/26/16 04:00 98.6 107 18 106/65 84 12/26/16 00:00 98.2 109 18 106/51 88 12/25/16 20:00 Nasal Cannula 2.00 12/25/16 20:00 98 12/25/16 20:00 98.1 63 18 144/61 97 12/25/16 18:31 95 Nasal Cannula 2.00 12/25/16 16:07 98.8 85 20 104/64 97 12/25/16 14:06 95 Nasal Cannula 21 12/25/16 12:08 98.8 123 18 109/63 90 I/O 12/25/16 12/25/16 12/25/16 12/26/16 12/26/16 12/26/16 07:00 15:00 23:00 07:00 15:00 23:00 Intake Total 320 ml 480 ml 480 ml 240 ml Balance 320 ml 480 ml 480 ml 240 ml Intake Oral 320 ml 480 ml 480 ml 240 ml # Voids 3 4 3 2 # Bowel Movements 0 1 Result Diagram: 12/23/16 0852 Imaging Last Impressions Chest X-Ray 12/23/16 1028 Signed Impressions: Service Date/Time: Friday, December 23, 2016 10:41 - CONCLUSION: 1. Right-sided thoracostomy tube is appropriately positioned. 2. Probable small left-sided effusion. No significant effusion on the right. 3. Persistent bibasilar atelectatic changes/scarring. No pneumothorax. Grzegorz Kaur MD Catheter Placement X-Ray 12/21/16 1500 Signed Impressions: Service Date/Time: Wednesday, December 21, 2016 16:37 - CONCLUSION: Placement of right-sided Aspira drainage catheter as above. Grzegorz Kaur MD Chest Tube Insertion 12/21/16 1430 Signed Impressions: Service Date/Time: Wednesday, December 21, 2016 15:20 - CONCLUSION: Uncomplicated chest tube placement as above. This was done to facilitate Aspira-drain placement in specials. Grzegorz Kaur MD Insertion Tunneled Catheter 12/18/16 8268 Signed Impressions: Service Date/Time: Sunday, December 18, 2016 17:22 - CONCLUSION: Successful repositioning of right Aspira catheter as above. Grzegorz Kaur MD Abdomen Ultrasound 12/11/16 0000 Signed Impressions: Service Date/Time: Sunday, December 11, 2016 18:05 - CONCLUSION: No ascites. Jose Jarvis MD Liver Ultrasound 11/26/16 0000 Signed Impressions: Service Date/Time: November 14:23 - CONCLUSION: 1. The portal vein is patent. 2. Multiple gallstones in the gallbladder. No definite biliary tract obstruction. There is thickening of the gallbladder wall with some fluid around the gallbladder. This can be seen with either acute or chronic cholecystitis. This would have to be correlated with patient's physical, clinical exam and lab values. Sudhakar Zapata MD Chest CT 11/25/16 0000 Signed Impressions: Service Date/Time: Friday, November 25, 2016 11:37 - CONCLUSION: Very large right pleural effusion with complete collapse of the right lung. Sudhakar Zapata MD Abdomen/Pelvis CT 11/25/16 0000 Signed Impressions: Service Date/Time: Friday, November 25, 2016 11:37 - CONCLUSION: Large right-sided pleural effusion with adjacent compressive atelectasis of the right lung. There is mass effect on the heart displacing it leftward within the thoracic cavity. There is a large amount of ascites which is not significantly changed as compared to the prior exam. The liver has a cirrhotic appearance. Mary Bradley MD Objective Remarks awake and alert, oriented x 3 lungs decreased breath sounds, no rales or wheezes, slightly decreased breath sounds right side, CT in place- right regular rhythm abdomen soft, nontender extremities no edema, right forearm- phlebitis and erythema- resolved Procedures 11/25/16 right pigtail chest tube placement 11/26/16 right chest tube placement 11/26/16 orotracheal intubation 11/26/16 subclavian central line placement 12/21- right chest tube placement A/P Problem List: (1) Sepsis ICD Code: A41.9 Status: Resolved (2) Respiratory insufficiency ICD Code: R06.89 Status: Acute (3) Pleural effusion, right ICD Code: J90 Status: Acute (4) Collapse of right lung ICD Code: J98.11 Status: Acute (5) Probable pneumonia Status: Acute (6) Seizure ICD Code: R56.9 Status: Acute (7) Liver failure ICD Code: K72.90 Status: Chronic (8) Alcohol dependence ICD Code: F10.20 Status: Chronic (9) Alcohol-induced cirrhosis Status: Chronic Assessment and Plan Aspiration drainage catheter removed 12/[address] Kaur due to pain. Patient continues to have low-grade fever. Continue antibiotics to cover for possible infection at chest tube site. The patient will need to have another catheter placed early this week. He will likely have reaccumulation of fluid over the next couple days. We'll monitor respiratory status. Continue supplemental oxygen. 1. Acute respiratory failure: Improved. Patient extubated. Pulmonology ff. Continue supplemental oxygen. Bronchodilators as needed. 2. Large right pleural effusion with right lung collapse and mass effect: Status post pigtail catheter placement on 11/25/16. The catheter was pulled out by the patient. Chest tube was placed again on 11/26/16. Aspira catheter placed 12/17/16 and removed 12/19/16 due to pain. s/p chest tube catheter placed 12/21. d/w Dr. Kaur 12/23- drain daily about 500 cc then stop when pain occurs. for the next 10 days then will reassess monitor output 3. Alcoholic liver disease, chronic: Continue lactulose, Xifaxan. Gastroenterology has signed off. Continue Inderal, Aldactone, Lasix. 4. Alcohol withdrawal, dependence: Withdrawal resolved. Continue thiamine daily. 5. Sepsis, pneumonia:blood cultures negative.fluid cultures negative. DC Vancomycin. continue Levaquin 6. Thrombocytopenia: Likely secondary to chronic liver disease. Stable. 7. GI prophylaxis: PPI. 8. DVT prophylaxis: SCDs. Avoid chemical prophylaxis secondary to thrombocytopenia. 9. Nausea/vomiting: Antiemetics as needed. 10. Hepatic encephalopathy: Lactulose, Xifaxan. Right forearm cellulitis with phlebitis- noted on 12/23- Improving Warm compress to area qid. monitor area Cephalexin 500 mg po qid 12/26- reinforced alcohol cessation d/w patient and Mom- Catherine - she would want Hospice to ff him again at home if possible- had a great experience with them we discuss about code status- Alternative code- she was concerned about the Chest tube-as she was made to understand that this is active treatment and I inform her that I believe that this is part of comfort measures- I will discuss this with hospice/ Palliative care service regarding this to clarify goals of care d/w [facility] will not accept him back as Hospice we will arrange for home health care nursing possible DC in am- d/w CM for home health needs Problem Qualifiers (1) Sepsis: Qualified Code: A41.9 - Sepsis, due to unspecified organism (2) Alcohol dependence: Ammon Rosales MD Dec 26, 2016 09:26
--- NOTE | 2016-12-26 09:48 | HHI.FF ---
Face to Face Verification Diagnosis: (1) Abnormal LFTs (2) Hepatic encephalopathy (3) Pleural effusion, right Physical Therapy Order: Evaluate and Treat, Improve ambulation Speech Therapy Order: To Improve: Cognitive skills Home Health Nursing Order: Medical education Signs/symptoms of disease process Wound care and dressing changes Carpenters Order: To Evaluate: Living conditions/environment, Support services I have seen patient Chaz Arias on 12/26/16. My clinical findings support the need for the requested home health care services because: Ltd mobility - disease progression Deconditioned w/ increased weakness Need for psychosocial assistance I certify that my clinical findings support that this patient is homebound because: Need for psychosocial assistance Ammon Rosales MD Dec 26, 2016 09:48
--- NOTE | 2016-12-26 11:55 | HHI.FF ---
Face to Face Verification Diagnosis: (1) Pleural effusion, right (2) Alcohol abuse Speech Therapy Order: To Improve: Cognitive skills Home Health Nursing Order: Medical education Signs/symptoms of disease process Wound care and dressing changes Nursing assessment with vital signs Barometers Calibrator Order: To Evaluate: Support services I have seen patient Chaz Arias on 12/26/16. My clinical findings support the need for the requested home health care services because: Ltd mobility - disease progression Deconditioned w/ increased weakness Need for psychosocial assistance Infection w/ risk of complications I certify that my clinical findings support that this patient is homebound because: Need for psychosocial assistance patient going home with Aspira chest tube catheter- Ammon Rosales MD Dec 26, 2016 11:55
--- NOTE | 2016-12-26 13:13 | HHI.PR ---
Subjective Remarks ALERT no sob appetite good Objective Vital Signs Date Time Temp Pulse Resp B/P Pulse Ox O2 Delivery O2 Flow Rate FiO2 12/26/16 12:12 98.9 103 20 89/62 91 12/26/16 12:04 93 Nasal Cannula 2.00 12/26/16 09:22 118 12/26/16 09:22 Nasal Cannula 2.00 12/26/16 08:35 98.9 106 19 92/62 91 12/26/16 04:00 98.6 107 18 106/65 84 12/26/16 00:00 98.2 109 18 106/51 88 12/25/16 20:00 Nasal Cannula 2.00 12/25/16 20:00 98 12/25/16 20:00 98.1 63 18 144/61 97 12/25/16 18:31 95 Nasal Cannula 2.00 12/25/16 16:07 98.8 85 20 104/64 97 12/25/16 14:06 95 Nasal Cannula 21 I/O 12/25/16 12/25/16 12/25/16 12/26/16 12/26/16 12/26/16 07:00 15:00 23:00 07:00 15:00 23:00 Intake Total 320 ml 480 ml 480 ml 240 ml Output Total 600 ml Balance 320 ml 480 ml -120 ml 240 ml Intake Oral 320 ml 480 ml 480 ml 240 ml Drainage Total 600 ml # Voids 3 4 3 2 # Bowel Movements 0 1 Result Diagram: 12/23/16 0852 Objective Remarks Last Impressions Chest X-Ray 12/11/16 0000 Signed Impressions: Service Date/Time: Sunday, December 11, 2016 18:42 - CONCLUSION: Small left pleural effusion and slight bibasilar atelectasis and/or infiltrate. Jose Jarvis MD Abdomen Ultrasound 12/11/16 0000 Signed Impressions: Service Date/Time: Sunday, December 11, 2016 18:05 - CONCLUSION: No ascites. Jose Jarvis MD Liver Ultrasound 11/26/16 0000 Signed Impressions: Service Date/Time: November 14:23 - CONCLUSION: 1. The portal vein is patent. 2. Multiple gallstones in the gallbladder. No definite biliary tract obstruction. There is thickening of the gallbladder wall with some fluid around the gallbladder. This can be seen with either acute or chronic cholecystitis. This would have to be correlated with patient's physical, clinical exam and lab values. Sudhakar Zapata MD Chest CT 11/25/16 0000 Signed Impressions: Service Date/Time: Friday, November 25, 2016 11:37 - CONCLUSION: Very large right pleural effusion with complete collapse of the right lung. Sudhakar Zapata MD Abdomen/Pelvis CT 11/25/16 0000 Signed Impressions: Service Date/Time: Friday, November 25, 2016 11:37 - CONCLUSION: Large right-sided pleural effusion with adjacent compressive atelectasis of the right lung. There is mass effect on the heart displacing it leftward within the thoracic cavity. There is a large amount of ascites which is not significantly changed as compared to the prior exam. The liver has a cirrhotic appearance. Mary Bradley MD Assessment and Plan Assessment and Plan CLINICALY STABLE CT draining well PLAN CONTINUE DRAINAGE INCREASE ACTIVITY HOME SOON Cat Shelton MD Dec 26, 2016 13:13
[2016-12-26] MEDS: LEVOFLOXACIN 500 MG PREMIX INJ 100 ML IV SCH (21:54)
[2016-12-27 00:41] VITALS: BP 100/63; PULSE 114; RESP 20; TEMP 98.9; O2SAT 95
[2016-12-27 04:49] VITALS: BP 112/61; PULSE 112; RESP 18; TEMP 98.1; O2SAT 95
[2016-12-27] MEDS: CEPHALEXIN MONOHYDRATE 500 MG CAP PO SCH ×2 (05:13→12:14)
[2016-12-27] MEDS: CHLORHEXIDINE 0.12% (ORAL KIT) 15 ML CUP MT SCH (07:25)
[2016-12-27] MEDS: LACTULOSE SYRUP 20 GM/30 ML CUP PO SCH ×2 (08:29→13:00)
[2016-12-27] MEDS: SODIUM CHLORIDE 0.9% FLUSH 5 ML FLUSH IV FLUSH SCH (08:29)
[2016-12-27 08:31] VITALS: BP 90/56; PULSE 102; RESP 18; TEMP 98.6; O2SAT 90
[2016-12-27] MEDS: MULTIVITAMIN TAB PO SCH (08:33)
[2016-12-27] MEDS: RIFAXIMIN 550 MG TAB PO SCH (08:33)
[2016-12-27] MEDS: FOLIC ACID 1 MG TAB PO SCH (08:33)
[2016-12-27] MEDS: CITALOPRAM HYDROBROMIDE 40 MG TAB PO SCH (08:34)
[2016-12-27] MEDS: DIVALPROEX SODIUM DELAYED RELEASE 250 MG TAB PO SCH (08:34)
[2016-12-27] MEDS: PANTOPRAZOLE SOD 40 MG DELAYED RELEASE TAB PO SCH (08:34)
[2016-12-27] MEDS: THIAMINE HCL 100 MG TAB PO SCH (08:34)
[2016-12-27] MEDS: FUROSEMIDE 40 MG TAB PO SCH (08:34)
[2016-12-27] MEDS: SPIRONOLACTONE 50 MG TAB PO SCH (08:34)
[2016-12-27 09:09] VITALS: PULSE 102
--- NOTE | 2016-12-27 10:29 | HHI.PR ---
Subjective Remarks feeling better no chest tube pain complains up and ambulating Objective Vitals Vital Signs Date Time Temp Pulse Resp B/P Pulse Ox O2 Delivery O2 Flow Rate FiO2 12/27/16 09:09 102 12/27/16 08:31 98.6 102 18 90/56 90 12/27/16 08:20 Room Air 12/27/16 04:49 98.1 112 18 112/61 95 12/27/16 00:41 98.9 114 20 100/63 95 12/26/16 20:00 Nasal Cannula 2.00 12/26/16 20:00 98.6 115 18 106/69 96 12/26/16 19:15 109 12/26/16 16:36 99.1 105 20 104/66 90 12/26/16 12:12 98.9 103 20 89/62 91 12/26/16 12:04 93 Nasal Cannula 2.00 I/O 12/26/16 12/26/16 12/26/16 12/27/16 12/27/16 12/27/16 07:00 15:00 23:00 07:00 15:00 23:00 Intake Total 240 ml 360 ml 500 ml 360 ml Output Total 1250 ml Balance 240 ml 360 ml -750 ml 360 ml Intake Oral 240 ml 360 ml 500 ml 360 ml Output Urine Total 450 ml Drainage Total 800 ml # Voids 2 2 3 # Bowel Movements 0 0 0 Result Diagram: 12/23/16 0852 Imaging Last Impressions Chest X-Ray 12/23/16 1028 Signed Impressions: Service Date/Time: Friday, December 23, 2016 10:41 - CONCLUSION: 1. Right-sided thoracostomy tube is appropriately positioned. 2. Probable small left-sided effusion. No significant effusion on the right. 3. Persistent bibasilar atelectatic changes/scarring. No pneumothorax. Grzegorz Kaur MD Catheter Placement X-Ray 12/21/16 1500 Signed Impressions: Service Date/Time: Wednesday, December 21, 2016 16:37 - CONCLUSION: Placement of right-sided Aspira drainage catheter as above. Grzegorz Kaur MD Chest Tube Insertion 12/21/16 1430 Signed Impressions: Service Date/Time: Wednesday, December 21, 2016 15:20 - CONCLUSION: Uncomplicated chest tube placement as above. This was done to facilitate Aspira-drain placement in specials. Grzegorz Kaur MD Insertion Tunneled Catheter 12/18/16 1529 Signed Impressions: Service Date/Time: Sunday, December 18, 2016 17:22 - CONCLUSION: Successful repositioning of right Aspira catheter as above. Grzegorz Kaur MD Abdomen Ultrasound 12/11/16 0000 Signed Impressions: Service Date/Time: Sunday, December 11, 2016 18:05 - CONCLUSION: No ascites. Jose Jarvis MD Liver Ultrasound 11/26/16 0000 Signed Impressions: Service Date/Time: November 14:23 - CONCLUSION: 1. The portal vein is patent. 2. Multiple gallstones in the gallbladder. No definite biliary tract obstruction. There is thickening of the gallbladder wall with some fluid around the gallbladder. This can be seen with either acute or chronic cholecystitis. This would have to be correlated with patient's physical, clinical exam and lab values. Sudhakar Zapata MD Chest CT 11/25/16 0000 Signed Impressions: Service Date/Time: Friday, November 25, 2016 11:37 - CONCLUSION: Very large right pleural effusion with complete collapse of the right lung. Sudhakar Zapata MD Abdomen/Pelvis CT 11/25/16 0000 Signed Impressions: Service Date/Time: Friday, November 25, 2016 11:37 - CONCLUSION: Large right-sided pleural effusion with adjacent compressive atelectasis of the right lung. There is mass effect on the heart displacing it leftward within the thoracic cavity. There is a large amount of ascites which is not significantly changed as compared to the prior exam. The liver has a cirrhotic appearance. Mary Bradley MD Objective Remarks awake and alert, oriented x 3 lungs decreased breath sounds, no rales or wheezes, slightly decreased breath sounds right side, CT in place- right regular rhythm abdomen soft, nontender extremities no edema, right forearm- phlebitis and erythema- resolved Procedures 11/25/16 right pigtail chest tube placement 11/26/16 right chest tube placement 11/26/16 orotracheal intubation 11/26/16 subclavian central line placement 12/21- right chest tube placement A/P Problem List: (1) Sepsis ICD Code: A41.9 Status: Resolved (2) Respiratory insufficiency ICD Code: R06.89 Status: Acute (3) Pleural effusion, right ICD Code: J90 Status: Acute (4) Collapse of right lung ICD Code: J98.11 Status: Acute (5) Probable pneumonia Status: Acute (6) Seizure ICD Code: R56.9 Status: Acute (7) Liver failure ICD Code: K72.90 Status: Chronic (8) Alcohol dependence ICD Code: F10.20 Status: Chronic (9) Alcohol-induced cirrhosis Status: Chronic Assessment and Plan Aspiration drainage catheter removed 12/[address] Kaur due to pain. Patient continues to have low-grade fever. Continue antibiotics to cover for possible infection at chest tube site. The patient will need to have another catheter placed early this week. He will likely have reaccumulation of fluid over the next couple days. We'll monitor respiratory status. Continue supplemental oxygen. 1. Acute respiratory failure: Improved. Patient extubated. Pulmonology ff. Continue supplemental oxygen. Bronchodilators as needed. 2. Large right pleural effusion with right lung collapse and mass effect: Status post pigtail catheter placement on 11/25/16. The catheter was pulled out by the patient. Chest tube was placed again on 11/26/16. Aspira catheter placed 12/17/16 and removed 12/19/16 due to pain. s/p chest tube catheter placed 12/21. d/w Dr. Kaur 12/23- drain daily about 500 cc then stop when pain occurs. for the next 10 days then will reassess monitor output 3. Alcoholic liver disease, chronic: Continue lactulose, Xifaxan. Gastroenterology has signed off. Continue Inderal, Aldactone, Lasix. 4. Alcohol withdrawal, dependence: Withdrawal resolved. Continue thiamine daily. 5. Sepsis, pneumonia:blood cultures negative.fluid cultures negative. DC Vancomycin. continue Levaquin- DC after today 6. Thrombocytopenia: Likely secondary to chronic liver disease. Stable. 7. GI prophylaxis: PPI. 8. DVT prophylaxis: SCDs. Avoid chemical prophylaxis secondary to thrombocytopenia. 9. Nausea/vomiting: Antiemetics as needed. 10. Hepatic encephalopathy: Lactulose, Xifaxan. Right forearm cellulitis with phlebitis- noted on 12/23- Improving Warm compress to area qid. monitor area Cephalexin 500 mg po qid 12/26- reinforced alcohol cessation d/w patient and Mom- Catherine - she would want Hospice to ff him again at home if possible- had a great experience with them we discuss about code status- Alternative code- she was concerned about the Chest tube-as she was made to understand that this is active treatment and I inform her that I believe that this is part of comfort measures- I will discuss this with hospice/ Palliative care service regarding this to clarify goals of care d/w Ms [facility] will not accept him back as Hospice we will arrange for home health care nursing DC home today- Home health care nursing to ff chest tube- d/w Sakshi [facility]RICH - have [facility] nursing to ff up with me OP ff Dr. Shelton Problem Qualifiers (1) Sepsis: Qualified Code: A41.9 - Sepsis, due to unspecified organism (2) Alcohol dependence: Ammon Rosales MD Dec 27, 2016 10:29
[2016-12-27] MEDS ORDERED: FURO1TAB62 PO (10:32)
[2016-12-27] MEDS ORDERED: CEPH500C PO (10:33)
[2016-12-27] MEDS ORDERED: OXYC-395 PO (11:23)
[2016-12-27 15:07] VITALS: O2SAT 96
[2016-12-27] MEDS ORDERED: FUROSEMIDE 20 MG TAB PO SCH (21:00)
--- NOTE | 2016-12-28 12:33 | HHI.FF ---
Face to Face Verification Diagnosis: (1) Pleural effusion, right Home Health Nursing Order: Medical education Signs/symptoms of disease process Wound care and dressing changes Nursing assessment with vital signs I have seen patient Chaz Arias on 12/28/16. My clinical findings support the need for the requested home health care services because: Patient has SOB I certify that my clinical findings support that this patient is homebound because: Need for psychosocial assistance Ammon Rosales MD Dec 28, 2016 12:32
[2017-01-06] MEDS ORDERED: MORP20SO2 PO (11:03)
[2017-01-06] MEDS ORDERED: CELE40TA PO (11:21)
[2017-01-06] MEDS ORDERED: THIA100T PO (11:21)
[2017-01-06] MEDS ORDERED: FOLI1TAB4 PO (11:21)
[2017-01-06] MEDS ORDERED: OMEP40CA2 PO (11:21)
[2017-01-06] MEDS ORDERED: DIVA250T PO (11:21)
--- NOTE | 2017-03-23 14:56 | HHI.DS ---
Discharge Summary Admission Date Nov 25, 2016 at 11:15 Discharge Date: Dec 27, 2016 Admitting Diagnosis Sepsis (1) Sepsis ICD Code: A41.9 Diagnosis: Principal (2) Respiratory insufficiency ICD Code: R06.89 Diagnosis: Principal (3) Pleural effusion, right ICD Code: J90 Diagnosis: Principal (4) Collapse of right lung ICD Code: J98.11 Diagnosis: Principal (5) Probable pneumonia Diagnosis: Principal (6) Seizure ICD Code: R56.9 Diagnosis: Secondary (7) Liver failure ICD Code: K72.90 Diagnosis: Secondary (8) Alcohol dependence ICD Code: F10.20 Diagnosis: Secondary (9) Alcohol-induced cirrhosis Procedures 11/25/16 right pigtail chest tube placement 11/26/16 right chest tube placement 11/26/16 orotracheal intubation 11/26/16 subclavian central line placement 12/21- right chest tube placement Brief History - From Admission Patient is a 41-year-old male with history alcohol-induced cirrhosis, alcohol dependence and continued use, history of alcohol withdrawal seizures who presented to the emergency department with increasing shortness of breath worsening over the last 2 weeks. Also complains of epigastric pain. He was recently admitted to the hospital from 08/03/16 - 09/06/16 for sepsis from pneumonia. Workup showed patient had a white count of 16,000 with 77% neutrophils. A chest x-ray showed large right effusion with complete opacification of right lung field. CT of the chest confirmed very large right effusion with mediastinal shift and complete right lung atelectasis. CT abdomen pelvis shows large amount of ascites and liver cirrhosis. Critical- care medicine was consulted for admission I evaluated the patient in the ED he is in moderate distress due to shortness of breath. He is lying on his right side. I explained him the plan is to place right sided pigtail chest tube as a pleural effusion is very large. He is agreeable to the procedure. I have also placed him on single dose of vancomycin and continuos Zosyn 4.5 g every 6 hours. Lasix will be held at this time, continue Aldactone. IV normal saline and IV albumin added. Was also noted the patient's last alcoholic drink was yesterday evening. PE at Discharge awake and alert, oriented x 3 lungs decreased breath sounds, no rales or wheezes, slightly decreased breath sounds right side, CT in place- right regular rhythm abdomen soft, nontender extremities no edema, right forearm- phlebitis and erythema- resolved Hospital Course 1. Acute respiratory failure: Improved. Patient extubated. Pulmonology ff. Continue supplemental oxygen. Bronchodilators as needed. 2. Large right pleural effusion with right lung collapse and mass effect: Status post pigtail catheter placement on 11/25/16. The catheter was pulled out by the patient. Chest tube was placed again on 11/26/16. Aspira catheter placed 12/17/16 and removed 12/19/16 due to pain. s/p chest tube catheter placed 12/21. d/w Dr. Kaur 12/23- drain daily about 500 cc then stop when pain occurs. for the next 10 days then will reassess monitor output 3. Alcoholic liver disease, chronic: Continue lactulose, Xifaxan. Gastroenterology has signed off. Continue Inderal, Aldactone, Lasix. 4. Alcohol withdrawal, dependence: Withdrawal resolved. Continue thiamine daily. 5. Sepsis, pneumonia:blood cultures negative.fluid cultures negative. DC Vancomycin. continue Levaquin- DC after today 6. Thrombocytopenia: Likely secondary to chronic liver disease. Stable. 7. GI prophylaxis: PPI. 8. DVT prophylaxis: SCDs. Avoid chemical prophylaxis secondary to thrombocytopenia. 9. Nausea/vomiting: Antiemetics as needed. 10. Hepatic encephalopathy: Lactulose, Xifaxan. Right forearm cellulitis with phlebitis- noted on 12/23- Improving Warm compress to area qid. monitor area Cephalexin 500 mg po qid 12/26- reinforced alcohol cessation d/w patient and Mom- Catherine - she would want Hospice to ff him again at home if possible- had a great experience with them we discuss about code status- Alternative code- she was concerned about the Chest tube-as she was made to understand that this is active treatment and I inform her that I believe that this is part of comfort measures- I will discuss this with hospice/ Palliative care service regarding this to clarify goals of care d/w Ms Dobbins- [facility] will not accept him back as Hospice we will arrange for home health care nursing DC home today- Home health care nursing to chest tube- d/w Sakshi CM - have [facility] nursing to up with me OP ff Dr. Shelton Pt Condition on Discharge: Stable Discharge Disposition: Disch w/ Home Health Serv Discharge Time: > 30 minutes Discharge Instructions DIET: Follow Instructions for: As Tolerated, No Restrictions Speech Therapy-Diet Recommends: Regular Activities you can perform: Weight Bearing as Zo Activities to Avoid: Prolonged Standing, Strenuous Activity Follow up Referrals: Pulmonology - 3-5 Days with Cat Shelton MD New Medications: Rifaximin (Xifaxan) 550 Mg Tab 550 MG PO BID encephalopathy #60 TAB Discontinued Medications: Dexamethasone (Dexamethasone) 2 Mg Tab 2 MG PO DAILY #30 Ref 0 TAB Furosemide (Lasix) 20 Mg Tab 20 MG PO DAILY PRN PAINFUL PERIPHERAL EDEMA #60 Ref 0 TAB Furosemide (Lasix) 20 Mg Tab 10 MG PO DAILY #30 Ref 0 TAB Haloperidol (Haloperidol) 1 Mg Tab 1 MG PO/SL Q3HR PRN MILD AGITATION Ref 0 TAB Haloperidol (Haloperidol) 2 Mg Tab 2 MG PO Q3HR PRN SEVERE AGITATION Ref 0 TAB Ibuprofen (Advil) 200 Mg Tab 200 MG PO Q6H PRN MILD PAIN Ref 0 TAB Lactulose Liq (Lactulose Liq) 10 Gm/15 Ml Soln 45 ML PO TID Ref 0 ML Lorazepam (Lorazepam) 2 Mg Tab 2 MG PO Q3HR PRN SEVERE AGITATION/ANXIETY Ref 0 TAB Lorazepam (Lorazepam) 1 Mg Tab 1 MG PO/SL Q3HR PRN MILD AGITATION/ANXIETY Ref 0 TAB Lorazepam (Ativan) 1 Mg Tab 1 MG PO BID ANXIETY AND/OR AGITATION Ref 0 TAB Morphine Liq (Morphine Liq) 20 Mg/Ml Liq 5 MG PO/SL Q4H PRN MILD PAIN/SOB Ref 0 ML Morphine Liq (Morphine Liq) 20 Mg/Ml Liq 10 MG PO/SL Q4H PRN SEVERE PAIN/SOB Ref 0 ML Spironolactone (Aldactone) 25 Mg Tab 10 MG PO/SL BID #60 Ref 0 TAB Ammon Rosales MD March 23, 2017 14:56
== END 2016-12-27 16:29 | disposition home health service (06) | DRG 871 ==
LOC: NEPE 09:16 → NEDA 11:15 → N03B 15:56 → N04B 11-30 23:56
PROVIDERS: ADMIT Internal Medicine; ATTEND Internal Medicine
PROC: 0W9930Z Drainage of Right Pleural Cavity with Drainage Device, Percutaneous Approach (ICD-10-PCS; principal; 2016-11-25)
PROC: 5A1945Z Respiratory Ventilation, 24-96 Consecutive Hours (ICD-10-PCS; 2016-11-26)
PROC: 0BH17EZ Insertion of Endotracheal Airway into Trachea, Via Natural or Artificial Opening (ICD-10-PCS; 2016-11-26)
PROC: 0W9930Z Drainage of Right Pleural Cavity with Drainage Device, Percutaneous Approach (ICD-10-PCS; 2016-11-26)
PROC: 02HV33Z Insertion of Infusion Device into Superior Vena Cava, Percutaneous Approach (ICD-10-PCS; 2016-11-26)
PROC: 0W9930Z Drainage of Right Pleural Cavity with Drainage Device, Percutaneous Approach (ICD-10-PCS; 2016-12-17)
PROC: 0W993ZZ Drainage of Right Pleural Cavity, Percutaneous Approach (ICD-10-PCS; 2016-12-18)
PROC: 0W9930Z Drainage of Right Pleural Cavity with Drainage Device, Percutaneous Approach (ICD-10-PCS; 2016-12-21)
DX: A41.9 Sepsis, unspecified organism (principal); J18.9 Pneumonia, unspecified organism; J96.01 Acute respiratory failure with hypoxia; J90 Pleural effusion, not elsewhere classified; D68.9 Coagulation defect, unspecified; F10.231 Alcohol dependence with withdrawal delirium; J98.11 Atelectasis; L03.113 Cellulitis of right upper limb; D69.59 Other secondary thrombocytopenia; K70.31 Alcoholic cirrhosis of liver with ascites; F41.9 Anxiety disorder, unspecified; I10 Essential (primary) hypertension; M41.9 Scoliosis, unspecified; F12.90 Cannabis use, unspecified, uncomplicated; Z51.5 Encounter for palliative care; G31.2 Degeneration of nervous system due to alcohol; K80.20 Calculus of gallbladder without cholecystitis without obstruction; K70.40 Alcoholic hepatic failure without coma; Y90.9 Presence of alcohol in blood, level not specified; R33.9 Retention of urine, unspecified; Z86.14 Personal history of Methicillin resistant Staphylococcus aureus infection
CPT/HCPCS: 31500; 32550; 32557; 32999; 36556; 36600; 71010; 71020; 71250; 74176; 75989; 76705; 76937; 77002; 80048; 80053; 80202; 82140; 82150; 82465; 82550; 82552; 82565; 82805; 82945; 83605; 83615; 83690; 83735; 83986; 84100; 84157; 84484; 85007; 85025; 85027; 85384; 85610; 85730; 86403; 87015; 87040; 87070; 87102; 87116; 87205; 87206; 87641; 89051; 93005; 94002; 94003; 94150; 94620; 94640; 94664; 96374; 96375; 99152; 99153; C1729; C1769; C1887; C9113; C9399; J0456; J1170; J1956; J2060; J2250; J2270; J2405; J2543; J2550; J3010; J3370; J7030; J7040; J7050; J8540; P9047; Q9967

== ENCOUNTER 2016-12-30 14:07 | Inpatient (IN) | payer OTHER ==
[~2016-12-30] VITALS: Ht 185.4 cm; Wt 82.0 kg
[~2016-12-30 14:07] MED LIST changes: +ALDA50TA2 PO; +CELE40TA PO; +CEPH500C PO; +DIVA250T PO; +FOLI1TAB4 PO; +FURO1TAB62 PO; -FURO1TAB93 PO; +IBUP400T20 PO; +LACT10SO PO; -LACT20SO4 PO; +OMEP40CA2 PO; +OXYC-395 PO; -OXYC5 PO; -PALI3 PO; -PANT40IN3 PO; +PROP10TA6 PO; -PROP1TAB66 PO; -RIFA550 PO; -SPIR50 PO; +XIFA550T4 PO
[2016-12-30 14:09] VITALS: BP 101/61; PULSE 92; RESP 20; TEMP 98.3; O2SAT 93
--- NOTE | 2016-12-30 15:19 | PD ---
HPI Chief Complaint: Altered Mental Status Time Seen by Provider: 15:19 Travel History International Travel<30 days: No Contact w/Intl Traveler<30days: No Traveled to known affect area: No History of Present Illness HPI 41-year-old female with history of alcohol-induced cirrhosis, continued alcohol consumption until a long hospitalization November 25 through December 27 for sepsis. Patient was discharged 3 days ago. He is at home with his mom and her sister. Home nurses are visiting. Mom states he has been increasingly confused today. She he has been reporting shortness of breath and chest pain since his discharge. He does have a right sided pigtail the mom states the drainage has become more pink than yellow. States this morning he was hypotensive and when home health was contacted they rechecked and it was slightly increased but still low. She states patient has-been confused. He has not been taking his diuretics due to nausea and decreased appetite. He has gained 6 pounds. He states he has felt chilled. Unknown fever. No other symptoms to report. PFSH Past Medical History Hx Anticoagulant Therapy: No Anxiety: Yes Cancer: No Cardiovascular Problems: Yes Chemotherapy: No Cirrhosis: Yes Cerebrovascular Accident: No Diabetes: No Diminished Hearing: No Endocrine: No Genitourinary: No Hepatitis: Yes Hypertension: Yes Implanted Vascular Access Dvce: No Musculoskeletal: Yes (SCOLIOSIS, KNEE & SHOULDER INJURIES) Neurologic: Yes (SEIZURES ("ALL ALCOHOL RELATED" PER PT)) Reproductive: No Seizures: Yes Menopausal: Yes Past Surgical History Hysterectomy: No Oral Surgery: Yes (jaw) Other Surgery: Yes ( LEFT KNEE & RIGHT SHOULDER) Social History Alcohol Use: Yes Tobacco Use: No Substance Use: Yes (marijuana) Allergies-Medications (Allergen,Severity, Reaction): Coded Allergies: *MDRO Multi-Drug Resistant Organism (Verified Adverse Reaction, Unknown, ) MRSA PCR Screen (nares) POSITIVE - 08/03/16 Reported Meds & Prescriptions Reported Meds & Active Scripts Active Oxycodone (Oxycodone HCl) 10 Mg Tab 10 Mg PO Q8HR PRN Cephalexin 500 Mg Cap 500 Mg PO Q6HR 2 Days Lasix (Furosemide) 20 Mg Tab 20 Mg PO BID Aldactone (Spironolactone) 50 Mg Tab 50 Mg PO BID@ Xifaxan (Rifaximin) 550 Mg Tab 550 Mg PO BID Lactulose Liq (Lactulose) 10 Gm/15 Ml Soln 45 Ml PO QID Folate (Folic Acid) 1 Mg Tab 1 Mg PO DAILY Reported Thiamine (Thiamine HCl) 100 Mg Tab 100 Mg PO DAILY Ibuprofen 400 Mg Tab 400 Mg PO Q6H PRN Divalproex DR (Divalproex Sodium) 250 Mg Tabdr 250 Mg PO BID Celexa (Citalopram Hydrobromide) 40 Mg Tab 40 Mg PO DAILY Propranolol (Propranolol HCl) 10 Mg Tab 5 Mg PO Q12HR Omeprazole 40 Mg Cap 40 Mg PO DAILY Review of Systems ROS Limitations: Altered Mental Status Except as stated in HPI: all other systems reviewed are Neg Physical Exam Exam Limitations: Altered Mental Status Narrative GENERAL: Chronically ill-appearing male patient, sitting in the chair, in no acute distress SKIN: Warm and dry. Right lateral thorax pigtail drain in place. Skin is without significant erythema. No drainage from the site. HEAD: Atraumatic. Normocephalic. EYES: Pupils equal and round. No scleral icterus. No injection or drainage. ENT: No nasal bleeding or discharge. Mucous membranes appear dry. NECK: Trachea midline. No JVD. CARDIOVASCULAR: Regular rate and rhythm. No murmur appreciated. RESPIRATORY: No accessory muscle use. Diminished to auscultation. Breath sounds equal bilaterally. GASTROINTESTINAL: Abdomen soft, non-tender, nondistended. Hepatic and splenic margins not palpable. MUSCULOSKELETAL: No obvious deformities. No clubbing. No cyanosis. No edema. NEUROLOGICAL: Awake and alert. No obvious cranial nerve deficits. Motor grossly within normal limits. Normal speech. PSYCHIATRIC: Appropriate mood and affect; insight and judgment normal. Data Data Last Documented VS Vital Signs Date Time Temp Pulse Resp B/P Pulse Ox O2 Delivery O2 Flow Rate FiO2 12/30/16 15:27 95 20 97 Room Air 12/30/16 14:09 98.3 101/61 Orders Electrocardiogram (12/30/16 15:05) Complete Blood Count With Diff (12/30/16 15:05) Comprehensive Metabolic Panel (12/30/16 15:05) Prothrombin Time / Inr (Pt) (12/30/16 15:05) Act Partial Throm Time (Ptt) (12/30/16 15:05) Lactic Acid Sepsis Protocol (12/30/16 15:05) Magnesium (Mg) (12/30/16 15:05) Phosphorus (Po4) (12/30/16 15:05) Lipase (12/30/16 15:05) Ckmb (Isoenzyme) Profile (12/30/16 15:05) Troponin I (12/30/16 15:05) Urinalysis - C+S If Indicated (12/30/16 15:05) Influenzae A/B Antigen (12/30/16 15:05) Blood Culture (12/30/16 15:05) Chest, Single Ap (12/30/16 15:05) Ammonia (12/30/16 15:05) Labs Laboratory Tests Test 12/30/16 15:20 White Blood Count 17.8 TH/MM3 Red Blood Count 4.34 MIL/MM3 Hemoglobin 13.5 GM/DL Hematocrit 39.4 % Mean Corpuscular Volume 90.7 FL Mean Corpuscular Hemoglobin 31.1 PG Mean Corpuscular Hemoglobin 34.3 % Concent Red Cell Distribution Width 15.0 % Platelet Count 274 TH/MM3 Mean Platelet Volume 9.1 FL Neutrophils (%) (Auto) 61.6 % Lymphocytes (%) (Auto) 15.7 % Monocytes (%) (Auto) 19.5 % Eosinophils (%) (Auto) 2.7 % Basophils (%) (Auto) 0.5 % Neutrophils # (Auto) 11.0 TH/MM3 Lymphocytes # (Auto) 2.8 TH/MM3 Monocytes # (Auto) 3.5 TH/MM3 Eosinophils # (Auto) 0.5 TH/MM3 Basophils # (Auto) 0.1 TH/MM3 CBC Comment AUTO DIFF Differential Total Cells 100 Counted Neutrophils % (Manual) 62 % Band Neutrophils % 4 % Lymphocytes % 13 % Monocytes % 11 % Eosinophils % 2 % Basophils % 1 % Neutrophils # (Manual) 13.0 TH/MM3 Metamyelocytes 3 % Myelocytes 4 % Differential Comment FINAL DIFF MANUAL Platelet Estimate NORMAL Platelet Morphology Comment NORMAL Red Cell Morphology Comment NORMAL Prothrombin Time 12.7 SEC Prothromb Time International 1.1 RATIO Ratio Activated Partial 28.9 SEC Thromboplast Time Sodium Level 135 MEQ/L Potassium Level 3.8 MEQ/L Chloride Level 96 MEQ/L Carbon Dioxide Level 31.5 MEQ/L Anion Gap 8 MEQ/L Blood Urea Nitrogen 14 MG/DL Creatinine 1.11 MG/DL Estimat Glomerular Filtration 73 ML/MIN Rate Random Glucose 114 MG/DL Calcium Level 8.6 MG/DL Phosphorus Level 3.4 MG/DL Magnesium Level 2.2 MG/DL Aspartate Amino Transf 27 U/L (AST/SGOT) Alanine Aminotransferase 16 U/L (ALT/SGPT) Ammonia 39 MCMOL/L Albumin 2.8 GM/DL Lipase 72 U/L [facility] Medical Decision Making Medical Screen Exam Complete: Yes Emergency Medical Condition: Yes Medical Record Reviewed: Yes Differential Diagnosis Sepsis versus liver failure versus hepatic encephalopathy versus UTI versus pneumonia Narrative Course 41 year-old male presents to the emergency department for evaluation. Workup was initiated in triage. Once a medical bed becomes available, patient will be transferred and erythema that provider. Condition: Stable Shira Meléndez Dec 30, 2016 15:19
--- NOTE | 2016-12-30 15:34 | RADRPT ---
EXAM DATE/TIME: 12/30/2016 15:16 [facility] COMPARISON: CHEST SINGLE AP, December 23, 2016, 10:41. INDICATIONS : Fever, shortness of breath MEDICAL HISTORY : Pneumonia, sepsis, liver failure, ascities, seizure SURGICAL HISTORY : None. ENCOUNTER: Initial ACUITY: 3 days PAIN SCORE: 0/10 LOCATION: Bilateral chest FINDINGS: Right thoracostomy tube remains in place. Bibasilar areas of atelectasis are appreciated with no evid ence of consolidation and no evidence of pneumothorax. CONCLUSION: Stable chest Robles Hudson MD on December 30, 2016 at 15:32 Board Certified Radiologist. This report was verified electronically.
[2016-12-30 15:44] LABS: BASOPHIL # 0.1 TH/MM3 (0-0.2); BASOPHIL % 0.5 % (0.0-2.0); EOSINOPHIL # 0.5 TH/MM3 (0-0.4); EOSINOPHIL % 2.7 % (0.0-4.0); HEMATOCRIT 39.4 % (39.0-51.0); LYMPH % 15.7 % (9.0-44.0); LYMPHOCYTE # 2.8 TH/MM3 (1.0-4.8); MEAN CELL VOLUME 90.7 FL (80.0-100.0); MEAN CORPUSCULAR HEMOGLOBIN 31.1 PG (27.0-34.0); MEAN CORPUSCULAR HGB CONC 34.3 % (32.0-36.0); MONO % 19.5 % (0.0-8.0); NEUT % 61.6 % (16.0-70.0); PLATELET COUNT 274 TH/MM3 (150-450); RED BLOOD COUNT 4.34 MIL/MM3 (4.50-5.90); WHITE BLOOD COUNT 17.8 TH/MM3 (4.0-11.0)
[2016-12-30 15:48] LABS: HEMO FLAGS AUTO DIFF
[2016-12-30 16:14] LABS: ALT (GPT) 16 U/L (12-78); ANION GAP 8 MEQ/L (5-15); AST (GOT) 27 U/L (15-37); BICARBONATE 31.5 MEQ/L (21.0-32.0); BLOOD UREA NITROGEN 14 MG/DL (7-18); CHLORIDE 96 MEQ/L (98-107); GLOMERULAR FILTRATION RATE 73 ML/MIN (>89); MAGNESIUM 2.2 MG/DL (1.5-2.5); POTASSIUM 3.8 MEQ/L (3.5-5.1); SODIUM (NA) 135 MEQ/L (136-145)
[2016-12-30 16:22] LABS: APTT (PATIENT) 28.9 SEC (24.3-30.1); INTERNATIONAL NORMALIZED RATIO 1.1 RATIO; PROTHROMBIN TIME - PATIENT 12.7 SEC (9.8-11.6)
[2016-12-30 16:40] LABS: BANDS 4 % (0-6); BASOPHILS 1 % (0-2); EOSINOPHILS 2 % (0-4); METAMYELOCYTES 3 % (0-1); MYELOCYTES 4 % (0-0); POLYS (SEG NEUTROPHILS) 62 % (16-70); WBC DIFF SAMPLE 100
[2016-12-30 16:41] LABS: PLATELET ESTIMATE SMEAR NORMAL (NORMAL); PLATELET MORPHOLOGY NORMAL (NORMAL); SCAN/DIFF FINAL DIFF MANUAL
[2016-12-30 17:00] VITALS: BP 106/59; PULSE 96; RESP 16
[2016-12-30 17:11] LABS: ALKALINE PHOSPHATASE 133 U/L (45-117); CREATINE KINASE 30 U/L (39-308); TOTAL BILIRUBIN ADULT 0.8 MG/DL (0.2-1.0)
[2016-12-30 17:20] LABS: BLOOD, URINE NEG (NEG); GLUCOSE,URINE NEG (NEG); HYALINE CAST, URINE 1 /lpf (RARE); KETONE, URINE NEG (NEG); MUCUS URINE FEW /lpf (OCC); NITRITE,URINE NEG (NEG); URINE COLOR DARK-YELLOW (YELLW/STRAW)
[2016-12-30 17:22] LABS: COMMENT (UR) CATH-CULT NOT IND; CULTURE IF INDICATED CATH CULTURE NOT IND
[2016-12-30] MEDS ORDERED: PIPERACIL-TAZO 4.5 GM PREMIX 100 ML IV ONE (17:45)
[2016-12-30] MEDS ORDERED: SODIUM CHLORIDE 0.9% FLUSH 5 ML FLUSH FLUSH PRN (18:15)
[2016-12-30] MEDS ORDERED: ACETAMINOPHEN 325 MG TAB PO PRN (18:15)
[2016-12-30] MEDS ORDERED: NALOXONE HCL 0.4 MG/ML AMP IV PRN (18:15)
[2016-12-30] MEDS ORDERED: ONDANSETRON HCL 4 MG/2 ML VIAL IVP PRN (18:15)
--- NOTE | 2016-12-30 19:06 | PD ---
Data Data Last Documented VS Vital Signs Date Time Temp Pulse Resp B/P Pulse Ox O2 Delivery O2 Flow Rate FiO2 12/30/16 15:27 95 20 97 Room Air 12/30/16 14:09 98.3 101/61 Orders Electrocardiogram (12/30/16 15:05) Complete Blood Count With Diff (12/30/16 15:05) Comprehensive Metabolic Panel (12/30/16 15:05) Prothrombin Time / Inr (Pt) (12/30/16 15:05) Act Partial Throm Time (Ptt) (12/30/16 15:05) Lactic Acid Sepsis Protocol (12/30/16 15:05) Magnesium (Mg) (12/30/16 15:05) Phosphorus (Po4) (12/30/16 15:05) Lipase (12/30/16 15:05) Ckmb (Isoenzyme) Profile (12/30/16 15:05) Troponin I (12/30/16 15:05) Urinalysis - C+S If Indicated (12/30/16 15:05) Influenzae A/B Antigen (12/30/16 15:05) Blood Culture (12/30/16 15:05) Chest, Single Ap (12/30/16 15:05) Ammonia (12/30/16 15:05) Piperacil-Tazo 4.5 Gm Premix (Zosyn 4.5 (12/30/16 17:45) Kit, Aspira Pleura Drainage (12/30/16 17:49) Ct Thorax/ Chest Wo Iv Contras (12/30/16 ) Admit Order (Ed Use Only) (12/30/16 18:04) Labs Laboratory Tests Test 12/30/16 12/30/16 15:20 16:50 White Blood Count 17.8 TH/MM3 Red Blood Count 4.34 MIL/MM3 Hemoglobin 13.5 GM/DL Hematocrit 39.4 % Mean Corpuscular Volume 90.7 FL Mean Corpuscular Hemoglobin 31.1 PG Mean Corpuscular Hemoglobin 34.3 % Concent Red Cell Distribution Width 15.0 % Platelet Count 274 TH/MM3 Mean Platelet Volume 9.1 FL Neutrophils (%) (Auto) 61.6 % Lymphocytes (%) (Auto) 15.7 % Monocytes (%) (Auto) 19.5 % Eosinophils (%) (Auto) 2.7 % Basophils (%) (Auto) 0.5 % Neutrophils # (Auto) 11.0 TH/MM3 Lymphocytes # (Auto) 2.8 TH/MM3 Monocytes # (Auto) 3.5 TH/MM3 Eosinophils # (Auto) 0.5 TH/MM3 Basophils # (Auto) 0.1 TH/MM3 CBC Comment AUTO DIFF Differential Total Cells 100 Counted Neutrophils % (Manual) 62 % Band Neutrophils % 4 % Lymphocytes % 13 % Monocytes % 11 % Eosinophils % 2 % Basophils % 1 % Neutrophils # (Manual) 13.0 TH/MM3 Metamyelocytes 3 % Myelocytes 4 % Differential Comment FINAL DIFF MANUAL Platelet Estimate NORMAL Platelet Morphology Comment NORMAL Red Cell Morphology Comment NORMAL Prothrombin Time 12.7 SEC Prothromb Time International 1.1 RATIO Ratio Activated Partial 28.9 SEC Thromboplast Time Sodium Level 135 MEQ/L Potassium Level 3.8 MEQ/L Chloride Level 96 MEQ/L Carbon Dioxide Level 31.5 MEQ/L Anion Gap 8 MEQ/L Blood Urea Nitrogen 14 MG/DL Creatinine 1.11 MG/DL Estimat Glomerular Filtration 73 ML/MIN Rate Random Glucose 114 MG/DL Lactic Acid Level 2.0 mmol/L Calcium Level 8.6 MG/DL Phosphorus Level 3.4 MG/DL Magnesium Level 2.2 MG/DL Total Bilirubin 0.8 MG/DL Aspartate Amino Transf 27 U/L (AST/SGOT) Alanine Aminotransferase 16 U/L (ALT/SGPT) Alkaline Phosphatase 133 U/L Ammonia 39 MCMOL/L Total Creatine Kinase 30 U/L Troponin I LESS THAN 0.02 NG/ML Total Protein 6.7 GM/DL Albumin 2.8 GM/DL Lipase 72 U/L Urine Color DARK-YELLOW Urine Turbidity CLEAR Urine pH 6.0 Urine Specific [place] 1.029 Urine Protein 30 mg/dL Urine Glucose (UA) NEG mg/dL Urine Ketones NEG mg/dL Urine Occult Blood NEG Urine Nitrite NEG Urine Bilirubin NEG Urine Urobilinogen 4.0 MG/DL Urine Leukocyte Esterase TRACE Urine RBC LESS THAN 1 /hpf Urine WBC 6 /hpf Urine Hyaline Casts 1 /lpf Urine Mucus FEW /lpf Microscopic Urinalysis Comment CATH-CULT NOT IND MDM Supervised Visit with JERAMY: Yes Narrative Course The history, exam, and medical decision-making in the associated midlevel provider note were completed with my assistance. I reviewed and agree with the findings presented. I attest that I had a [id number] encounter with the patient on the same day, and personally performed and documented my assessment and findings in the medical record. *My assessment and Findings: This is a 41-year-old male who has a history of alcoholic cirrhosis and sepsis with parapneumonic effusion in the past currently with a chest tube in place presenting to the emergency department with some altered mental status and a low blood pressure at home. Patient was placed on a monitor and an IV was established. He was found to have a leukocytosis of 17 which is new from discharge. He does have some inflammation immediately around his chest tube site. Pleural fluid is clear. It was sent for culture and Gram stain. I think given the patient's indwelling chest tube and is new when blood cell count it's reasonable to cover him with IV antibiotics for possible sepsis pending fluid and blood cultures. Patient was admitted. Diagnosis Primary Impression: Sepsis Qualified Code: A41.9 - Sepsis, due to unspecified organism Admitting Information Admitting Physician Requests: Admit Condition: Stable Cheryl Dickerson MD Dec 30, 2016 19:06
[2016-12-30 19:50] VITALS: BP 99/53; PULSE 106; RESP 18
--- NOTE | 2016-12-30 20:14 | RADRPT ---
EXAM DATE/TIME: 12/30/2016 19:44 [facility] COMPARISON: CT THORAX W/O CONTRAST, November 25, 2016, 11:37. INDICATIONS : Fever and shortness of breath. RADIATION DOSE: 5.37 CTDIvol (mGy) MEDICAL HISTORY : Cardiovascular disease. Hypertension. Cirrhosis. hepatitis SURGICAL HISTORY : Orthopedic,Chest tube ENCOUNTER: Initial ACUITY: 1 day PAIN SCALE: 8/10 LOCATION: Right chest TECHNIQUE: Volumetric scanning of the chest was performed. Using automated exposure control and adjustment of t he mA and/or kV according to patient size, radiation dose was kept as low as reasonably achievable to obtain optimal diagnostic quality images. FINDINGS: Large right pleural effusion seen previously is no longer present, currently very small. Some of it i s loculated in the major fissure.. A pleural drainage catheter is in place. There is trace atelectasi s of both lung bases. No pleural effusion on the left. No pneumothorax on either side. Heart size stable, within normal limits. No mediastinal, hilar or axillary lymphadenopathy demon strated. Upper abdomen only partly included on this study. Micronodular appearing liver again seen. There is splenomegaly. No ascites. Innumerable tiny gravel-like stones again seen in the gallbladder. CONCLUSION: 1. Trace right pleural effusion. Pleural drainage catheter in place. 2. Very mild bibasilar atelectasis. No pneumonic infiltrates seen. 3. Cirrhosis, splenomegaly and cholelithiasis. Evan Roman MD on December 30, 2016 at 20:08 Board Certified Radiologist. This report was verified electronically.
[2016-12-30] MEDS ORDERED: LACTULOSE SYRUP 20 GM/30 ML CUP PO SCH (21:00)
[2016-12-30] MEDS: SODIUM CHLORIDE 0.9% FLUSH 5 ML FLUSH FLUSH SCH (21:00)
[2016-12-30 22:00] VITALS: PULSE 94; RESP 18; O2SAT 96
--- NOTE | 2016-12-30 22:44 | HHI.HP ---
HPI Service [facility] Hospitalists Primary Care Physician Maria De Jesus Gomez MD Admission Diagnosis sepsis Diagnoses: (1) Leukocytosis (2) Hyponatremia (3) Hepatic encephalopathy (4) Pain (5) Hyperammonemia Chief Complaint: confusion Travel History International Travel<30 Days: No Contact w/Intl Traveler <30 Da: No Traveled to Known Affected Are: No History of Present Illness Mr. Arias is an unfortunate 41-year-old male with advanced alcohol-induced liver disease who was recently discharged from a hospitalization for sepsis November 25 through December 27 who presents on 12/30/2016 to the emergency room for evaluation of increasing confusion, nausea, decreased appetite with 6 pound weight gain. He was reporting increasing shortness of breath and chest pain since his discharge. Chest CT shows trace right pleural effusion. Right pleural drainage catheter in place. Very mild bibasilar atelectasis with no pneumonic infiltrate seen. Cirrhosis, splenomegaly, and cholelithiasis. Chest x-ray read stable chest. WBC elevated at 17.8 with monocytosis. Flu testing negative for flu a and flu B , blood cultures are pending. Mild hyponatremia noted. Ammonia level elevated at 39. UA without indication for culture as abnormalities appear to be related to liver failure. Lactic acid is 2.0. The patient is seen in the ER. He reports chest pain when taking a deep breath or exerting self like when he rides a bicycle; nonproductive cough. No fever but intermittent dizziness. Shortness of breath intermittently but it wasn't so "bad I couldn't do anything". Pain mostly on side where chest tube is. No pain with urination, intermittent burning with urination. Reports diarrhea (2 - 3 times on a bad day - depends upon what he eats - not occurring daily) but denies nausea and vomiting. No black or red stool. The patient becomes increasingly agitated and confused and wanting to leave towards the end of our visit. He is very difficult oriented. He is not aware that he is at [facility] and states he wants to go there. 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 He starts to take off his EKG leads and tries to leave and pulls out his IV. His HPI and ROS is likely not very reliable. . Review of Systems ROS Limitations: Altered Mental Status Except as stated in HPI: all other systems reviewed are Neg Past Family Social History Past Medical History Liver cirrhosis Alcoholics hepatitis Alcohol withdrawal related seizures Prior history of pleural effusion with Aspira drain Scoliosis Hypertension Past Surgical History Left knee surgery Right shoulder surgery Closed reduction of left and right condylar neck fracture with arch bars Right pleural Aspira Drain inserted 2016 . Reported Medications Reported Meds & Active Scripts Active Oxycodone (Oxycodone HCl) 10 Mg Tab 10 Mg PO Q8HR PRN Cephalexin 500 Mg Cap 500 Mg PO Q6HR 2 Days Lasix (Furosemide) 20 Mg Tab 20 Mg PO BID Aldactone (Spironolactone) 50 Mg Tab 50 Mg PO BID@,18 Xifaxan (Rifaximin) 550 Mg Tab 550 Mg PO BID Lactulose Liq (Lactulose) 10 Gm/15 Ml Soln 45 Ml PO QID Folate (Folic Acid) 1 Mg Tab 1 Mg PO DAILY Reported Thiamine (Thiamine HCl) 100 Mg Tab 100 Mg PO DAILY Ibuprofen 400 Mg Tab 400 Mg PO Q6H PRN Divalproex DR (Divalproex Sodium) 250 Mg Tabdr 250 Mg PO BID Celexa (Citalopram Hydrobromide) 40 Mg Tab 40 Mg PO DAILY Propranolol (Propranolol HCl) 10 Mg Tab 5 Mg PO Q12HR Omeprazole 40 Mg Cap 40 Mg PO DAILY . 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 - 08/03/16 Active Ordered Medications Current Medications Piperacillin Sod/ Tazobactam Sod (Zosyn 4.5 Gm Premix) 100 ml @ 200 mls/hr ONCE ONCE IV Last administered on 12/30/16t 19:47; Start 12/30/16 at 17:45; Stop 12/30/16 at 18:14; Status DC IV Flush (NS Flush) 2 ml UNSCH PRN FLUSH FLUSH AFTER USING IV ACCESS; Start at 18:15 IV Flush (NS Flush) 2 ml BID FLUSH ; Start 12/30/16 at 21:00 Acetaminophen (Tylenol) 650 mg Q4H PRN PO TEMP > 100.4; Start 12/30/16 at 18:15 Ondansetron HCl (Zofran Inj) 4 mg Q6H PRN IVP NAUSEA OR VOMITING; Start at 18:15 Naloxone HCl (Narcan Inj) 0.4 mg UNSCH PRN IV SEE LABEL COMMENTS; Start at 18:15 Lactulose 30 ml 30 ml QID PO ; Start 12/30/16 at 21:00 Piperacillin Sod/ Tazobactam Sod (Zosyn 3.375 Gm Premix) 50 ml @ 100 mls/hr Q6H IV ; Start 12/31/16 at 00:00 Oxycodone HCl (Roxicodone) 10 mg Q8HR PRN PO pain CT Last administered on t 18:50; Start 12/30/16 at 18:15 . Family History Brought forward from Dr. Harshal Funk's consultation note dated 11/26/16: Family history is positive for alcohol related cirrhosis and colitis in both his father and paternal grandfather There is also a family history of hypertension . Social History Tobacco: None Alcohol: Long history of abuse: today states he still drinks but not daily Illicit Drugs: Occasional marijuana use by history - denied today . Physical Exam Vital Signs Vital Signs Date Time Temp Pulse Resp B/P Pulse Ox O2 Delivery O2 Flow Rate FiO2 12/30/16 15:27 95 20 97 Room Air 12/30/16 14:09 98.3 92 20 101/61 93 Room Air Physical Exam GENERAL: This is a confused male patient, who is initially pleasant and cooperative but becomes more agitated towards the end of the visit and starts taking off of his playground monitor leads and wanting to go home. It is very difficult to reorient him. SKIN: Skin is cool and dry. On right thorax around his Aspira drain site, there is erythema noted in the patient reports pain here. HEAD: Atraumatic. Normocephalic. EYES: No scleral icterus. No injection or drainage. ENT: Nose without bleeding, purulent drainage. NECK: Trachea midline. No JVD or lymphadenopathy. CARDIOVASCULAR: Regular rate and rhythm without murmurs, gallops, or rubs. RESPIRATORY: Clear to auscultation. Breath sounds equal bilaterally. No wheezes , rales, or rhonchi. GASTROINTESTINAL: Abdomen soft, non-tender, nondistended. No guarding. MUSCULOSKELETAL: Extremities without clubbing, cyanosis, or edema. No calf tenderness. NEUROLOGICAL: Awake and alert: Confused to person and place; did not assess his orientation to time due to his increased agitation; he is aware of self. Motor and sensory grossly within normal limits. Normal speech. . Laboratory Laboratory Tests Test 12/30/16 12/30/16 15:20 16:50 White Blood Count 17.8 Red Blood Count 4.34 Hemoglobin 13.5 Hematocrit 39.4 Mean Corpuscular Volume 90.7 Mean Corpuscular Hemoglobin 31.1 Mean Corpuscular Hemoglobin 34.3 Concent Red Cell Distribution Width 15.0 Platelet Count 274 Mean Platelet Volume 9.1 Neutrophils (%) (Auto) 61.6 Lymphocytes (%) (Auto) 15.7 Monocytes (%) (Auto) 19.5 Eosinophils (%) (Auto) 2.7 Basophils (%) (Auto) 0.5 Neutrophils # (Auto) 11.0 Lymphocytes # (Auto) 2.8 Monocytes # (Auto) 3.5 Eosinophils # (Auto) 0.5 Basophils # (Auto) 0.1 CBC Comment AUTO DIFF Differential Total Cells 100 Counted Neutrophils % (Manual) 62 Band Neutrophils % 4 Lymphocytes % 13 Monocytes % 11 Eosinophils % 2 Basophils % 1 Neutrophils # (Manual) 13.0 Metamyelocytes 3 Myelocytes 4 Differential Comment FINAL DIFF MANUAL Platelet Estimate NORMAL Platelet Morphology Comment NORMAL Red Cell Morphology Comment NORMAL Prothrombin Time 12.7 Prothromb Time International 1.1 Ratio Activated Partial 28.9 Thromboplast Time Sodium Level 135 Potassium Level 3.8 Chloride Level 96 Carbon Dioxide Level 31.5 Anion Gap 8 Blood Urea Nitrogen 14 Creatinine 1.11 Estimat Glomerular Filtration 73 Rate Random Glucose 114 Lactic Acid Level 2.0 Calcium Level 8.6 Phosphorus Level 3.4 Magnesium Level 2.2 Total Bilirubin 0.8 Aspartate Amino Transf 27 (AST/SGOT) Alanine Aminotransferase 16 (ALT/SGPT) Alkaline Phosphatase 133 Ammonia 39 Total Creatine Kinase 30 Troponin I LESS THAN 0.02 Total Protein 6.7 Albumin 2.8 Lipase 72 Urine Color DARK-YELLOW Urine Turbidity CLEAR Urine pH 6.0 Urine Specific [place] 1.029 Urine Protein 30 Urine Glucose (UA) NEG Urine Ketones NEG Urine Occult Blood NEG Urine Nitrite NEG Urine Bilirubin NEG Urine Urobilinogen 4.0 Urine Leukocyte Esterase TRACE Urine RBC LESS THAN 1 Urine WBC 6 Urine Hyaline Casts 1 Urine Mucus FEW Microscopic Urinalysis Comment CATH-CULT NOT IND Date/Time Procedure Status Source Growth 12/30/16 15:20 Influenza Types A,B Antigen ([facility]) - Final Complete Nasal Washing NEGATIVE FOR FLU A AND B ANTIGEN.... 12/30/16 15:20 Aerobic Blood Culture Received Blood Peripheral Pending 12/30/16 15:20 Anaerobic Blood Culture Received Blood Peripheral Pending Result Diagram: 12/30/16 1520 12/30/16 1520 Imaging Last Impressions Chest X-Ray 12/30/16 1505 Signed Impressions: Service Date/Time: Friday, December 30, 2016 15:16 - CONCLUSION: Stable chest Robles Husdon MD Chest CT 12/30/16 0000 Signed Impressions: Service Date/Time: Friday, December 30, 2016 19:44 - CONCLUSION: 1. Trace right pleural effusion. Pleural drainage catheter in place. 2. Very mild bibasilar atelectasis. No pneumonic infiltrates seen. 3. Cirrhosis, splenomegaly and cholelithiasis. Evan Roman MD . Assessment and Plan Problem List: (1) Leukocytosis ICD Code: D72.829 Status: Acute (2) Hyponatremia ICD Code: E87.1 Status: Acute (3) Hepatic encephalopathy ICD Code: K72.90 Status: Chronic (4) Hyperammonemia ICD Code: E72.20 Status: Acute (5) Pain ICD Code: R52 Status: Acute Assessment and Plan Mr. Arias is an unfortunate 41-year-old male with advanced alcohol-induced liver disease who was recently discharged from a hospitalization for sepsis November 25 through December 27 who presents on 12/30/2016 to the emergency room for evaluation of increasing confusion, nausea, decreased appetite with 6 pound weight gain. He was reporting increasing shortness of breath and chest pain since his discharge. Leukocytosis with monocytosis - WBC elevated at 17.8 with monocytosis. - Zosyn 3.375 every 6 hours IV - Vital signs every 4 hours - Pleural fluid sent for culture - Continuous cardiac telemetry Mild hyponatremia - Recheck sodium level in morning and follow trends Hepatic encephalopathy with hyperammonemia - Lactulose 30 cc 4 times a day - Neurochecks every 4 hours - Monitor intake and output every shift Pain; right chest tube site - Oxycodone 10 mg every 8 hours as needed for pain DVT prophylaxis - SCDs Written by Caprice Peter, acting as scribe for Dr. Orellana on 12/30/16 at 22:44. .The documentation accurately reflects the work performed [id number] by me on 12/30/16 at 2244 Discussed Condition With ER physician, patient, RN Physician Certification 2 Midnight Certification Type: Admission for Inpatient Services Order for Inpatient Services The services are ordered in accordance with Medicare regulations or non- Medicare payer requirements, as applicable. In the case of services not specified as inpatient-only, they are appropriately provided as inpatient services in accordance with the 2-midnight benchmark. Estimated LOS (days): 4 days is the estimated time the patient will need to remain in the hospital, assuming treatment plan goals are met and no additional complications. Post-Hospital Plan: Not yet determined Caprice Peter Dec 30, 2016 22:44 Faustino Orellana MD Dec 31, 2016 08:27
--- NOTE | 2016-12-30 22:51 | EKG ---
Date Performed: 12/30/2016 Time Performed: 15:54:46 PTAGE: 41 years EKG: Sinus rhythm NORMAL ECG PREVIOUS TRACING : 11/25/2016 09.38 Compared to prior tracing no significant change DOCTOR: Avinash Ibanez Interpretating Date/Time 12/30/2016 22:50:43
[2016-12-30] MEDS ORDERED: LORazepam 2 MG/ML VIAL ONE (22:54)
[2016-12-30] MEDS ORDERED: LORazepam 2 MG/ML VIAL IV PUSH PRN (23:00)
[2016-12-30] MEDS ORDERED: LACTULOSE SYRUP 20 GM/30 ML CUP PO ONE (23:00)
[2016-12-31] VITALS (8 sets, daily range): BP systolic 86–110; BP diastolic 30–62; PULSE 68–111; RESP 16–20; TEMP 97.5–98.7; O2SAT 93–97
[2016-12-31] MEDS: PIPERACIL-TAZO 3.375 GM PREMIX 50 ML IV SCH ×4 (00:36→18:10)
[2016-12-31 08:28] LABS: AUTOMATED NEUTROPHIL # 10.3 TH/MM3 (1.8-7.7); BASOPHIL # 0.1 TH/MM3 (0-0.2); BASOPHIL % 0.5 % (0.0-2.0); EOSINOPHIL # 0.2 TH/MM3 (0-0.4); EOSINOPHIL % 1.5 % (0.0-4.0); HEMATOCRIT 34.6 % (39.0-51.0); LYMPH % 12.6 % (9.0-44.0); MEAN CELL VOLUME 91.4 FL (80.0-100.0); MEAN CORPUSCULAR HEMOGLOBIN 31.7 PG (27.0-34.0); MEAN CORPUSCULAR HGB CONC 34.7 % (32.0-36.0); MONO % 20.9 % (0.0-8.0); NEUT % 64.5 % (16.0-70.0); PLATELET COUNT 159 TH/MM3 (150-450); RED BLOOD COUNT 3.78 MIL/MM3 (4.50-5.90); RED CELL DISTRIBUTION WIDTH 15.7 % (11.6-17.2)
[2016-12-31 08:31] LABS: HEMO FLAGS AUTO DIFF
[2016-12-31 08:55] LABS: ALKALINE PHOSPHATASE 113 U/L (45-117); ALT (GPT) 14 U/L (12-78); ANION GAP 8 MEQ/L (5-15); AST (GOT) 26 U/L (15-37); BLOOD UREA NITROGEN 10 MG/DL (7-18); CHLORIDE 97 MEQ/L (98-107); GLOMERULAR FILTRATION RATE 106 ML/MIN (>89); POTASSIUM 3.5 MEQ/L (3.5-5.1); SODIUM (NA) 135 MEQ/L (136-145); TOTAL BILIRUBIN ADULT 1.2 MG/DL (0.2-1.0)
[2016-12-31 09:13] LABS: BANDS 6 % (0-6); BASOPHILS 1 % (0-2); EOSINOPHILS 1 % (0-4); METAMYELOCYTES 1 % (0-1); MYELOCYTES 3 % (0-0); NEUTROPHIL # MANUAL DIFF 10.9 TH/MM3 (1.8-7.7); POLYS (SEG NEUTROPHILS) 58 % (16-70); WBC DIFF SAMPLE 100
[2016-12-31 09:14] LABS: PLATELET ESTIMATE SMEAR NORMAL (NORMAL); PLATELET MORPHOLOGY NORMAL (NORMAL); SCAN/DIFF FINAL DIFF MANUAL
[2016-12-31] MEDS: FOLIC ACID 1 MG TAB PO SCH (10:02)
[2016-12-31] MEDS: FUROSEMIDE 20 MG TAB PO SCH ×2 (10:02→20:51)
[2016-12-31] MEDS: CITALOPRAM HYDROBROMIDE 40 MG TAB PO SCH (10:02)
[2016-12-31] MEDS: PROPRANOLOL HCL 10 MG TAB PO SCH ×2 (10:02→20:51)
[2016-12-31] MEDS: THIAMINE HCL 100 MG TAB PO SCH (10:02)
[2016-12-31] MEDS: RIFAXIMIN 550 MG TAB PO SCH ×2 (10:02→20:51)
[2016-12-31] MEDS: PANTOPRAZOLE SOD 40 MG DELAYED RELEASE TAB PO SCH (10:02)
[2016-12-31] MEDS: SPIRONOLACTONE 50 MG TAB PO SCH ×2 (10:02→18:10)
[2016-12-31] MEDS: LACTULOSE SYRUP 20 GM/30 ML CUP PO SCH ×4 (10:03→20:52)
[2016-12-31] MEDS: DIVALPROEX SODIUM DELAYED RELEASE 250 MG TAB PO SCH ×2 (10:03→20:52)
[2016-12-31] MEDS: SODIUM CHLORIDE 0.9% FLUSH 5 ML FLUSH FLUSH SCH ×2 (10:03→20:52)
--- NOTE | 2016-12-31 16:43 | HHI.PR ---
Subjective Remarks Patient is encephalopathy. He is confused about date, time, or place. He reports having pain but is unable to localize where his pain is. Objective Vitals Vital Signs Date Time Temp Pulse Resp B/P Pulse Ox O2 Delivery O2 Flow Rate FiO2 12/31/16 12:00 97.5 68 16 86/30 94 12/31/16 08:00 97.5 80 16 93/54 96 12/31/16 06:26 16 12/31/16 04:00 98.2 87 18 109/62 97 12/31/16 03:24 97.8 82 18 98/54 95 12/31/16 00:16 98.7 111 18 110/59 94 12/30/16 22:00 94 18 96 Room Air 12/30/16 19:50 106 18 99/53 12/30/16 17:00 96 16 106/59 I/O 12/30/16 12/30/16 12/30/16 12/31/16 12/31/16 12/31/16 07:00 15:00 23:00 07:00 15:00 23:00 Intake Total 240 ml 600 ml Balance 240 ml 600 ml Intake Oral 240 ml 600 ml # Voids 2 2 # Bowel Movements 1 1 Result Diagram: 12/31/16 0739 12/31/16 0739 Imaging Last Impressions Chest X-Ray 12/30/16 1505 Signed Impressions: Service Date/Time: Friday, December 30, 2016 15:16 - CONCLUSION: Stable chest Robles Hudson MD Chest CT 12/30/16 0000 Signed Impressions: Service Date/Time: Friday, December 30, 2016 19:44 - CONCLUSION: 1. Trace right pleural effusion. Pleural drainage catheter in place. 2. Very mild bibasilar atelectasis. No pneumonic infiltrates seen. 3. Cirrhosis, splenomegaly and cholelithiasis. Evan Roman MD Objective Remarks GENERAL: This is a well-nourished, well-developed patient, in no apparent distress. Very somnolent. CARDIOVASCULAR: Normal rate and regular rhythm without murmurs, gallops, or rubs. RESPIRATORY: Breath sounds equal and clear to auscultation bilaterally. Diminished at the bases. There is a chest tube in place on the right. GASTROINTESTINAL: Abdomen soft, non-tender, non-distended. Normal active bowel sounds MUSCULOSKELETAL: Extremities without cyanosis, or edema. NEURO: Somnolent. Moves all ext x4 PSYCH: Calm, confused. A/P Problem List: (1) Leukocytosis ICD Code: D72.829 Status: Acute (2) Hyponatremia ICD Code: E87.1 Status: Acute (3) Hepatic encephalopathy ICD Code: K72.90 Status: Chronic (4) Hyperammonemia ICD Code: E72.20 Status: Acute (5) Pain ICD Code: R52 Status: Acute Assessment and Plan 41-year-old male with advanced alcohol-induced liver disease who was recently discharged from a hospitalization for sepsis November 25 through December 27 who presents on 12/30/2016 Patient returned to the emergency room for persistent confusion, nausea and decreased oral intake. He reportedly complained of shortness of breath and chest pain. Leukocytosis with monocytosis - Zosyn 3.375 every 6 hours IV - Vital signs every 4 hours - Pleural fluid sent for culture - Continuous cardiac telemetry Hepatic encephalopathy with hyperammonemia. It is possible that his encephalopathy will persist and irreversible. - Lactulose 30 cc 4 times a day - Neurochecks every 4 hours - Monitor intake and output every shift Right chest tube for recurrent pleural effusion: Will need to monitor output and determine when to remove this. If scant output, will consult IR. Mild hyponatremia -Improving. Follow-up BMP. Pain; right chest tube site - Oxycodone 10 mg every 8 hours as needed for pain DVT prophylaxis - LATISHAs Cathie Keller MD Dec 31, 2016 16:43
[2017-01-01] VITALS (8 sets, daily range): BP systolic 81–91; BP diastolic 48–54; PULSE 80–87; RESP 17–20; TEMP 98.4–99.1; O2SAT 92–94
[2017-01-01] MEDS: PIPERACIL-TAZO 3.375 GM PREMIX 50 ML IV SCH ×5 (00:26→23:12)
[2017-01-01] MEDS: CITALOPRAM HYDROBROMIDE 40 MG TAB PO SCH (08:09)
[2017-01-01] MEDS: FUROSEMIDE 20 MG TAB PO SCH ×2 (08:09→20:44)
[2017-01-01] MEDS: PANTOPRAZOLE SOD 40 MG DELAYED RELEASE TAB PO SCH (08:09)
[2017-01-01] MEDS: RIFAXIMIN 550 MG TAB PO SCH ×2 (08:09→20:44)
[2017-01-01] MEDS: THIAMINE HCL 100 MG TAB PO SCH (08:09)
[2017-01-01] MEDS: PROPRANOLOL HCL 10 MG TAB PO SCH ×2 (08:09→21:00)
[2017-01-01] MEDS: SPIRONOLACTONE 50 MG TAB PO SCH ×2 (08:09→17:05)
[2017-01-01] MEDS: FOLIC ACID 1 MG TAB PO SCH (08:09)
[2017-01-01] MEDS: DIVALPROEX SODIUM DELAYED RELEASE 250 MG TAB PO SCH ×2 (08:10→20:44)
[2017-01-01] MEDS: SODIUM CHLORIDE 0.9% FLUSH 5 ML FLUSH FLUSH SCH ×2 (08:10→20:45)
[2017-01-01] MEDS: LACTULOSE SYRUP 20 GM/30 ML CUP PO SCH ×4 (08:10→20:44)
[2017-01-01 08:16] LABS: HEMATOCRIT 35.4 % (39.0-51.0); MEAN CELL VOLUME 91.7 FL (80.0-100.0); MEAN CORPUSCULAR HEMOGLOBIN 30.8 PG (27.0-34.0); MEAN CORPUSCULAR HGB CONC 33.6 % (32.0-36.0); PLATELET COUNT 180 TH/MM3 (150-450); RED BLOOD COUNT 3.86 MIL/MM3 (4.50-5.90); RED CELL DISTRIBUTION WIDTH 15.4 % (11.6-17.2); REVIEW FLAG FINAL; WHITE BLOOD COUNT 13.9 TH/MM3 (4.0-11.0)
[2017-01-01 08:38] LABS: BICARBONATE 30.8 MEQ/L (21.0-32.0); POTASSIUM 3.4 MEQ/L (3.5-5.1)
[2017-01-01 08:40] LABS: INDIRECT BILIRUBIN 0.6 MG/DL (0.0-0.8)
--- NOTE | 2017-01-01 11:25 | RADRPT ---
EXAM DATE/TIME: 01/01/2017 10:53 [facility] COMPARISON: CHEST SINGLE AP, December 30, 2016, 15:16. INDICATIONS : Short of breath. MEDICAL HISTORY : Cirrhosis. Hypertension seizures SURGICAL HISTORY : None. ENCOUNTER: Initial ACUITY: 2 days PAIN SCORE: 0/10 LOCATION: Bilateral chest FINDINGS: Right chest tube remains in place. No pneumothorax. There is some increasing atelectasis in the right mid to right lower lung. Left lung remains clear. Heart size is stable. CONCLUSION: No pneumothorax. Increasing areas of atelectasis on the right side. Sudhakar Zapata MD on January 01, 2017 at 11:23 Board Certified Radiologist. This report was verified electronically.
--- NOTE | 2017-01-01 15:27 | HHI.PR ---
Subjective Remarks Patient is more awake today. However he is still confused. He believes he is in [place], [place]. He does not know the date or year. Does not know where he is. He did not report any pain today. He denies shortness of breath or chest pain. No output from the chest tube. Objective Vitals Vital Signs Date Time Temp Pulse Resp B/P Pulse Ox O2 Delivery O2 Flow Rate FiO2 01/01/17 12:05 98.8 80 18 82/54 92 01/01/17 08:20 98.4 82 18 87/52 94 01/01/17 04:00 98.7 84 20 91/54 93 01/01/17 00:00 98.9 86 20 91/52 93 12/31/16 21:21 79 12/31/16 20:00 97.8 75 20 90/54 93 12/31/16 16:00 97.7 76 16 98/55 94 I/O 12/31/16 12/31/16 12/31/16 01/01/17 01/01/17 01/01/17 07:00 15:00 23:00 07:00 15:00 23:00 Intake Total 240 ml 600 ml 240 ml 600 ml Output Total 2 ml Balance 240 ml 600 ml 240 ml 598 ml Intake Oral 240 ml 600 ml 240 ml 600 ml Output Urine Total 2 ml # Voids 2 2 1 # Bowel Movements 1 1 1 Result Diagram: 01/01/1741 01/01/17 0741 Objective Remarks GENERAL: This is a well-nourished, well-developed patient, in no apparent distress. Very somnolent. CARDIOVASCULAR: Normal rate and regular rhythm without murmurs, gallops, or rubs. RESPIRATORY: Breath sounds equal and clear to auscultation bilaterally. Diminished at the bases. There is a chest tube in place on the right. GASTROINTESTINAL: Abdomen soft, non-tender, non-distended. Normal active bowel sounds MUSCULOSKELETAL: Extremities without cyanosis, or edema. NEURO: Somnolent. Moves all ext x4 PSYCH: Calm, confused. A/P Problem List: (1) Leukocytosis ICD Code: D72.829 Status: Acute (2) Hyponatremia ICD Code: E87.1 Status: Acute (3) Hepatic encephalopathy ICD Code: K72.90 Status: Chronic (4) Hyperammonemia ICD Code: E72.20 Status: Acute (5) Pain ICD Code: R52 Status: Acute Assessment and Plan 41-year-old male with advanced alcohol-induced liver disease who was recently discharged from a hospitalization for sepsis November 25 through December 27 who presents on 12/30/2016 Patient returned to the emergency room for persistent confusion, nausea and decreased oral intake. He reportedly complained of shortness of breath and chest pain. Leukocytosis with monocytosis - Zosyn 3.375 every 6 hours IV - Vital signs every 4 hours -No pleural fluid from the chest tube to send for culture. - Continuous telemetry - So far blood cultures are negative. Hepatic encephalopathy with hyperammonemia. It is possible that his encephalopathy will persist and irreversible. - Lactulose 30 cc 4 times a day - Neurochecks every 4 hours - Monitor intake and output every shift Right chest tube for recurrent pleural effusion: There has been no output documented since the patient arrived. We'll consult IR to determine if we need to keep the chest tube in. Mild hyponatremia -Resolved. Follow-up BMP. Pain; right chest tube site: Improving. - Oxycodone decreased to 5 mg every 8 hours as needed for pain DVT prophylaxis - Cathie Damon MD Jan 01, 2017 15:27
[2017-01-01] MEDS ORDERED: SODIUM CHLOR 0.9% 1000 ML INJ 1,000 ML IV ONE (22:15)
[2017-01-02] VITALS (8 sets, daily range): BP systolic 83–116; BP diastolic 50–55; PULSE 78–85; RESP 16–20; TEMP 98–98.8; O2SAT 92–95
[2017-01-02] MEDS: PIPERACIL-TAZO 3.375 GM PREMIX 50 ML IV SCH ×3 (05:49→17:01)
[2017-01-02 05:51] LABS: HEMATOCRIT 37.1 % (39.0-51.0); MEAN CELL VOLUME 91.6 FL (80.0-100.0); MEAN CORPUSCULAR HEMOGLOBIN 31.2 PG (27.0-34.0); MEAN CORPUSCULAR HGB CONC 34.1 % (32.0-36.0); PLATELET COUNT 194 TH/MM3 (150-450); RED BLOOD COUNT 4.04 MIL/MM3 (4.50-5.90); RED CELL DISTRIBUTION WIDTH 15.8 % (11.6-17.2); REVIEW FLAG FINAL; WHITE BLOOD COUNT 15.2 TH/MM3 (4.0-11.0)
[2017-01-02 06:06] LABS: BICARBONATE 28.7 MEQ/L (21.0-32.0); POTASSIUM 3.2 MEQ/L (3.5-5.1)
[2017-01-02] MEDS: PROPRANOLOL HCL 10 MG TAB PO SCH ×2 (09:00→20:35)
--- NOTE | 2017-01-02 09:24 | HHI.PR ---
Subjective Remarks Patient is awake and alert. Still confused about location, date, and time. Reports that his mother dropped him off this morning. He denies any pain or shortness of breath. Objective Vitals Vital Signs Date Time Temp Pulse Resp B/P Pulse Ox O2 Delivery O2 Flow Rate FiO2 01/02/17 08:00 98.3 79 16 83/51 92 01/02/17 04:00 98.6 81 16 92/55 92 01/02/17 00:58 98.1 85 18 90/50 93 01/02/17 00:00 98.5 84 16 86/50 93 01/01/17 20:15 88/48 01/01/17 20:00 99.1 82 17 87/50 94 01/01/17 20:00 84 01/01/17 16:04 98.8 81 19 81/51 94 01/01/17 12:05 98.8 80 18 82/54 92 I/O 01/01/17 01/01/17 01/01/17 01/02/17 01/02/17 01/02/17 07:00 15:00 23:00 07:00 15:00 23:00 Intake Total 600 ml 600 ml 280 ml Output Total 2 ml Balance 598 ml 600 ml 280 ml Intake Oral 600 ml 600 ml 280 ml Output Urine Total 2 ml # Voids 2 2 # Bowel Movements 1 1 1 Result Diagram: 01/02/17 0501/02/17 0515 Objective Remarks GENERAL: This is a well-nourished, well-developed patient, in no apparent distress. Very somnolent. CARDIOVASCULAR: Normal rate and regular rhythm without murmurs, gallops, or rubs. RESPIRATORY: Breath sounds equal and clear to auscultation bilaterally. Diminished at the bases. There is a chest tube in place on the right. GASTROINTESTINAL: Abdomen soft, non-tender, non-distended. Normal active bowel sounds MUSCULOSKELETAL: Extremities without cyanosis, or edema. NEURO: Somnolent. Moves all ext x4. Confused PSYCH: Calm, confused. A/P Problem List: (1) Leukocytosis ICD Code: D72.829 Status: Acute (2) Hyponatremia ICD Code: E87.1 Status: Acute (3) Hepatic encephalopathy ICD Code: K72.90 Status: Chronic (4) Hyperammonemia ICD Code: E72.20 Status: Acute (5) Pain ICD Code: R52 Status: Acute Assessment and Plan 41-year-old male with advanced alcohol-induced liver disease and encephalopathy who was recently discharged from a hospitalization for sepsis November 25 through December 27 who presents on 12/30/2016 Patient returned to the emergency room for persistent confusion, nausea and decreased oral intake. He reportedly complained of shortness of breath and chest pain. Leukocytosis with monocytosis - Zosyn 3.375 every 6 hours IV - Vital signs every 4 hours -No pleural fluid from the chest catheter to send for culture. IR was consulted. Per nursing, tube to remain capped and will reevaluate on Wednesday. - Continuous telemetry - So far blood cultures are negative. Hepatic encephalopathy with hyperammonemia. It is possible that his encephalopathy will persist and irreversible. - Lactulose 30 cc 4 times a day - Neurochecks every 4 hours - Monitor intake and output every shift Right chest tube for recurrent pleural effusion: There has been no output since the patient arrived. IR to follow on Wednesday. Mild hyponatremia -Resolved. Follow-up BMP. Pain; right chest tube site: Improving. - Oxycodone decreased to 5 mg every 8 hours as needed for pain DVT prophylaxis - Cathie Damon MD Jan 02, 2017 09:24
[2017-01-02] MEDS: LACTULOSE SYRUP 20 GM/30 ML CUP PO SCH ×4 (10:14→20:34)
[2017-01-02] MEDS: CITALOPRAM HYDROBROMIDE 40 MG TAB PO SCH (10:14)
[2017-01-02] MEDS: FOLIC ACID 1 MG TAB PO SCH (10:14)
[2017-01-02] MEDS: PANTOPRAZOLE SOD 40 MG DELAYED RELEASE TAB PO SCH (10:14)
[2017-01-02] MEDS: RIFAXIMIN 550 MG TAB PO SCH ×2 (10:15→20:35)
[2017-01-02] MEDS: SPIRONOLACTONE 50 MG TAB PO SCH ×2 (10:15→17:01)
[2017-01-02] MEDS: DIVALPROEX SODIUM DELAYED RELEASE 250 MG TAB PO SCH ×2 (10:15→20:35)
[2017-01-02] MEDS: SODIUM CHLORIDE 0.9% FLUSH 5 ML FLUSH FLUSH SCH ×2 (10:17→20:36)
[2017-01-02] MEDS: THIAMINE HCL 100 MG TAB PO SCH (10:17)
[2017-01-03] VITALS (7 sets, daily range): BP systolic 87–100; BP diastolic 54–66; PULSE 75–85; RESP 16–18; TEMP 98–98.7; O2SAT 92–95
[2017-01-03] MEDS: PIPERACIL-TAZO 3.375 GM PREMIX 50 ML IV SCH ×3 (00:06→12:14)
[2017-01-03] MEDS: PROPRANOLOL HCL 10 MG TAB PO SCH (09:00)
[2017-01-03] MEDS: FUROSEMIDE 20 MG TAB PO SCH (09:00)
[2017-01-03] MEDS: SPIRONOLACTONE 50 MG TAB PO SCH ×3 (09:00→16:23)
[2017-01-03] MEDS: CITALOPRAM HYDROBROMIDE 40 MG TAB PO SCH (09:12)
[2017-01-03] MEDS: THIAMINE HCL 100 MG TAB PO SCH (09:12)
[2017-01-03] MEDS: FOLIC ACID 1 MG TAB PO SCH (09:12)
[2017-01-03] MEDS: SODIUM CHLORIDE 0.9% FLUSH 5 ML FLUSH FLUSH SCH ×2 (09:12→20:50)
[2017-01-03] MEDS: DIVALPROEX SODIUM DELAYED RELEASE 250 MG TAB PO SCH ×2 (09:12→20:50)
[2017-01-03] MEDS: RIFAXIMIN 550 MG TAB PO SCH ×2 (09:12→20:49)
[2017-01-03] MEDS: PANTOPRAZOLE SOD 40 MG DELAYED RELEASE TAB PO SCH (09:12)
[2017-01-03] MEDS: LACTULOSE SYRUP 20 GM/30 ML CUP PO SCH ×4 (09:12→20:50)
[2017-01-03 10:32] LABS: HEMATOCRIT 35.5 % (39.0-51.0); MEAN CELL VOLUME 92.3 FL (80.0-100.0); MEAN CORPUSCULAR HEMOGLOBIN 30.7 PG (27.0-34.0); MEAN CORPUSCULAR HGB CONC 33.3 % (32.0-36.0); PLATELET COUNT 153 TH/MM3 (150-450); RED BLOOD COUNT 3.84 MIL/MM3 (4.50-5.90); RED CELL DISTRIBUTION WIDTH 15.7 % (11.6-17.2); REVIEW FLAG FINAL; WHITE BLOOD COUNT 13.7 TH/MM3 (4.0-11.0)
[2017-01-03 10:47] LABS: BICARBONATE 29.2 MEQ/L (21.0-32.0); POTASSIUM 3.4 MEQ/L (3.5-5.1)
--- NOTE | 2017-01-03 13:39 | HHI.PR ---
Subjective Remarks Patient reports that he is feeling okay. I discussed with his mother. He indicates that he wants to go home and does not like the food here. He denies chest pain or shortness of breath. Blood pressure borderline low. Objective Vitals Vital Signs Date Time Temp Pulse Resp B/P Pulse Ox O2 Delivery O2 Flow Rate FiO2 01/03/17 13:25 78 01/03/17 12:03 98.4 83 18 100/66 94 01/03/17 08:03 98.7 80 18 94/58 92 01/03/17 04:00 98.0 75 18 98/54 93 01/03/17 00:00 98.1 85 16 87/55 92 01/02/17 20:00 80 01/02/17 20:00 98.0 79 20 116/55 93 01/02/17 16:00 98.8 78 16 92/54 95 97/54 01/02/17 14:20 89/53 I/O 01/02/17 01/02/17 01/02/17 01/03/17 01/03/17 01/03/17 07:00 15:00 23:00 07:00 15:00 23:00 Intake Total 280 ml 360 ml 120 ml 480 ml Balance 280 ml 360 ml 120 ml 480 ml Intake Oral 280 ml 360 ml 120 ml 480 ml # Voids 2 1 2 3 # Bowel Movements 1 1 Result Diagram: 01/03/17 0952 01/03/17 0923 Objective Remarks GENERAL: This is a well-nourished, well-developed patient, in no apparent distress. CARDIOVASCULAR: Normal rate and regular rhythm without murmurs, gallops, or rubs. RESPIRATORY: Breath sounds equal and clear to auscultation bilaterally. Diminished at the bases. There is a chest tube in place on the right. GASTROINTESTINAL: Abdomen soft, non-tender, non-distended. Normal active bowel sounds MUSCULOSKELETAL: Extremities without cyanosis, or edema. NEURO: Somnolent. Moves all ext x4. Confused PSYCH: Calm, confused. A/P Problem List: (1) Leukocytosis ICD Code: D72.829 Status: Acute (2) Hyponatremia ICD Code: E87.1 Status: Acute (3) Hepatic encephalopathy ICD Code: K72.90 Status: Chronic (4) Hyperammonemia ICD Code: E72.20 Status: Acute (5) Pain ICD Code: R52 Status: Acute Assessment and Plan 41-year-old male with advanced alcohol-induced liver disease and encephalopathy who was recently discharged from a hospitalization for sepsis November 25 through December 27 who presents on 12/30/2016 Patient returned to the emergency room for persistent confusion, nausea and decreased oral intake. He reportedly complained of shortness of breath and chest pain. Upon further discussion with the patient's mother, she reports there were concerns about his blood pressure being low at home. Leukocytosis with monocytosis : No source of infection so far. He has been on Zosyn with improvement of leukocytosis. Blood cultures so far negative. -No pleural fluid from the chest catheter to send for culture. IR was consulted. Per nursing, tube to remain capped and IR will reevaluate tomorrow. Patient's mother reports the tube was placed as a palliative measure to prevent him from reacting accumulating pleural fluid. - Continuous telemetry -We'll discontinue antibiotics for now and monitor off the antibiotics. No clear source of infection at this point. Hepatic encephalopathy with hyperammonemia. It is possible that his encephalopathy will persist and irreversible. I discussed with his mother at length. She wants him to return home so he can more comfortable. - Lactulose 30 cc 4 times a day - Neurochecks every 4 hours - Monitor intake and output every shift Alcoholic liver cirrhosis: The patient blood pressure has been borderline low. This has been an issue for him at home as well. We'll discontinue metoprolol. Decrease Aldactone to 25 mg twice a day. Keep Lasix 20 mg by mouth daily with hold parameters. Right chest tube for recurrent pleural effusion: IR to follow on Wednesday. Mild hyponatremia -Resolved. Follow-up BMP. Pain; right chest tube site: Much improved. - Oxycodone decreased to 5 mg every 8 hours as needed for pain DVT prophylaxis - SCDs Discharge Planning Will probably be stable enough for discharge home with home health care in the next 24-48 hours Cathie Keller MD Jan 03, 2017 13:39
[2017-01-04] VITALS: BP 97/59; PULSE 78; RESP 18; TEMP 98.3; O2SAT 95
[2017-01-04 04:00] VITALS: BP 107/57; PULSE 86; RESP 18; TEMP 98.3; O2SAT 94
[2017-01-04 07:34] LABS: HEMATOCRIT 35.8 % (39.0-51.0); MEAN CORPUSCULAR HEMOGLOBIN 30.8 PG (27.0-34.0); MEAN CORPUSCULAR HGB CONC 33.2 % (32.0-36.0); PLATELET COUNT 154 TH/MM3 (150-450); RED BLOOD COUNT 3.85 MIL/MM3 (4.50-5.90); RED CELL DISTRIBUTION WIDTH 15.3 % (11.6-17.2); REVIEW FLAG FINAL; WHITE BLOOD COUNT 12.8 TH/MM3 (4.0-11.0)
[2017-01-04 07:43] LABS: BICARBONATE 27.3 MEQ/L (21.0-32.0); POTASSIUM 3.4 MEQ/L (3.5-5.1)
[2017-01-04 08:18] VITALS: BP 90/53; PULSE 83; RESP 18; TEMP 97.8; O2SAT 91
[2017-01-04] MEDS: SPIRONOLACTONE 50 MG TAB PO SCH ×2 (09:00→16:47)
[2017-01-04] MEDS: FUROSEMIDE 20 MG TAB PO SCH (09:00)
--- NOTE | 2017-01-04 09:07 | RADRPT ---
EXAM DATE/TIME: 01/04/2017 08:43 [facility] COMPARISON: CHEST SINGLE AP, January 01, 2017, 10:53. INDICATIONS : Evaluate pleural effusion. MEDICAL HISTORY : None. SURGICAL HISTORY : None. ENCOUNTER: Subsequent ACUITY: 1 week PAIN SCORE: 0/10 LOCATION: chest FINDINGS: A single view of the chest demonstrates right basilar pleural-parenchymal density. Chest tube is stab le. Left lung is clear. Osseous structures are intact. CONCLUSION: Stable chest with right basilar pleural-parenchymal density. Right-sided chest tube without pneumotho rax. Magdiel Lucas MD on January 04, 2017 at 9:04 Board Certified Radiologist. This report was verified electronically.
[2017-01-04] MEDS: FOLIC ACID 1 MG TAB PO SCH (10:00)
[2017-01-04] MEDS: RIFAXIMIN 550 MG TAB PO SCH (10:00)
[2017-01-04] MEDS: CITALOPRAM HYDROBROMIDE 40 MG TAB PO SCH (10:00)
[2017-01-04] MEDS: THIAMINE HCL 100 MG TAB PO SCH (10:00)
[2017-01-04] MEDS: PANTOPRAZOLE SOD 40 MG DELAYED RELEASE TAB PO SCH (10:00)
[2017-01-04] MEDS: DIVALPROEX SODIUM DELAYED RELEASE 250 MG TAB PO SCH (10:01)
[2017-01-04] MEDS: SODIUM CHLORIDE 0.9% FLUSH 5 ML FLUSH FLUSH SCH (10:01)
[2017-01-04] MEDS: LACTULOSE SYRUP 20 GM/30 ML CUP PO SCH ×3 (10:01→16:47)
[2017-01-04 12:00] VITALS: BP 95/57; PULSE 81; RESP 18; TEMP 98.4; O2SAT 94
[2017-01-04] MEDS ORDERED: LACT10SO PO (13:54)
--- NOTE | 2017-01-04 13:56 | HHI.DCPOC ---
Discharge Care Plan Diagnosis: (1) Hepatic encephalopathy (2) Leukocytosis (3) Hyperammonemia (4) Alcohol-induced cirrhosis Goals to Promote Your Health * To prevent worsening of your condition and complications * To maintain your health at the optimal level Directions to Meet Your Goals Take your medications as prescribed Follow your dietary instruction Follow activity as directed Keep your appointments as scheduled Take your immunizations and boosters as scheduled If your symptoms worsen call your PCP, if no PCP go to Urgent Care Center or Emergency Room Smoking is Dangerous to Your Health. Avoid second hand smoke Call the 24-hour hour crisis hotline for domestic abuse at Cathie Keller MD Jan 04, 2017 13:56
--- NOTE | 2017-01-04 14:20 | HHI.DS ---
Discharge Summary Admission Date Dec 30, 2016 at 18:05 Discharge Date: Jan 04, 2017 Admitting Diagnosis sepsis (1) Leukocytosis ICD Code: D72.829 (2) Hyponatremia ICD Code: E87.1 (3) Hepatic encephalopathy ICD Code: K72.90 (4) Hyperammonemia ICD Code: E72.20 (5) Pain ICD Code: R52 Procedures None Brief History - From Admission Mr. Arias is an unfortunate 41-year-old male with advanced alcohol-induced liver disease who was recently discharged from a hospitalization for sepsis November 25 through December 27 who presents on 12/30/2016 to the emergency room for evaluation of increasing confusion, nausea, decreased appetite with 6 pound weight gain. He was reporting increasing shortness of breath and chest pain since his discharge. Chest CT shows trace right pleural effusion. Right pleural drainage catheter in place. Very mild bibasilar atelectasis with no pneumonic infiltrate seen. Cirrhosis, splenomegaly, and cholelithiasis. Chest x-ray read stable chest. WBC elevated at 17.8 with monocytosis. Flu testing negative for flu a and flu B , blood cultures are pending. Mild hyponatremia noted. Ammonia level elevated at 39. UA without indication for culture as abnormalities appear to be related to liver failure. Lactic acid is 2.0. The patient is seen in the ER. He reports chest pain when taking a deep breath or exerting self like when he rides a bicycle; nonproductive cough. No fever but intermittent dizziness. Shortness of breath intermittently but it wasn't so "bad I couldn't do anything". Pain mostly on side where chest tube is. No pain with urination, intermittent burning with urination. Reports diarrhea (2 - 3 times on a bad day - depends upon what he eats - not occurring daily) but denies nausea and vomiting. No black or red stool. The patient becomes increasingly agitated and confused and wanting to leave towards the end of our visit. He is very difficult oriented. He is not aware that he is at [facility] and states he wants to go there. He refers to to me as a "welcome desk agent" and insists I told him he could go home. He starts to take off his EKG leads and tries to leave and pulls out his IV. His HPI and ROS is likely not very reliable. . CBC/BMP: 01/04/17 0710 01/04/17 0710 Significant Findings Laboratory Tests Test 01/02/17 01/03/17 01/03/17 01/04/17 05:15 09:23 09:52 07:10 White Blood Count 15.2 TH/MM3 13.7 TH/MM3 12.8 TH/MM3 (4.0-11.0) (4.0-11.0) (4.0-11.0) Red Blood Count 4.04 MIL/MM3 3.84 MIL/MM3 3.85 MIL/MM3 (4.50-5.90) (4.50-5.90) (4.50-5.90) Hemoglobin 12.6 GM/DL 11.8 GM/DL 11.9 GM/DL (13.0-17.0) (13.0-17.0) (13.0-17.0) Hematocrit 37.1 % 35.5 % 35.8 % (39.0-51.0) (39.0-51.0) (39.0-51.0) Potassium Level 3.2 MEQ/L 3.4 MEQ/L 3.4 MEQ/L (3.5-5.1) (3.5-5.1) (3.5-5.1) Estimat Glomerular Filtration 70 ML/MIN (>89) 79 ML/MIN (>89) 80 ML/MIN (>89) Rate Calcium Level 8.2 MG/DL 8.3 MG/DL 8.2 MG/DL (8.5-10.1) (8.5-10.1) (8.5-10.1) Random Glucose 114 MG/DL 168 MG/DL (74-106) (74-106) Imaging Last Impressions Chest X-Ray 01/04/17 0000 Signed Impressions: Service Date/Time: Wednesday, January 04, 2017 08:43 - CONCLUSION: Stable chest with right basilar pleural-parenchymal density. Right-sided chest tube without pneumothorax. Magdiel Lucas MD Chest CT 12/30/16 0000 Signed Impressions: Service Date/Time: Friday, December 30, 2016 19:44 - CONCLUSION: 1. Trace right pleural effusion. Pleural drainage catheter in place. 2. Very mild bibasilar atelectasis. No pneumonic infiltrates seen. 3. Cirrhosis, splenomegaly and cholelithiasis. Evan Roman MD PE at Discharge GENERAL: This is a well-nourished, well-developed patient, in no apparent distress. CARDIOVASCULAR: Normal rate and regular rhythm without murmurs, gallops, or rubs. RESPIRATORY: Breath sounds equal and clear to auscultation bilaterally. Diminished at the bases. There is a chest tube in place on the right. GASTROINTESTINAL: Abdomen soft, non-tender, non-distended. Normal active bowel sounds MUSCULOSKELETAL: Extremities without cyanosis, or edema. NEURO: Awake and alert. Moves all extremities. Oriented to self, place and the year. Easily gets confused still. PSYCH: Calm and cooperative. Pt update on day of discharge Patient reports he is feeling much better today. He requested to go home. He denies any pain. No shortness of breath. Discussed with RN. 1500 cc removed from the right chest tube. Hospital Course 41-year-old male with advanced alcohol-induced liver disease and encephalopathy who was recently discharged from a hospitalization for sepsis November 25 through December 27 who presents on 12/30/2016 Patient returned to the emergency room for persistent confusion, nausea and decreased oral intake. He reportedly complained of shortness of breath and chest pain. Upon further discussion with the patient's mother, she reports there were concerns about his blood pressure being low at home. The patient was empirically treated with Zosyn due to leukocytosis. Blood cultures were negative. No infectious source identified. His main issue was hepatic encephalopathy with hyperammonemia. It is possible that his encephalopathy will persist and is irreversible. Unsure about compliance at home with lactulose. In addition it appears that his blood pressure was getting too low at home. In the hospital the patient's blood pressure did not tolerate Lasix, propranolol or spironolactone. These were discontinued. The patient mental status markedly improved. He does have an aspirin a catheter on the right chest for palliative purposes due to recurrent pleural effusion on the right. It was initially. It was drained on 01/04/17. I discussed with the patient's mother. This is to remain in place to be drained every couple of days. If he in fact stop drinking and ascites and pleural effusion resolved, then the tube can come out. He would need a follow-up with IR for this. I discussed this with the patient's mother. The patient condition improved significantly. No longer dispensing any pain. No shortness of breath. By the time of discharge she was aware of place and the year. He is discharged home with home health care. His mother reports he will have 24 and 7 supervision. Pt Condition on Discharge: Good Discharge Disposition: Disch w/ Home Health Serv Discharge Time: <= 30 minutes Discharge Instructions DIET: Follow Instructions for: As Tolerated, No Restrictions Additional Diet Instructions: Limit FLuid intake to <2L per 24 hrs. Activities you can perform: Regular-No Restrictions Other Activity Instructions: Need supervision at all times. NO driving, swimming, or operating heavy machinery. Follow up Referrals: Appointment for Follow Up with Dr. Gomez Continued Medications: Citalopram (Celexa) 40 Mg Tab 40 MG PO DAILY Control Depression #30 Ref [address] (Divalproex DR) 250 Mg Tabdr 250 MG PO BID Control Seizures #60 Ref 0 TAB Folic Acid (Folate) 1 Mg Tab 1 MG PO DAILY supplemen #30 TAB Lactulose Liq (Lactulose Liq) 10 Gm/15 Ml Soln 45 ML PO QID encephalopathy #1 BOTTLE (This prescription has been renewed) Omeprazole (Omeprazole) 40 Mg Cap 40 MG PO DAILY #30 Ref 0 CAP Rifaximin (Xifaxan) 550 Mg Tab 550 MG PO BID encephalopathy #60 TAB Thiamine (Thiamine) 100 Mg Tab 100 MG PO DAILY Nutritional Supplement Ref 0 TAB Discontinued Medications: Cephalexin (Cephalexin) 500 Mg Cap 500 MG PO Q6HR phle Days 2 Ref 0 CAP Furosemide (Lasix) 20 Mg Tab 20 MG PO BID LIVCIR #60 Ref 0 TAB Ibuprofen (Ibuprofen) 400 Mg Tab 400 MG PO Q6H PRN MODERATE PAIN Ref 0 TAB Oxycodone (Oxycodone) 10 Mg Tab 10 MG PO Q8HR PRN pain CT #20 Ref 0 TAB Propranolol (Propranolol) 10 Mg Tab 5 MG PO Q12HR #60 Ref 0 TAB Spironolactone (Aldactone) 50 Mg Tab 50 MG PO BID@ diuretic #60 TAB Cathie Keller MD Jan 04, 2017 14:20
--- NOTE | 2017-01-04 14:35 | HHI.FF ---
Face to Face Verification Diagnosis: (1) Hepatic encephalopathy (2) Alcohol-induced cirrhosis (3) Hyperammonemia (4) Pleural effusion, right (5) Confusion Home Health Nursing Order: Medical education Signs/symptoms of disease process Medication education-adverse effect Wound care and dressing changes Nursing assessment with vital signs I have seen patient Chaz Arias on 01/04/17. My clinical findings support the need for the requested home health care services because: Limited ability to care for self Need for psychosocial assistance Impaired cognition/judgement I certify that my clinical findings support that this patient is homebound because: Need for psychosocial assistance Cathie Keller MD Jan 04, 2017 14:35
[2017-01-06] MEDS ORDERED: MORP20SO2 PO (11:03)
[2017-01-06] MEDS ORDERED: OMEP40CA2 PO (11:21)
[2017-01-06] MEDS ORDERED: DIVA250T PO (11:21)
[2017-01-06] MEDS ORDERED: THIA100T PO (11:21)
[2017-01-06] MEDS ORDERED: FOLI1TAB4 PO (11:21)
[2017-01-06] MEDS ORDERED: CELE40TA PO (11:21)
== END 2017-01-04 17:46 | disposition home health service (06) | DRG 815 ==
LOC: NEPE 14:07 → NEDA 18:05 → N04B 12-31 00:16
PROVIDERS: ADMIT Family Medicine; ATTEND Family Medicine
DX: D72.821 Monocytosis (symptomatic) (principal); E72.20 Disorder of urea cycle metabolism, unspecified; I95.9 Hypotension, unspecified; E87.1 Hypo-osmolality and hyponatremia; K72.90 Hepatic failure, unspecified without coma; M41.9 Scoliosis, unspecified; K70.9 Alcoholic liver disease, unspecified; I10 Essential (primary) hypertension
CPT/HCPCS: 71010; 71250; 80048; 80053; 80076; 81001; 82140; 82550; 83605; 83690; 83735; 84100; 84484; 85007; 85027; 85610; 85730; 87040; 87804; 93005; J2060; J2543; J7030

== ENCOUNTER 2017-05-21 14:42 | Observation (INO) | payer SELFPAY ==
[~2017-05-21] VITALS: Ht 185.4 cm; Wt 93.2 kg
[~2017-05-21 14:42] MED LIST changes: -ALDA50TA2 PO; -CEPH500C PO; -FURO1TAB62 PO; -IBUP400T20 PO; +MORP20SO2 PO; -OXYC-395 PO; -PROP10TA6 PO
[2017-05-21 14:44] VITALS: BP 127/86; PULSE 115; RESP 18; TEMP 98.3; O2SAT 91
--- NOTE | 2017-05-21 16:50 | PD ---
HPI Chief Complaint: Abdominal Pain Time Seen by Provider: 16:50 Travel History International Travel<30 days: No Contact w/Intl Traveler<30days: No Traveled to known affect area: No History of Present Illness HPI 41 year old male presents to the emergency department for evaluation of increasing shortness of breath, increasing abdominal distention over the past 2 weeks. His mother is at bedside who states he has been more confused. Patient has advanced alcohol-induced liver disease. He does have a right-sided chest tube. The mother states she drinks a daily. She was getting 1300 mL of fluid out of the chest tube, but has been recently only getting 250 ML's. The patient reports increasing shortness of breath and abdominal distention. Patient states he will have mild abdominal pain occasionally. Patient denies any fevers or chills. No cough or congestion. Patient states that he has history of seizures and is on Depakote. He states he is not currently on any other medications. He states that he is supposed to take his Depakote twice daily, but is only taking it once daily. His mother states that his last seizure was approximately one month ago. However, he was not taking his Depakote at all then. She states that his primary care physician has been following up on him. He does not see a specialist due to lack of insurance. Patient's mother states that he was previously on hospice, but is not currently on hospice. He does continue to drink alcohol, approximately 5 beers daily. His mother states that she saw him drinking this morning. PFSH Past Medical History Hx Anticoagulant Therapy: No Anxiety: Yes Cancer: No Cardiovascular Problems: Yes (HTN) Chemotherapy: No Cirrhosis: Yes Cerebrovascular Accident: No Diabetes: No Diminished Hearing: No Endocrine: No Genitourinary: No Hepatitis: Yes Hypertension: Yes Implanted Vascular Access Dvce: No Musculoskeletal: Yes (SCOLIOSIS, KNEE & SHOULDER INJURIES) Neurologic: Yes (SEIZURES ("ALL ALCOHOL RELATED" PER PT)) Reproductive: No Seizures: Yes Menopausal: Yes Past Surgical History Hysterectomy: No Oral Surgery: Yes (jaw) Other Surgery: Yes ( LEFT KNEE & RIGHT SHOULDER) Social History Alcohol Use: Yes (NONE X5 WEEKS) Tobacco Use: No Substance Use: Yes (marijuana) Allergies-Medications (Allergen,Severity, Reaction): Coded Allergies: *MDRO Multi-Drug Resistant Organism (Verified Adverse Reaction, Unknown, 7 /14/17) MRSA PCR Screen (nares) POSITIVE - 08/03/16 Reported Meds & Prescriptions Reported Meds & Active Scripts Active Divalproex DR (Divalproex Sodium) 250 Mg Tabdr 250 Mg PO BID Omeprazole 40 Mg Cap 40 Mg PO DAILY Lactulose Liq (Lactulose) 10 Gm/15 Ml Soln 45 Ml PO QID Reported Folic Acid 1 Mg Tablet 1 Mg PO DAILY Vitamin B-1 (Thiamine HCl) 100 Mg Tab 100 Mg PO DAILY Review of Systems Except as stated in HPI: all other systems reviewed are Neg Physical Exam Narrative GENERAL: Well-nourished, well-developed patient, afebrile. SKIN: Focused skin assessment warm/dry. HEAD: Normocephalic. Atraumatic. EYES: No scleral icterus. No injection or drainage. NECK: Supple, trachea midline. No JVD or lymphadenopathy. CARDIOVASCULAR: Regular rate and rhythm without murmurs, gallops, or rubs. Patient has right-sided chest tube noted with some slight erythema/ecchymosis at the insertion site. RESPIRATORY: Breath sounds equal bilaterally. No accessory muscle use. Crackles noted to right lung base. GASTROINTESTINAL: Abdomen distended. Patient is nontender to palpation MUSCULOSKELETAL: No cyanosis, or edema. BACK: Nontender without obvious deformity. No CVA tenderness. Data Data Last Documented VS Vital Signs Date Time Temp Pulse Resp B/P Pulse Ox O2 Delivery O2 Flow Rate FiO2 05/21/17 17:26 116 18 138/93 96 Nasal Cannula 2 05/21/17 14:44 98.3 Orders Complete Blood Count With Diff (05/21/17 16:48) Comprehensive Metabolic Panel (05/21/17 16:48) B-Type Natriuretic Peptide (05/21/17 16:48) Act Partial Throm Time (Ptt) (05/21/17 16:48) Prothrombin Time / Inr (Pt) (05/21/17 16:48) Magnesium (Mg) (05/21/17 16:48) Ckmb (Isoenzyme) Profile (05/21/17 16:48) Troponin I (05/21/17 16:48) Urinalysis - C+S If Indicated (05/21/17 16:48) Blood Culture (05/21/17 16:48) Iv Access Insert/Monitor (05/21/17 16:48) Electrocardiogram (05/21/17 16:48) Ecg Monitoring (05/21/17 16:48) Oximetry (05/21/17 16:48) Oxygen Administration (05/21/17 16:48) Chest, Single Ap (05/21/17 16:48) Sodium Chloride 0.9% Flush (Ns Flush) (05/21/17 17:00) Ammonia (05/21/17 16:48) Lactic Acid Sepsis Protocol (05/21/17 16:48) Alcohol (Ethanol) (05/21/17 16:48) Valproic Acid (Depakene) (05/21/17 16:56) Hydromorphone Pf Inj (Dilaudid Pf Inj) (05/21/17 17:30) Ondansetron Inj (Zofran Inj) (05/21/17 17:30) Ct Thorax/ Chest Wo Iv Contras (05/21/17 ) Ct Abd/Pel W/O Iv Contrast (05/21/17 ) CKMB (05/21/17 17:19) CKMB% (05/21/17 17:19) Sodium Chlor 0.9% 1000 Ml Inj (Ns 1000 M (05/21/17 19:00) Labs Laboratory Tests Test 05/21/17 17:19 White Blood Count 7.2 TH/MM3 Red Blood Count 5.31 MIL/MM3 Hemoglobin 15.9 GM/DL Hematocrit 48.0 % Mean Corpuscular Volume 90.3 FL Mean Corpuscular Hemoglobin 29.9 PG Mean Corpuscular Hemoglobin 33.1 % Concent Red Cell Distribution Width 18.2 % Platelet Count 148 TH/MM3 Mean Platelet Volume 8.6 FL Neutrophils (%) (Auto) 60.7 % Lymphocytes (%) (Auto) 19.9 % Monocytes (%) (Auto) 16.8 % Eosinophils (%) (Auto) 1.4 % Basophils (%) (Auto) 1.2 % Neutrophils # (Auto) 4.4 TH/MM3 Lymphocytes # (Auto) 1.4 TH/MM3 Monocytes # (Auto) 1.2 TH/MM3 Eosinophils # (Auto) 0.1 TH/MM3 Basophils # (Auto) 0.1 TH/MM3 CBC Comment DIFF FINAL Differential Comment Prothrombin Time 12.5 SEC Prothromb Time International 1.1 RATIO Ratio Activated Partial 30.0 SEC Thromboplast Time Urine Color YELLOW Urine Turbidity CLEAR Urine pH 6.5 Urine Specific [place] 1.008 Urine Protein NEG mg/dL Urine Glucose (UA) NEG mg/dL Urine Ketones NEG mg/dL Urine Occult Blood NEG Urine Nitrite NEG Urine Bilirubin NEG Urine Urobilinogen LESS THAN 2.0 MG/DL Urine Leukocyte Esterase NEG Urine WBC LESS THAN 1 /hpf Microscopic Urinalysis Comment CULT NOT INDICATED Sodium Level 136 MEQ/L Potassium Level 3.6 MEQ/L Chloride Level 102 MEQ/L Carbon Dioxide Level 20.0 MEQ/L Anion Gap 14 MEQ/L Blood Urea Nitrogen 9 MG/DL Creatinine 0.69 MG/DL Estimat Glomerular Filtration 127 ML/MIN Rate Random Glucose 77 MG/DL Lactic Acid Level 2.8 mmol/L Calcium Level 8.6 MG/DL Magnesium Level 1.7 MG/DL Total Bilirubin 1.3 MG/DL Aspartate Amino Transf 90 U/L (AST/SGOT) Alanine Aminotransferase 31 U/L (ALT/SGPT) Alkaline Phosphatase 214 U/L Ammonia 49 MCMOL/L Total Creatine Kinase 103 U/L Creatine Kinase MB 2.8 NG/ML Troponin I LESS THAN 0.02 NG/ML Total Protein 8.0 GM/DL Albumin 2.6 GM/DL Valproic Acid (Depakene) Level 32 MCG/ML Ethyl Alcohol Level 240 MG/DL MDM Medical Decision Making Medical Screen Exam Complete: Yes Emergency Medical Condition: Yes Medical Record Reviewed: Yes Interpretation(s) chest x-ray = CONCLUSION: No acute cardiopulmonary disease. ct chest = CONCLUSION: Bibasilar atelectasis and a small right pleural effusion. ct abdomen/pelvis - CONCLUSION: 1. Cirrhotic liver with large volume ascites. 2. Small focal hepatic lesions inferiorly of the right hepatic lobe. These are nonspecific on this noncontrast CT. If there are no contraindications, attempted further characterization with MRI recommended on a nonemergent basis. 3. New L4 compression fracture. No significantly retropulsed fragments are demonstrated. Differential Diagnosis pleural effusion vs. pneumonia vs. hyperammonemia vs. PE vs. ascites vs. electrolyte abnormality vs. sepsis Narrative Course 41-year-old male with advanced alcohol induced liver disease presents to the emergency department for worsening shortness of breath, abdominal distention over the past 2 weeks with decreased output from his right chest tube. EKG, CBC , CMP, BMP, magnesium, CK, troponin, lactic acid, ammonia level, blood cultures 2, UA, alcohol level, Depakote level are ordered and pending. Chest x-ray is ordered and pending. EKG shows sinus tachycardia, HR 116, no acute ST changes. CBC shows no acute abnormality. CMP shows elevated bilirubin of 1.3. Magnesium is 1.7. CK is 103. Troponin is less than 0.02. Lactic acid is elevated at 2.8. Ammonia level is 49. Alcohol level is 240. Depakote level is 32. UA is negative for acute infection. Chest x-ray shows no acute cardiopulmonary disease. CT of the chest and CT of the abdomen/pelvis without contrast are ordered and pending. CT of the chest shows bibasilar atelectasis and a small right pleural effusion. CT the abdomen/pelvis shows cirrhotic liver with large volume ascites, small focal hepatic lesions inferiorly of the right hepatic lobe, recommend outpatient MRI, new L4 compression fracture, no significant the retropulsed fragments are demonstrated. I discussed the findings with the patient and the mother. [facility] is paged for admission. Dr. Foster accepted admission. Diagnosis Primary Impression: Ascites Qualified Code: K70.31 - Ascites due to alcoholic cirrhosis Additional Impressions: Alcohol-induced cirrhosis Lactic acidosis Hyperammonemia Admitting Information Admitting Physician Requests: Admit Lisa Freeman May 21, 2017 16:50
[2017-05-21] MEDS ORDERED: SODIUM CHLORIDE 0.9% FLUSH 10 ML FLUSH IVF PRN (17:00)
--- NOTE | 2017-05-21 17:16 | RADRPT ---
EXAM DATE/TIME: 05/21/2017 16:51 [facility] COMPARISON: CHEST SINGLE AP, January 04, 2017, 8:43. INDICATIONS : Chest and abdominal pain. MEDICAL HISTORY : Cirrhosis. Hypertension. Pleural effusion. Alcohol related seizures. MRSA. Marijuana use. SURGICAL HISTORY : Jaw surgery. ENCOUNTER: Initial ACUITY: 1 day PAIN SCORE: 9/10 LOCATION: Bilateral chest FINDINGS: The lungs are clear without infiltrate, nodule, or mass. There is no appreciable pleural effusion fo r technique. Heart and mediastinum are unremarkable. The right hemidiaphragm is elevated. CONCLUSION: No acute cardiopulmonary disease. Jose Jarvis MD on May 21, 2017 at 17:14 Board Certified Radiologist. This report was verified electronically.
[2017-05-21 17:23] VITALS: RESP 18; O2SAT 95
[2017-05-21 17:26] VITALS: BP 138/93; PULSE 116; RESP 18; O2SAT 96
[2017-05-21] MEDS ORDERED: HYDROmorphone HCL PF 1 MG/ML VIAL IV PUSH ONE (17:30)
[2017-05-21] MEDS ORDERED: ONDANSETRON HCL 4 MG/2 ML VIAL IV PUSH ONE (17:30)
[2017-05-21 17:54] LABS: AUTOMATED NEUTROPHIL # 4.4 TH/MM3 (1.8-7.7); BASOPHIL # 0.1 TH/MM3 (0-0.2); BASOPHIL % 1.2 % (0.0-2.0); EOSINOPHIL # 0.1 TH/MM3 (0-0.4); EOSINOPHIL % 1.4 % (0.0-4.0); HEMO FLAGS DIFF FINAL; LYMPH % 19.9 % (9.0-44.0); LYMPHOCYTE # 1.4 TH/MM3 (1.0-4.8); MEAN CELL VOLUME 90.3 FL (80.0-100.0); MEAN CORPUSCULAR HEMOGLOBIN 29.9 PG (27.0-34.0); MEAN CORPUSCULAR HGB CONC 33.1 % (32.0-36.0); MONO % 16.8 % (0.0-8.0); NEUT % 60.7 % (16.0-70.0); PLATELET COUNT 148 TH/MM3 (150-450); RED BLOOD COUNT 5.31 MIL/MM3 (4.50-5.90); RED CELL DISTRIBUTION WIDTH 18.2 % (11.6-17.2); WHITE BLOOD COUNT 7.2 TH/MM3 (4.0-11.0)
[2017-05-21 18:03] LABS: INTERNATIONAL NORMALIZED RATIO 1.1 RATIO; PROTHROMBIN TIME - PATIENT 12.5 SEC (9.8-11.6)
[2017-05-21 18:06] LABS: BLOOD, URINE NEG (NEG); GLUCOSE,URINE NEG (NEG); KETONE, URINE NEG (NEG); NITRITE,URINE NEG (NEG); PH, URINE 6.5 (5.0-8.5); URINE COLOR YELLOW (YELLW/STRAW)
[2017-05-21 18:08] LABS: COMMENT (UR) CULT NOT INDICATED; CULTURE IF INDICATED CULT NOT INDICATED
[2017-05-21 18:11] LABS: ALT (GPT) 31 U/L (12-78); ANION GAP 14 MEQ/L (5-15); AST (GOT) 90 U/L (15-37); BLOOD UREA NITROGEN 9 MG/DL (7-18); CHLORIDE 102 MEQ/L (98-107); GLOMERULAR FILTRATION RATE 127 ML/MIN (>89); MAGNESIUM 1.7 MG/DL (1.5-2.5); POTASSIUM 3.6 MEQ/L (3.5-5.1); SODIUM (NA) 136 MEQ/L (136-145)
[2017-05-21 18:15] LABS: ALKALINE PHOSPHATASE 214 U/L (45-117); CREATINE KINASE 103 U/L (39-308); TOTAL BILIRUBIN ADULT 1.3 MG/DL (0.2-1.0)
--- NOTE | 2017-05-21 18:16 | RADRPT ---
EXAM DATE/TIME: 05/21/2017 17:53 [facility] COMPARISON: CT ABDOMEN & PELVIS W/O CONTRAST, November 25, 2016, 11:37. INDICATIONS : Abdominal pain and pressure. ORAL CONTRAST: No oral contrast ingested. RADIATION DOSE: 17.19 CTDIvol (mGy) ; Combined studies - Thorax/Abdomen/Pelvis MEDICAL HISTORY : Cardiovascular disease. Hypertension. Seizures.ETOH abuse SURGICAL HISTORY : None. ENCOUNTER: Initial ACUITY: 1 week PAIN SCALE: 7/10 LOCATION: abdomen TECHNIQUE: Volumetric scanning of the abdomen and pelvis was performed. Using automated exposure control and ad justment of the mA and/or kV according to patient size, radiation dose was kept as low as reasonably achievable to obtain optimal diagnostic quality images. DICOM format image data is available electro nically for review and comparison. FINDINGS: LIVER: Cirrhotic liver and cholelithiasis again noted. Partly calcified masses are seen in the lower portion s of the right hepatic lobe, one measuring about 11 mm and the other about 6 mm. These are nonspecifi c. There is a large amount of ascites, similar to the prior study. SPLEEN: Normal size without lesion. PANCREAS: Within normal limits. KIDNEYS: Normal in size and shape. There is no mass, stone, or hydronephrosis. ADRENAL GLANDS: Within normal limits. VASCULAR: There is no aortic aneurysm. BOWEL/MESENTERY: The stomach, small bowel, and colon demonstrate no acute abnormality. There is no free intraperitone al air or fluid. ABDOMINAL WALL: Within normal limits. RETROPERITONEUM: There is no lymphadenopathy. BLADDER: No wall thickening or mass. REPRODUCTIVE: Within normal limits. INGUINAL: There is no lymphadenopathy or hernia. MUSCULOSKELETAL: Mild to moderate superior endplate compression fracture has developed of L4 vertebral body. There are chronic L5 pars defects with grade one L5/S1 spondylolisthesis. CONCLUSION: 1. Cirrhotic liver with large volume ascites. 2. Small focal hepatic lesions inferiorly of the right hepatic lobe. These are nonspecific on this no ncontrast CT. If there are no contraindications, attempted further characterization with MRI recommen ded on a nonemergent basis. 3. New L4 compression fracture. No significantly retropulsed fragments are demonstrated. Evan Roman MD on May 21, 2017 at 18:11 Board Certified Radiologist. This report was verified electronically.
[2017-05-21] MEDS ORDERED: VITA100T54 PO (18:26)
[2017-05-21] MEDS ORDERED: FOLI1TAB6 PO (18:26)
--- NOTE | 2017-05-21 18:29 | RADRPT ---
EXAM DATE/TIME: 05/21/2017 17:53 [facility] COMPARISON: CHEST SINGLE AP, May 21, 2017, 16:51. CT THORAX W/O CONTRAST, December 30, 2016, 19:44. INDICATIONS : Abdominal pain and pressure with shortness of breath. RADIATION DOSE: 17.19 CTDIvol (mGy) ; Combined studies - Thorax/Abdomen/Pelvis MEDICAL HISTORY : Cardiovascular disease. Seizures. Hypertension. SURGICAL HISTORY : None. ENCOUNTER: Initial ACUITY: 1 day PAIN SCALE: 7/10 LOCATION: chest TECHNIQUE: Volumetric scanning of the chest was performed. Using automated exposure control and adjustment of t he mA and/or kV according to patient size, radiation dose was kept as low as reasonably achievable to obtain optimal diagnostic quality images. DICOM format image data is available electronically for r eview and comparison. Follow-up recommendations for incidentally detected pulmonary nodules are based at a minimum on nodul e size and patient risk factors according to Fleischner Society Guidelines. FINDINGS: There is bibasilar atelectasis, right worse than left. A small right pleural effusion is also present with a small caliber drainage catheter. No significant pleural effusion seen on the left. There is n o pneumothorax on either side. Normal heart size. No lymphadenopathy demonstrated. There is gynecomastia. CONCLUSION: Bibasilar atelectasis and a small right pleural effusion. Evan Roman MD on May 21, 2017 at 18:27 Board Certified Radiologist. This report was verified electronically.
[2017-05-21 18:38] LABS: CKMB 2.8 NG/ML (0.5-3.6)
[2017-05-21 19:15] VITALS: BP 111/78; PULSE 107; RESP 18; O2SAT 94
[2017-05-21] MEDS: SODIUM CHLOR 0.9% 1000 ML INJ 1,000 ML IV SCH (19:15)
[2017-05-21 19:35] LABS: LACTIC ACID GHOST NOT REPORTABLE
[2017-05-21] MEDS ORDERED: BISACODYL 10 MG SUPP RECTAL PRN (19:45)
[2017-05-21] MEDS ORDERED: ONDANSETRON HCL 4 MG/2 ML VIAL IVP PRN (19:45)
[2017-05-21] MEDS ORDERED: SODIUM CHLORIDE 0.9% FLUSH 10 ML FLUSH IV FLUSH PRN (19:45)
[2017-05-21] MEDS ORDERED: SENNOSIDES 8.6 MG TAB PO PRN (19:45)
[2017-05-21] MEDS ORDERED: LACTULOSE SYRUP 20 GM/30 ML CUP PO PRN (19:45)
[2017-05-21] MEDS ORDERED: ACETAMINOPHEN 325 MG TAB PO PRN (19:45)
[2017-05-21] MEDS ORDERED: MAGNESIUM HYDROXIDE SUSP 30 ML CUP PO PRN (19:45)
--- NOTE | 2017-05-21 19:47 | HHI.HP ---
[facility]Staff Admission Diagnosis alcohol-induced liver disease, elevated ammonia, lactic acidosis Diagnoses: (1) Ascites Diagnosis: Principal (2) Lactic acidosis Diagnosis: Principal (3) Liver disease, alcoholic Diagnosis: Principal (4) Thrombocytopenia Diagnosis: Principal (5) Alcohol abuse Diagnosis: Principal Travel History International Travel<30 Days: No Contact w/Intl Traveler <30 Da: No Traveled to Known Affected Are: No History of Present Illness This is a 41-year-old male with a PMH of Anxiety, Alcohol Abuse, Seizure Disorder and ESLD who presented to the ER with complaints of increasing abdominal distention for approx 2wks and associated SOB. Previous admit w/ insertion of Right Chest Tube, output approx 1300ml/day per mother, now decreased to 250ml/day. Ongoing Alcohol Abuse. States he does not follow w/ GI Doctor, h/o Non-compliance. On arrival, BP 127/86, HR 1:15, O2 sat 91% RA, Afebrile. CBC unremarkable except for platelets 148, previously 154 on . Chemistry unremarkable. Lactic Acid 2.8. INR 1.1. CXR with no acute findings. CT Abd/Pelvis w/ large volume ascites, small focal hepatic lesions, nonspecific, new L4 compression fracture. Review of Systems Except as stated in HPI: all other systems reviewed are Neg ROS: 14 point review of systems otherwise negative. Past Family Social History Past Medical History PMH: Anxiety, Alcohol Abuse, Seizure Disorder and ESLD Past Surgical History PAST SURGICAL HISTORY: Left Knee Surgery, Right Shoulder Surgery, Jaw Surgery 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 - 08/03/16 Family History PAST FAMILY HISTORY: Reviewed. No h/o DM or CAD Social History PAST SOCIAL HISTORY: Drinks daily, 5-8 beers. Negative for tobacco. Smokes Marijuana. Physical Exam Vital Signs Vital Signs Date Time Temp Pulse Resp B/P Pulse Ox O2 Delivery O2 Flow Rate FiO2 05/21/17 19:15 107 18 111/78 94 Nasal Cannula 3 05/21/17 17:26 116 18 138/93 96 Nasal Cannula 2 05/21/17 17:24 18 05/21/17 17:23 18 95 Nasal Cannula 2 05/21/17 17:23 95 Nasal Cannula 2 05/21/17 14:44 98.3 115 18 127/86 91 Room Air Physical Exam PE: GENERAL: Middle-aged white male in no acute distress. HEENT: PERRLA, EOMI. No scleral icterus or conjunctival pallor. No lid lag or facial droop. CARDIOVASCULAR: Regular rate and rhythm. No obvious murmurs to auscultation. No chest tenderness to palpation. RESPIRATORY: No obvious rhonchi or wheezing. Clear to auscultation. Breath sounds equal bilaterally. Right chest tube in place GASTROINTESTINAL: Abdomen soft, significant ascites, generalized tenderness. BS normal. MUSCULOSKELETAL: Extremities without clubbing, cyanosis, or edema. No obvious deformities. NEUROLOGICAL: Awake, alert and oriented x4. No focal neurologic deficits. Moving both upper and lower extremities spontaneously. Laboratory Laboratory Tests Test 05/21/17 17:19 White Blood Count 7.2 Red Blood Count 5.31 Hemoglobin 15.9 Hematocrit 48.0 Mean Corpuscular Volume 90.3 Mean Corpuscular Hemoglobin 29.9 Mean Corpuscular Hemoglobin 33.1 Concent Red Cell Distribution Width 18.2 Platelet Count 148 Mean Platelet Volume 8.6 Neutrophils (%) (Auto) 60.7 Lymphocytes (%) (Auto) 19.9 Monocytes (%) (Auto) 16.8 Eosinophils (%) (Auto) 1.4 Basophils (%) (Auto) 1.2 Neutrophils # (Auto) 4.4 Lymphocytes # (Auto) 1.4 Monocytes # (Auto) 1.2 Eosinophils # (Auto) 0.1 Basophils # (Auto) 0.1 CBC Comment DIFF FINAL Differential Comment Prothrombin Time 12.5 Prothromb Time International 1.1 Ratio Activated Partial 30.0 Thromboplast Time Urine Color YELLOW Urine Turbidity CLEAR Urine pH 6.5 Urine Specific [place] 1.008 Urine Protein NEG Urine Glucose (UA) NEG Urine Ketones NEG Urine Occult Blood NEG Urine Nitrite NEG Urine Bilirubin NEG Urine Urobilinogen LESS THAN 2.0 Urine Leukocyte Esterase NEG Urine WBC LESS THAN 1 Microscopic Urinalysis Comment CULT NOT INDICATED Sodium Level 136 Potassium Level 3.6 Chloride Level 102 Carbon Dioxide Level 20.0 Anion Gap 14 Blood Urea Nitrogen 9 Creatinine 0.69 Estimat Glomerular Filtration 127 Rate Random Glucose 77 Lactic Acid Level 2.8 Calcium Level 8.6 Magnesium Level 1.7 Total Bilirubin 1.3 Aspartate Amino Transf 90 (AST/SGOT) Alanine Aminotransferase 31 (ALT/SGPT) Alkaline Phosphatase 214 Ammonia 49 Total Creatine Kinase 103 Creatine Kinase MB 2.8 Troponin I LESS THAN 0.02 B-Type Natriuretic Peptide 37 Total Protein 8.0 Albumin 2.6 Valproic Acid (Depakene) Level 32 Ethyl Alcohol Level 240 Date/Time Procedure Status Source Growth 05/21/17 17:19 Aerobic Blood Culture Received Blood Peripheral Pending 05/21/17 17:19 Anaerobic Blood Culture Received Blood Peripheral Pending Result Diagram: 05/21/17 17105/21/171718 Assessment and Plan Problem List: (1) Ascites ICD Code: R18.8 Status: Acute (2) Liver disease, alcoholic ICD Code: K70.9 Status: Acute (3) Thrombocytopenia ICD Code: D69.6 Status: Acute (4) Lactic acidosis ICD Code: E87.2 Status: Acute (5) Alcohol abuse ICD Code: F10.10 Status: Acute Assessment and Plan A/P: 1. Ascites: Recurrent. H/o ESLD secondary to Alcohol Abuse, now w/ progressive ascites x2 wks. Afebrile, no leukocytosis. CT Abd/Pelvis w/ large volume ascites, images reviewed by me. Consult IR for Paracentesis. Start Propranolol, Aldactone, Lasix. Monitor I/O. 2. ESLD: As above, secondary to Alcohol Abuse, w/ ongoing abuse. Non- compliant w/ follow up/treatment, not following w/ GI doctor. 3. Thrombocytopenia: Mild. Platelets 148, previously 154 on 01/04/17. No active bleeding at this time. Will monitor. Repeat labs in a.m. 4. Lactic Acidosis: h/o Seizure Disorder, however no reported seizure activity. Questionable compliance w/ meds. Lactate 2.8, no evidence of Sepsis/ SBP. Will give IVF-caution w/ fluid overload, repeat Lactate in am. 5. Alcohol Abuse: w/ Acute Alcohol Intoxication. Alcohol 270. Drinks daily. CIWA, Seizure Precautions, MVT/Thiamine/Folate 6. DVT Prophylaxis: SCD/Teds. 7. Social work for d/c planning as needed. 8. Case discussed w/ ER physician at length. Problem Qualifiers (1) Ascites: Qualified Code: K70.31 - Ascites due to alcoholic cirrhosis Simi Tinajero MD May 21, 2017 19:47
[2017-05-21] MEDS ORDERED: HALOPERIDOL LACTATE 5 MG/ML AMP IM PRN (20:45)
[2017-05-21] MEDS ORDERED: LORazepam 2 MG TAB PO PRN (20:45)
[2017-05-21] MEDS ORDERED: LORazepam 2 MG/ML VIAL IV PUSH PRN ×4 (20:45)
[2017-05-21] MEDS ORDERED: LORazepam 1 MG TAB PO PRN (20:45)
[2017-05-21] MEDS ORDERED: FLUMAZENIL 0.5 MG/5 ML VIAL IV PUSH PRN (20:45)
[2017-05-21] MEDS: SODIUM CHLORIDE 0.9% FLUSH 10 ML FLUSH IV FLUSH SCH (21:00)
[2017-05-21] MEDS: DIVALPROEX SODIUM DELAYED RELEASE 250 MG TAB PO SCH (22:28)
[2017-05-21] MEDS: PROPRANOLOL HCL 10 MG TAB PO SCH (22:28)
[2017-05-21] MEDS: THIAMINE HCL 100 MG TAB PO SCH (22:29)
[2017-05-21] MEDS: DOCUSATE SODIUM 50 MG/SENNA 8.6 MG TAB PO SCH (22:29)
[2017-05-21] MEDS: HYDROmorphone HCL PF 1 MG/ML VIAL IV PRN (22:31)
[2017-05-21] MEDS: LACTULOSE SYRUP 20 GM/30 ML CUP PO SCH (22:32)
[2017-05-22] VITALS (14 sets, daily range): BP systolic 86–120; BP diastolic 54–76; PULSE 62–92; RESP 17–20; TEMP 97.5–98.5; O2SAT 90–98
[2017-05-22] MEDS: SODIUM CHLOR 0.9% 1000 ML INJ 1,000 ML IV SCH ×3 (04:56→23:43)
[2017-05-22 08:06] LABS: INTERNATIONAL NORMALIZED RATIO 1.2 RATIO
[2017-05-22 08:26] LABS: ALT (GPT) 25 U/L (12-78); ANION GAP 9 MEQ/L (5-15); AST (GOT) 66 U/L (15-37); BICARBONATE 25.5 MEQ/L (21.0-32.0); BLOOD UREA NITROGEN 8 MG/DL (7-18); CHLORIDE 105 MEQ/L (98-107); GLOMERULAR FILTRATION RATE 149 ML/MIN (>89); POTASSIUM 4.2 MEQ/L (3.5-5.1); SODIUM (NA) 139 MEQ/L (136-145)
[2017-05-22 08:29] LABS: ALKALINE PHOSPHATASE 164 U/L (45-117); TOTAL BILIRUBIN ADULT 1.3 MG/DL (0.2-1.0)
[2017-05-22] MEDS: SODIUM CHLORIDE 0.9% FLUSH 10 ML FLUSH IV FLUSH SCH ×2 (09:00→20:07)
[2017-05-22] MEDS: MULTIVITAMINS/MINERALS THERAPEUTIC TAB PO SCH (09:26)
[2017-05-22] MEDS: THIAMINE HCL 100 MG TAB PO SCH (09:27)
[2017-05-22] MEDS: PANTOPRAZOLE SOD 40 MG DELAYED RELEASE TAB PO SCH (09:27)
[2017-05-22] MEDS: DIVALPROEX SODIUM DELAYED RELEASE 250 MG TAB PO SCH ×2 (09:27→20:07)
[2017-05-22] MEDS: DOCUSATE SODIUM 50 MG/SENNA 8.6 MG TAB PO SCH ×2 (09:27→20:06)
[2017-05-22] MEDS: FOLIC ACID 1 MG TAB PO SCH (09:27)
[2017-05-22] MEDS: LACTULOSE SYRUP 20 GM/30 ML CUP PO SCH ×4 (09:27→20:07)
[2017-05-22] MEDS: FUROSEMIDE 40 MG TAB PO SCH (09:27)
[2017-05-22] MEDS: SPIRONOLACTONE 50 MG TAB PO SCH (09:27)
[2017-05-22] MEDS: HYDROmorphone HCL PF 1 MG/ML VIAL IV PRN ×2 (09:43→13:27)
[2017-05-22] MEDS: PROPRANOLOL HCL 10 MG TAB PO SCH ×2 (09:43→20:07)
--- NOTE | 2017-05-22 10:37 | HHI.PR ---
Subjective Remarks Pending paracentesis today. Alcohol abuse and consequences of alcohol abuse discussed with patient. Liver disease and ascites explained to the patient. Objective Vital Signs Date Time Temp Pulse Resp B/P Pulse Ox O2 Delivery O2 Flow Rate FiO2 05/22/17 08:30 97.8 70 20 98/68 98 05/22/17 04:52 98.1 74 18 104/75 98 05/22/17 03:04 90/76 05/22/17 02:05 98.0 64 18 108/62 97 05/22/17 01:50 86 18 90/72 96 05/22/17 00:45 86 05/21/17 23:33 18 05/21/17 19:15 107 18 111/78 94 Nasal Cannula 3 05/21/17 17:26 116 18 138/93 96 Nasal Cannula 2 05/21/17 17:24 18 05/21/17 17:23 18 95 Nasal Cannula 2 05/21/17 17:23 95 Nasal Cannula 2 05/21/17 14:44 98.3 115 18 127/86 91 Room Air I/O 05/21/17 05/21/17 05/21/17 05/22/17 05/22/17 05/22/17 07:00 15:00 23:00 07:00 15:00 23:00 Intake Total 1280 ml Balance 1280 ml Intake Oral 480 ml IV Total 800 ml # Voids 1 # Bowel Movements 1 Result Diagram: 05/21/17 1719 05/22/17 0731 Objective Remarks GENERAL: NAD, A&Ox3 HEAD: Normocephalic. NECK: Supple, trachea midline. No lymphadenopathy. EYES: No scleral icterus. No injection or drainage. CARDIOVASCULAR: Regular rate and rhythm without murmurs, gallops, or rubs. RESPIRATORY: Breath sounds equal bilaterally. No accessory muscle use. GASTROINTESTINAL: Abdomen soft, non-tender. Significantly distended abdomen. MUSCULOSKELETAL: No cyanosis, or edema. SKIN: Warm and dry. NEURO: No focal neurological deficitis. A/P Problem List: (1) Ascites ICD Code: R18.8 (2) Liver disease, alcoholic ICD Code: K70.9 (3) Alcohol abuse ICD Code: F10.10 (4) Lactic acidosis ICD Code: E87.2 (5) Delirium tremens ICD Code: F10.231 (6) Thrombocytopenia ICD Code: D69.6 Assessment and Plan Assessment and plan 41-year-old male with an extensive history of alcohol abuse. Admitted with his first episode of ascites in need of paracentesis. Paracentesis planned for today. Ascites End-stage liver disease Patient denies any prior paracentesis, though prior history is complicated with this Plan for paracentesis with IR Propanolol Aldactone Lasix Follow electrolytes after paracentesis Patient counseled to quit abusing alcohol As an outpatient he has been avoiding follow-ups with his GI doctor Thrombocytopenia Lactic acidosis Secondary to liver disease and alcohol abuse Patient counseled to quit drinking Follow lactic acid levels and platelets Alcohol abuse Delirium tremens Multivitamin Thiamine Folic acid CIWA protocol Every 6 hours Librium Monitor for any worsening of delirium tremens DVT prophylaxis SCDs Discharge planning Paracentesis was prefers prior to any consideration for discharge. Patient at risk for worsening delirium tremens prior to discharge. Problem Qualifiers (1) Ascites: Qualified Code: K70.31 - Ascites due to alcoholic cirrhosis Nicholas Chau MD May 22, 2017 10:37
--- NOTE | 2017-05-22 13:10 | EKG ---
Date Performed: 05/21/2017 Time Performed: 17:16:47 PTAGE: 41 years EKG: SINUS TACHYCARDIA POSSIBLE ANTERIOR MYOCARDIAL INFARCTION Compared to previous tracing, sin us rate has increased ABNORMAL RHYTHM ECG PREVIOUS TRACING : 12/30/2016 15.54 DOCTOR: Geovani Hannah Interpretating Date/Time 05/22/2017 13:08:40
[2017-05-22] MEDS ORDERED: ALBUMIN HUMAN 25% 50GM-W/12.5GM FOR 62.5GM IV ONE (18:45)
[2017-05-22] MEDS ORDERED: ALBUMIN HUMAN 25% 12.5GM-W/50GM FOR 62.5GM IV ONE (18:45)
[2017-05-23] VITALS (7 sets, daily range): BP systolic 84–100; BP diastolic 52–80; PULSE 73–96; RESP 18; TEMP 96.8–99.5; O2SAT 90–96
[2017-05-23] MEDS: SODIUM CHLOR 0.9% 1000 ML INJ 1,000 ML IV SCH (05:58)
[2017-05-23 07:19] LABS: AUTOMATED NEUTROPHIL # 3.5 TH/MM3 (1.8-7.7); BASOPHIL # 0.1 TH/MM3 (0-0.2); BASOPHIL % 0.9 % (0.0-2.0); EOSINOPHIL # 0.1 TH/MM3 (0-0.4); EOSINOPHIL % 2.1 % (0.0-4.0); HEMATOCRIT 36.7 % (39.0-51.0); MEAN CELL VOLUME 91.3 FL (80.0-100.0); MEAN CORPUSCULAR HEMOGLOBIN 30.1 PG (27.0-34.0); MEAN CORPUSCULAR HGB CONC 32.9 % (32.0-36.0); MONO % 21.8 % (0.0-8.0); NEUT % 58.2 % (16.0-70.0); PLATELET COUNT 97 TH/MM3 (150-450); RED BLOOD COUNT 4.02 MIL/MM3 (4.50-5.90); RED CELL DISTRIBUTION WIDTH 17.6 % (11.6-17.2)
[2017-05-23 07:25] LABS: HEMO FLAGS AUTO DIFF
[2017-05-23 07:57] LABS: ALKALINE PHOSPHATASE 125 U/L (45-117); ALT (GPT) 18 U/L (12-78); ANION GAP 6 MEQ/L (5-15); AST (GOT) 47 U/L (15-37); BICARBONATE 29.1 MEQ/L (21.0-32.0); BLOOD UREA NITROGEN 10 MG/DL (7-18); CHLORIDE 105 MEQ/L (98-107); GLOMERULAR FILTRATION RATE 155 ML/MIN (>89); POTASSIUM 3.4 MEQ/L (3.5-5.1); SODIUM (NA) 140 MEQ/L (136-145); TOTAL BILIRUBIN ADULT 1.6 MG/DL (0.2-1.0)
[2017-05-23 08:28] LABS: PLATELET ESTIMATE SMEAR LOW (NORMAL); PLATELET MORPHOLOGY NORMAL (NORMAL); SCAN/DIFF AUTO DIFF CONFIRMED
[2017-05-23] MEDS ORDERED: POTASSIUM CHLORIDE 10 MEQ CONTROLLED RELEASE TAB PO ONE (08:30)
[2017-05-23] MEDS ORDERED: MIDODRINE 5 MG TAB PO ONE ×2 (08:30→14:15)
[2017-05-23] MEDS: PROPRANOLOL HCL 10 MG TAB PO SCH (09:00)
[2017-05-23] MEDS: LACTULOSE SYRUP 20 GM/30 ML CUP PO SCH ×3 (09:19→18:00)
[2017-05-23] MEDS: FUROSEMIDE 40 MG TAB PO SCH (09:21)
[2017-05-23] MEDS: DOCUSATE SODIUM 50 MG/SENNA 8.6 MG TAB PO SCH (09:21)
[2017-05-23] MEDS: FOLIC ACID 1 MG TAB PO SCH (09:21)
[2017-05-23] MEDS: MULTIVITAMINS/MINERALS THERAPEUTIC TAB PO SCH ×2 (09:22→09:54)
[2017-05-23] MEDS: SPIRONOLACTONE 50 MG TAB PO SCH (09:22)
[2017-05-23] MEDS: PANTOPRAZOLE SOD 40 MG DELAYED RELEASE TAB PO SCH (09:38)
[2017-05-23] MEDS: DIVALPROEX SODIUM DELAYED RELEASE 250 MG TAB PO SCH (09:52)
[2017-05-23] MEDS: THIAMINE HCL 100 MG TAB PO SCH (09:55)
[2017-05-23] MEDS ORDERED: TRAM50TA PO (15:24)
--- NOTE | 2017-05-23 16:02 | HHI.DS ---
Discharge Summary Admission Date May 21, 2017 at 18:54 Discharge Date: May 23, 2017 Admitting Diagnosis alcohol-induced liver disease, elevated ammonia, lactic acidosis (1) Ascites ICD Code: R18.8 (2) Liver disease, alcoholic ICD Code: K70.9 Diagnosis: Principal (3) Thrombocytopenia ICD Code: D69.6 Diagnosis: Principal (4) Lactic acidosis ICD Code: E87.2 Diagnosis: Principal (5) Alcohol abuse ICD Code: F10.10 Diagnosis: Principal Procedures Paracentesis. Brief History - From Admission This is a 41-year-old male with a PMH of Anxiety, Alcohol Abuse, Seizure Disorder and ESLD who presented to the ER with complaints of increasing abdominal distention for approx 2wks and associated SOB. Previous admit w/ insertion of Right Chest Tube, output approx 1300ml/day per mother, now decreased to 250ml/day. Ongoing Alcohol Abuse. States he does not follow w/ GI Doctor, h/o Non-compliance. On arrival, BP 127/86, HR 1:15, O2 sat 91% RA, Afebrile. CBC unremarkable except for platelets 148, previously 154 on . Chemistry unremarkable. Lactic Acid 2.8. INR 1.1. CXR with no acute findings. CT Abd/Pelvis w/ large volume ascites, small focal hepatic lesions, nonspecific, new L4 compression fracture. CBC/BMP: 05/23/17 0620 05/23/17 0620 Significant Findings Laboratory Tests Test 05/21/17 05/21/17 05/22/17 05/23/17 17:19 20:36 07:31 06:20 Red Cell Distribution Width 18.2 % 17.6 % (11.6-17.2) (11.6-17.2) Platelet Count 148 TH/MM3 97 TH/MM3 (150-450) (150-450) Monocytes (%) (Auto) 16.8 % 21.8 % (0.0-8.0) (0.0-8.0) Monocytes # (Auto) 1.2 TH/MM3 1.3 TH/MM3 (0-0.9) (0-0.9) Prothrombin Time 12.5 SEC 13.0 SEC (9.8-11.6) (9.8-11.6) Carbon Dioxide Level 20.0 MEQ/L (21.0-32.0) Lactic Acid Level 2.8 mmol/L 2.3 mmol/L 2.1 mmol/L (0.4-2.0) (0.4-2.0) (0.4-2.0) Total Bilirubin 1.3 MG/DL 1.3 MG/DL 1.6 MG/DL (0.2-1.0) (0.2-1.0) (0.2-1.0) Aspartate Amino Transf 90 U/L (15-37) 66 U/L (15-37) 47 U/L (15-37) (AST/SGOT) Alkaline Phosphatase 214 U/L 164 U/L 125 U/L (45-117) (45-117) (45-117) Ammonia 49 MCMOL/L (11-32) Troponin I LESS THAN 0.02 NG/ML (0.02-0.05) Albumin 2.6 GM/DL 2.1 GM/DL 2.4 GM/DL (3.4-5.0) (3.4-5.0) (3.4-5.0) Valproic Acid (Depakene) Level 32 MCG/ML (50-100) Ethyl Alcohol Level 240 MG/DL (0-5) Calcium Level 8.1 MG/DL 7.8 MG/DL (8.5-10.1) (8.5-10.1) Red Blood Count 4.02 MIL/MM3 (4.50-5.90) Hemoglobin 12.1 GM/DL (13.0-17.0) Hematocrit 36.7 % (39.0-51.0) Platelet Estimate LOW (NORMAL) Potassium Level 3.4 MEQ/L (3.5-5.1) Creatinine 0.58 MG/DL (0.60-1.30) Total Protein 5.6 GM/DL (6.4-8.2) Hospital Course Mr. Arias is a 41-year-old male. He was admitted here this visit secondary to abdominal distention. He has not had a previous episode of paracentesis but at this point his ascites was to a degree that he needed paracentesis. He has had problems with ascites and hepatic encephalopathy related to alcohol abuse and liver disease. No suspicion for spontaneous bacterial peritonitis was present at this admit. Paracentesis was performed and patient had resolution of his abdominal distention symptoms. He did have some hypotension after the procedure which should correct through time. Midodrine was provided and patient 's blood pressure has now increased to over 100 mmHg systolic. Patient requests discharge to home today. Noted delirium tremens when seen. He is medically stable for discharge today. Pt Condition on Discharge: Stable Discharge Disposition: Discharge Home Discharge Time: <= 30 minutes Discharge Instructions DIET: Follow Instructions for: As Tolerated, No Restrictions Activities you can perform: Regular-No Restrictions Follow up Referrals: PCP Follow-up - 2 Weeks New Medications: Tramadol (Tramadol) 50 Mg Tab 50 MG PO Q6H PRN PAIN #10 Ref 0 TAB Continued Medications: Divalproex DR (Divalproex DR) 250 Mg Tabdr 250 MG PO BID Control Seizures #60 Ref 3 TAB Folic Acid (Folic Acid) 1 Mg Tablet 1 MG PO DAILY Lactulose Liq (Lactulose Liq) 10 Gm/15 Ml Soln 45 ML PO QID encephalopathy #1 BOTTLE Omeprazole (Omeprazole) 40 Mg Cap 40 MG PO DAILY #30 Ref 3 CAP Thiamine (Vitamin B-1) 100 Mg Tab 100 MG PO DAILY Nutritional Supplement Ref 0 TAB Nicholas Chau MD May 23, 2017 16:02
--- NOTE | 2017-05-24 07:49 | RADRPT ---
EXAM DATE/TIME: 05/22/2017 17:25 [facility] COMPARISON: US GUIDED ABD PARACENTESIS, August 10, 2016, 13:52. INDICATIONS : Ascites. MEDICAL HISTORY : Seizures. Hypertension. Cirrhosis. Pleural effusion. Scoliosis. Anxiety. Hepatitis. ETOH abuse. MRSA. SURGICAL HISTORY : Left knee surgery. Right shoulder surgery. ENCOUNTER: [facility] ACUITY: > 1 yr PAIN SCORE: 9/10 LOCATION: Right lower quadrant FLUID: Total volume of 10,400 cc of clear, yellow fluid was removed. Fluid was discarded. Paracentesis was therapeutic only. Post procedure scanning reveals no hematoma or other complication. TECHNIQUE: 1. Ultrasound guidance for abdominal paracentesis. 2. Paracentesis. The risks, benefits, and alternatives to ultrasound guided paracentesis were explained to the patient in detail including the risk of bleeding and infection. Written and verbal informed consent was obt ained. With the patient on the ultrasound table, ultrasound imaging was used to select the most appropriate approach for paracentesis. Overlying skin was prepped and draped in the usual sterile fashion and wi th a local anesthetic, a dermatotomy was made with an 11 blade scalpel. A 6 Dominican Nub-[id number] ca theter was introduced into the peritoneal cavity and fluid was collected. The patient tolerated the procedure well and left the ultrasound suite in stable condition. CONCLUSION: Uncomplicated ultrasound guided large volume paracentesis. Anish Murray Jr., MD on May 24, 2017 at 7:47 Board Certified Radiologist. This report was verified electronically.
== END 2017-05-23 18:28 | disposition home or self-care (01) ==
LOC: NEPE 14:42 → INTOOBSV 18:54 → NEDA 18:54 → NEPGCP 22:02 → UNDODISIN 05-23 18:28
PROVIDERS: ADMIT Hospitalist; ATTEND Hospitalist
DX: K70.31 Alcoholic cirrhosis of liver with ascites (principal); K72.90 Hepatic failure, unspecified without coma; E87.2 Acidosis; K75.9 Inflammatory liver disease, unspecified; F10.231 Alcohol dependence with withdrawal delirium; J90 Pleural effusion, not elsewhere classified; R94.31 Abnormal electrocardiogram [ECG] [EKG]; K80.20 Calculus of gallbladder without cholecystitis without obstruction; R06.02 Shortness of breath; I95.9 Hypotension, unspecified; R14.0 Abdominal distension (gaseous); M48.56XA Collapsed vertebra, not elsewhere classified, lumbar region, initial encounter for fracture; D69.6 Thrombocytopenia, unspecified; I10 Essential (primary) hypertension; G40.909 Epilepsy, unspecified, not intractable, without status epilepticus; M41.9 Scoliosis, unspecified; F41.9 Anxiety disorder, unspecified; F12.90 Cannabis use, unspecified, uncomplicated; Z91.19 Patient's noncompliance with other medical treatment and regimen; Z79.899 Other long term (current) drug therapy; X58.XXXA Exposure to other specified factors, initial encounter
CPT/HCPCS: 49083; 71010; 71250; 74176; 76937; 80053; 80164; 80307; 81001; 82140; 82550; 82552; 82948; 83605; 83735; 83880; 84484; 85025; 85610; 85730; 87040; 93005; 96374; 96375; 99285; C1729; G0378; J1170; J2405; J7030; P9047

== ENCOUNTER 2017-06-15 17:36 | Emergency (ER) | payer SELFPAY ==
[~2017-06-15] VITALS: Ht 182.9 cm; Wt 90.0 kg
[~2017-06-15 17:36] MED LIST changes: -CELE40TA PO; -FOLI1TAB4 PO; +FOLI1TAB6 PO; -MORP20SO2 PO; -THIA100T PO; +TRAM50TA PO; +VITA100T54 PO; -XIFA550T4 PO
[2017-06-15 17:40] VITALS: BP 125/85; PULSE 133; RESP 14; TEMP 98.9; O2SAT 95
--- NOTE | 2017-06-15 17:48 | PD ---
Physical Exam Time Seen by Provider: 17:48 Narrative 41 y/o male hx esld, paracentesis 4 days ago at [facility], presents with persistent abdominal pain/distention. Vital signs reviewed. Seen at triage desk. Awaiting bed placement. Data Data Last Documented VS Vital Signs Date Time Temp Pulse Resp B/P Pulse Ox O2 Delivery O2 Flow Rate FiO2 06/15/17 17:40 98.9 133 14 125/85 95 MDM Medical Record Reviewed: Yes Supervised Visit with JERAMY: Long Duarte Jun 15, 2017 17:48
[2017-06-15] MEDS ORDERED: MORPHINE SULFATE 4 MG/ML INJ IV PUSH ONE (21:45)
[2017-06-15] MEDS ORDERED: SODIUM CHLORIDE 0.9% FLUSH 10 ML FLUSH IV FLUSH PRN (21:45)
--- NOTE | 2017-06-15 21:45 | PD ---
HPI Chief Complaint: Abdominal Pain Time Seen by Provider: 21:26 Travel History International Travel<30 days: No Contact w/Intl Traveler<30days: No Traveled to known affect area: No History of Present Illness HPI 41-year-old male with end-stage liver disease secondary to alcohol abuse/ cirrhosis, ascites, here for evaluation of abdominal pain and distention. In December of this year the patient had a pleural effusion and had a right pleural drain placed. This drain is still in place and is been clamped. He was admitted last month for ascites and had a therapeutic paracentesis with reportedly 11 L of ascites removed. He had another therapeutic paracentesis 4 days ago at [facility] where he reportedly had 7 L removed. He is back today because of increased abdominal distention and discomfort. He denies fevers or chills. Discomfort is diffuse. No dyspnea. Patient continues to drink alcohol, however he reports he does so in the evenings. He has not yet had any alcohol today. PFSH Past Medical History Hx Anticoagulant Therapy: No Asthma: No Blood Disorders: No Anxiety: Yes Cancer: No Cardiovascular Problems: Yes Chemotherapy: No Cirrhosis: Yes COPD: No Cerebrovascular Accident: No Diabetes: No Diminished Hearing: No Endocrine: No Gastrointestinal Disorders: No Genitourinary: No Hepatitis: Yes Hypertension: Yes Implanted Vascular Access Dvce: No Medical other: Yes (LIVER DISEASE) Musculoskeletal: Yes (SCOLIOSIS, KNEE & SHOULDER INJURIES) Neurologic: Yes (SEIZURES ("ALL ALCOHOL RELATED" PER PT)) Reproductive: No Respiratory: No Seizures: Yes Menopausal: Yes Past Surgical History Body Medical Devices: r side chest tube Hysterectomy: No Oral Surgery: Yes (jaw) Other Surgery: Yes ( LEFT KNEE & RIGHT SHOULDER) Social History Alcohol Use: Yes (DAILY) Tobacco Use: No Substance Use: No (mj 2 years ago ) Allergies-Medications (Allergen,Severity, Reaction): Coded Allergies: *MDRO Multi-Drug Resistant Organism (Verified Adverse Reaction, Unknown, ) MRSA PCR Screen (nares) POSITIVE - 08/03/16 Reported Meds & Prescriptions Reported Meds & Active Scripts Active Tramadol (Tramadol HCl) 50 Mg Tab 50 Mg PO Q6H PRN Divalproex DR (Divalproex Sodium) 250 Mg Tabdr 250 Mg PO BID Omeprazole 40 Mg Cap 40 Mg PO DAILY Lactulose Liq (Lactulose) 10 Gm/15 Ml Soln 45 Ml PO QID Reported Folic Acid 1 Mg Tablet 1 Mg PO DAILY Vitamin B-1 (Thiamine HCl) 100 Mg Tab 100 Mg PO DAILY Review of Systems Except as stated in HPI: all other systems reviewed are Neg Physical Exam Narrative GENERAL: Well-developed, well-nourished, shivering, no apparent distress. SKIN: Focused skin assessment warm/dry. Spider angiomas on abdomen. No rashes. HEAD: Atraumatic. Normocephalic. EYES: Pupils equal and round. No scleral icterus. No injection or drainage. ENT: Mucous membranes pink and moist. NECK: Trachea midline. No JVD. CARDIOVASCULAR: Regular rate and rhythm. No murmur appreciated. RESPIRATORY: No accessory muscle use. Clear to auscultation. Breath sounds equal bilaterally. GASTROINTESTINAL: Abdomen soft, distended, fluid wave present, mild tenderness throughout. No peritoneal signs. MUSCULOSKELETAL: No obvious deformities. No clubbing. No cyanosis. No edema. Right lateral chest with pleural drain in place with surrounding site clean, dry , intact. NEUROLOGICAL: Awake and alert. No obvious cranial nerve deficits. Motor grossly within normal limits. Normal speech. PSYCHIATRIC: Appropriate mood and affect; insight and judgment normal. Data Data Last Documented VS Vital Signs Date Time Temp Pulse Resp B/P Pulse Ox O2 Delivery O2 Flow Rate FiO2 06/15/17 23:09 108 22 127/78 96 Room Air 06/15/17 17:40 98.9 Orders Complete Blood Count With Diff (06/15/17 21:36) Comprehensive Metabolic Panel (06/15/17 21:36) Prothrombin Time / Inr (Pt) (06/15/17 21:36) Act Partial Throm Time (Ptt) (06/15/17 21:36) Iv Access Insert/Monitor (06/15/17 21:36) Ecg Monitoring (06/15/17 21:36) Oximetry (06/15/17 21:36) Sodium Chloride 0.9% Flush (Ns Flush) (06/15/17 21:45) Morphine Inj (Morphine Inj) (06/15/17 21:45) Chest, Single Ap (06/15/17 ) Oxycodone-Acetamin 10-325 Mg (Percocet 1 (06/15/17 23:30) Labs Laboratory Tests Test 06/15/17 22:00 White Blood Count 8.7 TH/MM3 Red Blood Count 4.88 MIL/MM3 Hemoglobin 15.2 GM/DL Hematocrit 45.6 % Mean Corpuscular Volume 93.6 FL Mean Corpuscular Hemoglobin 31.2 PG Mean Corpuscular Hemoglobin 33.4 % Concent Red Cell Distribution Width 17.9 % Platelet Count 90 TH/MM3 Mean Platelet Volume 9.2 FL Neutrophils (%) (Auto) 64.7 % Lymphocytes (%) (Auto) 13.3 % Monocytes (%) (Auto) 20.5 % Eosinophils (%) (Auto) 1.0 % Basophils (%) (Auto) 0.5 % Neutrophils # (Auto) 5.7 TH/MM3 Lymphocytes # (Auto) 1.2 TH/MM3 Monocytes # (Auto) 1.8 TH/MM3 Eosinophils # (Auto) 0.1 TH/MM3 Basophils # (Auto) 0.0 TH/MM3 CBC Comment AUTO DIFF Prothrombin Time 13.4 SEC Prothromb Time International 1.2 RATIO Ratio Activated Partial 31.9 SEC Thromboplast Time Sodium Level 136 MEQ/L Potassium Level 3.9 MEQ/L Chloride Level 100 MEQ/L Carbon Dioxide Level 28.5 MEQ/L Anion Gap 8 MEQ/L Blood Urea Nitrogen 8 MG/DL Creatinine 0.73 MG/DL Estimat Glomerular Filtration 119 ML/MIN Rate Random Glucose 147 MG/DL Calcium Level 8.4 MG/DL Total Bilirubin 2.1 MG/DL Aspartate Amino Transf 60 U/L (AST/SGOT) Alanine Aminotransferase 21 U/L (ALT/SGPT) Alkaline Phosphatase 204 U/L Total Protein 7.4 GM/DL Albumin 2.5 GM/DL [facility] Medical Decision Making Medical Screen Exam Complete: Yes Emergency Medical Condition: Yes Differential Diagnosis Ascites, SBP, end-stage liver disease, hepatorenal syndrome Narrative Course Initial vital signs show heart rate 133, blood pressure 125/85, pulse ox 95% on room air, oral temp of 98.9F. CBC shows WBC 8.7, hemoglobin 15.2, hematocrit 45.6, platelets 90. CMP is remarkable for random glucose 147, T bili 2.1, AST 60, alkaline phosphatase 204, albumin 2.5. Chest x-ray: CONCLUSION: 1. Right chest tube without significant pneumothorax. Basal airspace disease, right greater than left. Patient was made aware of all findings. He is resting comfortably. He was given a dose of morphine. He does have a moderate amount of ascites, however his abdomen is soft. There are no peritoneal signs on exam. I do not believe he has SBP. He is afebrile. WBC count is normal. He is not short of breath. Long discussion was had with both the patient and the patient's mother regarding plan. At this point I believe the patient can follow-up as an outpatient with interventional radiology for therapeutic paracentesis. Mom was also concerned about the right-sided chest tube and would like that to be evaluated by interventional radiology as well. I've written a prescription for them and have directed them to our interventional radiology suite where they can follow-up tomorrow. Patient informed on when to return to the emergency department. He verbalizes understanding and agreement with plan. Diagnosis Primary Impression: Ascites Qualified Code: K70.31 - Ascites due to alcoholic cirrhosis Referrals: Primary Care Physician 3 days Additional Instructions: Follow-up with interventional radiology tomorrow. Follow-up with your primary care physician this week. Return to the emergency department for worsening symptoms or any other concerns. Scripts Oxycodone-Acetaminophen (Percocet)10-325 mg Tab1 Tab PO Q6H PRN (PAIN) #15 TAB Ref 0 Prov:Geoff Sheridan MD 06/15/17 Disposition: 01 DISCHARGE HOME Condition: Stable Geoff Sheridan MD Jun 15, 2017 21:45
[2017-06-15 22:26] LABS: AUTOMATED NEUTROPHIL # 5.7 TH/MM3 (1.8-7.7); BASOPHIL % 0.5 % (0.0-2.0); EOSINOPHIL # 0.1 TH/MM3 (0-0.4); HEMATOCRIT 45.6 % (39.0-51.0); LYMPH % 13.3 % (9.0-44.0); LYMPHOCYTE # 1.2 TH/MM3 (1.0-4.8); MEAN CELL VOLUME 93.6 FL (80.0-100.0); MEAN CORPUSCULAR HEMOGLOBIN 31.2 PG (27.0-34.0); MEAN CORPUSCULAR HGB CONC 33.4 % (32.0-36.0); MONO % 20.5 % (0.0-8.0); NEUT % 64.7 % (16.0-70.0); PLATELET COUNT 90 TH/MM3 (150-450); RED BLOOD COUNT 4.88 MIL/MM3 (4.50-5.90); RED CELL DISTRIBUTION WIDTH 17.9 % (11.6-17.2); WHITE BLOOD COUNT 8.7 TH/MM3 (4.0-11.0)
--- NOTE | 2017-06-15 22:30 | RADRPT ---
EXAM DATE/TIME: 06/15/2017 21:47 [facility] COMPARISON: CHEST SINGLE AP, May 21, 2017, 16:51. INDICATIONS : Shortness of breath. MEDICAL HISTORY : Hypertension. SURGICAL HISTORY : Chest tube placement. ENCOUNTER: Initial ACUITY: 2 weeks PAIN SCORE: 0/10 LOCATION: Bilateral chest FINDINGS: Right chest tube present without significant pneumothorax. Basilar airspace disease, right greater th an left. Elevated right hemidiaphragm. CONCLUSION: 1. Right chest tube without significant pneumothorax. Basal airspace disease, right greater than left . Gustavo Espino MD on June 15, 2017 at 22:27 Board Certified Radiologist. This report was verified electronically.
[2017-06-15 22:31] LABS: HEMO FLAGS AUTO DIFF
[2017-06-15 22:34] LABS: APTT (PATIENT) 31.9 SEC (24.3-30.1); INTERNATIONAL NORMALIZED RATIO 1.2 RATIO; PROTHROMBIN TIME - PATIENT 13.4 SEC (9.8-11.6)
[2017-06-15 22:38] LABS: ANION GAP 8 MEQ/L (5-15); AST (GOT) 60 U/L (15-37); BICARBONATE 28.5 MEQ/L (21.0-32.0); BLOOD UREA NITROGEN 8 MG/DL (7-18); CHLORIDE 100 MEQ/L (98-107); GLOMERULAR FILTRATION RATE 119 ML/MIN (>89); POTASSIUM 3.9 MEQ/L (3.5-5.1); SODIUM (NA) 136 MEQ/L (136-145)
[2017-06-15 22:40] LABS: ALT (GPT) 21 U/L (12-78)
[2017-06-15 22:41] LABS: ALKALINE PHOSPHATASE 204 U/L (45-117); TOTAL BILIRUBIN ADULT 2.1 MG/DL (0.2-1.0)
[2017-06-15 23:09] VITALS: BP 127/78; PULSE 108; RESP 22; O2SAT 96
[2017-06-15 23:25] LABS: SCAN/DIFF AUTO DIFF CONFIRMED
[2017-06-15] MEDS ORDERED: oxyCODONE/ACETAMINOPHEN 10 MG/325 MG TAB PO ONE (23:30)
[2017-06-15] MEDS ORDERED: PERC10TA27 PO (23:33)
== END 2017-06-15 23:58 | disposition home or self-care (01) ==
LOC: NEPC 17:36
DX: R18.8 Other ascites (principal); K72.90 Hepatic failure, unspecified without coma; K70.31 Alcoholic cirrhosis of liver with ascites; F41.9 Anxiety disorder, unspecified; I10 Essential (primary) hypertension; M41.9 Scoliosis, unspecified; R56.9 Unspecified convulsions
CPT/HCPCS: 71010; 80053; 85025; 85610; 85730; 96374; 99284; J2270

== ENCOUNTER 2017-06-18 08:39 | Day surgery (SDC) | payer OTHER ==
[~2017-06-18] VITALS: Ht 167.6 cm; Wt 109.1 kg
[~2017-06-18 08:39] MED LIST changes: +PERC10TA27 PO
[2017-06-18] MEDS ORDERED: SODIUM CHLORIDE 0.9% 1000 ML IV SCH (09:00)
[2017-06-18 09:05] VITALS: BP 106/81; PULSE 105; RESP 18; TEMP 98.1; O2SAT 93
[2017-06-18] MEDS ORDERED: oxyCODONE/ACETAMINOPHEN 5 MG/325 MG TAB PO ONE (10:00)
--- NOTE | 2017-06-18 10:49 | RADRPT ---
EXAM DATE/TIME: 06/18/2017 10:11 [facility] COMPARISON: No previous studies available for comparison. INDICATIONS : Evaluate aspira catheter RADIATION DOSE: 5.99 CTDIvol (mGy) MEDICAL HISTORY : Seizures. Hypertension. Cirrhosis. SURGICAL HISTORY : None. ENCOUNTER: Subsequent ACUITY: 4 - 6 months PAIN SCALE: 0/10 LOCATION: Right chest TECHNIQUE: Volumetric scanning of the chest was performed. Using automated exposure control and adjustment of t he mA and/or kV according to patient size, radiation dose was kept as low as reasonably achievable to obtain optimal diagnostic quality images. DICOM format image data is available electronically for r eview and comparison. Follow-up recommendations for incidentally detected pulmonary nodules are based at a minimum on nodul e size and patient risk factors according to Fleischner Society Guidelines. FINDINGS: LUNGS: There is atelectasis present bilaterally, somewhat more significant on the right than the left. PLEURAE: Right-sided Pleurx catheter in good position in the dependent posterior right sulcus. Minimal pleural fluid. MEDIASTINUM: The heart and great vessels demonstrate no acute abnormality. There is no mediastinal or hilar lymph adenopathy. AXILLAE: Within normal limits. No lymphadenopathy. MUSCULOSKELETAL: Within normal limits for patient age. MISCELLANEOUS: Abundant ascites in the upper abdomen. CONCLUSION: Aspira catheter in good position Evan Evangelista MD on June 18, 2017 at 10:44 Board Certified Radiologist. This report was verified electronically.
[2017-06-18] MEDS ORDERED: VANCOMYCIN 1000 MG/NS 250 ML - implanted port/tunneled catheter IV SCH ×2 (12:00)
[2017-06-18] MEDS ORDERED: ceFAZolin 2 GM PREMIX 50 ML - implanted port/tunneled catheter insertion IV SCH (12:00)
[2017-06-18] MEDS ORDERED: fentaNYL CITRATE 250 MCG/5 ML AMP ONE (12:26)
[2017-06-18] MEDS ORDERED: MIDAZOLAM HCL 2 MG/2 ML VIAL ONE (12:26)
[2017-06-18] MEDS ORDERED: LIDOCAINE 1%/EPINEPHrine 1:100,000 SOLN 20 ML VIAL ONE (13:09)
[2017-06-18 14:28] VITALS: BP 104/68; PULSE 107; RESP 17; TEMP 98.6; O2SAT 91
--- NOTE | 2017-06-18 14:29 | PD.RAD ---
Post Procedure Progress Note Pre Procedure Diagnosis: (1) ETOH abuse (2) Ascites Post Procedure Diagnosis: (1) ETOH abuse (2) Ascites Procedure Date: Jun 18, 2017 Supervising Radiologist: Grzegorz Kaur Proceduralist/Assist: Sid Baum, RT(R), Jerrod Tran, RT(R) Anesthesia: Local, Analgesia, Conscious Sedation Plan of Activity Patient to Unit: [facility] Patient Condition: Good See PACS Report for procedural detail/treatment Drainage Procedure Procedure 1 Imaging Guidance: Fluoroscopy, Ultrasound Side: Right Procedure Type: Peritoneal Catheter Tunneled (Aspira) Procedure: Removal Drainage: Hinckley drainage Fluid Removal (CCs): 11,000 Fluid Description: Grzegorz Sharma MD Jun 18, 2017 14:29
[2017-06-18 14:43] VITALS: BP 110/72; PULSE 106; RESP 19; O2SAT 96
[2017-06-18] MEDS ORDERED: IOHEXOL 350 MG/ML 50 ML BTL (for RAD DIAG) ONE (14:45)
--- NOTE | 2017-06-18 15:09 | RADRPT ---
EXAM DATE/TIME: 06/18/2017 14:25 [facility] COMPARISON: PERITONEAL CATHETER PLACEMENT, TUNNELED, June 18, 2017, 13:05. CHEST SINGLE AP, June 15, 2017, 2 1:47. INDICATIONS : Chets tube removal. MEDICAL HISTORY : Hypertension. SURGICAL HISTORY : Chest tube. Chest tube removal. ENCOUNTER: Initial ACUITY: 1 day PAIN SCORE: 5/10 LOCATION: Bilateral chest FINDINGS: There is atelectasis in the lung bases. Moderate right effusion. Interval removal of a dural drainage catheter without evidence of pneumothorax. Visualized cardiac contours are grossly stable.. CONCLUSION: No evidence of pneumothorax post pleural catheter removal. Evan Evangelista MD on June 18, 2017 at 15:04 Board Certified Radiologist. This report was verified electronically.
[2017-06-18 15:13] VITALS: BP 112/75; PULSE 101; RESP 18; O2SAT 94
[2017-06-18] MEDS ORDERED: diphenhydrAMINE HCL 50 MG/ML VIAL ONE (15:13)
[2017-06-18 15:43] VITALS: BP 109/74; PULSE 100; RESP 17; O2SAT 97
--- NOTE | 2017-06-18 17:05 | RADRPT ---
EXAM DATE/TIME: 06/18/2017 13:05 [facility] COMPARISON: No previous studies available for comparison. INDICATIONS : Patient with end stage liver disease. Ascites. MEDICAL HISTORY : 1. Cirrhosis 2. Hepatitis 3. HTN 4. PAD SURGICAL HISTORY : 1. Rt pleural drain 2. Oral surgery 3. Lt knee and shoulder ENCOUNTER: Subsequent ACUITY: 4-6 months PAIN SCORE: 3/10 LOCATION: abdomin FLUORO TIME: 1.3 minutes IMAGE SERIES: 1 SEDATION TIME: 75 minutes CONTRAST: 20 cc Omnipaque (iohexol) 350 ACCESS: Right abdomin SEDATION: 1.) 3 mg midazolam (Versed) IV 2.) 175 mcg fentanyl (Sublimaze) IV Prophylactic antibiotics were administered with appropriate pre-procedure timing. Vancomycin within 2 hours of procedure, Ancef (or alternative) within 1 hour of procedure. DEVICE: 1. 15 Salvadorean single lumen Aspira cath TECH NOTE: 10 L of fluid drawn off pt KurtSON DOUG C. MR#:[id number] Exam Dt/Desc: June 18, 2017PERITONEAL CATHETER PLACEMENT, TUNNELED PROCEDURE : 1. ultrasound and fluoroscopy guidance. 2. Conscious sedation with continuous EKG and Oximetry monitoring. 3. Aspira drain placement (peritoneal cavity) The risks, benefits and alternatives to the procedure were explained and verbal and written consent w as obtained. The site was prepped in sterile fashion. Full sterile technique was used, including ca p, mask, sterile gloves and gown and a large sterile sheet. Hand hygiene and 2% chlorhexidine and Be tadine was utilized per protocol for cutaneous antisepsis with appropriate dry time for site. The sk in and subcutaneous tissues were infiltrated with local anesthetic solution. Ultrasound guidance was used to identify a large pocket of fluid in the right abdomen. After appropri ate local anesthetic, dermatotomy was made an 11 blade scalpel. A 21 gauge micropuncture needle was s onographically guided into the peritoneal cavity directed posteriorly and inferiorly. The 018 wire wa s advanced through the needle over which the 3-4 dilator was placed. An 035 wire was then advanced to the outer 4 Salvadorean dilator and with a hockey-stick catheter, was manipulated into the deep pelvis. T he Aspira catheter was then used as a measuring device to determine the appropriate length of the sub cutaneous tunnel. A second dermatotomy was made in the anterior abdominal wall and a tunnel developed from the peritoneal access to the more anterior and medial dermatotomy with the mechanical tunnel or after appropriate local anesthetic. The Aspira catheter was pulled through the subcutaneous tunnel. The peritoneal access was then serially dilated to accommodate the peel-away sheath. The inner stylet te of the peel-away sheath was removed and the peel-away sheath clamped. Stiff Glidewire was backload ed into the end of the Aspira catheter. The catheter was then advanced over the wire and through the sheath into the peritoneal cavity. Position was confirmed fluoroscopically with positive contrast dem onstrating the side ports are all appropriately be located within the peritoneal cavity. The catheter was then excised and the hub valve assembled. The peritoneal dermatotomy access was closed with 3-0 Vicryl suture and Dermabond adhesive. A 2-0 Prolene cerclage was placed at the exit site to secure th e catheter cuff. A total of 10 L of straw-colored ascitic fluid was removed on the angiography table. An additional 7 L was removed in [facility] recovery. Conscious sedation was performed with the prescribed dosages and duration as above in the presence of an independent trained radiology nurse to assist in the monitoring of the patient. EKG and oximetry remained stable throughout the procedure. CONCLUSION: 1. Interval placement of a peritoneal Aspira catheter for massive ascites. 2. A total of 17 L of fluid was removed post placement. 3. Patient has a followup appointment in [facility] in 2 weeks time to evaluate the catheter and possibly r emove the Prolene cerclage.. Grzegorz Kaur MD on June 18, 2017 at 16:47 Board Certified Radiologist. This report was verified electronically.
--- NOTE | 2017-06-24 23:04 | RADRPT ---
EXAM DATE/TIME: 06/18/2017 00:00 [facility] COMPARISON: No previous studies available for comparison. INDICATIONS : End stage liver disease. Ascites. MEDICAL HISTORY : 1. cirrhosis 2. Ascities SURGICAL HISTORY : 1. r plueral drain 2. oral surgery ENCOUNTER: Subsequent ACUITY: 4-6 months PAIN SCORE: 3/10 LOCATION: abdomin IMAGE SERIES: 0 PROCEDURE : 1. removal of tunneled pleural drain, right chest 2. Conscious sedation with continuous EKG and Oximetry monitoring. The risks, benefits and alternatives to the procedure were explained and verbal and written consent w as obtained. The site was prepped in sterile fashion. Full sterile technique was used, including ca p, mask, sterile gloves and gown and a large sterile sheet. Hand hygiene and 2% chlorhexidine prep w as utilized per protocol for cutaneous antisepsis with appropriate dry time for site. The skin and s ubcutaneous tissues were infiltrated with local anesthetic solution. Anchoring cuff was bluntly dissected from the subcutaneous tunnel. Catheter was removed and a dermato keiry dressed with Vaseline gauze and sterile 4 x 4's. Conscious sedation was performed with the prescribed dosages and duration as above in the presence of an independent trained radiology nurse to assist in the monitoring of the patient. EKG and oximetry remained stable throughout the procedure. CONCLUSION: Successful removal of tunneled pleural drain as above. Grzegorz Kaur MD on June 24, 2017 at 23:01 Board Certified Radiologist. This report was verified electronically.
== END 2017-06-18 16:48 | disposition home or self-care (01) ==
LOC: HROP 08:39 → HRIP 08:40 → HROP 16:48
PROVIDERS: ATTEND Emergency Medicine
DX: R18.8 Other ascites (principal); F10.10 Alcohol abuse, uncomplicated; K72.90 Hepatic failure, unspecified without coma; K74.60 Unspecified cirrhosis of liver; K75.9 Inflammatory liver disease, unspecified; I10 Essential (primary) hypertension; I73.9 Peripheral vascular disease, unspecified; R56.9 Unspecified convulsions
CPT/HCPCS: 32552; 49418; 71010; 71250; 99152; 99153; C1729; C1769; C1887; J0690; J1200; J2250; J3010; J3370; J7030; J7050; Q9967

== ENCOUNTER 2017-06-20 08:54 | Emergency (ER) | payer OTHER ==
[~2017-06-20] VITALS: Ht 182.9 cm; Wt 93.0 kg
[2017-06-20 08:56] VITALS: BP 101/69; PULSE 122; RESP 24; TEMP 98.5; O2SAT 97
--- NOTE | 2017-06-20 10:01 | PD ---
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 He been having recurrent paracenteses. Dr. Kaur placed an Aspira paracentesis catheter on June 18. It came out last night. Patient complains of nonspecific pain on the right side of the abdomen. History Past Medical History Narrative Medical Anxiety Alcohol abuse Seizure disorder Liver disease Menopausal: Yes Social History Alcohol Use: Yes (DAILY) Tobacco Use: No Allergies-Medications (Allergen,Severity, Reaction): Coded Allergies: *MDRO Multi-Drug Resistant Organism (Verified Adverse Reaction, Unknown, ) MRSA PCR Screen (nares) POSITIVE - 08/03/16 Reported Meds & Prescriptions Reported Meds & Active Scripts Active Percocet (Oxycodone-Acetaminophen) 10-325 mg Tab 1 Tab PO Q6H PRN Divalproex DR (Divalproex Sodium) 250 Mg Tabdr 250 Mg PO BID Review of Systems Except as stated in HPI: all other systems reviewed are Neg Physical Exam Narrative GENERAL: Well-appearing 41 year-old woman, no acute distress. SKIN: Warm and dry. CARDIOVASCULAR: Warm and well perfused. RESPIRATORY: Normal rate and effort. ABDOMEN: Abdomen is flat. There is a lot of contact irritation from the bandage around the area where the catheter was. There is retention suture and the area of the catheter. Mild diffuse tenderness. NEUROLOGICAL: Awake and alert. No gross deficits. Data Data Last Documented VS Vital Signs Date Time Temp Pulse Resp B/P Pulse Ox O2 Delivery O2 Flow Rate FiO2 06/20/17 08:56 98.5 122 24 101/69 97 Room Air MDM Medical Decision Making Medical Screen Exam Complete: Yes Emergency Medical Condition: Yes Differential Diagnosis Paracentesis catheter displacement Narrative Course Medical decision-making new 41-year-old man with displaced paracentesis catheter. Cannot be replaced orally has recurrent ascites. Called IR to discuss retention suture, Dr. Evangelista states it will be okay to pull. Local wound care. Diagnosis Primary Impression: Ascites Additional Instructions: Keep wound clean and dry. Apply and buttock ointment twice daily. Disposition: 01 DISCHARGE HOME Condition: Stable Viel,Osito C. MD Jun 20, 2017 10:01
[2017-06-20] MEDS ORDERED: oxyCODONE/ACETAMINOPHEN 5 MG/325 MG TAB PO ONE (10:15)
== END 2017-06-20 10:35 | disposition home or self-care (01) ==
LOC: NEPE 08:54
DX: R18.8 Other ascites (principal)
CPT/HCPCS: 99281

== ENCOUNTER 2017-06-23 13:20 | Day surgery (SDC) | payer OTHER ==
[2017-06-23 13:15] VITALS: BP 132/76; PULSE 89; RESP 18; TEMP 99.1; O2SAT 95
--- NOTE | 2017-06-23 13:17 | RADRPT ---
EXAM DATE/TIME: 06/23/2017 13:02 [facility] COMPARISON: CHEST SINGLE AP, June 18, 2017, 14:25. INDICATIONS : Pleural effusion. MEDICAL HISTORY : Hypertension. Cirrhosis. seizures SURGICAL HISTORY : chest tubes ENCOUNTER: Initial ACUITY: 4 - 6 days PAIN SCORE: 0/10 LOCATION: Bilateral chest FINDINGS: Linear atelectasis is seen in both lung base. Minimal fluid is present on the right. There is no pn eumothorax. There is no free air. CONCLUSION: Linear atelectasis in both base is with trace effusion on the right. Irineo Mattson MD FACR on June 23, 2017 at 13:15 Board Certified Radiologist. This report was verified electronically.
[2017-06-24] MEDS ORDERED: ULTR50TA5 PO (14:44)
[2017-06-24] MEDS ORDERED: DIVA250T PO (14:44)
[2017-06-24] MEDS ORDERED: MULTTAB67 PO (14:44)
[2017-06-24] MEDS ORDERED: XIFA550T4 PO (14:44)
[2017-06-24] MEDS ORDERED: FOLI800T PO (14:44)
[2017-06-24] MEDS ORDERED: GNP100TA3 PO (14:44)
[2017-06-24] MEDS ORDERED: Lactulose Liq PO (14:44)
== END 2017-06-23 13:50 | disposition home or self-care (01) ==
LOC: HROP 13:20 → HRIP 13:21 → HROP 13:50
PROVIDERS: ATTEND Radiology Body Imaging
DX: J90 Pleural effusion, not elsewhere classified (principal); J98.11 Atelectasis; I10 Essential (primary) hypertension; K74.60 Unspecified cirrhosis of liver; G40.909 Epilepsy, unspecified, not intractable, without status epilepticus
CPT/HCPCS: 71010; 99212; G0463

== ENCOUNTER 2017-06-23 13:53 | Inpatient (IN) | payer OTHER ==
[~2017-06-23] VITALS: Ht 182.9 cm; Wt 85.0 kg
[~2017-06-23 13:53] MED LIST changes: -FOLI1TAB6 PO; -LACT10SO PO; -OMEP40CA2 PO; -TRAM50TA PO; -VITA100T54 PO
[2017-06-23 13:54] VITALS: BP 102/70; PULSE 117; RESP 20; TEMP 99.5; O2SAT 98
--- NOTE | 2017-06-23 15:12 | PD ---
HPI . abdominal bloating Chief Complaint: Abdominal Pain Time Seen by Provider: 15:12 Travel History International Travel<30 days: No Contact w/Intl Traveler<30days: No Traveled to known affect area: No History of Present Illness HPI 41- year old male well known to me from 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 The patient was initially seen by my PA student Elyssa Diaz, where patient reported that he is having LLQ and RLQ abdominal pain, more so in the RLQ. Per patient's Mom, The patient had the drainage tube in his pleural cavity removed on Wednesday and was scheduled to have a follow up chest x-ray to make sure there was not fluid in his lungs. The patient had the follow up CXR completed today and was sent from radiology to the ED. Mom reports on Wednesday when they removed the drain in his pleural cavity they put one in his abdomen. However, the drain fell out on Wednesday night and on Wednesday when they went to the ED they did not feel as if it was distended enough to place a new drain. The patient reports that the feels very bloated/ distended, but denies any nausea, vomiting, diarrhea, chest pain, or shortness of breath. Mom reports the drainage from his abdomen went from yellow to bloody on Wednesday. The patient currently rates his abdominal pain as a 9/10. He admits to alcohol, but denies any smoking or drug use. I then went in to discuss further with the mother and patient. Unfortunately patient does not remember me. He also has some periods of confusion. He tells me that he does not have any abdominal pain and overall feels fairly well. He does report that there is some pressure pushing on his chest cavity from his distended abdomen. His mom states that she was told to come to the ED from the interventional radiology department because he needed to have some type of fluid tested. She also tells me that I need to make sure I believe enough fluid for them to place a drain next week. He is currently following with primary care provider in [place], but tells me that he's not had consistent visits. He has recently seen a bilingual sales consultant, but mom tells me that there are many unanswered questions. She has not tried reaching out to any type of circular knife machine cutter. Patient is still drinking alcohol. He tells me that he had 4 or 5 mixed drinks last night. Apparently in August 2016 patient was in the emergency room and admitted. I am not certain if that was while he was at [facility]. I do not see any records from Aug 2016. At that time he was told he had end-stage liver disease and placed on hospice. Patient did well and had stopped drinking for a while, but relapsed. Sometime in this timeframe patient came to the hospital and was found to have a large pleural effusion and was dropped from hospice care his mom decided to opt for further care and treatment. Per mom's reports he was off of all of his medicines and was doing well., However he was recently started back on lactulose 2 days ago. She tells me he's had periods of intermittent confusion. Unfortunately at this time patient is very unreliable with his history and description of his current symptoms. PFSH Past Medical History Hx Anticoagulant Therapy: No Asthma: No Blood Disorders: No Anxiety: Yes Cancer: No Cardiovascular Problems: Yes Chemotherapy: No Cirrhosis: Yes COPD: No Cerebrovascular Accident: No Diabetes: No Diminished Hearing: No Endocrine: No Gastrointestinal Disorders: No Genitourinary: No Hepatitis: Yes Hypertension: Yes Implanted Vascular Access Dvce: No Musculoskeletal: Yes (SCOLIOSIS, KNEE & SHOULDER INJURIES) Neurologic: Yes (SEIZURES ("ALL ALCOHOL RELATED" PER PT)) Reproductive: No Respiratory: No Seizures: Yes Menopausal: Yes Past Surgical History Body Medical Devices: r side chest tube Hysterectomy: No Oral Surgery: Yes (jaw) Other Surgery: Yes ( LEFT KNEE & RIGHT SHOULDER) Social History Alcohol Use: Yes (DAILY) Tobacco Use: No Substance Use: No (mj 2 years ago ) Allergies-Medications (Allergen,Severity, Reaction): Coded Allergies: *MDRO Multi-Drug Resistant Organism (Verified Adverse Reaction, Unknown, ) MRSA PCR Screen (nares) POSITIVE - 08/03/16 Reported Meds & Prescriptions Reported Meds & Active Scripts Active Percocet (Oxycodone-Acetaminophen) 10-325 mg Tab 1 Tab PO Q6H PRN Divalproex DR (Divalproex Sodium) 250 Mg Tabdr 250 Mg PO BID Review of Systems General / Constitutional: No: Fever, Chills, Weight Gain, Weight Loss, Other Eyes: No: Diploplia, Blurred Vision, Photophobia, Drainage, Redness, Foreign Body Sensation, Pain, Tearing, Blind Spots, Visual changes, Blindness, Other HENT: No: Headaches, Vertigo, Lightheadedness, Sore Throat, Rhinitis, Rhinorrhea, Congestion, Nosebleed, Neck Stiffness, Neck Pain, Masses, Gingival Bleeding, Dental Difficulties, Ear Discharge, Earache, Other Cardiovascular: No: Chest Pain or Discomfort, Palpitations, Irregular Rhythm, Tachycardia, Diaphoresis, Syncope, Dyspnea on exertion, Varicosities, Edema, Cyanosis, Varicosities, Phlebitis, Claudication, Other Respiratory: No: Cough, Shortness of Breath, Wheezing, Sneezing, Orthopnea, Hemoptysis, Stridor, Night Sweats, Pleuritic Pain, Other Gastrointestinal: Positive: Abdominal Pain, Other (Distention), No: Nausea, Vomiting, Diarrhea, Hematemesis, Hematochezia, Constipation, Changes in Bowel Habits, Indigestion, Dysphagia, Loss of Appetite Genitourinary: No: Urgency, Frequency, Dysuria, Nocturia, Hematuria, Decreased Urinary Output, Oliguria, Hesitancy, Dribbling, Incontinence, Pelvic Pain, Flank Pain, Dyspareunia, Discharge, Dysmenorrhea, Menorrhagia, Metorrhagia, Vaginal Bleeding, Other Musculoskeletal: No: Myalgias, Arthralgias, Limited ROM, Weakness, Cramping, Edema, Pain, Atrophy, Other Skin: No Rash, No Itching, No Dryness, No Lumps, No Hives, No Change in Pigmentation, No Change in nails, No Alopecia, No Lesions, No Breast Lumps, No Breast Tenderness, No Breast Swelling, No Other Neurologic: No: Weakness, Dizziness, Syncope, Focal Abnormalities, Coordination Problem, Tremor, Ataxia, Headache, Change in Mentation, Slurred Speech, Paresthesia, Incontinence, Seizures, Sensory Disturbance, Other Psychiatric: No: Anxiety, Depression, Suicidal Ideations, Disorder of Thought, Mood Disorder, Substance Abuse, Homicidal Ideation, Other Endocrine: No: Heat Intolerance, Cold Intolerance, Polyuria, Polydipsia, Other Hematologic/Lymphatic: No: Easy Bruising, Lymph Node Enlargement, Other Physical Exam Narrative GENERAL: SKIN: Patient appears to be jaundice. Warm and dry. HEAD: Atraumatic. Normocephalic. EYES: Pupils equal and round. No scleral icterus. No injection or drainage. ENT: No nasal bleeding or discharge. Mucous membranes pink and moist. NECK: Trachea midline. No JVD. CARDIOVASCULAR: Regular rate and rhythm. RESPIRATORY: No accessory muscle use. Diminished breath sounds on the right side. GASTROINTESTINAL: Tender to palpation in RLQ and LLQ, more so in RLQ. Abdomen diffusely distended. Hepatic and splenic margins not palpable. MUSCULOSKELETAL: Extremities without clubbing, cyanosis, or edema. No obvious deformities. NEUROLOGICAL: Awake and alert. No obvious cranial nerve deficits. Motor grossly within normal limits. Five out of 5 muscle strength in the arms and legs. Normal speech. PSYCHIATRIC: Appropriate mood and affect; insight and judgment normal. Data Data Last Documented VS Vital Signs Date Time Temp Pulse Resp B/P Pulse Ox O2 Delivery O2 Flow Rate FiO2 06/23/17 13:54 99.5 117 20 102/70 98 Room Air Orders Complete Blood Count With Diff (06/23/17 15:43) Comprehensive Metabolic Panel (06/23/17 15:43) Ammonia (06/23/17 15:43) Prothrombin Time / Inr (Pt) (06/23/17 15:45) Act Partial Throm Time (Ptt) (06/23/17 15:45) Lipase (06/23/17 15:55) Admit Order (Ed Use Only) (06/23/17 17:21) Labs Laboratory Tests Test 06/23/17 15:55 White Blood Count 6.7 TH/MM3 Red Blood Count 4.55 MIL/MM3 Hemoglobin 14.5 GM/DL Hematocrit 43.0 % Mean Corpuscular Volume 94.7 FL Mean Corpuscular Hemoglobin 31.9 PG Mean Corpuscular Hemoglobin 33.7 % Concent Red Cell Distribution Width 17.0 % Platelet Count 154 TH/MM3 Mean Platelet Volume 9.3 FL Neutrophils (%) (Auto) 54.9 % Lymphocytes (%) (Auto) 11.8 % Monocytes (%) (Auto) 28.9 % Eosinophils (%) (Auto) 2.1 % Basophils (%) (Auto) 2.3 % Neutrophils # (Auto) 3.7 TH/MM3 Lymphocytes # (Auto) 0.8 TH/MM3 Monocytes # (Auto) 1.9 TH/MM3 Eosinophils # (Auto) 0.1 TH/MM3 Basophils # (Auto) 0.2 TH/MM3 CBC Comment DIFF FINAL Differential Comment Prothrombin Time 12.7 SEC Prothromb Time International 1.1 RATIO Ratio Activated Partial 30.5 SEC Thromboplast Time Sodium Level 135 MEQ/L Potassium Level 4.5 MEQ/L Chloride Level 99 MEQ/L Carbon Dioxide Level 28.0 MEQ/L Anion Gap 8 MEQ/L Blood Urea Nitrogen 7 MG/DL Creatinine 0.77 MG/DL Estimat Glomerular Filtration 112 ML/MIN Rate Random Glucose 105 MG/DL Calcium Level 8.6 MG/DL Total Bilirubin 0.8 MG/DL Aspartate Amino Transf 52 U/L (AST/SGOT) Alanine Aminotransferase 19 U/L (ALT/SGPT) Alkaline Phosphatase 194 U/L Ammonia 31 MCMOL/L Total Protein 7.3 GM/DL Albumin 2.1 GM/DL Lipase 63 U/L MDM Medical Decision Making Medical Screen Exam Complete: Yes Emergency Medical Condition: Yes Medical Record Reviewed: Yes Differential Diagnosis ESLD, SBP, hyperammonemia, less likely sepsis, pleural effusion, Narrative Course 41-year-old male with end-stage liver disease here with distended abdomen and ascites. There is some confusion about why patient is here in the emergency room. Nonetheless he visibly needs a paracentesis. Labs have been ordered including CBC, CMP, ammonia and coags. Chest x-ray was already done through interventional radiology today and demonstrates a small right sided pleural effusion. @1540 I spoke with Ashley jacobo from the interventional radiology department. There was some confusion from the mother as far as why patient was here in the emergency department. Ashley tells me that no one actually sent the patient here to the ED. He has not seen a doctor today. He was actually told to follow-up next week for pleurodesis to be performed by Dr. Kaur. Laboratory Tests Test 06/23/17 15:55 White Blood Count 6.7 TH/MM3 Red Blood Count 4.55 MIL/MM3 Hemoglobin 14.5 GM/DL Hematocrit 43.0 % Mean Corpuscular Volume 94.7 FL Mean Corpuscular Hemoglobin 31.9 PG Mean Corpuscular Hemoglobin 33.7 % Concent Red Cell Distribution Width 17.0 % Platelet Count 154 TH/MM3 Mean Platelet Volume 9.3 FL Neutrophils (%) (Auto) 54.9 % Lymphocytes (%) (Auto) 11.8 % Monocytes (%) (Auto) 28.9 % Eosinophils (%) (Auto) 2.1 % Basophils (%) (Auto) 2.3 % Neutrophils # (Auto) 3.7 TH/MM3 Lymphocytes # (Auto) 0.8 TH/MM3 Monocytes # (Auto) 1.9 TH/MM3 Eosinophils # (Auto) 0.1 TH/MM3 Basophils # (Auto) 0.2 TH/MM3 CBC Comment DIFF FINAL Differential Comment Prothrombin Time 12.7 SEC Prothromb Time International 1.1 RATIO Ratio Activated Partial 30.5 SEC Thromboplast Time Sodium Level 135 MEQ/L Potassium Level 4.5 MEQ/L Chloride Level 99 MEQ/L Carbon Dioxide Level 28.0 MEQ/L Anion Gap 8 MEQ/L Blood Urea Nitrogen 7 MG/DL Creatinine 0.77 MG/DL Estimat Glomerular Filtration 112 ML/MIN Rate Random Glucose 105 MG/DL Calcium Level 8.6 MG/DL Total Bilirubin 0.8 MG/DL Aspartate Amino Transf 52 U/L (AST/SGOT) Alanine Aminotransferase 19 U/L (ALT/SGPT) Alkaline Phosphatase 194 U/L Ammonia 31 MCMOL/L Total Protein 7.3 GM/DL Albumin 2.1 GM/DL Lipase 63 U/L all labs reviewed and appreciated Patient will need to be admitted for paracentesis. Call back requested at 1700 [id number]: discussed with Dr. Ferris, patient admitted for observation and paracentesis. Diagnosis Primary Impression: End stage liver disease Additional Impression: Ascites Qualified Code: K70.31 - Ascites due to alcoholic cirrhosis Admitting Information Admitting Physician Requests: Admit Condition: Stable Sindhu Huitron Jun 23, 2017 15:12
[2017-06-23 16:14] LABS: AUTOMATED NEUTROPHIL # 3.7 TH/MM3 (1.8-7.7); BASOPHIL # 0.2 TH/MM3 (0-0.2); BASOPHIL % 2.3 % (0.0-2.0); EOSINOPHIL # 0.1 TH/MM3 (0-0.4); EOSINOPHIL % 2.1 % (0.0-4.0); HEMO FLAGS DIFF FINAL; LYMPH % 11.8 % (9.0-44.0); LYMPHOCYTE # 0.8 TH/MM3 (1.0-4.8); MEAN CELL VOLUME 94.7 FL (80.0-100.0); MEAN CORPUSCULAR HEMOGLOBIN 31.9 PG (27.0-34.0); MEAN CORPUSCULAR HGB CONC 33.7 % (32.0-36.0); MONO % 28.9 % (0.0-8.0); NEUT % 54.9 % (16.0-70.0); PLATELET COUNT 154 TH/MM3 (150-450); RED BLOOD COUNT 4.55 MIL/MM3 (4.50-5.90); WHITE BLOOD COUNT 6.7 TH/MM3 (4.0-11.0)
[2017-06-23 16:23] LABS: APTT (PATIENT) 30.5 SEC (24.3-30.1); INTERNATIONAL NORMALIZED RATIO 1.1 RATIO; PROTHROMBIN TIME - PATIENT 12.7 SEC (9.8-11.6)
[2017-06-23 16:34] LABS: ANION GAP 8 MEQ/L (5-15); AST (GOT) 52 U/L (15-37); BLOOD UREA NITROGEN 7 MG/DL (7-18); CHLORIDE 99 MEQ/L (98-107); GLOMERULAR FILTRATION RATE 112 ML/MIN (>89); POTASSIUM 4.5 MEQ/L (3.5-5.1); SODIUM (NA) 135 MEQ/L (136-145)
[2017-06-23 16:40] LABS: ALKALINE PHOSPHATASE 194 U/L (45-117); ALT (GPT) 19 U/L (12-78); TOTAL BILIRUBIN ADULT 0.8 MG/DL (0.2-1.0)
[2017-06-23] MEDS ORDERED: BISACODYL 10 MG SUPP RECTAL PRN (19:00)
[2017-06-23] MEDS ORDERED: LORazepam 1 MG TAB PO PRN (19:00)
[2017-06-23] MEDS ORDERED: HALOPERIDOL LACTATE 5 MG/ML AMP IM PRN ×2 (19:00)
[2017-06-23] MEDS ORDERED: LORazepam 2 MG/ML VIAL IV PUSH PRN ×4 (19:00)
[2017-06-23] MEDS ORDERED: LORazepam 2 MG TAB PO PRN (19:00)
[2017-06-23] MEDS ORDERED: LACTULOSE SYRUP 20 GM/30 ML CUP PO PRN (19:00)
[2017-06-23] MEDS ORDERED: SODIUM CHLORIDE 0.9% FLUSH 10 ML FLUSH IV FLUSH PRN ×2 (19:00)
[2017-06-23] MEDS ORDERED: SENNOSIDES 8.6 MG TAB PO PRN (19:00)
[2017-06-23] MEDS ORDERED: PROCHLORPERAZINE 25 MG SUPP RECTAL PRN (19:00)
[2017-06-23] MEDS ORDERED: FLUMAZENIL 0.5 MG/5 ML VIAL IV PUSH PRN (19:00)
[2017-06-23] MEDS ORDERED: ONDANSETRON HCL 4 MG/2 ML VIAL IVP PRN (19:00)
[2017-06-23] MEDS ORDERED: TEMAZEPAM 15 MG CAP PO PRN (19:00)
[2017-06-23] MEDS ORDERED: MAGNESIUM HYDROXIDE SUSP 30 ML CUP PO PRN (19:00)
[2017-06-23] MEDS: THIAMINE HCL 100 MG TAB PO SCH (19:00)
[2017-06-23] MEDS ORDERED: MORPHINE SULFATE 4 MG/ML INJ IV PRN (19:00)
[2017-06-23] MEDS ORDERED: NALOXONE HCL 0.4 MG/ML AMP IV PRN (19:00)
[2017-06-23] MEDS ORDERED: ACETAMINOPHEN 325 MG TAB PO PRN ×2 (19:00)
--- NOTE | 2017-06-23 19:09 | HHI.HP ---
[facility]Staff Admission Diagnosis ascites/ESLD Diagnoses: (1) Ascites Diagnosis: Principal (2) End stage liver disease Diagnosis: Principal (3) ETOH abuse Diagnosis: Principal (4) Thrombocytopenia Diagnosis: Secondary (5) Liver disease, alcoholic Diagnosis: Principal (6) Alcohol abuse Diagnosis: Principal (7) Alcohol-induced cirrhosis Diagnosis: Principal (8) Hyperammonemia Diagnosis: Secondary (9) Hepatic encephalopathy Diagnosis: Secondary (10) Confusion Diagnosis: Secondary Chief Complaint: Abdominal swelling and shortness of breath Travel History International Travel<30 Days: No Contact w/Intl Traveler <30 Da: No Traveled to Known Affected Are: No History of Present Illness 41- year old male well known to me from [facility] with a PMHx of 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 The patient was initially seen by my PA student Elyssa Diaz, where patient reported that he is having LLQ and RLQ abdominal pain, more so in the RLQ. Per patient's Mom, The patient had the drainage tube in his pleural cavity removed on Wednesday and was scheduled to have a follow up chest x-ray to make sure there was not fluid in his lungs. The patient had the follow up CXR completed today and was sent from radiology to the ED. Mom reports on Wednesday when they removed the drain in his pleural cavity they put one in his abdomen. However, the drain fell out on Wednesday night and on Wednesday when they went to the ED they did not feel as if it was distended enough to place a new drain. The patient reports that the feels very bloated/ distended, but denies any nausea, vomiting, diarrhea, chest pain, or shortness of breath. Mom reports the drainage from his abdomen went from yellow to bloody on Wednesday. The patient currently rates his abdominal pain as a 9/10. He admits to alcohol, but denies any smoking or drug use. I then went in to discuss further with the mother and patient. Unfortunately patient does not remember me. He also has some periods of confusion. He tells me that he does not have any abdominal pain and overall feels fairly well. He does report that there is some pressure pushing on his chest cavity from his distended abdomen. His mom states that she was told to come to the ED from the interventional radiology department because he needed to have some type of fluid tested. She also tells me that I need to make sure I believe enough fluid for them to place a drain next week. He is currently following with primary care provider in [place], but tells me that he's not had consistent visits. He has recently seen a anglesmith helper, but mom tells me that there are many unanswered questions. She has not tried reaching out to any type of senior architect/design manager. Patient is still drinking alcohol. He tells me that he had 4 or 5 mixed drinks last night. Apparently in August 2016 patient was in the emergency room and admitted. I am not certain if that was while he was at [place]. I do not see any records from Aug 2016. At that time he was told he had end-stage liver disease and placed on hospice. Patient did well and had stopped drinking for a while, but relapsed. Sometime in this timeframe patient came to the hospital and was found to have a large pleural effusion and was dropped from hospice care his mom decided to opt for further care and treatment. Per mom's reports he was off of all of his medicines and was doing well., However he was recently started back on lactulose 2 days ago. She tells me he's had periods of intermittent confusion. Unfortunately at this time patient is very unreliable with his history and description of his current symptoms. Patient is not a reliable historian. Not able to give me much information still actively drinking at home have discussed with him the need to stop drinking. I don't think he sees any point in stopping. Patient will not be eligible for any transplant as long as he is actively still drinking which he is Review of Systems ROS Limitations: Altered Mental Status, Poor Historian Past Family Social History Past Medical History Hx Anticoagulant Therapy: No Asthma: No Blood Disorders: No Anxiety: Yes Cancer: No Cardiovascular Problems: Yes Chemotherapy: No Cirrhosis: Yes COPD: No Cerebrovascular Accident: No Diabetes: No Diminished Hearing: No Endocrine: No Gastrointestinal Disorders: No Genitourinary: No Hepatitis: Yes Hypertension: Yes Implanted Vascular Access Dvce: No Musculoskeletal: Yes (SCOLIOSIS, KNEE & SHOULDER INJURIES) Neurologic: Yes (SEIZURES ("ALL ALCOHOL RELATED" PER PT)) Reproductive: No Respiratory: No Seizures: Yes Menopausal: Yes Past Surgical History Body Medical Devices: r side chest tube Hysterectomy: No Oral Surgery: Yes (jaw) Other Surgery: Yes ( LEFT KNEE & RIGHT SHOULDER) Multiple paracentesis as well as right-sided chest tubes and sounds like thoracentesis Reported Medications Reported Meds & Active Scripts Active Percocet (Oxycodone-Acetaminophen) 10-325 mg Tab 1 Tab PO Q6H PRN Divalproex DR (Divalproex Sodium) 250 Mg Tabdr 250 Mg PO BID 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 - 08/03/16 Family History Seizures hypertension and alcohol abuse Social History Still actively drinking daily a Isac has end-stage liver disease at least for to 7 drinks daily Denies any tobacco or illicits at this time Physical Exam Vital Signs Vital Signs Date Time Temp Pulse Resp B/P Pulse Ox O2 Delivery O2 Flow Rate FiO2 06/23/17 13:54 99.5 117 20 102/70 98 Room Air Physical Exam GENERAL: This is a well-nourished, well-developed patient, in no apparent distress. SKIN: No rashes, ecchymoses or lesions. Cool and dry. HEAD: Atraumatic. Normocephalic. No temporal or scalp tenderness. EYES: Pupils equal round and reactive. Extraocular motions intact. No scleral icterus. No injection or drainage. ENT: Nose without bleeding, purulent drainage or septal hematoma. Throat without erythema, tonsillar hypertrophy or exudate. Uvula midline. Airway patent. NECK: Trachea midline. No JVD or lymphadenopathy. Supple, nontender, no meningeal signs. CARDIOVASCULAR: Regular rate and rhythm without murmurs, gallops, or rubs. S1 and S2 no S3 or S4 RESPIRATORY: Clear to auscultation. Breath sounds equal bilaterally. No wheezes , rales, or rhonchi. GASTROINTESTINAL: Abdomen soft, non-tender, positive distended fluid wave positive ascites. No hepato-splenomegaly, or palpable masses. No guarding. MUSCULOSKELETAL: Extremities without clubbing, cyanosis, or edema. No joint tenderness, effusion, or edema noted. No calf tenderness. Negative Homans sign bilaterally. NEUROLOGICAL: Awake and alert. Cranial nerves II through XII intact. Motor and sensory grossly within normal limits. Five out of 5 muscle strength in all muscle groups. Normal speech. Insight and judgment is very poor mood and behavior are acceptable Laboratory Laboratory Tests Test 06/23/17 15:55 White Blood Count 6.7 Red Blood Count 4.55 Hemoglobin 14.5 Hematocrit 43.0 Mean Corpuscular Volume 94.7 Mean Corpuscular Hemoglobin 31.9 Mean Corpuscular Hemoglobin 33.7 Concent Red Cell Distribution Width 17.0 Platelet Count 154 Mean Platelet Volume 9.3 Neutrophils (%) (Auto) 54.9 Lymphocytes (%) (Auto) 11.8 Monocytes (%) (Auto) 28.9 Eosinophils (%) (Auto) 2.1 Basophils (%) (Auto) 2.3 Neutrophils # (Auto) 3.7 Lymphocytes # (Auto) 0.8 Monocytes # (Auto) 1.9 Eosinophils # (Auto) 0.1 Basophils # (Auto) 0.2 CBC Comment DIFF FINAL Differential Comment Prothrombin Time 12.7 Prothromb Time International 1.1 Ratio Activated Partial 30.5 Thromboplast Time Sodium Level 135 Potassium Level 4.5 Chloride Level 99 Carbon Dioxide Level 28.0 Anion Gap 8 Blood Urea Nitrogen 7 Creatinine 0.77 Estimat Glomerular Filtration 112 Rate Random Glucose 105 Calcium Level 8.6 Total Bilirubin 0.8 Aspartate Amino Transf 52 (AST/SGOT) Alanine Aminotransferase 19 (ALT/SGPT) Alkaline Phosphatase 194 Ammonia 31 Total Protein 7.3 Albumin 2.1 Lipase 63 Result Diagram: 06/23/17 1555 06/23/17 1555 Assessment and Plan Problem List: (1) End stage liver disease ICD Code: K72.90 Status: Acute (2) Ascites ICD Code: R18.8 Status: Acute (3) ETOH abuse ICD Code: F10.10 Status: Acute (4) Thrombocytopenia ICD Code: D69.6 Status: Acute (5) Liver disease, alcoholic ICD Code: K70.9 Status: Acute (6) Alcohol abuse ICD Code: F10.10 Status: Acute (7) Alcohol-induced cirrhosis Status: Chronic (8) Hyperammonemia ICD Code: E72.20 Status: Acute (9) Hepatic encephalopathy ICD Code: K72.90 Status: Chronic (10) Confusion ICD Code: R41.0 Status: Acute Assessment and Plan Ascites will consult interventional radiology for paracentesis Fluid restriction Hepatic encephalopathy continue on rifaximin continue on lactulose check an ammonia level Cirrhosis alcohol-induced recommended alcohol cessation was CIWA protocol and withdrawal protocol Malignant medical noncompliance patient continues to still actively drink alcohol and therefore is not a transplant candidate at all Will order a paracentesis Case discussed with patient and RN and ER Code Status Full code Discussed Condition With Discussed case with patient and RN in ER Physician Certification 2 Midnight Certification Type: Admission for Inpatient Services Order for Inpatient Services The services are ordered in accordance with Medicare regulations or non- Medicare payer requirements, as applicable. In the case of services not specified as inpatient-only, they are appropriately provided as inpatient services in accordance with the 2-midnight benchmark. Estimated LOS (days): 2 2 days is the estimated time the patient will need to remain in the hospital, assuming treatment plan goals are met and no additional complications. Post-Hospital Plan: Home Problem Qualifiers (1) Ascites: Qualified Code: K70.31 - Ascites due to alcoholic cirrhosis Irineo Ferris DO Jun 23, 2017 19:09
[2017-06-23 19:12] VITALS: BP 108/71; PULSE 101; RESP 20; O2SAT 98
[2017-06-23] MEDS: MORPHINE SULFATE 4 MG/ML INJ IV PRN (19:26)
[2017-06-23] MEDS: LACTULOSE SYRUP 20 GM/30 ML CUP PO SCH (19:26)
[2017-06-23 20:53] VITALS: O2SAT 98
[2017-06-23] MEDS: RIFAXIMIN 550 MG TAB PO SCH (20:58)
[2017-06-23] MEDS: DIVALPROEX SODIUM DELAYED RELEASE 250 MG TAB PO SCH (20:58)
[2017-06-23] MEDS: DOCUSATE SODIUM 50 MG/SENNA 8.6 MG TAB PO SCH (20:58)
[2017-06-23] MEDS: SODIUM CHLORIDE 0.9% FLUSH 10 ML FLUSH IV FLUSH SCH (20:58)
[2017-06-23] MEDS ORDERED: SODIUM CHLORIDE 0.9% FLUSH 10 ML FLUSH IV FLUSH SCH (21:00)
[2017-06-23 23:42] VITALS: BP 109/70; PULSE 97; RESP 20; TEMP 98.6; O2SAT 96
[2017-06-24] VITALS (7 sets, daily range): BP systolic 104–117; BP diastolic 69–78; PULSE 101–111; RESP 16–20; TEMP 97.7–98.6; O2SAT 92–98
[2017-06-24] MEDS: LACTULOSE SYRUP 20 GM/30 ML CUP PO SCH ×3 (00:09→12:53)
[2017-06-24] MEDS: MORPHINE SULFATE 4 MG/ML INJ IV PRN ×3 (00:48→09:12)
[2017-06-24 07:09] LABS: AUTOMATED NEUTROPHIL # 3.4 TH/MM3 (1.8-7.7); BASOPHIL # 0.1 TH/MM3 (0-0.2); BASOPHIL % 1.4 % (0.0-2.0); EOSINOPHIL # 0.2 TH/MM3 (0-0.4); EOSINOPHIL % 2.8 % (0.0-4.0); HEMATOCRIT 45.3 % (39.0-51.0); HEMO FLAGS DIFF FINAL; LYMPH % 16.3 % (9.0-44.0); MEAN CELL VOLUME 95.2 FL (80.0-100.0); MEAN CORPUSCULAR HEMOGLOBIN 31.9 PG (27.0-34.0); MEAN CORPUSCULAR HGB CONC 33.5 % (32.0-36.0); MONO % 26.2 % (0.0-8.0); NEUT % 53.3 % (16.0-70.0); PLATELET COUNT 143 TH/MM3 (150-450); RED BLOOD COUNT 4.76 MIL/MM3 (4.50-5.90); RED CELL DISTRIBUTION WIDTH 16.9 % (11.6-17.2); WHITE BLOOD COUNT 6.3 TH/MM3 (4.0-11.0)
[2017-06-24 07:11] LABS: INTERNATIONAL NORMALIZED RATIO 1.2 RATIO; PROTHROMBIN TIME - PATIENT 13.5 SEC (9.8-11.6)
[2017-06-24 07:16] LABS: ANION GAP 9 MEQ/L (5-15); AST (GOT) 48 U/L (15-37); BICARBONATE 28.8 MEQ/L (21.0-32.0); BLOOD UREA NITROGEN 7 MG/DL (7-18); CHLORIDE 98 MEQ/L (98-107); GLOMERULAR FILTRATION RATE 115 ML/MIN (>89); MAGNESIUM 1.9 MG/DL (1.5-2.5); POTASSIUM 4.2 MEQ/L (3.5-5.1); SODIUM (NA) 136 MEQ/L (136-145)
[2017-06-24 07:25] LABS: ALKALINE PHOSPHATASE 193 U/L (45-117); ALT (GPT) 17 U/L (12-78); FREE T4 1.51 NG/DL (0.76-1.46); TOTAL BILIRUBIN ADULT 1.4 MG/DL (0.2-1.0)
[2017-06-24] MEDS: RIFAXIMIN 550 MG TAB PO SCH (09:10)
[2017-06-24] MEDS: THIAMINE HCL 100 MG TAB PO SCH (09:10)
[2017-06-24] MEDS: DOCUSATE SODIUM 50 MG/SENNA 8.6 MG TAB PO SCH (09:11)
[2017-06-24] MEDS: SODIUM CHLORIDE 0.9% FLUSH 10 ML FLUSH IV FLUSH SCH (09:11)
[2017-06-24] MEDS: DIVALPROEX SODIUM DELAYED RELEASE 250 MG TAB PO SCH (09:11)
[2017-06-24] MEDS ORDERED: ALBUMIN HUMAN 25% 25 GM/100 ML BAGP IV ONE (11:45)
--- NOTE | 2017-06-24 12:33 | RADRPT ---
EXAM DATE/TIME: 06/24/2017 08:43 [place] COMPARISON: US GUIDED ABD PARACENTESIS, May 22, 2017, 17:25. INDICATIONS : Ascites. MEDICAL HISTORY : Cirrhosis. Hepatitis. Seizures. HTN. Scoliosis. Ascites. Anxiety. Substance use. MRSA. SURGICAL HISTORY : Colostomy. Left rotator cuff surgery. Knee arthroscopic surgery. Paracentesis. ENCOUNTER: Subsequent ACUITY: 1 month PAIN SCORE: 10/10 LOCATION: Right lower quadrant FLUID: Total volume of 4,500 cc of clear, yellow fluid was removed. Fluid was discarded. Paracentesis was therapeutic only. Post procedure scanning reveals no hematoma or other complication. TECHNIQUE: 1. Ultrasound guidance for abdominal paracentesis. 2. Paracentesis. The risks, benefits, and alternatives to ultrasound guided paracentesis were explained to the patient in detail including the risk of bleeding and infection. Written and verbal informed consent was obt ained. With the patient on the ultrasound table, ultrasound imaging was used to select the most appropriate approach for paracentesis. Overlying skin was prepped and draped in the usual sterile fashion and wi th a local anesthetic, a dermatotomy was made with an 11 blade scalpel. A 6 [place] Hvs-I-[id number] ca theter was introduced into the peritoneal cavity and fluid was collected. The patient tolerated the procedure well and left the ultrasound suite in stable condition. CONCLUSION: Uncomplicated ultrasound guided paracentesis. Froy Alvarez MD on June 24, 2017 at 12:31 Board Certified Radiologist. This report was verified electronically.
[2017-06-24] MEDS ORDERED: LIDOCAINE HCL 1% PF 30 ML VIAL ONE (13:22)
[2017-06-24] MEDS ORDERED: XIFA550T4 PO (14:44)
[2017-06-24] MEDS ORDERED: GNP100TA3 PO (14:44)
[2017-06-24] MEDS ORDERED: Lactulose Liq PO (14:44)
[2017-06-24] MEDS ORDERED: MULTTAB67 PO (14:44)
[2017-06-24] MEDS ORDERED: FOLI800T PO (14:44)
[2017-06-24] MEDS ORDERED: ULTR50TA5 PO (14:44)
[2017-06-24] MEDS ORDERED: DIVA250T PO (14:44)
--- NOTE | 2017-06-24 14:45 | HHI.PR ---
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 The patient was initially seen , where patient reported that he is having LLQ and RLQ abdominal pain, more so in the RLQ. Per patient's Mom, The patient had the drainage tube in his pleural cavity removed on Wednesday and was scheduled to have a follow up chest x-ray to make sure there was not fluid in his lungs. The patient had the follow up CXR completed today and was sent from radiology to the ED. Mom reports on Wednesday when they removed the drain in his pleural cavity they put one in his abdomen. However, the drain fell out on Wednesday night and on Wednesday when they went to the ED they did not feel as if it was distended enough to place a new drain. The patient reports that the feels very bloated/distended, but denies any nausea , vomiting, diarrhea, chest pain, or shortness of breath. Mom reports the drainage from his abdomen went from yellow to bloody on Wednesday. The patient currently rates his abdominal pain as a 9/10. He admits to alcohol, but denies any smoking or drug use. I then went in to discuss further with the mother and patient. Unfortunately patient does not remember me. He also has some periods of confusion. He tells me that he does not have any abdominal pain and overall feels fairly well. He does report that there is some pressure pushing on his chest cavity from his distended abdomen. His mom states that she was told to come to the ED from the interventional radiology department because he needed to have some type of fluid tested. She also tells me that I need to make sure I believe enough fluid for them to place a drain next week. He is currently following with primary care provider in [place], but tells me that he's not had consistent visits. He has recently seen a material handler, but mom tells me that there are many unanswered questions. She has not tried reaching out to any type of flow nurse. Patient is still drinking alcohol. He tells me that he had 4 or 5 mixed drinks last night. Apparently in August 2016 patient was in the emergency room and admitted. I am not certain if that was while he was at [place]. I do not see any records from Aug 2016. At that time he was told he had end-stage liver disease and placed on hospice. Patient did well and had stopped drinking for a while, but relapsed. Sometime in this timeframe patient came to the hospital and was found to have a large pleural effusion and was dropped from hospice care his mom decided to opt for further care and treatment. Per mom's reports he was off of all of his medicines and was doing well., However he was recently started back on lactulose 2 days ago. She tells me he's had periods of intermittent confusion. Unfortunately at this time patient is very unreliable with his history and description of his current symptoms. Patient is not a reliable historian. Not able to give me much information still actively drinking at home have discussed with him the need to stop drinking. I don't think he sees any point in stopping. Patient will not be eligible for any transplant as long as he is actively still drinking which he is Objective Vitals Vital Signs Date Time Temp Pulse Resp B/P Pulse Ox O2 Delivery O2 Flow Rate FiO2 06/24/17 12:46 106 16 104/73 98 06/24/17 09:21 101 16 107/73 06/24/17 08:00 97.7 106 20 110/77 94 06/24/17 04:34 98.6 108 18 117/69 92 06/23/17 23:42 98.6 97 20 109/70 96 06/23/17 20:53 98 06/23/17 19:12 101 20 108/71 98 Result Diagram: 06/24/17 0643 06/24/17 0643 Other Results Laboratory Tests Test 06/23/17 06/24/17 15:55 06:43 White Blood Count 6.7 TH/MM3 6.3 TH/MM3 Red Blood Count 4.55 MIL/MM3 4.76 MIL/MM3 Hemoglobin 14.5 GM/DL 15.2 GM/DL Hematocrit 43.0 % 45.3 % Mean Corpuscular Volume 94.7 FL 95.2 FL Mean Corpuscular Hemoglobin 31.9 PG 31.9 PG Mean Corpuscular Hemoglobin 33.7 % 33.5 % Concent Red Cell Distribution Width 17.0 % 16.9 % Platelet Count 154 TH/MM3 143 TH/MM3 Mean Platelet Volume 9.3 FL 8.9 FL Neutrophils (%) (Auto) 54.9 % 53.3 % Lymphocytes (%) (Auto) 11.8 % 16.3 % Monocytes (%) (Auto) 28.9 % 26.2 % Eosinophils (%) (Auto) 2.1 % 2.8 % Basophils (%) (Auto) 2.3 % 1.4 % Neutrophils # (Auto) 3.7 TH/MM3 3.4 TH/MM3 Lymphocytes # (Auto) 0.8 TH/MM3 1.0 TH/MM3 Monocytes # (Auto) 1.9 TH/MM3 1.7 TH/MM3 Eosinophils # (Auto) 0.1 TH/MM3 0.2 TH/MM3 Basophils # (Auto) 0.2 TH/MM3 0.1 TH/MM3 CBC Comment DIFF FINAL DIFF FINAL Differential Comment Prothrombin Time 12.7 SEC 13.5 SEC Prothromb Time International 1.1 RATIO 1.2 RATIO Ratio Activated Partial 30.5 SEC Thromboplast Time Sodium Level 135 MEQ/L 136 MEQ/L Potassium Level 4.5 MEQ/L 4.2 MEQ/L Chloride Level 99 MEQ/L 98 MEQ/L Carbon Dioxide Level 28.0 MEQ/L 28.8 MEQ/L Anion Gap 8 MEQ/L 9 MEQ/L Blood Urea Nitrogen 7 MG/DL 7 MG/DL Creatinine 0.77 MG/DL 0.75 MG/DL Estimat Glomerular Filtration 112 ML/MIN 115 ML/MIN Rate Random Glucose 105 MG/DL 90 MG/DL Calcium Level 8.6 MG/DL 8.7 MG/DL Total Bilirubin 0.8 MG/DL 1.4 MG/DL Aspartate Amino Transf 52 U/L 48 U/L (AST/SGOT) Alanine Aminotransferase 19 U/L 17 U/L (ALT/SGPT) Alkaline Phosphatase 194 U/L 193 U/L Ammonia 31 MCMOL/L 14 MCMOL/L Total Protein 7.3 GM/DL 7.0 GM/DL Albumin 2.1 GM/DL 2.1 GM/DL Lipase 63 U/L Phosphorus Level 4.3 MG/DL Magnesium Level 1.9 MG/DL Free Thyroxine 1.51 NG/DL Thyroid Stimulating Hormone 3.380 uIU/ML 3rd Gen Imaging Last Impressions Cyst Biopsy Asp-Paracentesis US 06/24/17 0000 Signed Impressions: Service Date/Time: June 08:43 - CONCLUSION: Uncomplicated ultrasound guided paracentesis. Froy Alvarez MD Objective Remarks GENERAL: This is a well-nourished, well-developed patient, in no apparent distress. SKIN: No rashes, ecchymoses or lesions. Cool and dry. HEAD: Atraumatic. Normocephalic. No temporal or scalp tenderness. EYES: Pupils equal round and reactive. Extraocular motions intact. No scleral icterus. No injection or drainage. ENT: Nose without bleeding, purulent drainage or septal hematoma. Throat without erythema, tonsillar hypertrophy or exudate. Uvula midline. Airway patent. NECK: Trachea midline. No JVD or lymphadenopathy. Supple, nontender, no meningeal signs. CARDIOVASCULAR: Regular rate and rhythm without murmurs, gallops, or rubs. S1 and S2 no S3 or S4 RESPIRATORY: Clear to auscultation. Breath sounds equal bilaterally. No wheezes , rales, or rhonchi. GASTROINTESTINAL: Abdomen soft, non-tender, no longer distended post paracentesis. No hepato-splenomegaly, or palpable masses. No guarding. MUSCULOSKELETAL: Extremities without clubbing, cyanosis, or edema. No joint tenderness, effusion, or edema noted. No calf tenderness. Negative Homans sign bilaterally. NEUROLOGICAL: Awake and alert. Cranial nerves II through XII intact. Motor and sensory grossly within normal limits. Five out of 5 muscle strength in all muscle groups. Normal speech. Insight and judgment is very poor mood and behavior are acceptable Procedures PARACENTESIS 4.5 LITERS Medications and IVs Current Medications Divalproex Sodium (Depakote Dr) 250 mg BID PO Last administered on 06/24/17 09 :11; Start 06/23/17 at 21:00 Sodium Chloride (NS Flush) 2 ml UNSCH PRN IV FLUSH FLUSH AFTER USING IV ACCESS ; Start 06/23/17 at 19:00; Stop 06/23/17 at 19:10; Status DC Sodium Chloride (NS Flush) 2 ml BID IV FLUSH ; Start 06/23/17 at 21:00; Stop at 21:00; Status DC Lactulose (Lactulose Liq) 30 ml Q6H PO Last administered on 06/24/17 12:53; Start 06/23/17 at 19:00 Rifaximin (Xifaxan) 550 mg BID PO Last administered on 8/17/17at 09:10; Start 06/23/17 at 21:00 Haloperidol Lactate (Haldol Inj) 5 mg Q6H PRN IM AGITATION; Start 06/23/17 at 19:00 Thiamine HCl (Vitamin B1) 100 mg DAILY PO Last administered on 06/24/17 09:10 ; Start 06/23/17 at 19:00 Sodium Chloride (NS Flush) 2 ml UNSCH PRN IV FLUSH FLUSH AFTER USING IV ACCESS ; Start 06/23/17 at 19:00 Sodium Chloride (NS Flush) 2 ml BID IV FLUSH Last administered on 06/24/17 09: 11; Start 06/23/17 at 21:00 Acetaminophen (Tylenol) 650 mg Q4H PRN PO TEMP > 100.4; Start 06/23/17 at 19:00 Ondansetron HCl (Zofran Inj) 4 mg Q6H PRN IVP NAUSEA OR VOMITING; Start at 19:00 Prochlorperazine (Compazine Supp) 25 mg Q12H PRN RECTAL NAUSEA OR VOMITING; Start 06/23/17 at 19:00 Temazepam (Restoril) 15 mg HS PRN PO INSOMNIA Last administered on 06/23/17 21 :15; Start 06/23/17 at 19:00 Acetaminophen (Tylenol) 650 mg Q6H PRN PO PAIN SCALE 1 TO 2; Start 06/23/17 at 19:00 Oxycodone HCl (Roxicodone) 10 mg Q4H PRN PO PAIN SCALE 6 TO 10 Last administered on 06/24/17 12:55; Start 06/23/17 at 19:00 Morphine Sulfate (Morphine Inj) 2 mg Q3H PRN IV Pain 3-5; if unable to take PO ; Start 06/23/17 at 19:00 Morphine Sulfate (Morphine Inj) 4 mg Q3H PRN IV Pain 6-10;if unable to take PO Last administered on 06/24/17 09:12; Start 06/23/17 at 19:00 Oxycodone HCl (Roxicodone) 5 mg Q4H PRN PO PAIN SCALE 3 TO 5; Start 06/23/17 at 19:00 Naloxone HCl (Narcan Inj) 0.4 mg UNSCH PRN IV SEE LABEL COMMENTS; Start at 19:00 Senna/Docusate Sodium (Esme-Colace) 1 tab BID PO Last administered on 09:11; Start 06/23/17 at 21:00 Magnesium Hydroxide (Milk Of Magnesia Liq) 30 ml Q12H PRN PO MILD - MODERATE CONSTIPATION; Start 06/23/17 at 19:00 Sennosides (Senokot) 17.2 mg Q12H PRN PO MODERATE - SEVERE CONSTIPATION; Start 06/23/17 at 19:00 Bisacodyl (Dulcolax Supp) 10 mg DAILY PRN RECTAL SEVERE CONSITIPATION; Start at 19:00 Lactulose (Lactulose Liq) 30 ml DAILY PRN PO SEVERE CONSITIPATION; Start at 19:00 Flumazenil (Romazicon Inj) 0.2 mg Q1M PRN IV PUSH SEE LABEL COMMENTS; Start at 19:00 Lorazepam (Ativan) 1 mg Q4H PRN PO CIWA 8 - 10; Start 06/23/17 at 19:00 Lorazepam (Ativan Inj) 1 mg Q4H PRN IV PUSH CIWA 8 - 10; Start 06/23/17 at 19: 00 Lorazepam (Ativan) 2 mg Q2H PRN PO CIWA 11-14; Start 06/23/17 at 19:00 Lorazepam (Ativan Inj) 2 mg Q2H PRN IV PUSH CIWA 11-14; Start 06/23/17 at 19:00 Lorazepam (Ativan Inj) 2 mg Q1H PRN IV PUSH CIWA 15-20; Start 06/23/17 at 19:00 Lorazepam (Ativan Inj) 2 mg Q15M PRN IV PUSH CIWA > 20; Start 06/23/17 at 19:00 Haloperidol Lactate (Haldol Inj) 2 mg Q15M PRN IM SEE LABEL COMMENTS; Start at 19:00 Albumin Human (Albumin 25% Inj) ONCE ONCE IV ; Start 06/24/17 at 11:45; Stop 06/24/17 at 11:46; Status DC Lidocaine HCl (Xylocaine-Mpf 1% Inj) 30 ml STK-MED ONCE .ROUTE Last administered on 06/24/17 11:28; Start 06/24/17 at 13:22; Stop 06/24/17 at 13:23 ; Status DC Urinary Catheter: No Vascular Central Line Catheter: No A/P Problem List: (1) End stage liver disease ICD Code: K72.90 Status: Acute (2) Ascites ICD Code: R18.8 Status: Acute (3) ETOH abuse ICD Code: F10.10 Status: Acute (4) Thrombocytopenia ICD Code: D69.6 Status: Acute (5) Liver disease, alcoholic ICD Code: K70.9 Status: Acute (6) Alcohol abuse ICD Code: F10.10 Status: Acute (7) Alcohol-induced cirrhosis Status: Chronic (8) Hyperammonemia ICD Code: E72.20 Status: Acute (9) Hepatic encephalopathy ICD Code: K72.90 Status: Chronic (10) Confusion ICD Code: R41.0 Status: Acute Assessment and Plan Ascites will consult interventional radiology for paracentesis--had a paracentesis today of 4.5 L removed Fluid restriction Hepatic encephalopathy continue on rifaximin continue on lactulose check an ammonia level Cirrhosis alcohol-induced recommended alcohol cessation was CIWA protocol and withdrawal protocol Malignant medical noncompliance patient continues to still actively drink alcohol and therefore is not a transplant candidate at all Had a paracentesis of 4.5 L removed from a paracentesis today Case discussed with patient and RN and ER Code Status Discharge Planning Discharge to home today Problem Qualifiers (1) Ascites: Qualified Code: K70.31 - Ascites due to alcoholic cirrhosis Irineo Ferris DO Jun 24, 2017 14:45
--- NOTE | 2017-06-24 14:47 | HHI.DCPOC ---
Discharge Care Plan Diagnosis: (1) Alcohol-induced cirrhosis (2) End stage liver disease (3) ETOH abuse (4) Hyperammonemia (5) Thrombocytopenia (6) Liver disease, alcoholic (7) Confusion (8) Ascites (9) Alcohol abuse (10) Hepatic encephalopathy (11) Encephalopathy (12) Alcohol dependence (13) Alcoholic cirrhosis of liver with ascites (14) Alcoholic hepatitis with ascites Additional Problems ALCOHOL ABUSE Goals to Promote Your Health * To prevent worsening of your condition and complications * To maintain your health at the optimal level Directions to Meet Your Goals Take your medications as prescribed Follow your dietary instruction Follow activity as directed Keep your appointments as scheduled Take your immunizations and boosters as scheduled If your symptoms worsen call your PCP, if no PCP go to Urgent Care Center or Emergency Room Smoking is Dangerous to Your Health. Avoid second hand smoke Call the 24-hour hour crisis hotline for domestic abuse at Irineo Ferris DO Jun 24, 2017 14:47
--- NOTE | 2017-06-24 14:52 | HHI.DS ---
Discharge Summary Admission Date Jun 23, 2017 at 19:02 Discharge Date: Jun 24, 2017 Admitting Diagnosis ascites/ESLD (1) End stage liver disease ICD Code: K72.90 Diagnosis: Principal (2) Ascites ICD Code: R18.8 Diagnosis: Principal (3) ETOH abuse ICD Code: F10.10 Diagnosis: Principal (4) Thrombocytopenia ICD Code: D69.6 Diagnosis: Principal (5) Liver disease, alcoholic ICD Code: K70.9 Diagnosis: Principal (6) Alcohol abuse ICD Code: F10.10 Diagnosis: Principal (7) Alcohol-induced cirrhosis Diagnosis: Principal (8) Hyperammonemia ICD Code: E72.20 Diagnosis: Principal (9) Hepatic encephalopathy ICD Code: K72.90 Diagnosis: Principal (10) Confusion ICD Code: R41.0 Diagnosis: Principal Procedures PARACENTESIS 4.5 LITERS Brief History - From Admission 41- year old male well known to me from [facility] with a PMHx of 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 The patient was initially seen by my PA student Elyssa Diaz, where patient reported that he is having LLQ and RLQ abdominal pain, more so in the RLQ. Per patient's Mom, The patient had the drainage tube in his pleural cavity removed on Wednesday and was scheduled to have a follow up chest x-ray to make sure there was not fluid in his lungs. The patient had the follow up CXR completed today and was sent from radiology to the ED. Mom reports on Wednesday when they removed the drain in his pleural cavity they put one in his abdomen. However, the drain fell out on Wednesday night and on Wednesday when they went to the ED they did not feel as if it was distended enough to place a new drain. The patient reports that the feels very bloated/ distended, but denies any nausea, vomiting, diarrhea, chest pain, or shortness of breath. Mom reports the drainage from his abdomen went from yellow to bloody on Wednesday. The patient currently rates his abdominal pain as a 9/10. He admits to alcohol, but denies any smoking or drug use. I then went in to discuss further with the mother and patient. Unfortunately patient does not remember me. He also has some periods of confusion. He tells me that he does not have any abdominal pain and overall feels fairly well. He does report that there is some pressure pushing on his chest cavity from his distended abdomen. His mom states that she was told to come to the ED from the interventional radiology department because he needed to have some type of fluid tested. She also tells me that I need to make sure I believe enough fluid for them to place a drain next week. He is currently following with primary care provider in [place], but tells me that he's not had consistent visits. He has recently seen a spring bender, but mom tells me that there are many unanswered questions. She has not tried reaching out to any type of biological engineer. Patient is still drinking alcohol. He tells me that he had 4 or 5 mixed drinks last night. Apparently in August 2016 patient was in the emergency room and admitted. I am not certain if that was while he was at [facility]. I do not see any records from Aug 2016. At that time he was told he had end-stage liver disease and placed on hospice. Patient did well and had stopped drinking for a while, but relapsed. Sometime in this timeframe patient came to the hospital and was found to have a large pleural effusion and was dropped from hospice care his mom decided to opt for further care and treatment. Per mom's reports he was off of all of his medicines and was doing well., However he was recently started back on lactulose 2 days ago. She tells me he's had periods of intermittent confusion. Unfortunately at this time patient is very unreliable with his history and description of his current symptoms. Patient is not a reliable historian. Not able to give me much information still actively drinking at home have discussed with him the need to stop drinking. I don't think he sees any point in stopping. Patient will not be eligible for any transplant as long as he is actively still drinking which he is CBC/BMP: 06/24/17 0643 06/24/17 0643 Significant Findings Laboratory Tests Test 06/23/17 06/24/17 15:55 06:43 Monocytes (%) (Auto) 28.9 % 26.2 % (0.0-8.0) (0.0-8.0) Basophils (%) (Auto) 2.3 % (0.0-2.0) Lymphocytes # (Auto) 0.8 TH/MM3 (1.0-4.8) Monocytes # (Auto) 1.9 TH/MM3 1.7 TH/MM3 (0-0.9) (0-0.9) Prothrombin Time 12.7 SEC 13.5 SEC (9.8-11.6) (9.8-11.6) Activated Partial 30.5 SEC Thromboplast Time (24.3-30.1) Sodium Level 135 MEQ/L (136-145) Aspartate Amino Transf 52 U/L (15-37) 48 U/L (15-37) (AST/SGOT) Alkaline Phosphatase 194 U/L 193 U/L (45-117) (45-117) Albumin 2.1 GM/DL 2.1 GM/DL (3.4-5.0) (3.4-5.0) Lipase 63 U/L (73-393) Platelet Count 143 TH/MM3 (150-450) Total Bilirubin 1.4 MG/DL (0.2-1.0) Free Thyroxine 1.51 NG/DL (0.76-1.46) Imaging Last Impressions Cyst Biopsy Asp-Paracentesis US 06/24/17 0000 Signed Impressions: Service Date/Time: June 08:43 - CONCLUSION: Uncomplicated ultrasound guided paracentesis. Froy Alvarez MD PE at Discharge GENERAL: This is a well-nourished, well-developed patient, in no apparent distress. SKIN: No rashes, ecchymoses or lesions. Cool and dry. HEAD: Atraumatic. Normocephalic. No temporal or scalp tenderness. EYES: Pupils equal round and reactive. Extraocular motions intact. No scleral icterus. No injection or drainage. ENT: Nose without bleeding, purulent drainage or septal hematoma. Throat without erythema, tonsillar hypertrophy or exudate. Uvula midline. Airway patent. NECK: Trachea midline. No JVD or lymphadenopathy. Supple, nontender, no meningeal signs. CARDIOVASCULAR: Regular rate and rhythm without murmurs, gallops, or rubs. S1 and S2 no S3 or S4 RESPIRATORY: Clear to auscultation. Breath sounds equal bilaterally. No wheezes , rales, or rhonchi. GASTROINTESTINAL: Abdomen soft, non-tender, no longer distended post paracentesis. No hepato-splenomegaly, or palpable masses. No guarding. MUSCULOSKELETAL: Extremities without clubbing, cyanosis, or edema. No joint tenderness, effusion, or edema noted. No calf tenderness. Negative Homans sign bilaterally. NEUROLOGICAL: Awake and alert. Cranial nerves II through XII intact. Motor and sensory grossly within normal limits. Five out of 5 muscle strength in all muscle groups. Normal speech. 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 , where patient reported that he is having LLQ and RLQ abdominal pain, more so in the RLQ. Per patient's Mom, The patient had the drainage tube in his pleural cavity removed on Wednesday and was scheduled to have a follow up chest x-ray to make sure there was not fluid in his lungs. The patient had the follow up CXR completed today and was sent from radiology to the ED. Mom reports on Wednesday when they removed the drain in his pleural cavity they put one in his abdomen. However, the drain fell out on Wednesday night and on Wednesday when they went to the ED they did not feel as if it was distended enough to place a new drain. The patient reports that the feels very bloated/distended, but denies any nausea, vomiting, diarrhea, chest pain, or shortness of breath. Mom reports the drainage from his abdomen went from yellow to bloody on Wednesday. The patient currently rates his abdominal pain as a 9/10. He admits to alcohol, but denies any smoking or drug use. I then went in to discuss further with the mother and patient. Unfortunately patient does not remember me. He also has some periods of confusion. He tells me that he does not have any abdominal pain and overall feels fairly well. He does report that there is some pressure pushing on his chest cavity from his distended abdomen. His mom states that she was told to come to the ED from the interventional radiology department because he needed to have some type of fluid tested. She also tells me that I need to make sure I believe enough fluid for them to place a drain next week. He is currently following with primary care provider in [place], but tells me that he's not had consistent visits. He has recently seen a spring bender, but mom tells me that there are many unanswered questions. She has not tried reaching out to any type of biological engineer. Patient is still drinking alcohol. He tells me that he had 4 or 5 mixed drinks last night. Apparently in August 2016 patient was in the emergency room and admitted. I am not certain if that was while he was at [facility]. I do not see any records from Aug 2016. At that time he was told he had end-stage liver disease and placed on hospice. Patient did well and had stopped drinking for a while, but relapsed. Sometime in this timeframe patient came to the hospital and was found to have a large pleural effusion and was dropped from hospice care his mom decided to opt for further care and treatment. Per mom's reports he was off of all of his medicines and was doing well., However he was recently started back on lactulose 2 days ago. She tells me he's had periods of intermittent confusion. Unfortunately at this time patient is very unreliable with his history and description of his current symptoms. Patient is not a reliable historian. Not able to give me much information still actively drinking at home have discussed with him the need to stop drinking. I don't think he sees any point in stopping. Patient will not be eligible for any transplant as long as he is actively still drinking which he is Ascites will consult interventional radiology for paracentesis--had a paracentesis today of 4.5 L removed Fluid restriction Hepatic encephalopathy continue on rifaximin continue on lactulose check an ammonia level Cirrhosis alcohol-induced recommended alcohol cessation was [facility] protocol and withdrawal protocol Malignant medical noncompliance patient continues to still actively drink alcohol and therefore is not a transplant candidate at all Had a paracentesis of 4.5 L removed from a paracentesis today Case discussed with patient and RN and ER Pt Condition on Discharge: Stable Discharge Disposition: Discharge Home Discharge Time: > 30 minutes Discharge Instructions DIET: Follow Instructions for: Heart Healthy Diet Speech Therapy-Diet Recommends: Regular Additional Diet Instructions: Fluid restriction to 1.5 L daily No alcohol of any type no beer no wine and liquor ever again Activities you can perform: Regular-No Restrictions Other Activity Instructions: No smoking no alcohol no illicit drug use New Medications: Folic Acid (Folic Acid) 800 Mcg Tab 800 MCG PO DAILY Nutritional Supplement #30 Ref 0 TAB Multiple Vitamin (Multiple Vitamin) 1 Tab 1 TAB PO DAILY Nutritional Supplement #30 Ref 0 TAB Tramadol (Ultram) 50 Mg Tab 50 MG PO Q6H PRN PAIN #30 Ref 0 TAB Rifaximin (Xifaxan) 550 Mg Tab 550 MG PO BID ENCEPHALOPATHY #60 TAB Thiamine HCl (Gnp Vitamin B-1) 100 Mg Tab 100 MG PO DAILY VITAMIN #30 TAB ([Lactulose Liq]) 30 ML SYRP 30 ML PO Q6H ENCEPHALOPATHY #3600 ML Continued Medications: Divalproex DR (Divalproex DR) 250 Mg Tabdr 250 MG PO BID Control Seizures #60 Ref 3 TAB (This prescription has been renewed ) Discontinued Medications: Oxycodone-Acetaminophen (Percocet) 10-325 mg Tab 1 TAB PO Q6H PRN PAIN #15 Ref 0 TAB Irineo Ferris DO Jun 24, 2017 14:52
[2017-06-24 16:05] LABS: HEMOGLOBIN A1b 1.4 %; HEMOGLOBIN Ao 86.7 %; HEMOGLOBIN LA1C 1.8 %; HEMOGLOBIN P3 3.3 %
== END 2017-06-24 17:12 | disposition home or self-care (01) | DRG 433 ==
LOC: NEPC 13:53 → NEDA 17:23 → OBSVTOIN 19:02 → NEDA 19:28 → NEPFCDU 20:17
PROVIDERS: ADMIT Hospitalist; ATTEND Hospitalist
PROC: 0W9G3ZZ Drainage of Peritoneal Cavity, Percutaneous Approach (ICD-10-PCS; principal; 2017-06-24)
DX: K70.31 Alcoholic cirrhosis of liver with ascites (principal); J90 Pleural effusion, not elsewhere classified; K70.11 Alcoholic hepatitis with ascites; D69.6 Thrombocytopenia, unspecified; K72.90 Hepatic failure, unspecified without coma; E72.20 Disorder of urea cycle metabolism, unspecified; M41.9 Scoliosis, unspecified; R56.9 Unspecified convulsions; I10 Essential (primary) hypertension; F10.20 Alcohol dependence, uncomplicated; Z91.19 Patient's noncompliance with other medical treatment and regimen; Z93.3 Colostomy status; F41.9 Anxiety disorder, unspecified; Z51.5 Encounter for palliative care
CPT/HCPCS: 49083; 80053; 82140; 83036; 83690; 83735; 84100; 84439; 84443; 85025; 85610; 85730; 99285; J2270

== ENCOUNTER 2017-07-02 08:22 | Day surgery (SDC) | payer OTHER ==
[2017-07-02] VITALS (7 sets, daily range): BP systolic 101–151; BP diastolic 70–104; PULSE 103–115; RESP 18–20; TEMP 97.4–97.9; O2SAT 93–96
[~2017-07-02] VITALS: Ht 182.9 cm; Wt 85.5 kg
[~2017-07-02 08:22] MED LIST changes: +FOLI800T PO; +GNP100TA3 PO; +Lactulose Liq PO; +MULTTAB67 PO; -PERC10TA27 PO; +ULTR50TA5 PO; +XIFA550T4 PO
[2017-07-02] MEDS ORDERED: IOHEXOL 350 MG/ML 50 ML BTL (for RAD DIAG) OTHER ONE (08:23)
[2017-07-02] MEDS ORDERED: SODIUM CHLORIDE 0.9% 1000 ML IV SCH (09:00)
--- NOTE | 2017-07-02 10:21 | RADRPT ---
EXAM DATE/TIME: 07/02/2017 09:57 [facility] COMPARISON: US ABDOMEN - LOWER LIMITED, December 11, 2016, 18:05. INDICATIONS : Abdomen distention. MEDICAL HISTORY : Cirrhosis. Hepatitis. Seizures. HTN. Scoliosis. Ascites. Anxiety. Substance SURGICAL HISTORY : Colostomy. Left rotator cuff surgery. Knee arthroscopic surgery. ENCOUNTER: Initial ACUITY: 1 day PAIN SCORE: 3/10 LOCATION: Abdomen. AREA EVALUATED: Abdomen. FINDINGS: Imaging of the abdomen and pelvis was performed to evaluate for ascites for possible paracentesis. CONCLUSION: Diffuse peritoneal ascites, most prominent on the right. Grzegorz Kaur MD on July 02, 2017 at 10:18 Board Certified Radiologist. This report was verified electronically.
[2017-07-02] MEDS ORDERED: MIDAZOLAM HCL 2 MG/2 ML VIAL ONE ×3 (12:36→13:33)
[2017-07-02] MEDS ORDERED: fentaNYL CITRATE 250 MCG/5 ML AMP ONE (12:36)
[2017-07-02] MEDS ORDERED: ceFAZolin 2 GM PREMIX 50 ML ONE (12:47)
[2017-07-02] MEDS ORDERED: VANCOMYCIN HCL 1000 MG VIAL ONE (12:47)
[2017-07-02] MEDS ORDERED: LIDOCAINE 1%/EPINEPHrine 1:200,000 PF SOLN 30 ML VIAL ONE (12:55)
[2017-07-02] MEDS ORDERED: LORazepam 2 MG/ML VIAL ONE (13:18)
[2017-07-02] MEDS ORDERED: HYDROmorphone HCL PF 2 MG/ML VIAL ONE (13:36)
--- NOTE | 2017-07-02 14:45 | PD.RAD ---
Post Procedure Progress Note Pre Procedure Diagnosis: (1) Liver failure (2) Ascites Post Procedure Diagnosis: (1) Liver failure (2) Ascites Procedure Date: Jul 02, 2017 Supervising Radiologist: Grzegorz Kaur Proceduralist/Assist: Sid Baum RT(R), Fernanda Altamirano RT(R) Anesthesia: Local, Analgesia, Conscious Sedation Plan of Activity Patient to Unit: [facility] Patient Condition: Good See PACS Report for procedural detail/treatment Drainage Procedure Procedure 1 Imaging Guidance: Fluoroscopy, Ultrasound Procedure Type: Peritoneal Catheter Tunneled Procedure: Placement [place]atian: 15 Drainage: Edison drainage Fluid Removal (CCs): 5137 Fluid Description: Grzegorz Sharma MD Jul 02, 2017 14:45
[2017-07-02] MEDS ORDERED: oxyCODONE/ACETAMINOPHEN 5 MG/325 MG TAB PO ONE (15:30)
--- NOTE | 2017-07-07 10:57 | RADRPT ---
EXAM DATE/TIME: 07/02/2017 13:00 [facility] COMPARISON: PERITONEAL CATHETER PLACEMENT, TUNNELED, June 18, 2017, 13:05. INDICATIONS : Patient presents with endstage liver disease and ascites in need of peritoneal catheter for drainage. MEDICAL HISTORY : HTN ESLD Ascites Cirrhosis ETOH Scoliosis AMS SURGICAL HISTORY : Colostomy L rotator cuff R knee Right chest tube ENCOUNTER: Subsequent ACUITY: >1 year PAIN SCORE: 5/10 LOCATION: Lower back pain. FLUORO TIME: 0.8 minutes IMAGE SERIES: 1 SEDATION TIME: 60 minutes CONTRAST: 5 cc Omnipaque (iohexol) 350 ACCESS: Right Peritoneal SEDATION: 1.) 7.5 mg midazolam (Versed) IV 2.) 350 mcg fentanyl (Sublimaze) IV 3.) 1.5mg hydromorphone (Dilaudid) IV 4.) 0.5mg lorazepam (Ativan) IV Prophylactic antibiotics were administered with appropriate pre-procedure timing. Vancomycin within 2 hours of procedure, Ancef (or alternative) within 1 hour of procedure. DEVICE: 1. single lumen 15.5fr Aspira drainage catheter PROCEDURE : 1. ultrasound and fluoroscopic-guided placement of a tunneled Aspira paracentesis catheter. 2. Conscious sedation with continuous EKG and Oximetry monitoring. The risks, benefits and alternatives to the procedure were explained and verbal and written consent w as obtained. The site was prepped in sterile fashion. Full sterile technique was used, including ca p, mask, sterile gloves and gown and a large sterile sheet. Hand hygiene and 2% chlorhexidine and Be tadine was utilized per protocol for cutaneous antisepsis with appropriate dry time for site. Utilizi ng ultrasound guidance, the skin overlying the largest pocket of ascites in the right abdomen was ane sthetized with approximately 4 cc 1% Xylocaine and a dermatotomy made with an 11 blade scalpel. Through the dermatotomy, ultrasound guidance was used in place a 21 gauge micropuncture needle into t he peritoneal cavity directed inferiorly. The 018 wire was advanced through the needle over which the 3-4 dilator was placed. Through the outer 4 Frisian dilator, the stiff glide wire was advanced into t he peritoneal cavity and guided into the deep pelvis with the use of a hockey-stick catheter. The Aspira drain was used as a guide to make a second dermatotomy in the more anterior abdomen after appropriate local anesthetic. The tract between the 2 dermatotomies was then anesthetized with an add itional 4 cc 1% Xylocaine. The Aspira drain was advanced through the subcutaneous tunnel with the use of the metallic tunneler. The distal tip of the catheter was then advanced over the wire and through the sheath into the peritoneal cavity. Position was confirmed with positive contrast. A 2-0 Prolene cerclage was placed at the second dermatotomy to secure the catheter. The catheter was further secure d with the included fastener. Catheter hub was assembled and the catheter placed to wall suction to i nitiate paracentesis. The first dermatotomy was closed with subcuticular 3-0 Vicryl suture and Dermab ond adhesive. Conscious sedation was performed with the prescribed dosages and duration as above in the presence of an independent trained radiology nurse to assist in the monitoring of the patient. EKG and oximetry remained stable throughout the procedure. CONCLUSION: Successful placement of Aspira tunneled paracentesis catheter as above. Grzegorz Kaur MD on July 07, 2017 at 10:50 Board Certified Radiologist. This report was verified electronically.
== END 2017-07-02 16:00 | disposition home or self-care (01) ==
LOC: HROP 08:22 → HRIP 08:23 → HROP 16:00
PROVIDERS: ATTEND Preventive Medicine Addiction Medicine
DX: K70.31 Alcoholic cirrhosis of liver with ascites (principal); F10.20 Alcohol dependence, uncomplicated; K72.90 Hepatic failure, unspecified without coma; I10 Essential (primary) hypertension; M41.9 Scoliosis, unspecified
CPT/HCPCS: 49418; 76705; 99152; 99153; C1729; C1769; J0690; J1170; J2060; J2250; J3010; J3370; J7030; Q9967

== ENCOUNTER 2017-07-05 10:13 | Day surgery (SDC) | payer OTHER ==
[2017-07-05 10:53] VITALS: BP 101/76; PULSE 98; RESP 20; TEMP 99.1; O2SAT 96
[2017-07-05] MEDS ORDERED: oxyCODONE/ACETAMINOPHEN 5 MG/325 MG TAB PO ONE (12:15)
== END 2017-07-05 12:00 | disposition home or self-care (01) ==
LOC: HROP 10:13 → HRIP 10:18 → HROP 12:00
PROVIDERS: ATTEND Radiology Body Imaging
DX: Z48.03 Encounter for change or removal of drains (principal)
CPT/HCPCS: 99212; C1729; G0463

== ENCOUNTER 2017-07-15 13:15 | Day surgery (SDC) | payer OTHER ==
[2017-07-15 13:36] VITALS: BP 107/85; PULSE 110; RESP 20; TEMP 98.7; O2SAT 97
--- NOTE | 2017-07-15 14:59 | RADRPT ---
EXAM DATE/TIME: 07/15/2017 14:38 [facility] COMPARISON : No previous studies available for comparison. INDICATIONS : Follow up Aspira Drain - possible suture removal. OBJECTIVE: Temperature: 98.7 Heart Rate: 110 Blood Pressure: 107/85 Respiratory: 20 Oximetry: 97 The patient returns today for evaluation of Aspira drain. The catheter is intact. The entry site look s clean. Prolene sutures remain in place and did not appear to be inciting any significant reaction. The erythema and swelling the patient had experienced on the right abdomen has almost completely subs ided at this point. He remains mildly tender to compression in the mid and right abdomen. No rebound tenderness. The catheter has been functioning well with successful drainage of large volumes of ascit es. The patient appears to be doing well. Presumed mild soft tissue cellulitis appears to have responded well to antibiotics. Catheter is functioning nicely. I will have the patient come back to see Dr. Kaur in one to 2 weeks for followup evaluation and po ssible suture removal if appropriate Evan Evangelista MD on July 15, 2017 at 14:54 Board Certified Radiologist. This report was verified electronically.
== END 2017-07-15 14:30 | disposition home or self-care (01) ==
LOC: HROP 13:15 → HRIP 13:18 → HROP 14:30
PROVIDERS: ATTEND Radiology Body Imaging
DX: Z48.02 Encounter for removal of sutures (principal)
CPT/HCPCS: 99212; G0463

== ENCOUNTER 2017-07-30 12:35 | Day surgery (SDC) | payer SELFPAY ==
[2017-07-30 12:55] VITALS: BP 108/69; PULSE 127; RESP 20; TEMP 98.7; O2SAT 95
== END 2017-07-30 13:30 | disposition home or self-care (01) ==
LOC: HROP 12:35 → HRIP 12:36 → HROP 13:30
PROVIDERS: ATTEND Radiology Body Imaging
DX: Z48.02 Encounter for removal of sutures (principal)
CPT/HCPCS: 99212; G0463

== ENCOUNTER 2017-08-02 21:49 | Emergency (ER) | payer SELFPAY ==
[2017-08-02] VITALS (11 sets, daily range): BP systolic 47–143; BP diastolic 25–107; PULSE 56–114; RESP 12–33; O2SAT 86–100
[2017-08-02] MEDS ORDERED: SODIUM BICARBONATE 8.4% INJ 50 MEQ/50 ML SYR IV ONE (21:50)
[2017-08-02] MEDS ORDERED: CALCIUM CHLORIDE 10% SOLN 1 GRAM/10 ML SYR IV ONE (21:50)
[2017-08-02] MEDS ORDERED: EPINEPHrine HCL (1:10,000) 1 MG/10 ML SYRINGE IV ONE (21:50)
[2017-08-02] MEDS ORDERED: DOPamine INJ PREMIX 500 ML IV ONE (21:50)
[2017-08-02] MEDS ORDERED: SODIUM CHLOR 0.9% 1000 ML INJ 1,000 ML IV ONE (21:58)
[2017-08-02] MEDS ORDERED: SODIUM CHLORIDE 0.9% FLUSH 10 ML FLUSH IVF PRN (22:00)
[2017-08-02] MEDS ORDERED: SODIUM CHLORIDE 0.9% FLUSH 5 ML FLUSH IV FLUSH PRN (22:00)
[2017-08-02] MEDS ORDERED: OCTREOTIDE INJ 500 MCG in SODIUM CHLORID 0.9% 500 ML INJ 499.5 ML IV SCH (22:08)
--- NOTE | 2017-08-02 22:08 | PD ---
HPI Chief Complaint: FOUND DOWN/ ARREST Time Seen by Provider: 21:56 Travel History International Travel<30 days: No Contact w/Intl Traveler<30days: No Traveled to known affect area: No History of Present Illness HPI LAST NORMALLY SEEN AT 5PM OR SO AFTER EATING DINNER, APPARENTLY PER FAMILY HE WAS COMPLAINING OF ABDOMINAL PAIN AND APPARENTLY BLACK TARRY STOOLS? WELL. FAMILY FOUND PATIENT DOWN AND PULSELESS, CALLED 911, EMS PERFORMED ACLS, ATTEMPTED INTUBATIONX2 UNSUCCESSFULLY. HOWEVER WITH BVM, AND HAND IV MEDS PATIENT HAD ROSC PFSH Past Medical History Hx Anticoagulant Therapy: No Arthritis: No Asthma: No Autoimmune Disease: No Blood Disorders: No Anxiety: Yes Heart Rhythm Problems: No Cancer: No Cardiovascular Problems: Yes Chemotherapy: No Chest Pain: No Congestive Heart Failure: No Cirrhosis: Yes COPD: No Cerebrovascular Accident: No Diabetes: No Diminished Hearing: No Endocrine: No Gastrointestinal Disorders: No Genitourinary: No Hepatitis: Yes Hypertension: Yes Immune Disorder: No Implanted Vascular Access Dvce: No Musculoskeletal: Yes (SCOLIOSIS, KNEE & SHOULDER INJURIES) Neurologic: Yes (SEIZURES ("ALL ALCOHOL RELATED" PER PT)) Psychiatric: Yes Reproductive: No Respiratory: No Migraines: No Seizures: Yes Menopausal: Yes Past Surgical History Abdominal Surgery: Yes (colostomy ) AICD: No Body Medical Devices: r side chest tube Cardiac Surgery: No Ear Surgery: No Endocrine Surgery: No Eye Surgery: No Genitourinary Surgery: No Gynecologic Surgery: No Hysterectomy: No Joint Replacement: No Oral Surgery: No Pacemaker: No Other Surgery: Yes ( LEFT KNEE & RIGHT SHOULDER) Social History Alcohol Use: Yes (DAILY) Tobacco Use: No Substance Use: Yes (alcohol) Allergies-Medications (Allergen,Severity, Reaction): Coded Allergies: Unable to Assess (Verified Allergy, Unknown, 08/02/17) *MDRO Multi-Drug Resistant Organism (Verified Adverse Reaction, Unknown, ) 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 Normocephalic. EYES: Pupils FIXED, DILATED, ENT: No nasal bleeding or discharge. Mucous membranes pink and moist. HOWEVER, ORAL MUCOSA NOTED SOME BLOOD ON CORNER OF MOUTH..NO GAG REFLEX NECK: Trachea midline. No JVD. CARDIOVASCULAR: NO PULSE INITIALLY, BUT DID RECOVER CAROTID/FEMORAL PULSES RESPIRATORY: NoT INTUBATED ON ARRIVAL, GASPING BREATHS,SHALLOW, 4/MIN RATE, ( PATIENT WAS INTUBATED RIGHT AWAY, SEE PROC NOTE) GASTROINTESTINAL: Abdomen soft, non-tender, nondistended. MUSCULOSKELETAL: Extremities without clubbing, cyanosis, or edema. No obvious deformities. NEUROLOGICAL:GCS 3 Data Data Last Documented VS Vital Signs Date Time Temp Pulse Resp B/P (MAP) Pulse Ox O2 Delivery O2 Flow Rate FiO2 08/03/17 02:39 90 08/03/17 02:05 08/02/17 23:20 33 94 Ventilator 100 Orders Orders Arterial Blood Gas (Abg) (08/02/17 21:58) Ecg Monitoring (08/02/17 21:58) Iv Access Insert/Monitor (08/02/17 21:58) Ng Gastric Tube Insert/Monitor (08/02/17 21:58) Urinary Catheter Insert/Apply (08/02/17 21:58) Oximetry (08/02/17 21:58) Sodium Chloride 0.9% Flush (Ns Flush) (08/02/17 22:00) Sodium Chlor 0.9% 1000 Ml Inj (Ns 1000 M (08/02/17 21:58) Electrocardiogram (08/02/17 21:58) Ammonia (08/02/17 21:58) Complete Blood Count With Diff (08/02/17 21:58) Comprehensive Metabolic Panel (08/02/17 21:58) Creatine Kinase (Cpk) (08/02/17 21:58) Prothrombin Time / Inr (Pt) (08/02/17 21:58) Act Partial Throm Time (Ptt) (08/02/17 21:58) Troponin I (9/25/17 21:58) Lactic Acid Sepsis Protocol (08/02/17 21:58) Blood Culture (08/02/17 21:58) Alcohol (Ethanol) (08/02/17 21:58) Tylenol (Acetaminophen) (08/02/17 21:58) Chest, Single Ap (08/02/17 ) Octreotide Inj (Sandostatin Inj) (08/02/17 22:15) Sodium Chlorid 0.9%... W/Octreotide Inj (08/02/17 22:08) Dopamine Inj Premix (Dopamine Inj Premix (08/02/17 22:15) Terbutaline Inj (Brethine Inj) (08/02/17 22:15) Labs Laboratory Tests Test 08/02/17 21:55 08/02/17 22:05 08/02/17 22:35 White Blood Count 21.5 TH/MM3 Red Blood Count 3.20 MIL/MM3 Hemoglobin 10.4 GM/DL Hematocrit 33.4 % Mean Corpuscular Volume 104.5 FL Mean Corpuscular Hemoglobin 32.7 PG Mean Corpuscular Hemoglobin Concent 31.3 % Red Cell Distribution Width 14.5 % Platelet Count 113 TH/MM3 Mean Platelet Volume 10.8 FL Neutrophils (%) (Auto) 65.9 % Lymphocytes (%) (Auto) 19.2 % Monocytes (%) (Auto) 12.9 % Eosinophils (%) (Auto) 1.5 % Basophils (%) (Auto) 0.5 % Neutrophils # (Auto) 14.2 TH/MM3 Lymphocytes # (Auto) 4.1 TH/MM3 Monocytes # (Auto) 2.8 TH/MM3 Eosinophils # (Auto) 0.3 TH/MM3 Basophils # (Auto) 0.1 TH/MM3 CBC Comment AUTO DIFF Differential Total Cells Counted 100 Neutrophils % (Manual) 63 % Band Neutrophils % 11 % Lymphocytes % 15 % Monocytes % 6 % Eosinophils % 3 % Neutrophils # (Manual) 16.3 TH/MM3 Metamyelocytes 2 % Nucleated Red Blood Cells 1 /100 WBC Differential Comment FINAL DIFF MANUAL Platelet Estimate LOW Platelet Morphology Comment NORMAL Prothrombin Time 18.1 SEC Prothromb Time International Ratio 1.6 RATIO Activated Partial Thromboplast Time 50.0 SEC Blood Urea Nitrogen 32 MG/DL Creatinine 1.27 MG/DL Random Glucose 76 MG/DL Total Protein 3.9 GM/DL Albumin 1.5 GM/DL Calcium Level 7.3 MG/DL Alkaline Phosphatase 103 U/L Aspartate Amino Transf (AST/SGOT) 55 U/L Alanine Aminotransferase (ALT/SGPT) 20 U/L Total Bilirubin 2.2 MG/DL Sodium Level 135 MEQ/L Potassium Level 4.5 MEQ/L Chloride Level 101 MEQ/L Carbon Dioxide Level 12.0 MEQ/L Anion Gap 22 MEQ/L Estimat Glomerular Filtration Rate 62 ML/MIN Protein Corrected Calcium 9.2 MG/DL Total Creatine Kinase 114 U/L Troponin I 0.04 NG/ML Acetaminophen Level 8.1 MCG/ML Ethyl Alcohol Level LESS THAN 3 MG/DL Lactic Acid Level 15.1 mmol/L Ammonia 114 MCMOL/L Blood Gas Puncture Site LT FOOT Blood Gas Patient Temperature 98.6 Blood Gas HCO3 13 mmol/L Blood Gas Base Excess -16.9 mmol/L Blood Gas Oxygen Saturation 60 % Arterial Blood pH 6.98 Arterial Blood Partial Pressure CO2 57 mmHg Arterial Blood Partial Pressure O2 53 mmHG Arterial Blood Oxygen Content 5.2 Vol % Arterial Blood Carboxyhemoglobin 1.1 % Arterial Blood Methemoglobin 1.0 % Blood Gas Hemoglobin 6.1 G/DL Oxygen Delivery Device VENTILATOR Blood Gas Ventilator Setting Blood Gas Inspired Oxygen 100 % MDM Medical Decision Making Medical Screen Exam Complete: Yes Emergency Medical Condition: Yes Medical Record Reviewed: Yes Interpretation(s) ABG: SEVERE ACIDOSIS AND HYPOXIA ALONG WITH ANEMIA BASED ON ABG....EKG: NSR, 98, FIRST DEGREE BLOCK, NO STEMI PATTERN Differential Diagnosis ANEMIA V GI BLEED V LA V RESP FAILURE V HYPERKALEMIA V MAGNESIUM D/O V HYPOGLYCEMIA Narrative Course PATIENT WAS CODED FOR AT LEAST 40MIN BY EMS, THEN HE WAS CODED TWICE BY ME IN THE DEPARTMENT AND HE IS NOW INTUBATED, MAX DOPA, YET HR AND BP ARE STARTING TO DECREASE...FAMILY AWARE OF IMMINENT/IMPENDING DUE TO FAILURE TO RESPOND TO MAX SUPPORT. DURING HIS STAY PATIENT HAS NOT HAD ANY PUPILLARY REFLEX, NO CORNEAL REFLEX AND NO GAG REFLEX. DUE TO PATIENT ADVANCED LIVER CIRRHOSIS PATIENT'S SURVIVAL IS NOT EXPECTED DESPITE MAX SUPPORT.....FAMILY REQUESTED NO MORE CPR BE PERFORMED SHOULD HIS HEART STOP AGAIN....AT 2355 ASYSTOLE ON MONITOR DESPITE MAX DOPA, INTUBATION/VENT/ BROTHER AND MOTHER AT BEDSIDE. Critical Care Narrative CRITICAL CARE NOTE: With evaluation of the patient, labs, EKG, receipt of radiologic studies, administration of medications, reevaluation the patient and discussion of the patient with the admitting physicians, the total critical care time was [60] minutes. Time to perform other separately billable procedures was not included in the critical care time. Procedures Procedure Narrative After the risks and benefits were discussed the following procedure was performed: INTUBATION: The patient was put in optimal position for the procedure. Rapid sequence intubation was NOT initiated. The patient was intubated with a [8] cuffed endotracheal tube. Tube placement was confirmed by visualization of the tube and balloon passing through the cords, capnometry and subsequent chest x- ray. Breath sounds were equal and well aerated bilaterally postintubation. No breath sounds over stomach. Patient tolerated procedure well. Diagnosis Primary Impression: CARDIOPULMONARY ARREST Disposition: 20 Condition: Rene Sheets MD Aug 02, 2017 22:07
[2017-08-02] MEDS ORDERED: TERBUTALINE INJ 1 MG/ML AMP SQ PRN (22:15)
[2017-08-02] MEDS ORDERED: OCTREOTIDE INJ 50 MCG/ML AMP IV PUSH ONE (22:15)
[2017-08-02] MEDS ORDERED: DOPamine INJ PREMIX 500 ML IV PRN (22:15)
[2017-08-02 22:36] LABS: AUTOMATED NEUTROPHIL # 14.2 TH/MM3 (1.8-7.7); BASOPHIL # 0.1 TH/MM3 (0-0.2); BASOPHIL % 0.5 % (0.0-2.0); EOSINOPHIL # 0.3 TH/MM3 (0-0.4); EOSINOPHIL % 1.5 % (0.0-4.0); HEMATOCRIT 33.4 % (39.0-51.0); LYMPH % 19.2 % (9.0-44.0); LYMPHOCYTE # 4.1 TH/MM3 (1.0-4.8); MEAN CELL VOLUME 104.5 FL (80.0-100.0); MEAN CORPUSCULAR HEMOGLOBIN 32.7 PG (27.0-34.0); MEAN CORPUSCULAR HGB CONC 31.3 % (32.0-36.0); MONO % 12.9 % (0.0-8.0); NEUT % 65.9 % (16.0-70.0); PLATELET COUNT 113 TH/MM3 (150-450); RED CELL DISTRIBUTION WIDTH 14.5 % (11.6-17.2); WHITE BLOOD COUNT 21.5 TH/MM3 (4.0-11.0)
[2017-08-02 22:39] LABS: HEMO FLAGS AUTO DIFF
[2017-08-02 22:47] LABS: INTERNATIONAL NORMALIZED RATIO 1.6 RATIO; PROTHROMBIN TIME - PATIENT 18.1 SEC (9.8-11.6)
--- NOTE | 2017-08-02 22:54 | RADRPT ---
EXAM DATE/TIME: 08/02/2017 22:03 [facility] COMPARISON: CHEST SINGLE AP, June 23, 2017, 13:02. INDICATIONS : ET tube placement. MEDICAL HISTORY : Cirrhosis. Hepatitis. Seizures. HTN. Scoliosis. Ascites. Anxiety. Substance abuse mrsa SURGICAL HISTORY : colostomy; rotator cuff surgery ENCOUNTER: Initial ACUITY: 1 day PAIN SCORE: Non-responsive. LOCATION: Bilateral upper chest FINDINGS: Portable AP view of the chest demonstrates a normal-sized cardiac silhouette. Endotracheal tube tip i s at the clavicular head level measuring 3.9 cm in the fazal. Lungs are underinflated and there are linear opacities at both lung bases. No pleural effusion or pneumothorax is identified. Bones and sof t tissues demonstrate no acute finding. CONCLUSION: 1. Endotracheal tube in appropriate position with tip measuring 3.9 cm in the fazal. 2. Persistent linear opacities at the lung bases likely representing subsegmental atelectasis. Evan Sandoval MD on August 02, 2017 at 22:51 Board Certified Radiologist. This report was verified electronically.
[2017-08-02 22:55] LABS: BLOOD GAS BASE EXCESS -16.9 mmol/L (-2-2); BLOOD GAS CARBOXYHEMOGLOBIN 1.1 % (0-4); BLOOD GAS HCO3 13 mmol/L (22-26); BLOOD GAS O2 HGB SATURATION 60 % (90-100); BLOOD GAS OXYGEN CONTENT 5.2 Vol % (12.0-20.0); BLOOD GAS PCO2 57 mmHg (38-42); BLOOD GAS PO2 53 mmHG (61-120); BLOOD GAS TOTAL HGB 6.1 G/DL (12.0-16.0); CRITICAL VALUE YES; OXYGEN DEVICE VENTILATOR; TEMP CORR TO 98.6
[2017-08-02 22:56] LABS: DRAW SITE LT FOOT; FIO2 100 %; NUMBER OF ARTERIAL PUNCTURES 1; STAT YES
[2017-08-02 22:58] LABS: ACETAMINOPHEN 8.1 MCG/ML (10.0-30.0); ALCOHOL LESS THAN 3 MG/DL (0-5); ALKALINE PHOSPHATASE 103 U/L (45-117); ALT (GPT) 20 U/L (12-78); ANION GAP 22 MEQ/L (5-15); AST (GOT) 55 U/L (15-37); BLOOD UREA NITROGEN 32 MG/DL (7-18); CALCIUM-PROTEIN CORRECTED 9.2 MG/DL (8.5-10.1); CHLORIDE 101 MEQ/L (98-107); CREATINE KINASE 114 U/L (39-308); GLOMERULAR FILTRATION RATE 62 ML/MIN (>89); POTASSIUM 4.5 MEQ/L (3.5-5.1); SODIUM (NA) 135 MEQ/L (136-145); TOTAL BILIRUBIN ADULT 2.2 MG/DL (0.2-1.0)
[2017-08-02 23:12] LABS: BANDS 11 % (0-6); CORRECTED NUCLEATED RBC 1 /100 WBC (0-0); EOSINOPHILS 3 % (0-4); METAMYELOCYTES 2 % (0-1); NEUTROPHIL # MANUAL DIFF 16.3 TH/MM3 (1.8-7.7); PLATELET ESTIMATE SMEAR LOW (NORMAL); PLATELET MORPHOLOGY NORMAL (NORMAL); POLYS (SEG NEUTROPHILS) 63 % (16-70); SCAN/DIFF FINAL DIFF MANUAL; WBC DIFF SAMPLE 100
[2017-08-03 00:31] LABS: LACTIC ACID GHOST NOT REPORTABLE
[2017-08-03 02:39] VITALS: PULSE 90
--- NOTE | 2017-08-03 11:51 | EKG ---
Date Performed: 08/02/2017 Time Performed: 22:40:17 PTAGE: 42 years EKG: Normal Sinus rhythm Intraventricular conduction delay, which is new from the prior tracing Nonspecific ST abnormality AB NORMAL ECG PREVIOUS TRACING : 05/21/2017 17.16 R-wave progression has normalized from the prior tracing DOCTOR: Navjot Ramirez Interpretating Date/Time 08/03/2017 11:50:49
== END 2017-08-03 02:05 | disposition expired ==
LOC: NEPE 21:49
DX: I46.9 Cardiac arrest, cause unspecified (principal); R94.31 Abnormal electrocardiogram [ECG] [EKG]; K74.60 Unspecified cirrhosis of liver; I10 Essential (primary) hypertension
CPT/HCPCS: 31500; 36600; 51702; 71010; 80053; 80307; 82140; 82550; 82805; 83605; 84484; 85007; 85027; 85610; 85730; 87040; 92950; 93005; 96360; 99291; J0171; J1265; J7030